=== PATIENT | male | born 1940 | race Caucasian/White ===

== ENCOUNTER 2018-05-31 09:08 | Day surgery (SDC) | payer OTHER, MEDICARE ==
[2018-05-29 14:50] VITALS: BMI 22.1
[2018-05-31] MEDS ORDERED: PROPOFOL 20 ML ONE (09:37)
[2018-05-31] MEDS ORDERED: MIDAZOLAM HCL 2 MG/2 ML SINGLE DOSE VIAL ONE (09:37)
[2018-05-31] MEDS ORDERED: ONDANSETRON 4 MG/2 ML VIAL ONE (09:38)
[2018-05-31] MEDS ORDERED: KETOROLAC TROMETHAMINE 30 MG/1 ML VIAL ONE (09:38)
[2018-05-31] MEDS ORDERED: LIDOCAINE HCL/PF 2% SDV 5ML VIAL ONE (09:38)
[2018-05-31] MEDS ORDERED: LIDOCAINE HCL 2% (20ML MULTI-DOSE VIAL) NR ONE (09:39)
[2018-05-31] MEDS ORDERED: ACETAMINOPHEN 325 MG TABLET (FP) PO PRN (10:48)
[2018-05-31] MEDS ORDERED: oxyCODONE HCL 5 MG TABLET PO PRN ×2 (10:48)
[2018-05-31] MEDS ORDERED: ONDANSETRON 4 MG/2 ML VIAL IVPUSH PRN (10:48)
--- NOTE | 2018-05-31 10:58 | OP ---
DATE OF OPERATION: 05/31/2018 PREOPERATIVE DIAGNOSIS: Right carpal tunnel syndrome. POSTOPERATIVE DIAGNOSIS: Right carpal tunnel syndrome. OPERATIVE PROCEDURE: Right carpal tunnel release. SURGEON: Edward Mckeon MD ANESTHESIA: Local sedation. COMPLICATIONS: None. ESTIMATED BLOOD LOSS: Minimal. INDICATION FOR PROCEDURE: The patient is a 77-year-old male with above findings indicated for operative treatment. Risks, benefits, and alternatives were discussed with patient at length. Proper informed consent was obtained. DESCRIPTION OF PROCEDURE: After proper identification of the patient and the correct operative site, patient was brought to the operating room and placed supine on the operating table. All bony prominences were well padded. Sedation was given by the anesthesiologist. Local anesthesia was given with 2% lidocaine. Right upper extremity was prepped and draped in usual sterile fashion. A well-padded tourniquet was placed over the sterile prep. Esmarch bandage was used to exsanguinate right upper quadrant. Tourniquet was inflated to 250 mmHg. A longitudinal incision was made over the proximal aspect of the palm. Incision was taken sharply through skin with blunt and sharp dissection through subcutaneous tissue. Palmar fascia was divided longitudinally. Transverse carpal ligament was divided longitudinally. This was done in conjunction with release of the distal 4 cm of the antebrachial fascia under direct visualization with loupe magnification. This provided complete release of the median nerve of the wrist. Wound was irrigated with saline and repaired with 5-0 nylon suture. Sterile dressings were applied. Patient was brought to the recovery room in stable condition. He tolerated the procedure well. Jen VALENTINE/[id number]
[2018-05-31] MEDS ORDERED: LACTATED RINGERS SOLUTION 1,000 ML IV SCH (11:00)
[2018-05-31 11:08] VITALS: BP 102/54; PULSE 52; TEMP 97.1
== END 2018-05-31 11:12 | disposition home or self-care (01) ==
LOC: FASU 09:08
PROVIDERS: ATTEND Orthopaedic Surgery Hand Surgery
PROC: 01N50ZZ Release Median Nerve, Open Approach (ICD-10-PCS; principal; 2018-05-31 10:12)
DX: G56.01 Carpal tunnel syndrome, right upper limb (principal)

== ENCOUNTER 2018-06-28 08:49 | Day surgery (SDC) | payer OTHER, MEDICARE ==
[2018-06-16 13:56] VITALS: BMI 22.1
[2018-06-28] MEDS ORDERED: SUCCINYLCHOLINE CHLORIDE 200 MG/10 ML VIAL ONE (10:21)
[2018-06-28] MEDS ORDERED: MIDAZOLAM HCL 2 MG/2 ML SINGLE DOSE VIAL ONE (10:21)
[2018-06-28] MEDS ORDERED: PROPOFOL 20 ML ONE (10:21)
[2018-06-28] MEDS ORDERED: ACETAMINOPHEN 325 MG TABLET (FP) PO PRN (11:40)
[2018-06-28] MEDS ORDERED: oxyCODONE HCL 5 MG TABLET PO PRN (11:40)
[2018-06-28] MEDS ORDERED: ONDANSETRON 4 MG/2 ML VIAL IVPUSH PRN (11:40)
[2018-06-28] MEDS ORDERED: LACTATED RINGERS SOLUTION 1,000 ML IV SCH (11:45)
[2018-06-28] MEDS ORDERED: BUPIVACAINE HCL/PF 0.5% (5MG/ML) 10 ML VIAL ONE (11:54)
[2018-06-28 12:43] VITALS: PULSE 52
[2018-06-28 13:23] VITALS: BP 122/60; TEMP 97.9
--- NOTE | 2018-07-03 12:39 | OP ---
DATE OF OPERATION: 06/28/2018 PREOPERATIVE DIAGNOSIS: Left carpal tunnel syndrome. POSTOPERATIVE DIAGNOSIS: Left carpal tunnel syndrome. OPERATIVE PROCEDURE: Left carpal tunnel release. SURGEON: Edward Hines MD ANESTHESIA: Local sedation. COMPLICATIONS: None. ESTIMATED BLOOD LOSS: Minimal. INDICATION FOR PROCEDURE: The patient is a 77-year-old male with above findings indicated for operative treatment. Risks, benefits, and alternatives were discussed with patient at length. Proper informed consent was obtained. DESCRIPTION OF PROCEDURE: After proper identification of the patient and the correct operative site, patient was brought to the operating room and placed supine on the operating table. All bony prominences were well padded. Sedation and local anesthesia were. Left upper extremity was prepped and draped in usual sterile fashion. A well-padded tourniquet was placed over the sterile prep. Esmarch bandage was used to exsanguinate right upper quadrant. Tourniquet was inflated to 250 mmHg. A longitudinal incision was made over the proximal aspect of the palm. Incision was taken sharply through skin with blunt and sharp dissection through subcutaneous tissue. Palmar fascia was divided longitudinally. Transverse carpal ligament was divided longitudinally along with distal 4 cm of the antebrachial fascia under direct visualization with loupe magnification. This provided complete release of the median nerve of the wrist. Wound was irrigated with saline and repaired with 5-0 nylon suture. Sterile dressings were applied. Patient was brought to the recovery room in stable condition. He tolerated the procedure well. EDWARD HINES M.D. NICOLE/[id number]
== END 2018-06-28 13:23 | disposition home or self-care (01) ==
LOC: FASU 08:49
PROVIDERS: ATTEND Orthopaedic Surgery Hand Surgery
PROC: 01N50ZZ Release Median Nerve, Open Approach (ICD-10-PCS; principal; 2018-06-28 10:30)
DX: G56.02 Carpal tunnel syndrome, left upper limb (principal)

== ENCOUNTER 2019-05-19 07:59 | Observation (INO) | payer MEDICARE, OTHER ==
[2019-05-19 08:12] VITALS: TEMP 98.1; BMI 25.6
[2019-05-19 09:04] LABS: BASO % 0.3 % (0-2.0); EOS % 1.2 % (0-4.5); HEMATOCRIT 35.9 % (35.4-49); HEMOGLOBIN 12.1 GM/dL (11.7-16.9); LYMPH % 19.2 % (8-40); MCH 30.3 pg (25.7-33.7); MCHC 33.6 g/dl (32.0-35.9); MEAN CELL VOLUME 90.1 fl (80-96); MEAN PLT VOLUME 9.1 fl (7.5-11.1); MONO % 8.4 % (3.8-10.2); NEUT % 70.9 % (42.8-82.8); PLATELET COUNT 227 K/MM3 (134-434); RBC 3.99 M/mm3 (4.00-5.60); WHITE BLOOD COUNT 9.9 K/mm3 (4.0-10.0)
[2019-05-19] MEDS ORDERED: ASPIRIN 325 MG TABLET PO ONE (09:21)
[2019-05-19 09:25] LABS: BILIRUBIN,TOTAL 0.3 mg/dL (0.2-1); BLOOD UREA NITROGEN 44.8 mg/dL (7-18); CALCIUM 8.1 mg/dL (8.5-10.1); CREATININE 0.9 mg/dL (0.55-1.3); POTASSIUM 4.9 mmol/L (3.5-5.1); TOT PROT 6.5 g/dl (6.4-8.2)
--- NOTE | 2019-05-19 09:31 | PDOC ---
Documentation entered by Aneta Landeros SCRIBE, acting as scribe for Darline Dickson MD. Darline Dickson MD: This documentation has been prepared by the Tigre munoz Adrianna, SCRIBE, under my direction and personally reviewed by me in its entirety. I confirm that the documentation accurately reflects all work, treatment, procedures, and medical decision making performed by me. Attending Attestation - Resident Resident Name: Trino White - ED Attending Attestation I have performed the following: I have examined & evaluated the patient, The case was reviewed & discussed with the resident, I agree w/resident's findings & plan, Exceptions are as noted - HPI HPI: 05/19/19 09:28 Finally went to get this 78-year-old male history of recently diagnosed dementia uncertain type per the patient CAD hypertension one prior stent 15 years ago. Presents today complaining of chest pain states it awoke him out of his sleep around 2 AM lasted for several hours. Describes as a muscle soreness or chest wall soreness however when he pushed on his chest he did not feel that it was reproducible. He did have similar feelings 1 month ago following a normal exercise routine and at that time felt it was muscular skeletal. States that his symptoms did remind him of his prior OR however he did not have the associated shortness of breath. Patient has noticed increased leg swelling over the last few days denies exertional dyspnea or shortness of breath. But did have associated diaphoresis this episode of chest pain. 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 Patient states he has been sleeping sitting up recently simply because he does not have a bed but denies any orthopnea or nocturnal dyspnea was given aspirin 325 by ambulance - Physicial Exam PE: 05/19/19 09:29 Awake alert no acute distress lungs are clear mild decreased breath sounds at the bases. No wheezes no crackles heart is regular with any murmurs rubs or gallops. Abdomen is soft and nontender extremities are noted for bilateral peripheral edema 2+ with pitting up to the mid williamson symmetric pulses 2+ bilaterally neurologically patient is awake alert oriented x3. Does have difficulty with remembering certain words and is easily distracted when answering questions - Medical Decision Making 05/19/19 09:30 78-year-old male history of dementia hypertension CAD here today complaining of peripheral edema and chest pain with associated diaphoresis. Patient is high risk for recurrent OR plan CBC CMP chest x-ray EKG was already given aspirin. Chest x-ray to rule out pleural effusion or CHF differential includes renal failure liver abnormalities patient will likely require admission to telemetry overnight rule out ACS Heart Score/ECG Review #1 General ECG Interpretation: Sinus Rhythm, Normal Rate, Normal Intervals, No acute ischemic changes Compared to previous ECG there are: Other (TWI III, AVF)
--- NOTE | 2019-05-19 09:35 | PDOC ---
History of Present Illness - General Chief Complaint: Chest Pain Stated Complaint: CHEST PAIN Time Seen by Provider: 05/19/19 08:04 - History of Present Illness Initial Comments: 05/19/19 09:22 This is a 78 year old male with PMH significant for HTN, RLS, Essential tremors , and dementia. He now presents with complaints of diffuse chest discomfort that he noticed when he woke up at 3AM. He denies pain and states that it is more of a tightness, rated 2/10 in intensity, constant, non-radiating, unrelated to exertion or breathing, with no tenderness to palpation, and no aggravating or alleviating factors. He also noticed B/L edema in lower extremities, which he states began this morning. He had a PCI with 1 stent palced 15 years ago at [facility], and states that the pain he had at that time was worse that what he is experiencing now.He denies any associated SOB, palpitations, nausea, vomiting, diarrhea, headaches, dizziness, recent illnesses , or recent medication changes. He takes Sildenafil, Mirapax, and medication for his HTN (does not recall name) and is not currently on any anticoagulants. He has had an occasional dry cough for months, as well as constipation, polyuria and urinary urgency for years. He was recently diagnosed with some form of dementia, but does not know what kind. He has smoked marijuana for the past 60 years, and currently smokes approximately 2x a week. Denies smoking, drinking alochol, or any other drug use. No family history of cardiac disease. Past History - Past Medical History Allergies/Adverse Reactions: Allergies Allergy/AdvReac Type Severity Reaction Status Date / Time walnut Allergy Intermediate Swelling Verified 06/28/18 12:03 walnuts Allergy Intermediate Swelling Uncoded 06/28/18 09:20 Home Medications: Ambulatory Orders Nebivolol [Bystolic -] 5 mg PO HS 05/29/18 Pramipexole Di-HCl [Mirapex] 1 mg PO HS 05/29/18 Primidone [Mysoline -] 50 mg PO HS 05/29/18 Silodosin [Rapaflo] 8 mg PO HS 05/29/18 Anemia: No Asthma: No Cancer: No Cardiac Disorders: Yes (s/p CO 2001) CVA: No COPD: No CHF: No Dementia: No Diabetes: No GI Disorders: Yes (BPH) Disorders: No HTN: Yes Hypercholesterolemia: Yes Liver Disease: No Seizures: No Thyroid Disease: No - Surgical History Abdominal Surgery: No Appendectomy: No Cardiac Surgery: No Cholecystectomy: No Lung Surgery: No Neurologic Surgery: No Orthopedic Surgery: Yes (Back surgery x2,Rightr Bicep Tendon Repair) - Immunization History Immunization Up to Date: No - Psycho Social/Smoking Cessation Hx Smoking History: Former smoker Have you smoked in the past 12 months: No If you are a former smoker, when did you quit?: 1974 Information on smoking cessation initiated: No Hx Alcohol Use: No Drug/Substance Use Hx: No Substance Use Type: None Hx Substance Use Treatment: No Review of Systems - Review of Systems Constitutional: No: Symptoms Reported, See HPI, Chills, Diaphoresis, Fever, Loss of Appetite, Malaise, Night Sweats, Weakness, Weight Stable, Unintentional Wgt. Loss, Unexplained wgt Loss, Other HEENTM: No: Symptoms Reported, See HPI, Eye Pain, Blurred Vision, Tearing, Recent change in vision, Double Vision, Cataracts, Ear Pain, Ocular Prothesis, Ear Discharge, Nose Pain, Nose Congestion, Tinnitus, Nose Bleeding, Hearing Loss , Throat Pain, Throat Swelling, Mouth Pain, Dental Problems, Difficulty Swallowing, Mouth Swelling, Other Respiratory: Yes: Cough. No: Symptoms reported, See HPI, Orthopnea, Shortness of Breath, SOB with Exertion, SOB at Rest, Stridor, Wheezing, Productive cough, Hemoptysis, Other Cardiac (ROS): Yes: Chest Tightness. No: Symptoms Reported, See HPI, Chest Pain , Edema, Irregular Heart Rate, Lightheadedness, Palpitations, Syncope, Other ABD/GI: Yes: Constipated. No: Symptoms Reported, See HPI, Abdominal Distended, Abd. Pain w/ defecation, Blood Streaked Bowels, Diarrhea, Difficulty Swallowing , Nausea, Poor Appetite, Poor Fluid Intake, Rectal Bleeding, Vomiting, Indigestion, Abdominal cramping, Tarry Stools, Other : Yes: Frequency, Urgency. No: Symptoms Reported, See HPI, Burning, Dysuria, Discharge, Flank Pain, Hematuria, Incontinence, Pain, Testicular Mass, Testicular Swelling, Lesions, Testicular Pain, Other Musculoskeletal: No: Symptoms Reported, See HPI, Back Pain, Gout, Joint Pain, Joint Swelling, Muscle Pain, Muscle Weakness, Neck Pain, Joint Stiffness, Other Neurological: No: Symptoms reported, See HPI, Headache, Numbness, Paresthesia, Pre-Existing Deficit, Seizure, Tingling, Tremors, Weakness, Unsteady Gait, Ataxia, Dizziness, Other Psychiatric: No: Anxiety, Depression, Frequent Crying, Stressors, Sleep Pattern Change, Emotional Problems, Mood Swings, Change in Appetite, Other *Physical Exam - Vital Signs Last Vital Signs Temp Pulse Resp BP Pulse Ox 98.1 F 62 18 133/70 97 05/19/19 08:06 05/19/19 08:06 05/19/19 08:06 05/19/19 08:06 05/19/19 08:06 - Physical Exam Comments:: 05/19/19 09:38 General: AOx3, lying comfortable in bed, pleasant and cooperative Eyes: ROSANNA, EOM intact Oropharynx: Normal mucosa, no lesions Lungs: Clear B/L CVS: RRR, no murmurs GI: Soft, non tender, non distended, normoactive bowel sounds Extremities: 2+ pitting edema, no erythema, no calf tenderness Neuro: Motor 5/5 B/L, sensations intact Heart Score/ECG Review - Age Age: </= 45 - Risk Factors Risk Factors Heart Score: Yes Hx Hypertension Based on the list above the patient has:: 1-2 risk factors - ECG Intrepretation Comment:: 05/19/19 09:39 Regular rate and rhythm, TWI in Lead III, no ST changes ED Treatment Course - LABORATORY CBC & Chemistry Diagram: 05/19/19 12:15 05/19/19 07:40 - ADDITIONAL ORDERS Additional order review: 05/19/19 07:40 RBC 3.99 L MCV 90.1 MCHC 33.6 RDW 14.0 MPV 9.1 Neutrophils % 70.9 Lymphocytes % 19.2 Monocytes % 8.4 Eosinophils % 1.2 Basophils % 0.3 - RADIOLOGY Radiology Studies Ordered: Category Date Time Status CHEST X-RAY PORTABLE* [RAD] AM Radiology 05/20/19 06:00 Ordered Medical Decision Making - Medical Decision Making 05/19/19 09:40 78 male with diffuse chest tightness and TWI on lead III, and sudden onset B/L LE edema. - Will r/o ACS vs CHF exacerbation, PE unlikely due to B/L swelling and lack of SOB, tachypnea, tachycardia. - CBC, CMP - Mg - BNP - Trop - CXR - ASA 324 - Wll contact PCP Dr. Vickey Shay to get mroe details about patient's dementia diagnosis 05/19/19 09:48 - Trop negative - BUN 44.8, Cr 0.9 05/19/19 10:[address] Shay: - HbA1c 6.3 3 weeks ago - CMP 3 weeks ago showed BUN/Cr 26/0.9 (44.8/0.9 now) - Denies any history of CHF or leg swelling - Diagnosed with mild Alzheimer's - Had gross hematuria few months ago, is being worked up by Dr. Clark 05/19/19 11:45 - Will admit. Patient signed out to Drs. Cullen and Breanne Discharge - Discharge Information Problems reviewed: Yes Clinical Impression/Diagnosis: Chest tightness, Edema, lower extremity Condition: Guarded - Admission Yes - Follow up/Referral - Patient Discharge Instructions - Post Discharge Activity
[2019-05-19 09:37] LABS: INR 1.08 (0.83-1.09); PROTHROMBIN TIME (PATIENT) 12.8 SEC (9.7-13.0)
[2019-05-19 09:40] LABS: ACTIVATED PTT 31.3 SECONDS (25.2-36.5)
[2019-05-19 10:10] LABS: MAGNESIUM 2.4 mg/dL (1.8-2.4); N-TERMINAL BNP 563.8 pg/ml (5-450)
[2019-05-19] MEDS ORDERED: PRAMIPEXOLE DIHYDROCHLORIDE 1 MG TABLET PO ONE (10:33)
--- NOTE | 2019-05-19 11:49 | CON.CARD ---
Consult Consult Specialty:: Cardiology Referred by:: Medicine Reason for Consultation:: chest tightness - History of Present Illness Chief Complaint: chest tightness History of Present Illness: 78M h/o HTN, RLS, tremor, dementia, CAD s/p stent 15 years ago p/w chest discomfort. Started overnight around 3 AM, felt tight, nonradiating. no dyspnea , palps, dizziness. Nonreproducible. Noticed lower ext edema this morning also. Currently no chest pain, palps, dizziness, dyspnea - Alcohol/Substance Use Hx Alcohol Use: No - Smoking History Smoking history: Former smoker Have you smoked in the past 12 months: No If you are a former smoker, when did you quit?: 1974 Home Medications - Allergies Allergies/Adverse Reactions: Allergies Allergy/AdvReac Type Severity Reaction Status Date / Time walnut Allergy Intermediate Swelling Verified 06/28/18 12:03 walnuts Allergy Intermediate Swelling Uncoded 06/28/18 09:20 - Home Medications Home Medications: Ambulatory Orders Nebivolol [Bystolic -] 5 mg PO HS 05/29/18 Pramipexole Di-HCl [Mirapex] 1 mg PO HS 05/29/18 Primidone [Mysoline -] 50 mg PO HS 05/29/18 Silodosin [Rapaflo] 8 mg PO HS 05/29/18 Family Medical History Family History: Unremarkable Review of Systems - Review of Systems Constitutional: reports: No Symptoms Eyes: reports: No Symptoms HENT: reports: No Symptoms Neck: reports: No Symptoms Cardiovascular: reports: No Symptoms Respiratory: reports: No Symptoms Gastrointestinal: reports: No Symptoms Genitourinary: reports: No Symptoms Musculoskeletal: reports: No Symptoms Integumentary: reports: No Symptoms Neurological: reports: No Symptoms Endocrine: reports: No Symptoms Hematology/Lymphatic: reports: No Symptoms Psychiatric: reports: No Symptoms Vital Signs: Vital Signs Temperature 98.1 F 05/19/19 08:06 Pulse Rate 62 05/19/19 08:06 Respiratory Rate 18 05/19/19 08:06 Blood Pressure 133/70 05/19/19 08:06 O2 Sat by Pulse Oximetry (%) 97 05/19/19 08:06 Constitutional: Yes: No Distress, Calm Eyes: Yes: Conjunctiva Clear, EOM Intact HENT: Yes: Atraumatic, Normocephalic Neck: Yes: Supple, Trachea Midline Respiratory: Yes: Regular, CTA Bilaterally Gastrointestinal: Yes: Normal Bowel Sounds, Soft Cardiovascular: Yes: Regular Rate and Rhythm JVD: No Edema: Yes Edema: LLE: Trace, RLE: Trace Integumentary: No: Jaundice Neurological: Yes: Alert, Oriented Psychiatric: No: Agitated - Other Data Labs, Other Data: CBC, BMP 05/19/19 07:40 05/19/19 07:40 INR, PTT INR 1.08 (0.83-1.09) 05/19/19 07:40 Troponin, BNP 05/19/19 05/19/19 07:40 07:40 Troponin I < 0.02 B-Natriuretic Peptide 563.8 H Troponin, BNP 05/19/19 05/19/19 07:40 07:40 Troponin I < 0.02 B-Natriuretic Peptide 563.8 H Assessment/Plan EKG: sinus xenia, no ischemic changes CXR: no congestion tele: sinus Chest pain, history of CAD - not on aspirin at home, start aspirin 81 mg daily - trop neg x 1, EKG no ischemic changes - trend trop, monitor on tele, less likely ACS - BNP >500, trace edema this AM, however no dyspnea, orthopnea, CXR no congestion. hold diuretic for now - echo ordered - cont bystolic - not on statin due to prior intolerance HTN - cont bystolic dementia, tremors - manage per primary
[2019-05-19] MEDS ORDERED: NEBIVOLOL 5 MG TABLET (FP) PO SCH ×2 (12:00→22:00)
[2019-05-19 12:32] LABS: BASO % 0.5 % (0-2.0); EOS % 0.8 % (0-4.5); HEMOGLOBIN 13.1 GM/dL (11.7-16.9); LYMPH % 21.4 % (8-40); MCH 29.9 pg (25.7-33.7); MCHC 32.7 g/dl (32.0-35.9); MEAN CELL VOLUME 91.4 fl (80-96); MEAN PLT VOLUME 9.3 fl (7.5-11.1); MONO % 7.8 % (3.8-10.2); NEUT % 69.5 % (42.8-82.8); PLATELET COUNT 247 K/MM3 (134-434); RBC 4.37 M/mm3 (4.00-5.60); RDW 14.2 % (11.9-15.9); WHITE BLOOD COUNT 11.5 K/mm3 (4.0-10.0)
--- NOTE | 2019-05-19 14:55 | EKG ---
Test Reason : Blood Pressure : / mmHG Vent. Rate : 057 BPM Atrial Rate : 057 BPM P-R Int : 168 ms QRS Dur : 084 ms QT Int : 428 ms P-R-T Axes : 036 001 005 degrees QTc Int : 416 ms SINUS BRADYCARDIA POSSIBLE LEFT ATRIAL ENLARGEMENT BORDERLINE ECG NO PREVIOUS ECGS AVAILABLE Confirmed by Altagracia Moreno ([id number]) on 05/19/2019 2:55:37 PM Referred By: Confirmed By:Altagracia Moreno
--- NOTE | 2019-05-19 15:01 | HP ---
CHIEF COMPLAINT: B/L LE Edema PCP: Dr. Vickey Shay HISTORY OF PRESENT ILLNESS: 78 y/o M with PMHx CAD (s/p stent x1), HTN, Restless leg syndrome, Alzheimers Dementia, Skin Ca (Unclear which type however had excision) presents with lower extremity edema accompanied by chest pain. Patient has recently moved to the area and has not seen his Cardio in some time. He mentions waking early this AM with suddent onsent b/l LE edema. This was accompanied by a 2/10 diffuse chest discomfort that was constant, without radiation. He is unable to identify any triggerring or relieving factors but endorse it was not related to exertion or breathing. He has previously had a similar chest discomfort that was reproducible with palpation however todays pain was not prompting him to visit the ED. During my interview patient said the chest pain had resolved. Patient recently had an episode of gross hematuria for which he follows with Dr. Clark. Denies any associated fevers, chills, SOB, palpitations, nausea, vomiting, diarrhea, constipation, dizziness. Denies any recent sick contacts, travel or recent medication changes. ER course was notable for: (1) (2) (3) Recent Travel: Denies PAST MEDICAL HISTORY: As above PAST SURGICAL HISTORY: Cardiac Stent x 1, Tonsillectomy, Spine sx X 2 Social History: Smoking: Smoke Marijuana currently, Smoked tobacco from ages [age] Alcohol: Denies Drugs: Smokes Marijuana, uses CBD oil Allergies walnut Allergy (Intermediate, Verified 06/28/18 12:03) Swelling walnuts Allergy (Intermediate, Uncoded 06/28/18 09:20) Swelling HOME MEDICATIONS: Home Medications Medication Instructions Recorded Nebivolol [Bystolic -] 5 mg PO HS 05/29/18 Pramipexole Di-HCl [Mirapex] 1 mg PO HS 05/29/18 Primidone [Mysoline -] 50 mg PO HS 05/29/18 Silodosin [Rapaflo] 8 mg PO HS 05/29/18 REVIEW OF SYSTEMS As above PHYSICAL EXAMINATION Vital Signs - 24 hr 05/19/19 08:06 Temperature 98.1 F Pulse Rate 62 Respiratory 18 Rate Blood Pressure 133/70 O2 Sat by Pulse 97 Oximetry (%) GENERAL: A&Ox3, NAD HEAD: NCAT EYES: PERRL, EOMI ENT: Moist mucous membranes. NECK: Supple, No JVD LUNGS: CTAB. No wheezes, no crackles. HEART: Regular rate and rhythm, normal S1 and S2 without murmur ABDOMEN: Soft, nontender, not distended, + bowel sounds, no guarding, no rebound EXTREMITIES: 1+ edema. NEUROLOGICAL: Cranial nerves II-XII intact. SKIN: Warm, dry Laboratory Results - last 24 hr 05/19/19 05/19/19 05/19/19 07:40 07:40 07:40 WBC 9.9 RBC 3.99 L Hgb 12.1 Hct 35.9 MCV 90.1 MCH 30.3 MCHC 33.6 RDW 14.0 Plt Count 227 MPV 9.1 Absolute Neuts (auto) 7.0 Neutrophils % 70.9 Lymphocytes % 19.2 Monocytes % 8.4 Eosinophils % 1.2 Basophils % 0.3 Nucleated RBC % 0 PT with INR 12.80 INR 1.08 PTT (Actin FS) 31.3 Sodium 138 Potassium 4.9 Chloride 106 Carbon Dioxide 24 Anion Gap 8 BUN 44.8 H Creatinine 0.9 Est GFR (CKD-EPI)AfAm 95.15 Est GFR (CKD-EPI)NonAf 82.09 Random Glucose 117 H Calcium 8.1 L Magnesium 2.4 Total Bilirubin 0.3 AST 36 ALT 40 Alkaline Phosphatase 61 Creatine Kinase Creatine Kinase Index CK-MB (CK-2) Troponin I B-Natriuretic Peptide 563.8 H Total Protein 6.5 Albumin 3.0 L 05/19/19 05/19/19 07:40 12:15 WBC 11.5 H RBC 4.37 Hgb 13.1 Hct 40.0 MCV 91.4 MCH 29.9 MCHC 32.7 RDW 14.2 Plt Count 247 MPV 9.3 Absolute Neuts (auto) 8.0 Neutrophils % 69.5 Lymphocytes % 21.4 Monocytes % 7.8 Eosinophils % 0.8 Basophils % 0.5 Nucleated RBC % 0 PT with INR INR PTT (Actin FS) Sodium Potassium Chloride Carbon Dioxide Anion Gap BUN Creatinine Est GFR (CKD-EPI)AfAm Est GFR (CKD-EPI)NonAf Random Glucose Calcium Magnesium Total Bilirubin AST ALT Alkaline Phosphatase Creatine Kinase 205 Creatine Kinase Index 1.1 CK-MB (CK-2) 2.4 Troponin I < 0.02 B-Natriuretic Peptide Total Protein Albumin Active Medications Aspirin (Asa -) 81 mg PO DAILY KIRA Nebivolol (Bystolic -) 5 mg PO DAILY KIRA Non-Formulary Medication (Silodosin [Rapaflo]) 8 mg PO HS KIRA Pramipexole Dihydrochloride (Mirapex -) 1 mg PO HS KIRA Primidone (Mysoline -) 50 mg PO HS KIRA ASSESSMENT/PLAN: 78 y/o M with PMHx CAD (s/p stent x1), HTN, Restless leg syndrome, Alzheimers Dementia, Skin Ca (Unclear which type however had excision) presents with lower extremity edema accompanied by chest pain. #Chest Discomfort -Less likely ACS however will r/o in the setting of CAD hx -B/L LE edema + slightly elevated BNP however less likely Acute CHF exacerbation given no Orthopnea, decreased exercise tolerance and no JVD or crackles and CXR without b/l effusions -Trop < 0.02 x 1, trend -EKG: Sinus bradycardia, VR 57, QTc 416 -Cardio (Dr. Ribeiro) Consulted, appreciate rec's, will hold diuresis -Given 325mg ASA in ED; Continue on 81 daily -Echo -Will reach out to [facility] and PCP to obtain records -Will discuss with cardio if patient would benefit from ACEi. Not on statin bc not tolerated previously #HTN -Continue home dose Bystolic #Alzheimers Dementia -Continue home meds #FEN -No standing fluids -Replete lytes PRN -Sodium Controlled diet #PPx -DVT: SCDs Dispo: Tele-Obs Visit type - Emergency Visit Emergency Visit: Yes ED Registration Date: 05/19/19 Care time: The patient presented to the Emergency Department on the above date and was hospitalized for further evaluation of their emergent condition. - New Patient This patient is new to me today: Yes Date on this admission: 05/19/19 - Critical Care Critical Care patient: No ATTENDING PHYSICIAN STATEMENT I saw and evaluated the patient. I reviewed the resident's note and discussed the case with the resident. I agree with the resident's findings and plan as documented. SUBJECTIVE: OBJECTIVE: ASSESSMENT AND PLAN:
--- NOTE | 2019-05-19 15:30 | PN ---
Teaching Attending Note Name of Resident: Mya Cullen ATTENDING PHYSICIAN STATEMENT I saw and evaluated the patient. I reviewed the resident's note and discussed the case with the resident. I agree with the resident's findings and plan as documented with exceptions below. SUBJECTIVE: 78 yom with PMhx of CAD (s/p reported PCI x1 15 years ago), HTN, Restless leg syndrome, Alzheimers Dementia, Skin Ca (Unclear which type however had excision) , BPH/recent hematuria reports waking up around 3 Am today with swelling of both legs, inability to fit shoes followed by generalized chest discomfort, prompting him to come to the ED. Chest pain resolved after ASA 325 mg in the ED. Denies any recent fevers, chills, orthopnea, PND, weight gain, new cough, abdominal or urinary symptoms or recent h/o exertional chest pain or dyspnea. Currently no pain or concerns. OBJECTIVE: Vital Signs Period Temp Pulse Resp BP Sys/Townsend Pulse Ox Last 24 Hr 98.1 F 62 18 133/70 97 Intake & Output 05/16/19 05/17/19 05/18/19 05/19/19 23:59 23:59 23:59 23:59 Weight 140 lb GENERAL: Awake, alert, and fully oriented, in no acute distress. HEAD: Normal with no signs of trauma. EYES: Pupils equal, round and reactive to light, extraocular movements intact, sclera anicteric, conjunctiva clear. No lid lag. EARS, NOSE, THROAT: Ears normal, nares patent, oropharynx clear without exudates. Moist mucous membranes. NECK: Normal range of motion, supple, no JVD or neck vein distension LUNGS: Breath sounds equal, clear to auscultation bilaterally. No wheezes, and no crackles. No accessory muscle use. HEART: Regular rate and rhythm, normal S1 and S2 ABDOMEN: Soft, nontender, not distended, normoactive bowel sounds, no guarding, no rebound, no masses. No hepatomegaly or splenomegaly appreciated. MUSCULOSKELETAL: Normal range of motion at all joints. No bony deformities or tenderness. No CVA tenderness. UPPER EXTREMITIES: 2+ pulses, warm, well-perfused. No cyanosis. No clubbing. No peripheral edema. LOWER EXTREMITIES: 2+ lower extremity pitting edema, pos pules, no warmth/ erythema or tenderness noted, neg Jose's sign NEUROLOGICAL: AA, oriented to self, place, facial symmetry, speech normal, Cranial nerves II-XII intact. gait not observed PSYCHIATRIC: Cooperative. Good eye contact. Appropriate mood and affect. SKIN: Warm, dry, normal turgor, no rashes or lesions noted, normal capillary refill. Home Medications Medication Instructions Recorded Nebivolol [Bystolic -] 5 mg PO HS 05/29/18 Pramipexole Di-HCl [Mirapex] 1 mg PO HS 05/29/18 Primidone [Mysoline -] 50 mg PO HS 05/29/18 Silodosin [Rapaflo] 8 mg PO HS 05/29/18 Active Medications Aspirin (Asa -) 81 mg PO DAILY KIRA Nebivolol (Bystolic -) 5 mg PO DAILY KIRA Non-Formulary Medication (Silodosin [Rapaflo]) 8 mg PO HS KIRA Pramipexole Dihydrochloride (Mirapex -) 1 mg PO HS KIRA Primidone (Mysoline -) 50 mg PO HS [facility] Laboratory Results - last 24 hr 05/19/19 05/19/19 05/19/19 07:40 07:40 07:40 WBC 9.9 RBC 3.99 L Hgb 12.1 Hct 35.9 MCV 90.1 MCH 30.3 MCHC 33.6 RDW 14.0 Plt Count 227 MPV 9.1 Absolute Neuts (auto) 7.0 Neutrophils % 70.9 Lymphocytes % 19.2 Monocytes % 8.4 Eosinophils % 1.2 Basophils % 0.3 Nucleated RBC % 0 PT with INR 12.80 INR 1.08 PTT (Actin FS) 31.3 Sodium 138 Potassium 4.9 Chloride 106 Carbon Dioxide 24 Anion Gap 8 BUN 44.8 H Creatinine 0.9 Est GFR (CKD-EPI)AfAm 95.15 Est GFR (CKD-EPI)NonAf 82.09 Random Glucose 117 H Calcium 8.1 L Magnesium 2.4 Total Bilirubin 0.3 AST 36 ALT 40 Alkaline Phosphatase 61 Creatine Kinase Creatine Kinase Index CK-MB (CK-2) Troponin I B-Natriuretic Peptide 563.8 H Total Protein 6.5 Albumin 3.0 L 05/19/19 05/19/19 07:40 12:15 WBC 11.5 H RBC 4.37 Hgb 13.1 Hct 40.0 MCV 91.4 MCH 29.9 MCHC 32.7 RDW 14.2 Plt Count 247 MPV 9.3 Absolute Neuts (auto) 8.0 Neutrophils % 69.5 Lymphocytes % 21.4 Monocytes % 7.8 Eosinophils % 0.8 Basophils % 0.5 Nucleated RBC % 0 PT with INR INR PTT (Actin FS) Sodium Potassium Chloride Carbon Dioxide Anion Gap BUN Creatinine Est GFR (CKD-EPI)AfAm Est GFR (CKD-EPI)NonAf Random Glucose Calcium Magnesium Total Bilirubin AST ALT Alkaline Phosphatase Creatine Kinase 205 Creatine Kinase Index 1.1 CK-MB (CK-2) 2.4 Troponin I < 0.02 B-Natriuretic Peptide Total Protein Albumin CXR results and images reviewed, no acute process, promnent aortic knuckle EKG NSR, T inversion in III, v1 ASSESSMENT AND PLAN: 78 yom with PMHx of CAD (s/p reported PCI x1 15 years ago), HTN, Restless leg syndrome, Alzheimers Dementia, Skin Ca (Unclear which type however had excision) , BPH/recent hematuria admitted with an episode of chest pain and LE edema -Chest pain -LE edema -CAD s/p reported PCI 15 years ago -HTN -Restless Leg Syndrome -Alzheimer's dementia -Reported Skin Ca -BPH/recent hematuria Plan: Cardiology input noted. telemetry, r/o ACS, 2D echo ASA, bystolic. Reports taken off crestor given severe muscle cramps. Check lipid panel. Clinically does not look in CHF. Hold off on lasix. DVTPPX lovenox Dispo admit to telemetry obs Discussed with patient, care co-ordinated with ED/cardiology total admit time 55 min .
[2019-05-19 16:14] VITALS: BP 119/67; PULSE 64
--- NOTE | 2019-05-19 17:12 | DS ---
Physical Exam: SUBJECTIVE: Patient seen and examined, Please refer to [facility]. OBJECTIVE: Vital Signs Period Temp Pulse Resp BP Sys/Townsend Pulse Ox Last 24 Hr 98.1 F 62-64 18-20 119-133/67-70 97-97 PHYSICAL EXAM Please refer to [facility] Laboratory Results - last 24 hr 05/19/19 05/19/19 05/19/19 07:40 07:40 07:40 WBC 9.9 RBC 3.99 L Hgb 12.1 Hct 35.9 MCV 90.1 MCH 30.3 MCHC 33.6 RDW 14.0 Plt Count 227 MPV 9.1 Absolute Neuts (auto) 7.0 Neutrophils % 70.9 Lymphocytes % 19.2 Monocytes % 8.4 Eosinophils % 1.2 Basophils % 0.3 Nucleated RBC % 0 PT with INR 12.80 INR 1.08 PTT (Actin FS) 31.3 Sodium 138 Potassium 4.9 Chloride 106 Carbon Dioxide 24 Anion Gap 8 BUN 44.8 H Creatinine 0.9 Est GFR (CKD-EPI)AfAm 95.15 Est GFR (CKD-EPI)NonAf 82.09 Random Glucose 117 H Calcium 8.1 L Magnesium 2.4 Total Bilirubin 0.3 AST 36 ALT 40 Alkaline Phosphatase 61 Creatine Kinase Creatine Kinase Index CK-MB (CK-2) Troponin I B-Natriuretic Peptide 563.8 H Total Protein 6.5 Albumin 3.0 L 05/19/19 05/19/19 07:40 12:15 WBC 11.5 H RBC 4.37 Hgb 13.1 Hct 40.0 MCV 91.4 MCH 29.9 MCHC 32.7 RDW 14.2 Plt Count 247 MPV 9.3 Absolute Neuts (auto) 8.0 Neutrophils % 69.5 Lymphocytes % 21.4 Monocytes % 7.8 Eosinophils % 0.8 Basophils % 0.5 Nucleated RBC % 0 PT with INR INR PTT (Actin FS) Sodium Potassium Chloride Carbon Dioxide Anion Gap BUN Creatinine Est GFR (CKD-EPI)AfAm Est GFR (CKD-EPI)NonAf Random Glucose Calcium Magnesium Total Bilirubin AST ALT Alkaline Phosphatase Creatine Kinase 205 Creatine Kinase Index 1.1 CK-MB (CK-2) 2.4 Troponin I < 0.02 B-Natriuretic Peptide Total Protein Albumin HOSPITAL COURSE: Date of Admission:05/19/19 Date of Discharge: 05/19/19 78 y/o M with PMHx CAD (s/p stent x1), HTN, Restless leg syndrome, Alzheimers Dementia, Skin Ca (Unclear which type however had excision) presents with lower extremity edema accompanied by chest pain. Patient was admitted to [facility] to r/o ACS. Labwork noted above. Cardiology was consulted and recommended daily ASA, Echo and trending trop. Patients home meds were continued. Shortly after admission, patient requested to leave AMA. He denied any chest pain or SOB and believed he would not benefit from inpatient stay. Patient understood the risks of leaving which included , [place], worsening cardiopulmonary function. Patient left AMA after being given return precautions and was advised to follow up with his PCP, Cardio. Minutes to complete discharge: 35 Discharge Summary Problems reviewed: Yes Reason For Visit: CHEST PAIN Current Active Problems Chest tightness (Acute) Edema, lower extremity (Acute) Condition: Guarded - Instructions Referrals: ON STAFF,NOT [Primary Care Provider] - - Home Medications Comprehensive Discharge Medication List: Ambulatory Orders Nebivolol [Bystolic -] 5 mg PO HS 05/29/18 Pramipexole Di-HCl [Mirapex] 1 mg PO HS 05/29/18 Primidone [Mysoline -] 50 mg PO HS 05/29/18 Silodosin [Rapaflo] 8 mg PO HS 05/29/18 This patient is new to me today: Yes Date on this admission: 05/19/19 Emergency Visit: Yes ED Registration Date: 05/19/19 Care time: The patient presented to the Emergency Department on the above date and was hospitalized for further evaluation of their emergent condition. Critical Care patient: No - Discharge Referral Referred to [facility] Med P.C.: No ATTENDING PHYSICIAN STATEMENT I saw and evaluated the patient. I reviewed the resident's note and discussed the case with the resident. I agree with the resident's findings and plan as documented. SUBJECTIVE: OBJECTIVE: ASSESSMENT AND PLAN:
[2019-05-19] MEDS ORDERED: PRIMIDONE 50 MG TABLET PO SCH (22:00)
[2019-05-19] MEDS ORDERED: PATIENT'S OWN MEDICATION (NON-FORMULARY) (Silodosin [Rapaflo] 8 MG) PO SCH (22:00)
[2019-05-19] MEDS ORDERED: PRAMIPEXOLE DIHYDROCHLORIDE 1 MG TABLET PO SCH (22:00)
[2019-05-19] MEDS ORDERED: TAMSULOSIN HCL 0.4 MG CAP PO SCH (22:00)
[2019-05-20] MEDS ORDERED: ASPIRIN 81 MG CHEWABLE TABLETS PO SCH (10:00)
== END 2019-05-19 16:34 | disposition left against medical advice (07) ==
LOC: JER 07:59 → JERBED 10:42
PROVIDERS: ADMIT Hospitalist; ATTEND Hospitalist
DX: R07.89 Other chest pain (principal); R60.0 Localized edema; I10 Essential (primary) hypertension; I25.10 Atherosclerotic heart disease of native coronary artery without angina pectoris; I25.2 Old myocardial infarction; G30.9 Alzheimer's disease, unspecified; F02.80 Dementia in other diseases classified elsewhere, unspecified severity, without behavioral disturbance, psychotic disturbance, mood disturbance, and anxiety; G25.81 Restless legs syndrome; G25.0 Essential tremor; N40.0 Benign prostatic hyperplasia without lower urinary tract symptoms; E78.00 Pure hypercholesterolemia, unspecified; Z85.828 Personal history of other malignant neoplasm of skin; Z95.5 Presence of coronary angioplasty implant and graft; Z91.018 Allergy to other foods; Z87.891 Personal history of nicotine dependence
CPT/HCPCS: 36415; 71046-TC-FY; 80053; 82550; 82553; 83735; 83880; 84484; 85025; 85610; 85730; 93005; 93010; 99285-25; G0378

== ENCOUNTER 2020-05-27 21:08 | Inpatient (IN) | payer OTHER ==
--- OUTSIDE RECORDS SUMMARY | 2020-05-27 21:26 | XMS ---
:1940 Author Organization [facility] Care Team Providers Name Role Phone MD Donna Unavailable Unavailable ED STAFF PHYSICIAN Unavailable Unavailable Samuel Neil MD Unavailable Unavailable Samuel Neil MD Unavailable Unavailable Samuel Neil MD Unavailable Unavailable Samuel Neil MD Unavailable Unavailable MD David Unavailable Unavailable Abolahrari Unavailable Unavailable Abolahrari Unavailable Unavailable Abolahrari Unavailable Unavailable Abolahrari Unavailable Unavailable Abolahrari Unavailable Unavailable Other Unavailable Unavailable John Unavailable Unavailable John Unavailable Unavailable John Unavailable Unavailable John Unavailable Unavailable John Unavailable Unavailable John Unavailable Unavailable John Unavailable Unavailable John Unavailable Unavailable John Unavailable Unavailable John Unavailable Unavailable John Unavailable Unavailable John Unavailable Unavailable John Unavailable Unavailable John Unavailable Unavailable John Unavailable Unavailable MD Patrick Unavailable Unavailable MD Edison Unavailable Unavailable Re-disclosure Warning The records that you are about to access may contain information from federally- assisted alcohol or drug abuse programs. If such information is present, then the following federally mandated warning applies: This information has been disclosed to you from records protected by federal confidentiality rules (42 CFR part 2). The federal rules prohibit you from making any further disclosure of this information unless further disclosure is expressly permitted by the written consent of the person to whom it pertains or as otherwise permitted by 42 CFR part 2. A general authorization for the release of medical or other information is NOT sufficient for this purpose. The Federal rules restrict any use of the information to criminally investigate or prosecute any alcohol or drug abuse patient.The records that you are about to access may contain highly sensitive health information, the redisclosure of which is protected by Article 27-F of the [facility] Public Health law. If you continue you may haveaccess to information: Regarding HIV / AIDS; Provided by facilities licensed or operated by the [facility] Office of Mental Health; or Provided by the [facility] Office for People With Developmental Disabilities. If such information is present, then the following [facility] mandated warning applies: This information has been disclosed to you from confidential records which are protected by state law. State law prohibits you from making any further disclosure of this information without the specific written consent of the person to whom it pertains, or as otherwise permitted by law. Any unauthorized further disclosure in violation of state law may result in a fine or [place] [facility] sentence or both. A general authorization for the release of medical or other information is NOT sufficient authorization for further disclosure. 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 Data Description Source(s ) Resuscitation [facility] Resuscitatio n [facility] Geriatric ([facility] [place]) Allergies and Adverse Reactions Type Description Substance Reaction Status Data Source(s ) Food allergy walnut walnut NOT LISTED [facility] Drug allergy No Known Allergies No Known NO KNOWN ALLERG [place] Allergies [place] [address] N/A N/A [facility] ([facility] F or Aged [place]) Encounters Encounter Providers Location Date Indications Data Source(s ) Emergency Attender: Shu 05/16/2020 BLEED FROM THE [facility] 04:44:00 AM [facility] Hospit al EDT - 05/16/2020 06:57:00 AM EDT BLEED FROM THE [facility] Patient discharged. Inpatient Attender: MD Batista ICU-5J 04/05/2020 A41.9 Sepsis [facility] - Trung HernandezAttender: 07:34:00 AM EDT - Dania HoganAttender: 04/16/2020 H ospital Leatha Neil MDAttender: 12:05:00 PM EDT Doctor OtherAdmitter: MD Yanely Hogan A41.9 Sepsis Patient discharged. Inpatient Attender: Holley Klein [place]-4 [place] 03/28/2020 01:30:00 [facility] ([facility] PM EDT - 04/05/2020 [facility] 07:30:00 AM EDT He) Patient discharged. Inpatient Attender: Michael LazaroHAL6 03/13/2020 04:42:00 [facility] CraveneghAttender: Carolina PM EDT - 03/19/2020 [facility] Nguyen MDAttender: STAFF ED 10:00:00 AM EDT STAFF PHYSICIANAdmitter: Michael Landerserrer: Michael John Patient discharged. Immunizations Vaccine Date Status Description Data Source(s) pneumococcal 03/18/2020 completed [facility] edical polysaccharide PPV23 10:29:00 PM EDT Cent er Medications Medication Brand Start Product Dose Route Administrative Pharmacy [facility] Indications Reaction Description Data Name Date Form Instructions Instructions Source(s) cefpodoxime Cefpod 05/16/ TABLET 200 ORAL active White 200 MG Oral oxime 2020 mg [place] Tablet Proxet 06:18: Hospital Cefpodoxime il 00 AM Proxetil EDT Vitamin 635767 04/02/ complet Vitamin B- 12 [facility] B-12 86719 2019 ed 1,000 mcg ([facility] (cyanocobal 08:48: tablet Home For [place] 43 AM Aged (vitamin EDT ) b-12)) 1,000 mcg tablet Vitamin C 942943 complet Vitamin C [facility] (ascorbic 49940 2019 ed 500 mg ([facility] acid 08:48: tablet Home For (vitamin 15 AM Aged c)) 500 mg EDT ) tablet ferrous ferrou ferrous SI [facility] sulfate 325 s 2019 ed sulfate 325 ( [facility] mg (65 mg sulfat 08:47: mg (65 mg H ome For iron) e 325 18 AM iron) tablet Aged tablet MG EDT ) Oral Tablet hydrocortis 392721 complet hydroc ortiso [facility] one 1 % 72339 2019 ed ne 1 % ([facility] topical 12:56: topical Home Fo r cream 35 PM cream Aged EDT ) pramipexole 244202 pramip exole [facility] 1 mg tablet 66608 2019 ed 1 mg tablet ([facility] 12:27: Home For 43 PM Aged EDT [place]) primidone 125706 complet primidon e 50 [facility] 50 mg 82742 2019 ed mg tablet (United tablet 12:27: Home For 43 PM Aged EDT [place]) atorvastati 600862 complet atorva statin [facility] n 80 mg 70534 2019 ed 80 mg tablet (Un ited tablet 12:27: Home For 43 PM Aged EDT [place]) silodosin 8 547604 03/28/ complet silodo sin 8 [facility] mg capsule 13955 2019 ed mg capsule (U nited 12:27: Home For 43 PM Aged EDT [place]) pantoprazol pantop 03/28/ complet pantop razole [facility] e 40 mg razole 2019 ed 40 mg (United tablet,mine 40 MG 12:27: tablet,del ay Home For yed release Delaye 43 PM ed release Aged d EDT [place]) Releas e Oral Tablet Tubersol Purifi complet Tubersol 5 [facility] (tuberculin ed 2020 ed tub. (United ppd) 5 tub. Protei 12:27: unit/0.1 mL Home For unit/0.1 mL n 43 PM intradermal Aged intradermal Deriva EDT injection H ebrews) injection tive solution solution of Tuberc ulin 50 UNT/ML Inject able Soluti on [Tuber lindy] Enteric Aspiri complet Enteric SI [facility] Coated n 81 2019 ed Coated ([facility] Aspirin MG 10:48: Aspirin 81 Home For (aspirin) [place]aye 59 AM mg Aged 81 mg d EDT tablet,delay Uzbek s) tablet,mine Releas ed release yed release e Oral Tablet acetaminoph 926617 complet acetam inophe [facility] en 325 mg 97074 2019 ed n 325 mg (Unit ed tablet 10:48: tablet Home For 59 AM Aged EDT [place]) Insurance Providers Payer name Policy type / Policy ID Covered Covered green party's Policy Plan Coverage type green party ID relationship to Jc Information jc [place] [id number] HEALTHCARE (MEDICARE) M [id number] 01 [id number] [facility] [id number] 01 [id number] HEALTHCARE MCARE [place] [id number] PT [id number] HEALTHCARE MCR Medicare TERA Medicare [id number] 1 [id number] AARP Medicare Commercial [id number] Complete HMO UHC Indemnity HMO Unknown Unknow n Medicaid Medicaid [id number] [place] Commercial [id number] 1 [id number] Healthcare PPO Medicare Part Medicare [id number] 1 [id number] Outpatient UHC Indemnity HMO Unknown Unknow n UHC Indemnity 8 Unknown Unknow n [facility] [id number] 01 [id number] HEALTHCARE MCARE OPD W [id number] M [id number] [place] [id number] SP [id number] HEALTHCARE (MEDICARE) [facility] [id number] SP [id number] CARE OPTIONS MEDICARE [id number] SP [id number] Medicare [facility] Medicare Part [id number] self [id number] Secure B [facility]iz[facility] Problems, Conditions, and Diagnoses Code Display Name Description Problem Type Effective Data Sour ce(s) Dates A41.9 Severe sepsis Severe sepsis 06015-6 04/05/2020 [place] [facility] 12:00:00 AM Health System EDT A41.9 Sepsis Sepsis 03899-9 04/05/2020 [facility] 09:49:03 AM Health System EDT 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 Diagnosis 05/16/2020 [place] use of aspirin 05:32:00 AM Hospital EDT N40.0 Benign prostatic N40.0 Diagnosis 05/16/[address] [facility] hyperplasia without 05:32:00 AM Hosp ital lower urinary tract EDT symptoms G20 Parkinson's disease G20 Diagnosis 05/16/2020 [place] 05:32:00 AM Hospital EDT F02.80 Dementia in other F02.80 Diagnosis 05/16/2020 [place] diseases classified 05:32:00 AM Hosp ital elsewhere without EDT behavioral disturbance B96.4 Proteus (mirabilis) B96.4 Diagnosis 05/16/2020 [place] (morganii) as the 05:32:00 AM Hospit al cause of diseases EDT classified elsewhere N39.0 Urinary tract N39.0 Diagnosis 05/16/2020 [facility] infection, site not 05:32:00 AM Hosp ital specified EDT R31.9 Hematuria, R31.9 Diagnosis 05/16/2020 [place] unspecified 05:32:00 AM Hospital EDT A41.9 Sepsis A41.9 Sepsis Diagnosis 04/05/2020 S - New 09:21:00 AM [facility] SEPSIS/ [facility] SEPSIS/ [facility] Diagnosis 04/05/2020 S - New 07:34:00 AM [facility] A41.9 Sepsis, unspecified Severe sepsis Diagnosis 04/05/2020 S - New organism 12:00:00 AM [facility] D51.9 Vitamin B12 Vitamin B12 Diagnosis 04/02/2020 [facility] deficiency anemia, deficiency anemia, 12:00:00 AM ([facility] unspecified unspecified EDT For Aged [place]) D50.9 Iron deficiency Iron deficiency Diagnosis 04/02/2020 [facility] anemia, unspecified anemia, 12:00:00 AM ([facility] D51.8 Other vitamin B12 Other vitamin B12 Diagnosis 04/02/2020 [facility] deficiency anemias deficiency anemias 12:00:00 AM ([facility] EDT For Aged [facility]) R33.9 Retention of urine, Retention of Diagnosis 03/29/2020 [facility] unspecified urine, unspecified 12:00:00 AM ([facility] EDT For Aged [place]) G25.0 Essential tremor Essential tremor Diagnosis 03/28/2020 [facility] 12:00:00 AM ([facility] N40.1 Benign prostatic Benign prostatic Diagnosis 03/28/2020 [facility] hyperplasia with hyperplasia with 12:00:00 AM ( [facility] lower urinary tract lower urinary EDT Fo r [facility] symptoms tract symp [facility]) G25.81 Restless legs Restless legs Diagnosis 03/28/2020 [facility] E syndrome syndrome 12:00:00 AM ([facility] EDT For Aged [place]) G20 Parkinson's disease Parkinson's Diagnosis 03/28/2020 [facility] disease 12:00:00 AM ([facility] K21.9 Gastro-esophageal Gastro-esophageal Diagnosis 03/28/2020 [facility] reflux disease reflux disease 12:00:00 AM ([facility] Home without esophagitis without EDT For A ged esophagitis [place]) R76.11 Nonspecific Nonspecific Diagnosis 03/28/2020 [facility] reaction to reaction to skin 12:00:00 AM (Unite d Home tuberculin skin test w/o active EDT For Aged test without active tuberculosis Heb rews) tuberculosis G89.18 Other acute Other acute Diagnosis 03/28/2020 [facility] postprocedural pain postprocedural 12:00:00 AM ([facility] pain EDT For Aged [place]) G89.11 Acute pain due to Acute pain due to Diagnosis 03/28/2020 [facility] trauma trauma 12:00:00 AM ([facility] EDT For Aged [place]) R21 Rash and other Rash and other Diagnosis 03/28/2020 [facility] nonspecific skin nonspecific skin 12:00:00 AM ( [facility] eruption eruption EDT For Aged [place]) M62.81 Muscle weakness Muscle weakness Diagnosis 03/28/2020 [facility] (generalized) (generalized) 12:00:00 AM ([facility] EDT For Aged [place]) R26.2 Difficulty in Difficulty in Diagnosis 03/28/2020 [facility] E walking, not walking, not 12:00:00 AM ([facility] ome elsewhere elsewhere EDT For Aged classified classified Hebregustavo) E78.5 Hyperlipidemia, Hyperlipidemia, Diagnosis 03/28/2020 [facility] unspecified unspecified 12:00:00 AM ([facility] e EDT For Aged [place]) I10 Essential (primary) Essential Diagnosis 03/28/2020 [facility] hypertension (primary) 12:00:00 AM ([facility] e hypertension EDT For Aged [place]) Z95.5 Presence of Presence of Diagnosis 03/28/2020 [facility] coronary coronary 12:00:00 AM ([facility] angioplasty implant angioplasty EDT For Aged and graft implant and graft [place] ) R47.1 Dysarthria and Dysarthria and Diagnosis 03/28/2020 [facility] anarthria anarthria 12:00:00 AM ([facility] EDT For Aged [place]) R47.01 Aphasia Aphasia Diagnosis 03/28/2020 [facility] 12:00:00 AM ([facility] EDT For Aged [place]) Z96.0 Presence of Presence of Diagnosis 03/28/2020 [facility] urogenital implants urogenital 12:00:00 AM ([facility] implants EDT For Aged [place]) N17.9 Acute kidney Acute kidney Diagnosis 03/28/2020 [facility] failure, failure, 12:00:00 AM ([facility] unspecified unspecified EDT For Aged [place]) Y92.[address]sp [address] in unsp Diagnosis 03/28/2020 [facility] in unspecified non-institut 12:00:00 AM ([facility] non-institutional (private) EDT For Age d (private) residence residence as place [place]) as the place of occurrence of the external cause W19.XXXD Unspecified fall, Unspecified fall, Diagnosis 03/28/2020 [facility] subsequent subsequent 12:00:00 AM ([facility] encounter encounter EDT For Aged [place]) 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 Diagnosis 03/28/2020 [facility] RE heart disease of disease of [place] 12:00:00 AM ([facility] [place] coronary coronary artery EDT For Aged artery without w/o ang pctrs [place] ) angina pectoris I21.29 ST elevation STEMI involving Diagnosis 03/28/2020 [facility] RE (STEMI) myocardial oth sites 12:00:00 AM ([facility] ed Home infarction EDT For Aged involving other [place]) sites Z48.812 Encounter for Encntr for Diagnosis 03/28/2020 [facility] surgical aftercare surgical aftcr 12:00:00 AM ( [facility] following surgery following surgery EDT For Aged on the circulatory on [facility] system D72.829 Elevated white ELEVATED WHITE Diagnosis 03/19/2020 [place] blood cell count, BLOOD CELL COUNT, 10:00:00 AM Medical Center unspecified UNSPECIFIED EDT R00.1 Bradycardia, BRADYCARDIA, Diagnosis 03/19/2020 [facility] unspecified UNSPECIFIED 10:00:[address] EDT F03.90 Unspecified UNSPECIFIED Diagnosis 03/19/2020 [place] s dementia without DEMENTIA WITHOUT 10:00:00 AM edical [place] behavioral BEHAVIORAL EDT disturbance DISTURBANCE R33.8 Other retention of OTHER RETENTION OF Diagnosis 0 [facility] urine URINE 10:00:00 AM Medical Cente r EDT N40.1 Benign prostatic BENIGN PROSTATIC Diagnosis 03/19/2020 [facility] [place] hyperplasia with HYPERPLASIA WITH 10:00:00 AM edical Center lower urinary tract LOWER URINARY EDT symptoms TRACT SYMP G25.81 Restless legs RESTLESS LEGS Diagnosis 03/19/2020 [facility]les syndrome SYNDROME 10:00:00 AM Medical Cente r EDT I25.10 Atherosclerotic ATHSCL HEART Diagnosis 03/19/2020 [facility] heart disease of DISEASE OF [place] 10:00:00 AM Medical Center [place] coronary CORONARY ARTERY EDT artery without W/O ANG PCTRS angina pectoris I10 Essential (primary) ESSENTIAL Diagnosis 03/19/2020 [facility] hypertension (PRIMARY) 10:00:00 AM Medical [facility] ter HYPERTENSION EDT R47.01 Aphasia APHASIA Diagnosis 03/19/2020 [facility] 10:00:00 AM Medical Cente r EDT N17.9 Acute kidney ACUTE KIDNEY Diagnosis 03/19/2020 [facility] failure, FAILURE, 10:00:00 AM Medical Cente r unspecified UNSPECIFIED EDT I21.4 Non-ST elevation NON-ST ELEVATION Diagnosis 03/19/2020 [place] [facility] [place] (NSTEMI) myocardial (NSTEMI) 10:00:00 AM [facility] infarction MYOCARDIAL EDT INFARCTION Z91.81 History of falling HISTORY OF FALLING Diagnosis 0 [facility] 10:00:00 AM Medical Cente r EDT Z95.5 Presence of PRESENCE OF Diagnosis 03/19/2020 [facility] coronary CORONARY 10:00:00 AM Medical Joshuae r angioplasty implant ANGIOPLASTY EDT and graft IMPLANT AND GRAFT R79.89 Other specified OTHER SPECIFIED Diagnosis 03/13/2020 Nest[place] starr [place] abnormal findings ABNORMAL FINDINGS 04:42:00 PM [facility] of blood chemistry OF BLOOD CHEMISTRY EDT Surgeries/Procedures Procedure Description Date Indications Data Source(s) XR Cervical Spine Complete XR 04/12/2020 [facility] Cervical Spine Complete 01:58:00 PM Syst em EDT - 04/12/2020 01:58:00 PM EDT Electrocardiographic 04/08/2020 [facility] procedure (procedure) 01:20:00 PM System EDT - 04/08/2020 01:50:00 PM EDT Electrocardiographic 04/08/2020 [facility] procedure (procedure) 07:30:00 AM System EDT - 04/08/2020 09:37:00 AM EDT Echocardiography, real-time 04/07/2020 [facility] with image documentation with 08:14:00 AM System M-mode recording, complete EDT - (procedure) 04/09/2020 03:27:00 PM EDT Aerobic Culture, Urine 04/05/2020 [facility] 09:34:00 PM System EDT - 04/05/2020 09:36:00 PM EDT Electrocardiographic 04/05/2020 [facility] procedure (procedure) 07:11:08 PM System EDT - 04/05/2020 07:27:00 PM EDT Standard chest X-ray 04/05/2020 [facility] (procedure) 05:19:00 PM System EDT - 04/05/2020 05:19:00 PM EDT Electrocardiographic 04/05/2020 [facility] procedure (procedure) 05:08:31 PM System EDT - 04/05/2020 05:27:00 PM EDT XR Chest Single AP view XR 04/05/2020 [facility] Chest Single AP view 11:39:00 AM System EDT - 04/05/2020 11:39:00 AM EDT US Renal US Renal 04/05/2020 [facility] 10:22:00 AM System EDT - 04/05/2020 10:22:00 AM EDT Electrocardiographic 04/05/2020 [facility] procedure (procedure) 07:58:47 AM System EDT - 04/05/2020 10:17:00 AM EDT Results ID Date Data Source [id number] 05/16/2020 05:23:00 AM EDT [facility] Value Range Interpretation Code Description Data Ana rce(s) Supporting Document(s ) Lipase 43 U/L [place] [Enzymatic Hospital activity/vo lume] in Serum or Plasma ID Date Data Source [id number] 05/16/2020 05:23:00 AM EDT [facility] Value Range Interpretation Description Data Sup porting Code Source(s) Document(s ) Aspartate 17 U/L [place] aminotransferase [place] [Enzymatic Hospital activity/volume] in Serum or Plasma ID Date Data Source [id number] 05/16/2020 05:23:00 AM EDT [facility] Value Range Interpretation Description Data Sup porting Code Source(s) Document(s ) Alanine 27 U/L [facility] [Enzymatic Hospital activity/volume] in Serum or Plasma ID Date Data Source [id number] 05/16/2020 05:23:00 AM EDT [facility] Name Value Range Interpretation Description Data Sup porting Code Source(s) Document(s ) Alkaline 70 U/L [place] phosphatase Hospital [Enzymatic activity/volume ] in Serum or Plasma ID Date Data Source [id number] 05/16/2020 05:23:00 AM EDT [facility] Name Value Range Interpretation Description Data Sup porting Code Source(s) Document(s ) Bilirubin.t 0.3 mg/dL [facility] [Mass/volum e] in Serum or Plasma ID Date Data Source [id number] 05/16/2020 05:23:00 AM EDT [facility] Name Value Range Interpretation Code Description Data Ana rce(s) Supporting Document(s ) [facility]] in Serum or Plasma ID Date Data Source [id number] 05/16/2020 05:23:00 AM EDT [facility] Name Value Range Interpretation Description Data Sup porting Code Source(s) Document(s ) Albumin 3.7 g/dL [place] [Mass/volume Hospital ] in Serum or Plasma ID Date Data Source [id number] 05/16/2020 05:23:00 AM EDT [facility] Name Value Range Interpretation Description Data Sup porting Code Source(s) Document(s ) Protein 6.1 g/dL [place] [Mass/volume Hospital ] in Serum or Plasma ID Date Data Source [id number] 05/16/2020 05:23:00 AM EDT [facility] Name Value Range Interpretation Description Data Sup porting Code Source(s) Document(s ) Calcium 8.5 mg/dL [place] [Mass/volume Hospital ] in Serum or Plasma ID Date Data Source [id number] 05/16/2020 05:23:00 AM EDT [facility] Name Value Range Interpretation Code Description Data Ana rce(s) Supporting Document(s ) Urea 40.0 [place] nitrogen/Cre Hospital atinine [Mass Ratio] in Serum or Plasma ID Date Data Source [id number] 05/16/2020 05:23:00 AM EDT [facility] Name Value Range Interpretation Description Data Sup porting Code Source(s) Document(s ) Creatinine 1.0 mg/dL [place] [Mass/volume] Hospital in Serum or Plasma ID Date Data Source [id number] 05/16/2020 05:23:00 AM EDT [facility] Name Value Range Interpretation Description Data Sup porting Code Source(s) Document(s ) Urea 40 mg/dL [place] nitrogen Hospital [Mass/volume ] in Serum or Plasma ID Date Data Source [id number] 05/16/2020 05:23:00 AM EDT [facility] Value Range Interpretation Code Description Data Ana rce(s) Supporting Document(s ) Anion gap in 13 [place] Serum or Hospital Plasma ID Date Data Source [id number] 05/16/2020 05:23:00 AM EDT [facility] Name Value Range Interpretation Description Data Sup porting Code Source(s) Document(s ) Carbon 28 mmol/L [place] dioxide, Hospital total [Moles/volu me] in Serum or Plasma ID Date Data Source [id number] 05/16/2020 05:23:00 AM EDT [facility] Name Value Range Interpretation Description Data Sup porting Code Source(s) Document(s ) Chloride 104 [place] [Moles/volum mmol/L Hospital e] in Serum or Plasma ID Date Data Source [id number] 05/16/2020 05:23:00 AM [facility] Name Value Range Interpretation Description Data Sup porting Code Source(s) Document(s ) Potassium 4.6 [place] [Moles/volume mmol/L Hospital ] in Serum or Plasma ID Date Data Source [id number] 05/16/2020 05:23:00 AM [facility] Value Range Interpretation Description Data Sup porting Code Source(s) Document(s ) Sodium 140 mmol/L [place] [Moles/volu Hospital me] in Serum or Plasma ID Date Data Source [id number] 05/16/2020 05:23:00 AM [facility] Value Range Interpretation Description Data Sup porting Code Source(s) Document(s ) Glucose 96 mg/dL [place] [Mass/volume Hospital ] in Serum or Plasma ID Date Data Source [id number] 05/16/2020 05:23:00 AM [facility] Name Value Range Interpretation Description Data Sup porting Code Source(s) Document(s ) Erythrocytes >100 [place] [#/area] in /[HPF] Hospital Urine sediment by Microscopy high power field ID Date Data Source [id number] 05/16/2020 05:23:00 AM [facility] Value Range Interpretation Description Data Sup porting Code Source(s) Document(s ) Leukocytes 60-100 [place] [#/area] in /[HPF] Hospital Urine sediment by Microscopy high power field ID Date Data Source [id number] 05/16/2020 05:23:00 AM [facility] Value Range Interpretation Code Description Data Supporting Source(s) Document(s ) Leukocyte 3+ [place] [Presence] in Urine by Test strip ID Date Data Source [id number] 05/16/2020 05:23:00 AM [facility] Name Value Range Interpretation Description Data Sup porting Code Source(s) Document(s ) URINE POSITIVE [facility] Hospital ID Date Data Source [id number] 05/16/2020 05:23:00 AM [facility] Name Value Range Interpretation Description Data Sup porting Code Source(s) Document(s ) Erythrocytes 3+ [place] [#/volume] in Hospital Urine by Test strip ID Date Data Source [id number] 05/16/2020 05:23:00 AM [facility] In addition to bilirubin, a positive res ult may be caused by metabolites of certain medications and by atypically colored ur ine samples. If clinically indicated, correlate positive results with serum li lázaro function tests. Name Value Range Interpretation Code Description Data Ana rce(s) Supporting Document(s ) Bilirubin. POSITIVE [facility] [Presence] in Urine by Test strip ID Date Data Source [id number] 05/16/2020 05:23:00 AM [facility] Name Value Range Interpretation Description Data Sup porting Code Source(s) Document(s ) Urobilinogen 0.2 [place] [Units/volume] mg/dL Hospital in Urine by Test strip ID Date Data Source [id number] 05/16/2020 05:23:00 AM [facility] Name Value Range Interpretation Description Data Sup porting Code Source(s) Document(s ) Ketones NEGATIVE [place] [Mass/volume Hospital ] in Urine by Test strip ID Date Data Source [id number] 05/16/2020 05:23:00 AM [facility] Name Value Range Interpretation Description Data Sup porting Code Source(s) Document(s ) Glucose NEGATIVE [place] [Mass/volume Hospital ] in Urine by Test strip ID Date Data Source [id number] 05/16/2020 05:23:00 AM EDT [facility] Name Value Range Interpretation Code Description Data Ana rce(s) Supporting Document(s ) Protein 2+ [place] [Presence] Hospital in Urine by Test strip ID Date Data Source [id number] 05/16/2020 05:23:00 AM EDT [facility] Name Value Range Interpretation Code Description Data Ana rce(s) Supporting Document(s ) pH of Urine 7.5 [place] by Test Hospital strip ID Date Data Source [id number] 05/16/2020 05:23:00 AM EDT [facility] Name Value Range Interpretation Code Description Data Supporting Source(s) Document(s ) Specific 1.025 [place] gravity of Hospital Urine by Test strip ID Date Data Source [id number] 05/16/2020 05:23:00 AM EDT [facility] Name Value Range Interpretation Description Data Sup porting Code Source(s) Document(s ) Clarity in Urine CLOUDY [place] by Refractometry Hospital automated ID Date Data Source [id number] [facility] Value Range Interpretation Code Description Data Ana rce(s) Supporting Document(s ) Color of RED [place] Urine Hospital ID Date Data Source [id number] 05/16/2020 05:23:00 AM [facility] THERAPEUTIC RANGES:UNFRACTIONATED HEPARI N THERAPY: 60-90 SECONDSARGATROBAN THERAPY: 49-99 SECONDS Name Value Range Interpretation Description Data Sup porting Code Source(s) Document(s ) aPTT in 34.1 s [place] Platelet poor Hospital plasma by Coagulation assay ID Date Data Source [id number] 05/16/2020 05:23:00 AM [facility] THERAPEUTIC RANGE FOR STANDARD ORALANTIC OAGULANT THERAPY: 2.0-3.0THERAPEUTIC RANGE FOR HIGH DOSE ORALANTICOAGULANT THERAPY (MECHANICAL HEARTVALVE REPLACEMENT): 2.5-3.5 Name Value Range Interpretation Description Data Sup porting Code Source(s) Document(s ) INR in Platelet 1.2 [place] poor plasma by Hospital Coagulation assay ID Date Data Source [id number] 05/16/2020 05:23:00 AM EDT [facility] Name Value Range Interpretation Description Data Sup porting Code Source(s) Document(s ) PT panel - 13.5 s [place] Platelet poor [facility] plasma by Coagulation assay ID Date Data Source [id number] 05/16[facility]2020 [facility] Interpret[facility] Code Description Data Supporting Source(s) Document(s ) NUCLEATED RBCS 0.0 % [place] (AUTO Hospital DIFF%)DIS ID Date Data Source [id number] 05/16/2020 05:23:00 AM [facility] Value Range Interpretation Description Data Sup porting Code Source(s) Document(s ) Differential AUTOMATED [place] cell count [facility] method - Blood ID Date Data Source [id number] 05/16/2020 [facility] Name Value Range Interpretation Description Data Sup porting Code Source(s) Document(s ) Immature 0.04 [place] granulocytes 10*3/uL Hospital [#/volume] in Blood by Automated count ID Date Data Source [id number] 05/16/2020 [facility] Interpretation Description Data Sup porting Code Source(s) Document(s ) Basophils 0.05 [place] [#/volume] in 10*3/uL Hospital Blood by Automated count ID Date Data Source [id number] 05/16/2020 05:23:00 AM EDT [facility] Name Value Range Interpretation Description Data Sup porting Code Source(s) Document(s ) Eosinophils 0.68 [place] [#/volume] in 10*3/uL Hospital Blood by Automated count ID Date Data Source [id number] 05/16/2020 05:23:00 AM EDT [facility] Name Value Range Interpretation Description Data Sup porting Code Source(s) Document(s ) Monocytes 0.85 [place] [#/volume] in 10*3/uL Hospital Blood by Automated count ID Date Data Source [id number] 05/16/2020 05:23:00 AM EDT [facility] Name Value Range Interpretation Description Data Sup porting Code Source(s) Document(s ) Lymphocytes 3.02 [place] [#/volume] in 10*3/uL Hospital Blood by Automated count ID Date Data Source [id number] 05/16/2020 05:23:00 AM EDT [facility] Name Value Range Interpretation Description Data Sup porting Code Source(s) Document(s ) Neutrophils 9.33 [place] [#/volume] in 10*3/uL Hospital Blood by Automated count ID Date Data Source [id number] 05/16/2020 05:23:00 AM EDT [facility] Name Value Range Interpretation Description Data Sup porting Code Source(s) Document(s ) Nucleated 0.0 % [place] erythrocytes/10 Hospital 0 leukocytes [Ratio] in Blood by Automated count ID Date Data Source [id number] 05/16/2020 05:23:00 AM EDT [facility] Name Value Range Interpretation Description Data Sup porting Code Source(s) Document(s ) Immature 0.3 % [place] granulocytes/10 Hospital 0 leukocytes in Blood by Automated count ID Date Data Source [id number] 05/16/2020 05:23:00 AM EDT [facility] Name Value Range Interpretation Description Data Sup porting Code Source(s) Document(s ) Basophils/100 0.4 % [place] leukocytes in Hospital Blood by Automated count ID Date Data Source [id number] 05/16/2020 05:23:00 AM EDT [facility] Name Value Range Interpretation Description Data Sup porting Code Source(s) Document(s ) Eosinophils/100 4.9 % [place] leukocytes in Hospital Blood by Automated count ID Date Data Source [id number] 05/16/2020 05:23:00 AM EDT [facility] Value Range Interpretation Description Data Sup porting Code Source(s) Document(s ) Monocytes/100 6.1 % [place] leukocytes in Hospital Blood by Automated count ID Date Data Source [id number] 05/16/2020 05:23:00 AM EDT [facility] Name Value Range Interpretation Description Data Sup porting Code Source(s) Document(s ) Lymphocytes/10 21.6 % [place] 0 leukocytes Hospital in Blood by Automated count ID Date Data Source [id number] 05/16/2020 05:23:00 AM EDT [facility] Name Value Range Interpretation Description Data Sup porting Code Source(s) Document(s ) Neutrophils/10 66.7 % [place] 0 leukocytes Hospital in Blood by Automated count ID Date Data Source [id number] 05/16/2020 05:23:00 AM EDT [facility] Value Range Interpretation Description Data Sup porting Code Source(s) Document(s ) Platelet mean 11.5 fL [place] volume Hospital [Entitic volume] in Blood by Automated count ID Date Data Source [id number] 05/16/2020 05:23:00 AM [facility] Value Range Interpretation Description Data Sup porting Code Source(s) Document(s ) Platelets 418 [place] [#/volume] in 10*3/uL Hospital Blood by Automated count ID Date Data Source [id number] 05/16/2020 05:23:00 AM [facility] Value Range Interpretation Description Data Sup porting Code Source(s) Document(s ) Erythrocyte 14.1 % [facility] Hospital width [Ratio] by Automated count ID Date Data Source [id number] 05/16/2020 05:23:00 AM [facility] Value Range Interpretation Description Data Sup porting Code Source(s) Document(s ) Erythrocyte mean 31.9 [place] corpuscular g/dL Hospital hemoglobin concentration [Mass/volume] by Automated count ID Date Data Source [id number] 05/16/2020 05:23:00 AM [facility] Value Range Interpretation Description Data Sup porting Code Source(s) Document(s ) Erythrocyte 27.[address] [facility] corpuscular hemoglobin [Entitic mass] by Automated count ID Date Data Source [id number] 05/16/2020 05:23:00 AM [facility] Value Range Interpretation Description Data Sup porting Code Source(s) Document(s ) Erythrocyte 86.[address] [facility] corpuscular volume [Entitic volume] by Automated count ID Date Data Source [id number] 05/16/2020 05:23:00 AM [facility] Value Range Interpretation Description Data Sup porting Code Source(s) Document(s ) Hematocrit 32.9 % [place] [Volume Hospital Fraction] of Blood by Automated count ID Date Data Source [id number] 05/16/2020 05:23:00 AM [facility] Name Value Range Interpretation Description Data Sup porting Code Source(s) Document(s ) Hemoglobin 10.5 g/dL [place] [Mass/volume] Hospital in Blood ID Date Data Source [id number] 05/16/2020 05:23:00 AM EDT [facility] Name Value Range Interpretation Description Data Sup porting Code Source(s) Document(s ) Erythrocytes 3.81 [place] [#/volume] in 10*6/uL Hospital Blood by Automated count ID Date Data Source [id number] 05/16/2020 05:23:00 AM EDT [facility] Name Value Range Interpretation Description Data Sup porting Code Source(s) Document(s ) Leukocytes 14.0 [place] [#/volume] in 10*3/uL Hospital Blood by Automated count ID Date Data Source [id number] 04/22/2020 01:18:14 PM EDT [facility] Name Value Range Interpretation Description Data Sup porting Code Source(s) Document(s ) Bacteria Micro Result Normal (applies Culture [facility] identified in Result to non-numeric Bacteria Health Blood by Reporting|Telep results) Blood System [facility] culture mj|| 04/06/2020 at 10:45 AMCalled to:Tech Name:CORNEL vaughn by: 04/06/2020 / 10:45 AM MicroscopicTec GRAM STAIN Microscopic [facility] CellCode GRAM NEGATIVE Cell Code [facility] BACILLI: - IN Health AEROBIC AND System ANAEROBIC BOTTLES XXX GRAM NEGATIVE Organism [facility] microorganism BACILLI Health serotype System [Identifier] in Isolate by Agglutination XXX Coagulase-negat Organism [facility] microorganism janine Health serotype Staphylococcus System [Identifier] species in Isolate by Agglutination ColonyCount ONE SET FOR [place] Count [facility] IDENTIFICATION Health AND SENSITIVITY System REFER TO #[id number] ColonyCount ONE SET FOR [place] Count [facility] IDENTIFICATION Health AND SENSITIVITY System REFER TO #[id number] ID Date Data Source [id number] 04/22/2020 01:18:14 PM EDT [facility] Name Value Range Interpretation Description Data Sup porting Code Source(s) Document(s ) Bacteria Micro Result Normal (applies Culture [facility] identified in Result to non-numeric Bacteria Blood Health Blood by Reporting|Tele results) System [facility] phone| culture | 04/06/2020 at 10:44 AMCalled to:DR.CHENGTec cisneros Name:MARCELA Readback by: 04/06/2020 / 10:44 AM XXX Klebsiella Organism [facility] microorganism pneumoniae Health serotype System [Identifier] in Isolate by Agglutination CellCode GRAM NEGATIVE Cell Code [facility] BACILLI: - IN Health AEROBIC AND System ANAEROBIC BOTTLES MicroscopicTe GRAM STAIN Microscopic [facility] ColonyCount ONE SET [place] Count [facility] System Ampicillin >16 Resistant - Ampicillin [facility] [Susceptibili Health ty] System Amikacin <=16 Sensitive - Amikacin [facility] [Susceptibili Health ty] System Ampicillin+Mahajan <=8/4 - [facility] lbactam Sensitive Ampicillin/Sul Health [Susceptibili bactam System ty] Aztreonam <=4 Sensitive - Aztreonam [facility] [Susceptibili Health ty] System Cefazolin <=2 Sensitive - cefazolin [facility] [Susceptibili Health ty] System -Ceftazidime/ <=8 Sensitive - [facility] Avibactam Ceftazidime/Av Health ibactam System Cefoxitin <=8 Sensitive - Cefoxitin [facility] [Mass/volume] Health in System Unspecified specimen Ertapenem <=0.5 - Ertapenem [facility] [Susceptibili Sensitive Health ty] by System Minimum inhibitory concentration (DUYEN) Ciprofloxacin <=1 Sensitive - [facility] [Susceptibili Ciprofloxacin Health ty] System Ceftriaxone <=1 Sensitive - Ceftriaxone [facility] [Susceptibili Health ty] System Piperacillin+ <=16 Sensitive - [facility] Tazobactam Piperacillin/T Health [Susceptibili azobactam System ty] Gentamicin <=4 Sensitive - Gentamicin [facility] [Susceptibili Health ty] System Trimethoprim+ <=2/38 - [facility] Sulfamethoxaz Sensitive Trimethoprim/S Health ole ulfamethoxazol System [Susceptibili e ty] Ciprofloxacin <=1 Sensitive - [facility] [Susceptibili Ciprofloxacin Health ty] System ColonyCount ONE SET [place] Count [facility] Health System XXX Staphylococcus Organism [facility] microorganism epidermidis Health serotype MRS System [Identifier] in Isolate by Agglutination Clindamycin <=0.5 - Clindamycin [facility] [Susceptibili Sensitive Health ty] System Gentamicin <=4 Sensitive - Gentamicin [facility] [Susceptibili Health ty] System Erythromycin >4 Resistant - [facility] [Susceptibili Erythromycin Health ty] System Penicillin 8 Resistant - Penicillin [facility] [Susceptibili Health ty] System Oxacillin >2 Resistant - Oxacillin [facility] [Mass/volume] Health in System Unspecified specimen Tetracycline <=4 Sensitive - [facility] [Susceptibili Tetracycline Health ty] System Rifampin <=1 Sensitive - Rifampin [facility] [Mass/volume] Health in Serum or System Plasma Trimethoprim+ >2/38 - [facility] Sulfamethoxaz Resistant Trimethoprim/S Health ole ulfamethoxazol System [Susceptibili e ty] Vancomycin 1 Sensitive - Vancomycin [facility] [Susceptibili Health ty] System ID Date Data Source [id number] 04/22/2020 01:18:14 PM EDT [facility] Name Value Range Interpretation Description Data Sup porting Code Source(s) Document(s ) Deprecated NO GROWTH Aerobic [facility] Bacteria Culture, Urine Health System identified in Urine by [facility] culture ID Date Data Source [id number] 04/22/2020 01:18:14 PM EDT [facility] Name Value Range Interpretation Description Data Sup porting Code Source(s) Document(s ) D Ab [Titer] in Positive Normal (applies Rh [facility] Serum or Plasma to non-numeric Health results) System Type A Normal (applies Type [facility] to non-numeric Health results) System AntibodyScreen Negative Normal (applies Antibody [facility] to non-numeric Screen Health results) System ID Date Data Source [id number] 04/22/2020 01:18:14 PM EDT [facility] Name Value Range Interpretation Description Data Sup porting Code Source(s) Document(s ) Poikilocytosis Slight Normal (applies Poikilocytosis [facility] [Presence] in to non-numeric Health Blood by results) System Automated count Anisocytosis Slight Normal (applies Anisocytosis [place] [Presence] in to non-numeric Health Blood by results) System Automated count Acanthocytes/100 Few Normal (applies Acanthocytes [facility] 0 erythrocytes to non-numeric Health in Blood by results) System Light microscopy Platelets Adequate Normal (applies Platelet Count [place] [#/volume] in to non-numeric Estimate Health Blood by results) System Estimate Lymphocyte%. 34 % Normal (applies Lymphocyte %. [facility] to non-numeric Health results) System Polys 62 % Normal (applies Polys [facility] to non-numeric Health results) System Monocyte%. 3 % Normal (applies Monocyte %. [facility] to non-numeric Health results) System Eosinophils%. 1 % Normal (applies Eosinophils %. [place] to non-numeric Health results) System VACUOLES Present Normal (applies VACUOLES [facility] to non-numeric Health results) System Smudge cells Present Normal (applies Smudge Cells [facility] [#/volume] in to non-numeric Health Blood results) System OVAL Few Normal (applies OVAL [facility] to non-numeric Health results) System ID Date Data Source [id number] 04/22/2020 01:18:14 PM EDT [facility] Name Value Range Interpretation Description Data Sup porting Code Source(s) Document(s ) Erythrocytes 4.24 Below low normal RBC Count [facility] [#/volume] in {10^6_uL Health Blood by } System Automated count Leukocytes 10.0 Normal (applies WBC Count [facility] [#/volume] in {10^3_uL to non-numeric Health Unspecified } results) System specimen by Automated count Hematocrit 40.1 % Below low normal Hematocrit [facility] [Volume Health Fraction] of System Blood Hemoglobin 12.2 Below low normal Hemoglobin [facility] [Mass/volume] in {gm/dL} Health Blood System Erythrocyte mean 94.6 fl Normal (applies MCV [facility] corpuscular to non-numeric Health volume [Entitic results) System volume] by Automated count Erythrocyte mean 28.8 pg Normal (applies MCH [facility] corpuscular to non-numeric Health hemoglobin results) System [Entitic mass] by Automated count Erythrocyte 13.0 % Normal (applies RDW-CV [facility] distribution to non-numeric Health width [Entitic results) System volume] by Automated count Erythrocyte mean 30.4 Normal (applies MCHC [facility] corpuscular {gm/dL} to non-numeric Health hemoglobin results) System concentration [Mass/volume] by Automated count Platelet mean 11.0 fl Normal (applies MPV [facility] volume [Entitic to non-numeric Health volume] in Blood results) System by Automated count Platelets 343 Normal (applies Platelet Count [facility] [#/volume] in {10^3_uL to non-numeric Health Plasma by } results) System Automated count Nucleated 0.0 Normal (applies NRBC % [facility] erythrocytes {/100_WB to non-numeric Health [#/volume] in C} results) System Body fluid NRBC# 0.00 Normal (applies NRBC # [facility] {10^3_uL to non-numeric Health } results) System Neutrophils/100 61.6 % Normal (applies Neutrophil % [place] leukocytes in to non-numeric Health Blood by results) System Automated count Neutrophils 6.2 Normal (applies Neutrophil # [facility] [#/volume] in {10^3_uL to non-numeric Health Body fluid } results) System Lymphocyte 3.6 Normal (applies Lymphocyte # [facility] percent {10^3_uL to non-numeric Health differential } results) System count (procedure) Lymphocytes 36.2 % Normal (applies Lymphocyte % [facility] [#/volume] in to non-numeric Health Blood by results) System Automated count Monocytes/100 1.0 % Below low normal Monocyte % [facility] leukocytes in Health Blood System Monocytes 0.1 Normal (applies Monocyte # [facility] [#/volume] in {10^3_uL to non-numeric Health Blood by Manual } results) System count Eosinophils 0.06 Normal (applies Eosinophil # [facility] [#/volume] in {10^3_uL to non-numeric Health Blood } results) System Eosinophils/100 0.6 % Normal (applies Eosinophil % [place] leukocytes in to non-numeric Health Unspecified results) System specimen ImmatureGranuloc 0.03 Normal (applies Immature [facility] ytes# {10^3_uL to non-numeric Granulocytes # Health } results) System Basophils/100 0.3 % Normal (applies Basophil % [facility] leukocytes in to non-numeric Health Unspecified results) System specimen by Manual count Basophils 0.03 Normal (applies Basophil # [facility] [#/volume] in {10^3_uL to non-numeric Health Blood by } results) System Automated count ImmatureGranuloc 0.3 % Normal (applies Immature [facility] ytes% to non-numeric Granulocytes % Health results) System ID Date Data Source [id number] 04/22/2020 01:18:14 PM EDT [facility] Name Value Range Interpretation Description Data Sup porting Code Source(s) Document(s ) TroponinIQuantitative 0.21 Above high Troponin I [facility] ng/ml normal Quantitative Health System trop test added to er sp from 1130 am as requested by resdientDetection of a rise and/or fall of cardiac troponin I a alana the cut-off of 0.03 ng/mL is consistent with myocardial infarction in the [facility] clinical setting. With the use of lower cut-offs, testing of serial samples is r equired for diagnosis.Result Reporting|Telephone|resident| 04/05/2020 at 7:55 PMCalled to:Tech Name:José Miguel by:trop added to er sp from 1130 am 04/05as resquested by resident 04/05/2020 / 7:54 PM ID Date Data Source [id number] 04/22/2020 01:18:14 PM EDT [facility] Name Value Range Interpretation Description Data Sup porting Code Source(s) Document(s ) Sodium 140 Normal (applies Sodium, Serum [facility] [Moles/volume] in mmol/L to non-numeric Health Serum or Plasma results) System Chloride 99 Below low normal Chloride, [facility] [Moles/volume] in mmol/L Serum Health Serum or Plasma System Potassium 4.6 Normal (applies Potassium, [facility] [Mass/volume] in mmol/L to non-numeric Serum Health Serum or Plasma results) System Carbon dioxide, 13.7 Below low normal CO2, Serum [facility] total mmol/L Health [Moles/volume] in System Serum or Plasma TotalProtein 6.6 Normal (applies Total Protein [facility] mg/dl to non-numeric Health results) System Glucose 170 Above high Glucose, [facility] [Mass/volume] in mg/dL normal Serum Health Serum or Plasma System Creatinine 1.26 Above high Creatinine, [facility] [Mass/volume] in mg/dl normal Serum Health Serum or Plasma System Urea nitrogen 22 Above high Blood Urea [facility] [Mass/volume] in mg/dl normal Nitrogen, Health Serum or Plasma Serum System Bilirubin.total 0.6 Normal (applies Bilirubin, [facility] [facility] [Mass/volume] in mg/dl to non-numeric Serum Total Health Serum or Plasma results) System Alkaline 93 Normal (applies Alkaline [facility] phosphatase {IU/L} to non-numeric Phosphatase, Health isoenzymes results) Serum System [Enzymatic activity/volume] in Serum or Plasma by Heat stability Aspartate 23 Normal (applies Aspartate [facility] aminotransferase {IU/L} to non-numeric Transaminase, Heal th [Enzymatic results) Serum System activity/volume] in Serum or Plasma by With P-5'-P DirectBilirubin 0.2 Normal (applies Direct [facility] mg/dl to non-numeric Bilirubin Health results) System I.Phosphorus 4.2 Normal (applies I. Phosphorus [facility] mg/dl to non-numeric Health results) System Albumin 3.7 Normal (applies Albumin, [facility] [Mass/volume] in {gm/dl} to non-numeric Serum Health Serum or Plasma results) System Alanine 32 Normal (applies Alanine [facility] aminotransferase {IU/L} to non-numeric Aminotransfer Heal th [Enzymatic results) ase, Serum System activity/volume] in Serum or Plasma Calcium 8.8 Normal (applies Calcium, [facility] [Mass/volume] in mg/dl to non-numeric Total Serum Health Serum or Plasma results) System A/GRatio 1.28 Normal (applies A/G Ratio [facility] to non-numeric Health results) System Urate 6.7 Normal (applies Uric Acid, [facility] [Mass/volume] in mg/dl to non-numeric Serum Health Serum or Plasma results) System Anion gap in Serum 27.30 Above high Anion Gap [facility] or Plasma mmol/L normal Health System Glomerular 55.00 Normal (applies GFR [facility] filtration to non-numeric Health rate/1.73 sq results) System M.predicted [Volume Rate/Area] in Serum or Plasma by Creatinine-based formula (CKD-EPI) eGFR will provide clinicians with a more accurate indicator of renal function then the serum creatinine. The eGFR is automa tically calculated from an empiric formula (endorsed by the National Kidney [employer] ion) which incorporates age, sex, and race.Clinicians may notice surprisingly low GFR's with serum creatinine valueswithin normal range- particularly in elderly wo men (with low muscle mass).In the hospital setting, the eGFR should add an element of safety in drug dosing, in assessing the risk of IV contrast administration, and in assessing vascular risk.The NKF staging system is as follows:Normal: eGFR >90 with no kidney markersStage 1: eGFR >90 with kidney markers*Stage 2: eGFR 60- 89Stage 3: eGFR 30-59Stage 4: eGFR 15-29Stage 5: eGFR <15 (usually requir ing dialysis)*Markers include: Proteinuria, Hematuria, abnormal imaging-studies, or other blood or urine test abnormalities ID Date Data Source [id number] 04/22/2020 01:18:14 PM EDT [facility] Name Value Range Interpretation Description Data Sup porting Code Source(s) Document(s ) Prothrombintim 13.30 Normal (applies Prothrombin [facility](PT) {seconds to non-numeric time (PT) Health System } results) INR in Blood 1.14 Above high normal INR Result [facility] by Coagulation {Ratio} Health System assay Normal = 0.7-1.1Therapeutic = 2.0-3.0Mec hanical Heart = 3.0-4.5 ID Date Data Source [id number] 04/22/2020 01:18:14 PM EDT [facility] Name Value Range Interpretation Description Data Sup porting Code Source(s) Document(s ) aPTT in Blood 29.8 Normal (applies Activated [facility] by Coagulation {Seconds to non-numeric Partial Health assay } results) Thromboplastin System Time ID Date Data Source [id number] 04/22/2020 01:18:14 PM EDT [facility] Name Value Range Interpretation Description Data Sup porting Code Source(s) Document(s ) Color Yellow Normal (applies Color [facility] to non-numeric Health results) System Specific gravity 1.008 Normal (applies Urine Specific [place] [facility] of Urine to non-numeric [place] [facility] results) System Appearance of HAZY Normal (applies Urine [facility] Urine to non-numeric Appearance Health results) System pH.. 5.0 Normal (applies pH.. [facility] {pH_unit to non-numeric Health s} results) System Protein NEG Normal (applies Protein [facility] [Mass/volume] in to non-numeric Health Serum or Plasma results) System Glucose,UA NEG Normal (applies Glucose, UA [facility] to non-numeric Health results) System BilirubinUrine NEG Normal (applies Bilirubin [facility] to non-numeric Urine Health results) System Urobilinogen < 2.0 Normal (applies Urobilinogen [facility] [Mass/volume] in to non-numeric UA Health Urine results) System Reference Range: Negative or <=2.0 Nitrate+Nitrite Negative Normal (applies Nitrite [facility] [Mass/volume] in to non-numeric Health S ystem Unspecified specimen results) Ketones [Mass/volume] in NEG Normal (applies Ketones U A [facility] Urine to non-numeric Health System results) Leukocyte esterase Moderate Abnormal Leukocyte [facility] [Units/volume] in Urine (applies to Esterase [facility] System non-numeric Concentration results) Leukocytes [#/volume] in 10 {/HPF} Normal (applies White Blood Cells [facility] Unspecified specimen by to non-numeric H ealt System Automated count results) WhiteBloodCellClump RARE Normal (applies White Blood Ce ll [facility] to non-numeric [facility] results) RedBloodCells 19 {/HPF} Normal (applies Red Blood Cells [facility] to non-numeric Health System results) Hyaline casts [#/area] 1 {/LPF} Abnormal Hyaline Casts [facility] in Urine sediment by (applies to Health System Microscopy high power non-numeric field results) Epithelial cells < 1 /HPF Normal (applies Epithelial Cells [facility] [Presence] in to non-numeric Health Syst em Unspecified specimen by results) Wet preparation Mucus RARE Normal (applies Mucus [facility] to non-numeric Health System results) Bacteria [Presence] in FEW Normal (applies Bacteria [facility] Unspecified specimen to non-numeric [facility] System results) UricAcidCrystal RARE Normal (applies Uric Acid Crystal [facility] to non-numeric Health System results) AmorphousCrystals RARE Normal (applies Amorphous [facility] to non-numeric Crystals Health System results) UrineBlood LG(3+) Abnormal Urine Blood [facility] (applies to Health System non-numeric results) ID Date Data Source [id number] 04/22/2020 01:18:14 PM EDT [facility] Name Value Range Interpretation Description Data Sup porting Code Source(s) Document(s ) 03238-9 NEGATIVE Testing Normal (applies COVID-19.. [facility] was performed to non-numeric Health Syst em using Naqvi ID results) NOW COVID-19, an isothermal nucleic acid amplification technology for the qualitative detection of nucleic acid from the SARS-CoV-2 viral RNA in respiratory specimens. The ID NOW COVID-19 test has been approved by the Food and Drug Administration (FDA) under an Emergency Use Authorization for use by authorized laboratories. Reference Range: NEGATIVE . ID Date Data Source [id number] 04/22/2020 01:18:14 PM EDT [facility] Name Value Range Interpretation Description Data Source(s ) Supporting Code Document(s ) LacticAc 20.0 Above upper panic Lactic Acid [facility] idWholeB mmol/L limits Whole Blood Health System lood*NEW *NEW DANIA DANIA ONLY* ONLY* Result Reporting|Telephone|ryanne lazo rn /rb| 04/05/2020 at 8:38 AMCalled to:ryanne laoz rn/rbTech Name:[email or web address] by:ryanne lazo rn/rb 04/05/2020 / 8:38 AM ID Date Data Source [id number] 04/22/2020 01:18:14 PM EDT [facility] Name Value Range Interpretation Description Data Sup porting Code Source(s) Document(s ) Hemoglobin 10.4 Below low normal Hemoglobin [facility] [Mass/volume] {gm/dL} Health System in Blood Hematocrit 32.0 % Below low normal Hematocrit [facility] [Volume Health System Fraction] of Blood Erythrocyte 90.4 fl Normal (applies MCV [facility] mean to non-numeric Health System corpuscular results) volume [Entitic volume] by Automated count ID Date Data Source [id number] 04/22/2020 01:18:14 PM EDT [facility] Name Value Range Interpretation Description Data Source(s ) Supporting Code Document(s ) LacticAc 4.3 Above upper panic Lactic Acid [facility] idWholeB mmol/L limits Whole Blood Health System lood*NEW *NEW DANIA DANIA ONLY* ONLY* Result Reporting|Telephone|theodore bunch n/rb| 04/05/2020 at 1:31 PMCalled to:theodore izquierdo rn/rbTech Name:[email or web address] by: 04/05 / 1:30 PM ID Date Data Source [id number] 04/22/2020 01:18:14 PM EDT [facility] Name Value Range Interpretation Description Data Sup porting Code Source(s) Document(s ) Natriuretic 864.0 Above high normal B-Type [facility] peptide B pg/ml Natriuetic [facility] [Mass/volume] Peptide in Serum or Plasma ID Date Data Source [id number] 04/22/2020 01:18:14 PM EDT [facility] Name Value Range Interpretation Description Data Sup porting Code Source(s) Document(s ) TroponinIQuantitative 20.75 Above upper Troponin I [place] ng/ml panic limits Quantitative Health System Detection of a rise and/or fall of cardi ac troponin I above the cut-off of 0.03 ng/mL is consistent with myocardial infarction in the appropriate clinical setting. With the use of lower cut-offs, testing of se rial samples is required for diagnosis.Result Reporting|Telephone|flor[place] rod | 04/05/2020 at 6:55 PMCalled to:Tech Name:[email or web address] by:florida rod / 6:54 PM ID Date Data Source [id number] 04/22/2020 01:18:14 PM EDT [facility] Name Value Range Interpretation Description Data Sup porting Code Source(s) Document(s ) pH 7.452 Above high pH [facility] {pH_unit normal Health s} System Carbon dioxide 23.8 Below low normal pCO2, [facility] [Partial {mm_Hg} Arterial Health pressure] in System Arterial blood Oxygen [Partial 88.5 Normal (applies pO2, Aterial [place] pressure] in {mm_Hg} to non-numeric Health Arterial blood results) System Bicarbonate 16.6 Below low normal HCO3 [facility] [Moles/volume] in mmol/L Health Venous blood System BaseExcess. -7.4 Below low normal Base Excess. [facility] mmol/L Health System TCO2 15.3 Below low normal TCO2 [facility] mmol/L Health System [id number] 98.0 % Normal (applies O2 Saturation [facility] to non-numeric Health results) System Sodium,WB 138 Normal (applies Sodium, WB [facility] mmol/L to non-numeric Health results) System Potassium,WB 3.6 Normal (applies Potassium, WB [facility] mmol/L to non-numeric Health results) System Chloride,WB 111 Above high Chloride, WB [facility] mmol/L normal Health System Glucose,WB 139 Above high Glucose, WB [facility] mg/dL normal Health System IonizedCalcium 1.13 Below low normal Ionized [facility] mmol/L Calcium Health System Lactate 4.1 Above upper Lactate [facility] [Mass/volume] in mmol/L panic limits Health Serum or Plasma System Result Reporting|Telephone|florida wise| 04/05/2020 at 8:23 PMCalled to:Tech Name:José Miguel by:florida stover 03/09 / 8:23 PM ID Date Data Source [id number] 04/22/2020 01:18:14 PM EDT [facility] Name Value Range Interpretation Description Data Sup porting Code Source(s) Document(s ) Leukocytes 21.6 Above high WBC Count [facility] [#/volume] in {10^3_uL normal Health Unspecified } System specimen by Automated count Erythrocytes 3.39 Below low normal RBC Count [facility] [#/volume] in {10^6_uL Health Blood by } System Automated count Hemoglobin 10.0 Below low normal Hemoglobin [facility] [Mass/volume] in {gm/dL} Health Blood System Hematocrit 29.8 % Below low normal Hematocrit [facility] [Volume Health Fraction] of System Blood Erythrocyte mean 87.9 fl Normal (applies MCV [facility] corpuscular to non-numeric Health volume [Entitic results) System volume] by Automated count Erythrocyte mean 29.5 pg Normal (applies MCH [facility] corpuscular to non-numeric Health hemoglobin results) System [Entitic mass] by Automated count Erythrocyte mean 33.6 Normal (applies MCHC [facility] corpuscular {gm/dL} to non-numeric Health hemoglobin results) System concentration [Mass/volume] by Automated count Erythrocyte 13.4 % Normal (applies RDW-CV [facility] distribution to non-numeric Health width [Entitic results) System volume] by Automated count Platelets 223 Normal (applies Platelet Count [facility] [#/volume] in {10^3_uL to non-numeric Health Plasma by } results) System Automated count Nucleated 0.0 Normal (applies NRBC % [facility] erythrocytes {/100_WB to non-numeric Health [#/volume] in C} results) System Body fluid Platelet mean 10.4 fl Normal (applies MPV [facility] volume [Entitic to non-numeric Health volume] in Blood results) System by Automated count NRBC# 0.00 Normal (applies NRBC # [facility] {10^3_uL to non-numeric Health } results) System Neutrophils/100 92.8 % Above high Neutrophil % [facility] leukocytes in normal Health Blood by System Automated count Neutrophils 20.0 Above high Neutrophil # [facility] [#/volume] in {10^3_uL normal Health Body fluid } System Lymphocyte 0.7 Below low normal Lymphocyte # [facility] percent {10^3_uL Health differential } System count (procedure) Lymphocytes 3.1 % Below low normal Lymphocyte % [facility] [#/volume] in Health Blood by System Automated count Monocytes/100 2.4 % Normal (applies Monocyte % [facility] leukocytes in to non-numeric Health Blood results) System Monocytes 0.5 Normal (applies Monocyte # [facility] [#/volume] in {10^3_uL to non-numeric Health Blood by Manual } results) System count Eosinophils/100 0.0 % Normal (applies Eosinophil % [place] leukocytes in to non-numeric Health Unspecified results) System specimen Eosinophils 0.00 Normal (applies Eosinophil # [facility] [#/volume] in {10^3_uL to non-numeric Health Blood } results) System Basophils/100 0.2 % Normal (applies Basophil % [facility] leukocytes in to non-numeric Health Unspecified results) System specimen by Manual count Basophils 0.04 Normal (applies Basophil # [facility] [#/volume] in {10^3_uL to non-numeric Health Blood by } results) System Automated count ImmatureGranuloc 0.32 Above high Immature [facility] ytes# {10^3_uL normal Granulocytes # Health } System ImmatureGranuloc 1.5 % Above high Immature [facility] ytes% normal Granulocytes % Health System ID Date Data Source [id number] 04/22/2020 01:18:14 PM EDT [facility] Name Value Range Interpretation Description Data Sup porting Code Source(s) Document(s ) aPTT in Blood 35.0 Normal (applies Activated [facility] by Coagulation {Seconds to non-numeric Partial Health assay } results) Thromboplastin System Time ID Date Data Source [id number] 04/22/2020 01:18:14 PM EDT [facility] Name Value Range Interpretation Description Data Sup porting Code Source(s) Document(s ) Prothrombintim 14.40 Above high normal Prothrombin [place] e(PT) {seconds time (PT) Health System } INR in Blood 1.24 Above high normal INR Result [facility] by Coagulation {Ratio} Health System assay Normal = 0.7-1.1Therapeutic = 2.0-3.0Mec hanical Heart = 3.0-4.5 ID Date Data Source [id number] 04/22/2020 01:18:14 PM EDT [facility] Name Value Range Interpretation Description Data Source(s ) Supporting Code Document(s ) Blood,Oc Negative Normal (applies to Blood, Occult [facility] cultFece non-numeric Feces Health System s results) ID Date Data Source [id number] 04/22/2020 01:18:14 PM EDT [facility] Name Value Range Interpretation Description Data Sup porting Code Source(s) Document(s ) Poikilocytosis Slight Normal (applies Poikilocytosis [facility] [Presence] in to non-numeric Health Blood by results) System Automated count Polys 72 % Normal (applies Polys [facility] to non-numeric Health results) System Anisocytosis Slight Normal (applies Anisocytosis [facility] [Presence] in to non-numeric Health Blood by results) System Automated count Bands 14 % Above high Bands [facility] normal Health System Lymphocyte%. 7 % Below low normal Lymphocyte %. [facility] Platelets Adequate Normal (applies Platelet Count [facility] [#/volume] in to non-numeric Estimate Health Blood by results) System Estimate Monocyte%. 4 % Normal (applies Monocyte %. [facility] to non-numeric Health results) System Metamyelocytes 3 % Above high Metamyelocyte [facility] [#/volume] in normal Count Health Blood System BURRCells/Echino Few Normal (applies CHRIS Cells/ [place] cytes to non-numeric Echinocytes Health results) System VACUOLES Present Normal (applies VACUOLES [facility] to non-numeric Health results) System ID Date Data Source [id number] 04/22/2020 01:18:14 PM EDT [facility] Name Value Range Interpretation Description Data Sup porting Code Source(s) Document(s ) Leukocytes 39.7 Above upper panic WBC Count [facility] [#/volume] in {10^3_uL limits Health System Unspecified } specimen by Automated count Result Reporting|Telephone|Marlin fernandez RN/RB| 04/06/2020 at 10:24 AMCalled to:Marlin Lunsford RN/RBTech Name:[email or web address] back by:Marlin Lunsford RN/RB 04/06/2020 / 10:23 AM Erythrocytes 3.39 {10^6_uL} Below low RBC Count [facility] [#/volume] in Blood normal Health Sys tem by Automated count Hemoglobin 10.1 {gm/dL} Below low Hemoglobin [facility] [Mass/volume] in normal Health System Blood Hematocrit [Volume 30.7 % Below low Hematocrit [facility] Fraction] of Blood normal Health Syst em Erythrocyte mean 90.6 fl Normal MCV [facility] corpuscular volume (applies to Health Sy stem [Entitic volume] by non-numeric Automated count results) Erythrocyte mean 29.8 pg Normal MCH [facility] corpuscular (applies to Health System hemoglobin [Entitic non-numeric mass] by Automated results) count Erythrocyte mean 32.9 {gm/dL} Normal MCHC [facility] corpuscular (applies to Health System hemoglobin non-numeric concentration results) [Mass/volume] by Automated count Erythrocyte 13.4 % Normal RDW-CV [facility] distribution width (applies to Health Sy stem [Entitic volume] by non-numeric Automated count results) Platelets [#/volume] 247 {10^3_uL} Normal Platelet Count [facility] in Plasma by (applies to Health System Automated count non-numeric results) Platelet mean volume 11.8 fl Normal MPV [facility] [Entitic volume] in (applies to Health S ystem Blood by Automated non-numeric count results) Nucleated 0.0 {/100_WBC} Normal NRBC % [facility] erythrocytes (applies to Health System [#/volume] in Body non-numeric fluid results) NRBC# 0.00 {10^3_uL} Normal NRBC # [facility] (applies to Health System non-numeric results) Neutrophils/100 82.4 % Above high Neutrophil % [facility] leukocytes in Blood normal Health Sys tem by Automated count Neutrophils 32.8 {10^3_uL} Above high Neutrophil # [facility] [#/volume] in Body normal Health Syst em fluid Lymphocytes 5.8 % Below low Lymphocyte % [facility] [#/volume] in Blood normal Health Sys tem by Automated count Lymphocyte percent 2.3 {10^3_uL} Normal Lymphocyte # [facility] differential count (applies to Health stem (procedure) non-numeric results) Monocytes/100 2.5 % Normal Monocyte % [facility] leukocytes in Blood (applies to [facility] yste non-numeric results) Monocytes [#/volume] 1.0 {10^3_uL} Normal Monocyte # [facility] in Blood by Manual (applies to Health Sy stem count non-numeric results) Eosinophils/100 0.0 % Normal Eosinophil % [facility] leukocytes in (applies to Health System Unspecified specimen non-numeric results) Eosinophils 0.00 {10^3_uL} Normal Eosinophil # [facility] [#/volume[facility] Basophils/100 0.4 % Normal Basophil % [facility] leukocytes in (applies to Health System Unspecified specimen non-numeric by Manual count results) Basophils [#/volume] 0.14 {10^3_uL} Above high Basophil # [facility] in Blood by normal Health System Automated count ImmatureGranulocytes 3.54 {10^3_uL} Above high Immature [facility] # normal Granulocytes # Health System ImmatureGranulocytes 8.9 % Above high Immature [facility] % normal Granulocytes % Health System ID Date Data Source [id number] 04/22/2020 01:18:14 PM EDT [facility] Name Value Range Interpretation Description Data Sup porting Code Source(s) Document(s ) Sodium 143 Normal (applies Sodium, Serum [facility] [Moles/volume] in mmol/L to non-numeric Health Serum or Plasma results) System Potassium 4.0 Normal (applies Potassium, [facility] [Mass/volume] in mmol/L to non-numeric Serum Health Serum or Plasma results) System Chloride 109 Normal (applies Chloride, [facility] [Moles/volume] in mmol/L to non-numeric Serum Health Serum or Plasma results) System Carbon dioxide, 18.2 Below low normal CO2, Serum [facility] total mmol/L Health [Moles/volume] in System Serum or Plasma TotalProtein 5.4 Below low normal Total Protein [facility] mg/dl [facility] System Glucose 82 Normal (applies Glucose, [facility] [Mass/volume] in mg/dL to non-numeric Serum Health Serum or Plasma results) System Urea nitrogen 25 Above high Blood Urea [facility] [Mass/volume] in mg/dl normal Nitrogen, Health Serum or Plasma Serum System Creatinine 1.39 Above high Creatinine, [facility] [Mass/volume] in mg/dl normal Serum Health Serum or Plasma System Alkaline 58 Normal (applies Alkaline [facility] phosphatase {IU/L} to non-numeric Phosphatase, Health isoenzymes results) Serum System [Enzymatic activity/volume] in Serum or Plasma by Heat stability Bilirubin.total 0.8 Normal (applies Bilirubin, [facility] [Mass/volume] in mg/dl to non-numeric Serum Total Health Serum or Plasma results) System DirectBilirubin 0.2 Normal (applies Direct [facility] mg/dl to non-numeric Bilirubin Health results) System Aspartate 214 Above high Aspartate [facility] aminotransferase {IU/L} normal Transaminase, Health [Enzymatic Serum System activity/volume] in Serum or Plasma by With P-5'-P I.Phosphorus 3.9 Normal (applies I. Phosphorus [facility] mg/dl to non-numeric Health results) System Albumin 3.0 Below low normal Albumin, [facility] [Mass/volume] in {gm/dl} Serum Health Serum or Plasma System Alanine 74 Above high Alanine [facility] aminotransferase {IU/L} normal Aminotransfer Health [Enzymatic ase, Serum System activity/volume] in Serum or Plasma Calcium 7.7 Below low normal Calcium, [facility] [Mass/volume] in mg/dl Total Serum Health Serum or Plasma System A/GRatio 1.25 Normal (applies A/G Ratio [facility] to non-numeric Health results) System Urate 5.9 Normal (applies Uric Acid, [facility] [Mass/volume] in mg/dl to non-numeric Serum Health Serum or Plasma results) System Anion gap in Serum 15.80 Normal (applies Anion Gap [place] or Plasma mmol/L to non-numeric Health results) System Glomerular 49.00 Normal (applies GFR [facility] filtration to non-numeric Health rate/1.73 sq results) System M.predicted [Volume Rate/Area] in Serum or Plasma by Creatinine-based formula (CKD-EPI) eGFR will provide clinicians with a more accurate indicator of renal function then the serum creatinine. The eGFR is automa tically calculated from an empiric formula (endorsed by the National Kidney Foundat ion) which incorporates age, sex, and race.Clinicians may notice surprisingly low GFR's with serum creatinine valueswithin normal range- particularly in elderly wo men (with low muscle mass).In the hospital setting, the eGFR should add an element of safety in drug dosing, in assessing the risk of IV contrast administration, and in assessing vascular risk.The NKF staging system is as follows:Normal: eGFR >90 with no kidney markersStage 1: eGFR >90 with kidney markers*Stage 2: eGFR 60- 89Stage 3: eGFR 30-59Stage 4: eGFR 15-29Stage 5: eGFR <15 (usually requir ing dialysis)*Markers include: Proteinuria, Hematuria, abnormal imaging-studies, or other blood or urine test abnormalities ID Date Data Source [id number] 04/22/2020 01:18:14 PM [email or web address] [email or web address] Name Value Range Interpretation Description Data Sup porting Code Source(s) Document(s ) Procalci 124.67 Normal (applies to Procalcitonin [facility] tonin(PC ng/mL non-numeric (PCT), Serum Health System T),Serum results) For suspected lower respiratory tract in fection:-Check PCT upon suspected diagnosis, may repeat the next day if antibiotics w ere withheld-Antibiotics are encouraged if PCT >0.25 ng/mL then complete course acc ording to guidelinesFor suspected sepsis on antibiotics:-Check PCT on admission and trend daily until peak, then every other day until PCT level falls to <0.5 ng/mL or b y 80% from peak value-Discontinue antibiotics if above level is achieved.Method: Immun oassay sandwich method with a final fluorescent detection. ID Date Data Source [id number] 04/22/2020 01:18:14 PM [email or web address] [email or web address] Name Value Range Interpretation Description Data Sup porting Code Source(s) Document(s ) Prothrombintim 17.90 Above high normal Prothrombin [place] [facility](PT) {seconds time (PT) [facility] } Prothrombin Ab 1.54 Above high normal INR Result [facility] [Units/volume] {Ratio} [facility] in Serum or Plasma Normal = 0.7-1.1Therapeutic = 2.0-3.0Mec hanical Heart = 3.0-4.5 ID Date Data Source [id number] 04/22/2020 01:18:14 PM EDT [facility] Name Value Range Interpretation Description Data Sup porting Code Source(s) Document(s ) aPTT in Blood 141.4 Above upper Activated [facility] by Coagulation {Seconds panic limits Partial Health assay } Thromboplastin System Time Result Reporting|Telephone|goldie savage rn/rb| 04/06/2020 at 9:40 AMCalled to:goldie rod rn/rbTech Name:benjamin Price by:goldie rod rn/rb 04/06/2020 / 9:40 AM ID Date Data Source [id number] 04/22/2020 01:18:14 PM EDT [facility] Name Value Range Interpretation Description Data Sup porting Code Source(s) Document(s ) aPTT in Blood 104.2 Above upper Activated [facility] by Coagulation {Seconds panic limits Partial Health assay } Thromboplastin System Time Result Reporting|Telephone|marlin fernandez rn/rb| 04/06/2020 at 11:07 AMCalled to:marlin lunsford rn/rbTech Name:benjamin Price by:marlin lunsford rn/rb 04/06/2020 / 11:06 AM ID Date Data Source [id number] 04/22/2020 01:18:14 PM EDT [facility] Name Value Range Interpretation Description Data Sup porting Code Source(s) Document(s ) aPTT in Blood 89.8 Above high Activated [facility] by Coagulation {Seconds normal Partial Health assay } Thromboplastin System Time ID Date Data Source [id number] 04/22/2020 01:18:14 PM EDT [facility] Name Value Range Interpretation Description Data Sup porting Code Source(s) Document(s ) aPTT in Blood 36.0 Normal (applies Activated [facility] by Coagulation {Seconds to non-numeric Partial Health assay } results) Thromboplastin System Time ID Date Data Source [id number] 04/22/2020 01:18:14 PM EDT [facility] Name Value Range Interpretation Description Data Sup porting Code Source(s) Document(s ) Leukocytes 35.2 Above upper panic WBC Count [facility] [#/volume] in {10^3_uL limits Health System Unspecified } specimen by Automated count Previously released as 35.2-(1) on 2019, 09:34 [place] [id number] - (1) - Please refer to Mamnual Diff done on 04/06/2020 .Please refer to Mamnual Diff done on 04/06/2020.,,slide scanned agree with darcy jacobson manual diffResult Reporting|Telephone|mihai rod rn| 04/07/2020 at 9:36 AMCalled to:mihai rod rnTech Name:leannReadback by :mihai rod rn 04/07/2020 / 9:34 AMResult Reporting|Telephone|~~| 04/07/20 20 at 10:00 AMCalled to:Tech Name:Readback by: 04/07/2020 / 9:59 AM Erythrocytes 3.29 {10^6_uL} Below low RBC Count [facility] [#/volume] in Blood normal Health Sys tem by Automated count Hemoglobin 9.7 {gm/dL} Below low Hemoglobin [facility] [Mass/volume] in normal Health System Blood Hematocrit [Volume 29.8 % Below low Hematocrit [facility] Fraction] of Blood normal Health Syst em Erythrocyte mean 90.6 fl Normal MCV [facility] corpuscular volume (applies to Health Sy stem [Entitic volume] by non-numeric Automated count results) Erythrocyte mean 29.5 pg Normal MCH [facility] corpuscular (applies to Health System hemoglobin [Entitic non-numeric mass] by Automated results) count Erythrocyte mean 32.6 {gm/dL} Normal MCHC [facility] corpuscular (applies to [facility] System hemoglobin non-numeric concentration results) [Mass/volume] by Automated count Erythrocyte 13.7 % Normal RDW-CV [facility] distribution width (applies to Health Sy stem [Entitic volume] by non-numeric Automated count results) Platelets [#/volume] 222 {10^3_uL} Normal Platelet Count [facility] in Plasma by (applies to Health System Automated count non-numeric results) Platelet mean volume 12.0 fl Normal MPV [facility] [Entitic volume] in (applies to [facility] Blood by Automated non-numeric count results) Nucleated 0.0 {/100_WBC} Normal NRBC % [facility] erythrocytes (applies to [facility] [#/volume] in Body non-numeric fluid results) NRBC# 0.00 {10^3_uL} Normal NRBC # [facility] (applies to [facility] System non-numeric results) Neutrophils/100 80.3 % Above high Neutrophil % [facility] leukocytes in Blood normal Health Sy tem by Automated count Neutrophils 28.2 {10^3_uL} Above high Neutrophil # [facility] [#/volume] in Body normal Health Syst em fluid Lymphocytes 4.7 % Below low Lymphocyte % [facility] [#/volume] in Blood normal [facility] tem by Automated count Lymphocyte percent 1.7 {10^3_uL} Normal Lymphocyte # [facility] differential count (applies to [facility] stem (procedure) non-numeric results) Monocytes/100 1.5 % Below low Monocyte % [facility] leukocytes in Blood normal [facility] tem Monocytes [#/volume] 0.5 {10^3_uL} Normal Monocyte # [facility] in Blood by Manual (applies to Health Sy stem count non-numeric results) Eosinophils/100 0.1 % Normal Eosinophil % [facility] leukocytes in (applies to [facility] System Unspecified specimen non-numeric results) Eosinophils 0.03 {10^3_uL} Normal Eosinophil # [facility] [#/volume] in Blood (applies to [facility] non-numeric results) Basophils/100 0.4 % Normal Basophil % [facility] leukocytes in (applies to [facility] System Unspecified specimen non-numeric by Manual count results) Basophils [#/volume] 0.13 {10^3_uL} Above high Basophil # [facility] in Blood by normal [facility] System Automated count ImmatureGranulocytes 4.59 {10^3_uL} Above high Immature [facility] # normal Granulocytes # Health System ImmatureGranulocytes 13.0 % Above high Immature [facility] % normal Granulocytes % Health System ID Date Data Source [id number] 04/22/2020 01:18:14 PM EDT [facility] Name Value Range Interpretation Description Data Sup porting Code Source(s) Document(s ) Sodium 139 Normal (applies Sodium, Serum [facility] [Moles/volume] in mmol/L to non-numeric Health Serum or Plasma results) System Potassium 3.5 Normal (applies Potassium, [facility] [Mass/volume] in mmol/L to non-numeric Serum Health Serum or Plasma results) System Chloride 109 Normal (applies Chloride, [facility] [Moles/volume] in mmol/L to non-numeric Serum Health Serum or Plasma results) System Carbon dioxide, 21.1 Normal (applies CO2, Serum [facility] total mmol/L to non-numeric Health [Moles/volume] in results) System Serum or Plasma TotalProtein 4.9 Below low normal Total Protein [facility] mg/dl [facility] Glucose 75 Normal (applies Glucose, [facility] [Mass/volume] in mg/dL to non-numeric Serum Health Serum or Plasma results) System Urea nitrogen 25 Above high Blood Urea [facility] [Mass/volume] in mg/dl normal Nitrogen, Health Serum or Plasma Serum System Creatinine 1.22 Above high Creatinine, [facility] [Mass/volume] in mg/dl normal Serum Health Serum or Plasma System Alkaline 60 Normal (applies Alkaline [facility] phosphatase {IU/L} to non-numeric Phosphatase, Health isoenzymes results) Serum System [Enzymatic activity/volume] in Serum or Plasma by Heat stability Bilirubin.total 0.8 Normal (applies Bilirubin, [facility] [Mass/volume] in mg/dl to non-numeric Serum Total Health Serum or Plasma results) System DirectBilirubin 0.2 Normal (applies Direct [facility] mg/dl to non-numeric Bilirubin Health results) System Aspartate 137 Above high Aspartate [facility] aminotransferase {IU/L} normal Transaminase, Health [Enzymatic Serum System activity/volume] in Serum or Plasma by With P-5'-P Albumin 2.5 Below low normal Albumin, [facility] [Mass/volume] in {gm/dl} Serum Health Serum or Plasma System I.Phosphorus 2.9 Normal (applies I. Phosphorus [facility] mg/dl to non-numeric Health results) System Alanine 64 Above high Alanine [facility] aminotransferase {IU/L} normal Aminotransfer Health [Enzymatic ase, Serum System activity/volume] in Serum or Plasma Calcium 7.5 Below low normal Calcium, [facility] [Mass/volume] in mg/dl Total Serum Health Serum or Plasma System A/GRatio 1.04 Normal (applies A/G Ratio [facility] to non-numeric Health results) System Urate 3.2 Normal (applies Uric Acid, [facility] [Mass/volume] in mg/dl to non-numeric Serum Health Serum or Plasma results) System Anion gap in Serum 8.90 Normal (applies Anion Gap [place] or Plasma mmol/L to non-numeric Health results) System Glomerular 57.00 Normal (applies GFR [facility] filtration to non-numeric Health rate/1.73 sq results) System M.predicted [Volume Rate/Area] in Serum or Plasma by Creatinine-based formula (CKD-EPI) eGFR will provide clinicians with a more accurate indicator of renal function then the serum creatinine. The eGFR is automa tically calculated from an empiric formula (endorsed by the [employer] ion) which incorporates age, sex, and race.Clinicians may notice surprisingly low GFR's with serum creatinine valueswithin normal range- particularly in elderly wo men (with low muscle mass).In the hospital setting, the eGFR should add an element of safety in drug dosing, in assessing the risk of IV contrast administration, and in assessing vascular risk.The NKF staging system is as follows:Normal: eGFR >90 with no kidney markersStage 1: eGFR >90 with kidney markers*Stage 2: eGFR 60- 89Stage 3: eGFR 30-59Stage 4: eGFR 15-29Stage 5: eGFR <15 (usually requir ing dialysis)*Markers include: Proteinuria, Hematuria, abnormal imaging-studies, or other blood or urine test abnormalities ID Date Data Source [id number] 04/22/2020 01:18:14 PM EDT [facility] Name Value Range Interpretation Description Data Sup porting Code Source(s) Document(s ) aPTT in Blood 37.6 Above high Activated [facility] by Coagulation {Seconds normal Partial Health assay } Thromboplastin System Time ID Date Data Source [id number] 04/22/2020 01:18:14 PM EDT [facility] Name Value Range Interpretation Description Data Sup porting Code Source(s) Document(s ) Magnesium 1.5 Normal (applies Magnesium, [facility] [Mass/volume] {mEq/L} to non-numeric Serum Health Syst em in Serum or results) Plasma ID Date Data Source [id number] 04/22/2020 01:18:14 PM EDT [facility] Name Value Range Interpretation Description Data Sup porting Code Source(s) Document(s ) Natriuretic 732.0 Above high normal B-Type [facility] peptide B pg/ml [facility] [Mass/volume] Peptide in Serum or Plasma ID Date Data Source [id number] 04/22/2020 01:18:14 PM EDT [facility] Heparin drip Name Value Range Interpretation Description Data Sup porting Code Source(s) Document(s ) aPTT in Blood 35.2 Normal (applies Activated [facility] by Coagulation {Seconds to non-numeric Partial Health assay } results) Thromboplastin System Time ID Date Data Source [id number] 04/22/2020 01:18:14 PM EDT [facility] Name Value Range Interpretation Description Data Sup porting Code Source(s) Document(s ) aPTT in Blood 40.3 Above high Activated [facility] by Coagulation {Seconds normal Partial Health assay } Thromboplastin System Time ID Date Data Source [id number] 04/22/2020 01:18:14 PM EDT [facility] Name Value Range Interpretation Description Data Sup porting Code Source(s) Document(s ) Leukocytes 28.7 Above high normal WBC Count [facility] [#/volume] in {10^3_uL Health System Unspecified } specimen by Automated count Please refer to Manual Diff done on 03/10. Erythrocytes 3.31 {10^6_uL} Below low RBC Count [facility] [#/volume] in Blood normal Health Sys tem by Automated count Hemoglobin 9.7 {gm/dL} Below low Hemoglobin [facility] [Mass/volume] in normal Health System Blood Hematocrit [Volume 29.6 % Below low Hematocrit [facility] Fraction] of Blood normal Health Syst em Erythrocyte mean 89.4 fl Normal MCV [facility] corpuscular volume (applies to Health Sy stem [Entitic volume] by non-numeric Automated count results) Erythrocyte mean 29.3 pg Normal MCH [facility] corpuscular (applies to Health System hemoglobin [Entitic non-numeric mass] by Automated results) count Erythrocyte mean 32.8 {gm/dL} Normal MCHC [facility] corpuscular (applies to [facility] System hemoglobin non-numeric concentration results) [Mass/volume] by Automated count Erythrocyte 13.7 % Normal RDW-CV [facility] distribution width (applies to Health stem [Entitic volume] by non-numeric Automated count results) Platelets [#/volume] 232 {10^3_uL} Normal Platelet Count [facility] in Plasma by (applies to [facility] System Automated count non-numeric results) Platelet mean volume 11.9 fl Normal MPV [facility] [Entitic volume] in (applies to [facility] Blood by Automated non-numeric count results) Nucleated 0.0 {/100_WBC} Normal NRBC % [facility] erythrocytes (applies to Health System [#/volume] in Body non-numeric fluid results) NRBC# 0.00 {10^3_uL} Normal NRBC # [facility] (applies to [facility] System non-numeric results) Neutrophils/100 91.0 % Above high Neutrophil % [facility] leukocytes in Blood normal Health Sys tem by Automated count Neutrophils 26.1 {10^3_uL} Above high Neutrophil # [facility] [#/volume] in Body normal Health Syst em fluid Lymphocytes 6.0 % Below low Lymphocyte % [facility] [#/volume] in Blood normal Health Sys tem by Automated count Lymphocyte percent 1.7 {10^3_uL} Normal Lymphocyte # [facility] differential count (applies to [facility] stem (procedure) non-numeric results) Monocytes/100 1.5 % Below low Monocyte % [facility] leukocytes in Blood normal [facility] tem Monocytes [#/volume] 0.4 {10^3_uL} Normal Monocyte # [facility] in Blood by Manual (applies to Health Sy stem count non-numeric results) Eosinophils/100 0.7 % Normal Eosinophil % [facility] leukocytes in (applies to [facility] System Unspecified specimen non-numeric results) Eosinophils 0.20 {10^3_uL} Normal Eosinophil # [facility] [#/volume] in Blood (applies to [facility] non-numeric results) Basophils/100 0.3 % Normal Basophil % [facility] leukocytes in (applies to [facility] System Unspecified specimen non-numeric by Manual count results) Basophils [#/volume] 0.09 {10^3_uL} Normal Basophil # [facility] in Blood by (applies to [facility] Automated count non-numeric results) ImmatureGranulocytes 0.13 {10^3_uL} Above high Immature [facility] # normal Granulocytes # Health System ImmatureGranulocytes 0.5 % Normal Immature [facility] % (applies to Granulocytes % [facility] System non-numeric results) ID Date Data Source [id number] 04/22/2020 01:18:14 PM EDT [facility] Name Value Range Interpretation Description Data Sup porting Code Source(s) Document(s ) Vancomycin 7.7 Normal (applies Vancomycin [facility] [Mass/volume] ug/mL to non-numeric Level, [facility] in Serum or results) Plasma ID Date Data Source [id number] 04/22/2020 01:18:14 PM EDT [facility] Name Value Range Interpretation Description Data Sup porting Code Source(s) Document(s ) Sodium 139 Normal (applies Sodium, Serum [facility] [Moles/volume] in mmol/L to non-numeric Health Serum or Plasma results) System Potassium 3.7 Normal (applies Potassium, [facility] [Mass/volume] in mmol/L to non-numeric Serum Health Serum or Plasma results) System Chloride 108 Normal (applies Chloride, [facility] [Moles/volume] in mmol/L to non-numeric Serum Health Serum or Plasma results) System Carbon dioxide, 23.7 Normal (applies CO2, Serum [facility] total mmol/L to non-numeric Health [Moles/volume] in results) System Serum or Plasma TotalProtein 5.0 Below low normal Total Protein [facility] mg/dl [facility] Glucose 106 Normal (applies Glucose, [facility] [Mass/volume] in mg/dL to non-numeric Serum Health Serum or Plasma results) System Urea nitrogen 20 Normal (applies Blood Urea [facility] [Mass/volume] in mg/dl to non-numeric Nitrogen, Health Serum or Plasma results) Serum System Creatinine 1.33 Above high Creatinine, [facility] [Mass/volume] in mg/dl normal Serum Health Serum or Plasma System Alkaline 71 Normal (applies Alkaline [facility] phosphatase {IU/L} to non-numeric Phosphatase, Health isoenzymes results) Serum System [Enzymatic activity/volume] in Serum or Plasma by Heat stability Bilirubin direct 0.6 Normal (applies Bilirubin, [facility] and total panel mg/dl to non-numeric Serum Total Health [Mass/volume] - results) System Serum or Plasma DirectBilirubin 0.2 Normal (applies Direct [facility] mg/dl to non-numeric Bilirubin Health results) System Aspartate 74 Above high Aspartate [facility] aminotransferase {IU/L} normal Transaminase, Health [Enzymatic Serum System activity/volume] in Serum or Plasma by With P-5'-P Albumin 2.7 Below low normal Albumin, [facility] [Mass/volume] in {gm/dl} Serum Health Serum or Plasma System I.Phosphorus 2.3 Below low normal I. Phosphorus [facility] mg/dl [facility] Alanine 63 Above high Alanine [facility] aminotransferase {IU/L} normal Aminotransfer Health [Enzymatic ase, Serum System activity/volume] in Serum or Plasma Calcium 7.6 Below low normal Calcium, [facility] [Mass/volume] in mg/dl Total Serum Health Serum or Plasma System A/GRatio 1.17 Normal (applies A/G Ratio [facility] to non-numeric Health results) System Urate 3.3 Normal (applies Uric Acid, [facility] [Mass/volume] in mg/dl to non-numeric Serum Health Serum or Plasma results) System Anion gap in Serum 7.30 Normal (applies Anion Gap [place] or Plasma mmol/L to non-numeric Health results) System Glomerular 52.00 Normal (applies GFR [facility] filtration to non-numeric Health rate/1.73 sq results) System M.predicted [Volume Rate/Area] in Serum or Plasma by Creatinine-based formula (CKD-EPI) eGFR will provide clinicians with a more accurate indicator of renal function then the serum creatinine. The eGFR is automa tically calculated from an empiric formula (endorsed by the [employer] ion) which incorporates age, sex, and race.Clinicians may notice surprisingly low GFR's with serum creatinine valueswithin normal range- particularly in elderly wo men (with low muscle mass).In the hospital setting, the eGFR should add an element of safety in drug dosing, in assessing the risk of IV contrast administration, and in assessing vascular risk.The NKF staging system is as follows:Normal: eGFR >90 with no kidney markersStage 1: eGFR >90 with kidney markers*Stage 2: eGFR 60- 89Stage 3: eGFR 30-59Stage 4: eGFR 15-29Stage 5: eGFR <15 (usually requir ing dialysis)*Markers include: Proteinuria, Hematuria, abnormal imaging-studies, or other blood or urine test abnormalities ID Date Data Source [id number] 04/22/2020 01:18:14 PM EDT [facility] Name Value Range Interpretation Description Data Sup porting Code Source(s) Document(s ) aPTT in Blood 52.1 Above high Activated [facility] by Coagulation {Seconds normal Partial Health assay } Thromboplastin System Time ID Date Data Source [id number] 04/22/2020 01:18:14 PM EDT [facility] Heparin drip Name Value Range Interpretation Description Data Sup porting Code Source(s) Document(s ) aPTT in Blood 41.8 Above high Activated [facility] by Coagulation {Seconds normal Partial Health assay } Thromboplastin System Time ID Date Data Source [id number] 04/22/2020 01:18:14 PM EDT [facility] Name Value Range Interpretation Description Data Sup porting Code Source(s) Document(s ) aPTT in Blood 63.1 Above high Activated [facility] by Coagulation {Seconds normal Partial Health assay } Thromboplastin System Time ID Date Data Source [id number] 04/22/2020 01:18:14 PM EDT [facility] Name Value Range Interpretation Description Data Sup porting Code Source(s) Document(s ) Digoxin 1.9 ng/ml Normal (applies to Digoxin Level, [facility] [Mass/volum non-numeric Serum Health System e] in Serum results) or Plasma ID Date Data Source [id number] 04/22/2020 01:18:14 PM EDT [facility] Name Value Range Interpretation Description Data Sup porting Code Source(s) Document(s ) Leukocytes 21.8 Above high WBC Count [facility] [#/volume] in {10^3_uL normal Health Unspecified } System specimen by Automated count Erythrocytes 3.12 Below low normal RBC Count [facility] [#/volume] in {10^6_uL Health Blood by } System Automated count Hemoglobin 9.1 Below low normal Hemoglobin [facility] [Mass/volume] in {gm/dL} Health Blood System Hematocrit 28.1 % Below low normal Hematocrit [facility] [Volume Health Fraction] of System Blood Erythrocyte mean 90.1 fl Normal (applies MCV [facility] corpuscular to non-numeric Health volume [Entitic results) System volume] by Automated count Erythrocyte mean 29.2 pg Normal (applies MCH [facility] corpuscular to non-numeric Health hemoglobin results) System [Entitic mass] by Automated count Erythrocyte mean 32.4 Normal (applies MCHC [facility] corpuscular {gm/dL} to non-numeric Health hemoglobin results) System concentration [Mass/volume] by Automated count Erythrocyte 13.4 % Normal (applies RDW-CV [facility] distribution to non-numeric Health width [Entitic results) System volume] by Automated count Platelets 212 Normal (applies Platelet Count [facility] [#/volume] in {10^3_uL to non-numeric Health Plasma by } results) System Automated count Platelet mean 12.0 fl Normal (applies MPV [facility] volume [Entitic to non-numeric Health volume] in Blood results) System by Automated count Nucleated 0.0 Normal (applies NRBC % [facility] erythrocytes {/100_WB to non-numeric Health [#/volume] in C} results) System Body fluid NRBC# 0.00 Normal (applies NRBC # [facility] {10^3_uL to non-numeric Health } results) System Neutrophils/100 87.3 % Above high Neutrophil % [facility] leukocytes in normal Health Blood by System Automated count Neutrophils 19.0 Above high Neutrophil # [facility] [#/volume] in {10^3_uL normal Health Body fluid } System Lymphocytes 8.0 % Below low normal Lymphocyte % [facility] [#/volume] in Health Blood by System Automated count Lymphocyte 1.7 Normal (applies Lymphocyte # [facility] percent {10^3_uL to non-numeric Health differential } results) System count (procedure) Monocytes/100 2.4 % Normal (applies Monocyte % [facility] leukocytes in to non-numeric Health Blood results) System Monocytes 0.5 Normal (applies Monocyte # [facility] [#/volume] in {10^3_uL to non-numeric Health Blood by Manual } results) System count Eosinophils/100 0.9 % Normal (applies Eosinophil % [place] leukocytes in to non-numeric Health Unspecified results) System specimen Eosinophils 0.19 Normal (applies Eosinophil # [facility] [#/volume] in {10^3_uL to non-numeric Health Blood } results) System Basophils/100 0.3 % Normal (applies Basophil % [facility] leukocytes in to non-numeric Health Unspecified results) System specimen by Manual count Basophils 0.06 Normal (applies Basophil # [facility] [#/volume] in {10^3_uL to non-numeric Health Blood by } results) System Automated count ImmatureGranuloc 0.23 Above high Immature [facility] ytes# {10^3_uL normal Granulocytes # Health } System ImmatureGranuloc 1.1 % Above high Immature [facility] ytes% normal Granulocytes % Health System ID Date Data Source [id number] 04/22/2020 01:18:14 PM EDT [facility] Name Value Range Interpretation Description Data Sup porting Code Source(s) Document(s ) Sodium 140 Normal (applies Sodium, Serum [facility] [Moles/volume] in mmol/L to non-numeric Health Serum or Plasma results) System Potassium 4.2 Normal (applies Potassium, [facility] [Mass/volume] in mmol/L to non-numeric Serum Health Serum or Plasma results) System Chloride 108 Normal (applies Chloride, [facility] [Moles/volume] in mmol/L to non-numeric Serum Health Serum or Plasma results) System Carbon dioxide, 23.8 Normal (applies CO2, Serum [facility] total mmol/L to non-numeric Health [Moles/volume] in results) System Serum or Plasma TotalProtein 5.1 Below low normal Total Protein [facility]dl [facility] Glucose 80 Normal (applies Glucose, [facility] [Mass/volume] in mg/dL to non-numeric Serum Health Serum or Plasma results) System Urea nitrogen 18 Normal (applies Blood Urea [facility] [Mass/volume] in mg/dl to non-numeric Nitrogen, Health Serum or Plasma results) Serum System Creatinine 1.16 Normal (applies Creatinine, [facility] [Mass/volume] in mg/dl to non-numeric Serum Health Serum or Plasma results) System Alkaline 68 Normal (applies Alkaline [facility] phosphatase {IU/L} to non-numeric Phosphatase, Health isoenzymes results) Serum System [Enzymatic activity/volume] in Serum or Plasma by Heat stability Bilirubin.total 0.3 Normal (applies Bilirubin, [facility] [Mass/volume] in mg/dl to non-numeric Serum Total Health Serum or Plasma results) System DirectBilirubin 0.1 Normal (applies Direct [facility] mg/dl to non-numeric Bilirubin [facility] results) System Aspartate 49 Above high Aspartate [facility] aminotransferase {IU/L} normal Transaminase, Health [Enzymatic Serum System activity/volume] in Serum or Plasma by With P-5'-P Albumin 2.6 Below low normal Albumin, [facility] [Mass/volume] in {gm/dl} Serum Health Serum or Plasma System I.Phosphorus 2.5 Below low normal I. Phosphorus [facility] mg/dl [facility] Alanine 59 Above high Alanine [facility] aminotransferase {IU/L} normal Aminotransfer [facility] [Enzymatic ase, Serum System activity/volume] in Serum or Plasma Calcium 7.8 Below low normal Calcium, [facility] [Mass/volume] in mg/dl Total Serum Health Serum or Plasma System A/GRatio 1.04 Normal (applies A/G Ratio [facility] to non-numeric Health results) System Urate 3.9 Normal (applies Uric Acid, [facility] [Mass/volume] in mg/dl to non-numeric Serum Health Serum or Plasma results) System Anion gap in Serum 8.20 Normal (applies Anion Gap [place] or Plasma mmol/L to non-numeric Health results) System Glomerular 61.00 Normal (applies GFR [facility] filtration to non-numeric Health rate/1.73 sq results) System M.predicted [Volume Rate/Area] in Serum or Plasma by Creatinine-based formula (CKD-EPI) eGFR will provide clinicians with a more accurate indicator of renal function then the serum creatinine. The eGFR is automa tically calculated from an empiric formula (endorsed by the [employer]) which incorporates age, sex, and race.Clinicians may notice surprisingly low GFR's with serum creatinine valueswithin normal range- particularly in elderly wo men (with low muscle mass).In the hospital setting, the eGFR should add an element of safety in drug dosing, in assessing the risk of IV contrast administration, and in assessing vascular risk.The NKF staging system is as follows:Normal: eGFR >90 with no kidney markersStage 1: eGFR >90 with kidney markers*Stage 2: eGFR 60- 89Stage 3: eGFR 30-59Stage 4: eGFR 15-29Stage 5: eGFR <15 (usually requir ing dialysis)*Markers include: Proteinuria, Hematuria, abnormal imaging-studies, or other blood or urine test abnormalities ID Date Data Source [id number] 04/22/2020 01:18:14 PM EDT [facility] Name Value Range Interpretation Description Data Sup porting Code Source(s) Document(s ) Leukocytes 13.1 Above high WBC Count [facility] [#/volume] in {10^3_uL normal Health Unspecified } System specimen by Automated count Erythrocytes 3.13 Below low normal RBC Count [facility] [#/volume] in {10^6_uL Health Blood by } System Automated count Hemoglobin 9.1 Below low normal Hemoglobin [facility] [Mass/volume] in {gm/dL} Health Blood System Hematocrit 28.2 % Below low normal Hematocrit [facility] [Volume [facility] Fraction] of System Blood Erythrocyte mean 90.1 fl Normal (applies MCV [facility] corpuscular to non-numeric Health volume [Entitic results) System volume] by Automated count Erythrocyte mean 29.1 pg Normal (applies MCH [facility] corpuscular to non-numeric Health hemoglobin results) System [Entitic mass] by Automated count Erythrocyte mean 32.3 Normal (applies MCHC [facility] corpuscular {gm/dL} to non-numeric Health hemoglobin results) System concentration [Mass/volume] by Automated count Erythrocyte 13.3 % Normal (applies RDW-CV [facility] distribution to non-numeric Health width [Entitic results) System volume] by Automated count Platelets 240 Normal (applies Platelet Count [facility] [#/volume] in {10^3_uL to non-numeric Health Plasma by } results) System Automated count Platelet mean 11.5 fl Normal (applies MPV [facility] volume [Entitic to non-numeric Health volume] in Blood results) System by Automated count Nucleated 0.2 Normal (applies NRBC % [facility] erythrocytes {/100_WB to non-numeric Health [#/volume] in C} results) System Body fluid NRBC# 0.02 Above high NRBC # [facility] {10^3_uL normal Health } System Neutrophils/100 73.9 % Normal (applies Neutrophil % [place] leukocytes in to non-numeric Health Blood by results) System Automated count Neutrophils 9.7 Above high Neutrophil # [facility] [#/volume] in {10^3_uL normal Health Body fluid } System Lymphocytes 15.1 % Normal (applies Lymphocyte % [facility] [#/volume] in to non-numeric Health Blood by results) System Automated count Lymphocyte 2.0 Normal (applies Lymphocyte # [facility] percent {10^3_uL to non-numeric Health differential } results) System count (procedure) Monocytes/100 5.3 % Normal (applies Monocyte % [facility] leukocytes in to non-numeric Health Blood results) System Monocytes 0.7 Normal (applies Monocyte # [facility] [#/volume] in {10^3_uL to non-numeric Health Blood by Manual } results) System count Eosinophils/100 2.6 % Normal (applies Eosinophil % [place] leukocytes in to non-numeric Health Unspecified results) System specimen Eosinophils 0.34 Normal (applies Eosinophil # [facility] [#/volume] in {10^3_uL to non-numeric Health Blood } results) System Basophils/100 0.4 % Normal (applies Basophil % [facility] leukocytes in to non-numeric Health Unspecified results) System specimen by Manual count Basophils 0.05 Normal (applies Basophil # [facility] [#/volume] in {10^3_uL to non-numeric Health Blood by } results) System Automated count ImmatureGranuloc 0.36 Above high Immature [facility] ytes# {10^3_uL normal Granulocytes # Health } System ImmatureGranuloc 2.7 % Above high Immature [facility] ytes% normal Granulocytes % [facility] System ID Date Data Source [id number] 04/22/2020 01:18:14 PM EDT [facility] Name Value Range Interpretation Description Data Sup porting Code Source(s) Document(s ) Magnesium 1.5 Normal (applies Magnesium, [facility] [Mass/volume] {mEq/L} to non-numeric Serum Health Syst em in Serum or results) Plasma ID Date Data Source [id number] 04/22/2020 01:18:14 PM EDT [facility] Name Value Range Interpretation Description Data Sup porting Code Source(s) Document(s ) Sodium 140 Normal (applies Sodium, Serum [facility] [Moles/volume] in mmol/L to non-numeric Health Serum or Plasma results) System Potassium 3.9 Normal (applies Potassium, [facility] [Mass/volume] in mmol/L to non-numeric Serum Health Serum or Plasma results) System Chloride 107 Normal (applies Chloride, [facility] [Moles/volume] in mmol/L to non-numeric Serum Health Serum or Plasma results) System Carbon dioxide, 25.6 Normal (applies CO2, Serum [facility] total mmol/L to non-numeric Health [Moles/volume] in results) System Serum or Plasma TotalProtein 5.0 Below low normal Total Protein [facility]dl [facility] Glucose 85 Normal (applies Glucose, [facility] [Mass/volume] in mg/dL to non-numeric Serum Health Serum or Plasma results) System Urea nitrogen 19 Normal (applies Blood Urea [facility] [Mass/volume] in mg/dl to non-numeric Nitrogen, Health Serum or Plasma results) Serum System Creatinine 1.02 Normal (applies Creatinine, [facility] [Mass/volume] in mg/dl to non-numeric Serum Health Serum or Plasma results) System Alkaline 58 Normal (applies Alkaline [facility] phosphatase {IU/L} to non-numeric Phosphatase, Health isoenzymes results) Serum System [Enzymatic activity/volume] in Serum or Plasma by Heat stability Bilirubin.total 0.3 Normal (applies Bilirubin, [facility] [Mass/volume] in mg/dl to non-numeric Serum Total Health Serum or Plasma results) System DirectBilirubin 0.1 Normal (applies Direct [facility] mg/dl to non-numeric Bilirubin Health results) System Aspartate 34 Normal (applies Aspartate [facility] aminotransferase {IU/L} to non-numeric Transaminase, Heal th [Enzymatic results) Serum System activity/volume] in Serum or Plasma by With P-5'-P Albumin 2.6 Below low normal Albumin, [facility] [Mass/volume] in {gm/dl} Serum Health Serum or Plasma System I.Phosphorus 2.8 Normal (applies I. Phosphorus [facility] mg/dl to non-numeric Health results) System Alanine 53 Above high Alanine [facility] aminotransferase {IU/L} normal Aminotransfer [facility] [Enzymatic ase, Serum System activity/volume] in Serum or Plasma Calcium 7.8 Below low normal Calcium, [facility] [Mass/volume] in mg/dl Total Serum Health Serum or Plasma System A/GRatio 1.08 Normal (applies A/G Ratio [facility] to non-numeric Health results) System Urate 4.4 Normal (applies Uric Acid, [facility] [Mass/volume] in mg/dl to non-numeric Serum Health Serum or Plasma results) System Anion gap in Serum 7.40 Normal (applies Anion Gap [place] or Plasma mmol/L to non-numeric Health results) System Glomerular 71.00 Normal (applies GFR [facility] filtration to non-numeric Health rate/1.73 sq results) System M.predicted [Volume Rate/Area] in Serum or Plasma by Creatinine-based formula (CKD-EPI) eGFR will provide clinicians with a more accurate indicator of renal function then the serum creatinine. The eGFR is automa tically calculated from an empiric formula (endorsed by the [employer]) which incorporates age, sex, and race.Clinicians may notice surprisingly low GFR's with serum creatinine valueswithin normal range- particularly in elderly wo men (with low muscle mass).In the hospital setting, the eGFR should add an element of safety in drug dosing, in assessing the risk of IV contrast administration, and in assessing vascular risk.The NKF staging system is as follows:Normal: eGFR >90 with no kidney markersStage 1: eGFR >90 with kidney markers*Stage 2: eGFR 60- 89Stage 3: eGFR 30-59Stage 4: eGFR 15-29Stage 5: eGFR <15 (usually requir ing dialysis)*Markers include: Proteinuria, Hematuria, abnormal imaging-studies, or other blood or urine test abnormalities ID Date Data Source [id number] 04/22/2020 01:18:14 PM EDT [facility] System Name Value Range Interpretation Description Data Sup porting Code Source(s) Document(s ) Leukocytes 11.4 Above high WBC Count [facility] [#/volume] in {10^3_uL normal Health Unspecified } System specimen by Automated count Erythrocytes 3.26 Below low normal RBC Count [facility] [#/volume] in {10^6_uL Health Blood by } System Automated count Hemoglobin 9.4 Below low normal Hemoglobin [facility] [Mass/volume] in {gm/dL} Health Blood System Hematocrit 29.2 % Below low normal Hematocrit [facility] [Volume [facility] Fraction] of System Blood Erythrocyte mean 89.6 fl Normal (applies MCV [facility] corpuscular to non-numeric Health volume [Entitic results) System volume] by Automated count Erythrocyte mean 28.8 pg Normal (applies MCH [facility] corpuscular to non-numeric Health hemoglobin results) System [Entitic mass] by Automated count Erythrocyte mean 32.2 Normal (applies MCHC [facility] corpuscular {gm/dL} to non-numeric Health hemoglobin results) System concentration [Mass/volume] by Automated count Erythrocyte 13.4 % Normal (applies RDW-CV [facility] distribution to non-numeric Health width [Entitic results) System volume] by Automated count Platelets 264 Normal (applies Platelet Count [facility] [#/volume] in {10^3_uL to non-numeric Health Plasma by } results) System Automated count Platelet mean 11.6 fl Normal (applies MPV [facility] volume [Entitic to non-numeric Health volume] in Blood results) System by Automated count Nucleated 0.0 Normal (applies NRBC % [facility] erythrocytes {/100_WB to non-numeric Health [#/volume] in C} results) System Body fluid NRBC# 0.00 Normal (applies NRBC # [facility] {10^3_uL to non-numeric Health } results) System Neutrophils/100 62.4 % Normal (applies Neutrophil % [place] leukocytes in to non-numeric Health Blood by results) System Automated count Neutrophils 7.1 Normal (applies Neutrophil # [facility] [#/volume] in {10^3_uL to non-numeric Health Body fluid } results) System Lymphocytes 22.0 % Normal (applies Lymphocyte % [facility] [#/volume] in to non-numeric Health Blood by results) System Automated count Lymphocyte 2.5 Normal (applies Lymphocyte # [facility] percent {10^3_uL to non-numeric Health differential } results) System count (procedure) Monocytes/100 8.4 % Normal (applies Monocyte % [facility] leukocytes in to non-numeric Health Blood results) System Monocytes 1.0 Normal (applies Monocyte # [facility] [#/volume] in {10^3_uL to non-numeric Health Blood by Manual } results) System count Eosinophils/100 3.1 % Normal (applies Eosinophil % [place] leukocytes in to non-numeric Health Unspecified results) System specimen Eosinophils 0.36 Normal (applies Eosinophil # [facility] [#/volume] in {10^3_uL to non-numeric Health Blood } results) System Basophils/100 0.3 % Normal (applies Basophil % [facility] leukocytes in to non-numeric Health Unspecified results) System specimen by Manual count Basophils 0.04 Normal (applies Basophil # [facility] [#/volume] in {10^3_uL to non-numeric Health Blood by } results) System Automated count ImmatureGranuloc 0.43 Above high Immature [facility] ytes# {10^3_uL normal Granulocytes # Health } System ImmatureGranuloc 3.8 % Above high Immature [facility] ytes% normal Granulocytes % Health System ID Date Data Source [id number] 04/22/2020 01:18:14 PM EDT [facility] Name Value Range Interpretation Description Data Sup porting Code Source(s) Document(s ) Sodium 139 Normal (applies Sodium, Serum [facility] [Moles/volume] in mmol/L to non-numeric Health Serum or Plasma results) System Potassium 4.2 Normal (applies Potassium, [facility] [Mass/volume] in mmol/L to non-numeric Serum Health Serum or Plasma results) System Chloride 105 Normal (applies Chloride, [facility] [Moles/volume] in mmol/L to non-numeric Serum Health Serum or Plasma results) System Carbon dioxide, 25.9 Normal (applies CO2, Serum [facility] total mmol/L to non-numeric Health [Moles/volume] in results) System Serum or Plasma TotalProtein 5.3 Below low normal Total Protein [facility] mg/dl [facility] Glucose 76 Normal (applies Glucose, [facility] [Mass/volume] in mg/dL to non-numeric Serum Health Serum or Plasma results) System Urea nitrogen 18 Normal (applies Blood Urea [facility] [Mass/volume] in mg/dl to non-numeric Nitrogen, Health Serum or Plasma results) Serum System Creatinine 0.97 Normal (applies Creatinine, [facility] [Mass/volume] in mg/dl to non-numeric Serum Health Serum or Plasma results) System Alkaline 55 Normal (applies Alkaline [facility] phosphatase {IU/L} to non-numeric Phosphatase, Health isoenzymes results) Serum System [Enzymatic activity/volume] in Serum or Plasma by Heat stability Bilirubin direct 0.5 Normal (applies Bilirubin, [facility] and total panel mg/dl to non-numeric Serum Total Health [Mass/volume] - results) System Serum or Plasma DirectBilirubin 0.1 Normal (applies Direct [facility] mg/dl to non-numeric Bilirubin Health results) System Aspartate 29 Normal (applies Aspartate [facility] aminotransferase {IU/L} to non-numeric Transaminase, Heal th [Enzymatic results) Serum System activity/volume] in Serum or Plasma by With P-5'-P Albumin 2.8 Below low normal Albumin, [facility] [Mass/volume] in {gm/dl} Serum Health Serum or Plasma System I.Phosphorus 3.7 Normal (applies I. Phosphorus [facility] mg/dl to non-numeric Health results) System Alanine 50 Above high Alanine [facility] aminotransferase {IU/L} normal Aminotransfer [facility] [Enzymatic ase, Serum System activity/volume] in Serum or Plasma Calcium 8.0 Below low normal Calcium, [facility] [Mass/volume] in mg/dl Total Serum Health Serum or Plasma System A/GRatio 1.12 Normal (applies A/G Ratio [facility] to non-numeric Health results) System Urate 4.3 Normal (applies Uric Acid, [facility] [Mass/volume] in mg/dl to non-numeric Serum Health Serum or Plasma results) System Anion gap in Serum 8.10 Normal (applies Anion Gap [place] or Plasma mmol/L to non-numeric Health results) System Glomerular 75.00 Normal (applies GFR [facility] filtration to non-numeric Health rate/1.73 sq results) System M.predicted [Volume Rate/Area] in Serum or Plasma by Creatinine-based formula (CKD-EPI) eGFR will provide clinicians with a more accurate indicator of renal function then the serum creatinine. The eGFR is automa tically calculated from an empiric formula (endorsed by the [employer]) which incorporates age, sex, and race.Clinicians may notice surprisingly low GFR's with serum creatinine valueswithin normal range- particularly in elderly wo men (with low muscle mass).In the hospital setting, the eGFR should add an element of safety in drug dosing, in assessing the risk of IV contrast administration, and in assessing vascular risk.The NKF staging system is as follows:Normal: eGFR >90 with no kidney markersStage 1: eGFR >90 with kidney markers*Stage 2: eGFR 60- 89Stage 3: eGFR 30-59Stage 4: eGFR 15-29Stage 5: eGFR <15 (usually requir ing dialysis)*Markers include: Proteinuria, Hematuria, abnormal imaging-studies, or other blood or urine test abnormalities ID Date Data Source [id number] 04/22/2020 01:18:14 PM EDT [facility] Name Value Range Interpretation Description Data Sup porting Code Source(s) Document(s ) 26547-3 NEGATIVE Testing Normal (applies COVID-19.. [facility] was performed to non-numeric Health Syst em using [employer] ID results) NOW COVID-19, an isothermal nucleic acid amplification technology for the qualitative detection of nucleic acid from the SARS-CoV-2 viral RNA in respiratory specimens. The ID NOW COVID-19 test has been approved by the Food and Drug Administration (FDA) under an Emergency Use Authorization for use by authorized laboratories. Reference Range: NEGATIVE . ID Date Data Source [id number] 04/22/2020 01:18:14 PM EDT [facility] Name Value Range Interpretation Description Data Sup porting Code Source(s) Document(s ) Leukocytes 12.4 Above high WBC Count [facility] [#/volume] in {10^3_uL normal Health Unspecified } System specimen by Automated count Erythrocytes 3.44 Below low normal RBC Count [facility] [#/volume] in {10^6_uL Health Blood by } System Automated count Hemoglobin 9.9 Below low normal Hemoglobin [facility] [Mass/volume] in {gm/dL} Health Blood System Hematocrit 30.6 % Below low normal Hematocrit [facility] [Volume Health Fraction] of System Blood Erythrocyte mean 89.0 fl Normal (applies MCV [facility] corpuscular to non-numeric Health volume [Entitic results) System volume] by Automated count Erythrocyte mean 28.8 pg Normal (applies MCH [facility] corpuscular to non-numeric Health hemoglobin results) System [Entitic mass] by Automated count Erythrocyte mean 32.4 Normal (applies MCHC [facility] corpuscular {gm/dL} to non-numeric Health hemoglobin results) System concentration [Mass/volume] by Automated count Erythrocyte 13.5 % Normal (applies RDW-CV [facility] distribution to non-numeric Health width [Entitic results) System volume] by Automated count Platelets 298 Normal (applies Platelet Count [facility] [#/volume] in {10^3_uL to non-numeric Health Plasma by } results) System Automated count Platelet mean 11.3 fl Normal (applies MPV [facility] volume [Entitic to non-numeric Health volume] in Blood results) System by Automated count Nucleated 0.0 Normal (applies NRBC % [facility] erythrocytes {/100_WB to non-numeric Health [#/volume] in C} results) System Body fluid NRBC# 0.00 Normal (applies NRBC # [facility] {10^3_uL to non-numeric Health } results) System Neutrophils/100 70.1 % Normal (applies Neutrophil % [place] leukocytes in to non-numeric Health Blood by results) System Automated count Neutrophils 8.7 Above high Neutrophil # [facility] [#/volume] in {10^3_uL normal Health Body fluid } System Lymphocytes 16.8 % Normal (applies Lymphocyte % [facility] [#/volume] in to non-numeric Health Blood by results) System Automated count Lymphocyte 2.1 Normal (applies Lymphocyte # [facility] percent {10^3_uL to non-numeric Health differential } results) System count (procedure) Monocytes/100 8.0 % Normal (applies Monocyte % [facility] leukocytes in to non-numeric Health Blood results) System Monocytes 1.0 Normal (applies Monocyte # [facility] [#/volume] in {10^3_uL to non-numeric Health Blood by Manual } results) System count Eosinophils/100 2.9 % Normal (applies Eosinophil % [place] leukocytes in to non-numeric Health Unspecified results) System specimen Eosinophils 0.36 Normal (applies Eosinophil # [facility] [#/volume] in {10^3_uL to non-numeric Health Blood } results) System Basophils/100 0.3 % Normal (applies Basophil % [facility] leukocytes in to non-numeric Health Unspecified results) System specimen by Manual count Basophils 0.04 Normal (applies Basophil # [facility] [#/volume] in {10^3_uL to non-numeric Health Blood by } results) System Automated count ImmatureGranuloc 0.24 Above high Immature [facility] ytes# {10^3_uL normal Granulocytes # Health } System ImmatureGranuloc 1.9 % Above high Immature [facility] ytes% normal Granulocytes % Health System ID Date Data Source [id number] 04/22/2020 01:18:14 PM EDT [facility] Name Value Range Interpretation Description Data Sup porting Code Source(s) Document(s ) Sodium 139 Normal (applies Sodium, Serum [facility] [Moles/volume] in mmol/L to non-numeric Health Serum or Plasma results) System Potassium 4.2 Normal (applies Potassium, [facility] [Mass/volume] in mmol/L to non-numeric Serum Health Serum or Plasma results) System Chloride 104 Normal (applies Chloride, [facility] [Moles/volume] in mmol/L to non-numeric Serum Health Serum or Plasma results) System Carbon dioxide, 27.6 Normal (applies CO2, Serum [facility] total mmol/L to non-numeric Health [Moles/volume] in results) System Serum or Plasma TotalProtein 5.4 Below low normal Total Protein [facility] mg/dl [facility] Glucose 90 Normal (applies Glucose, [facility] [Mass/volume] in mg/dL to non-numeric Serum Health Serum or Plasma results) System Urea nitrogen 18 Normal (applies Blood Urea [facility] [Mass/volume] in mg/dl to non-numeric Nitrogen, Health Serum or Plasma results) Serum System Creatinine 0.89 Normal (applies Creatinine, [facility] [Mass/volume] in mg/dl to non-numeric Serum Health Serum or Plasma results) System Alkaline 51 Normal (applies Alkaline [facility] phosphatase {IU/L} to non-numeric Phosphatase, Health isoenzymes results) Serum System [Enzymatic activity/volume] in Serum or Plasma by Heat stability Bilirubin.total 0.6 Normal (applies Bilirubin, [facility] [Mass/volume] in mg/dl to non-numeric Serum Total Health Serum or Plasma results) System DirectBilirubin 0.1 Normal (applies Direct [facility] mg/dl to non-numeric Bilirubin Health results) System Aspartate 21 Normal (applies Aspartate [facility] aminotransferase {IU/L} to non-numeric Transaminase, Heal th [Enzymatic results) Serum System activity/volume] in Serum or Plasma by With P-5'-P Albumin 2.9 Below low normal Albumin, [facility] [Mass/volume] in {gm/dl} Serum Health Serum or Plasma System I.Phosphorus 3.5 Normal (applies I. Phosphorus [facility] mg/dl to non-numeric Health results) System Alanine 42 Normal (applies Alanine [facility] aminotransferase {IU/L} to non-numeric Aminotransfer Heal th [Enzymatic results) ase, Serum System activity/volume] in Serum or Plasma Calcium 8.1 Below low normal Calcium, [facility] [Mass/volume] in mg/dl Total Serum Health Serum or Plasma System A/GRatio 1.16 Normal (applies A/G Ratio [facility] to non-numeric Health results) System Urate 4.5 Normal (applies Uric Acid, [facility] [Mass/volume] in mg/dl to non-numeric Serum Health Serum or Plasma results) System Anion gap in Serum 7.40 Normal (applies Anion Gap [place] [facility] or Plasma mmol/L to non-numeric Health results) System Glomerular 83.00 Normal (applies GFR [facility] filtration to non-numeric Health rate/1.73 sq results) System M.predicted [Volume Rate/Area] in Serum or Plasma by Creatinine-based formula (CKD-EPI) eGFR will provide clinicians with a more accurate indicator of renal function then the serum creatinine. The eGFR is automa tically calculated from an empiric formula (endorsed by the [employer]) which incorporates age, sex, and race.Clinicians may notice surprisingly low GFR's with serum creatinine valueswithin normal range- particularly in elderly wo men (with low muscle mass).In the hospital setting, the eGFR should add an element of safety in drug dosing, in assessing the risk of IV contrast administration, and in assessing vascular risk.The NKF staging system is as follows:Normal: eGFR >90 with no kidney markersStage 1: eGFR >90 with kidney markers*Stage 2: eGFR 60- 89Stage 3: eGFR 30-59Stage 4: eGFR 15-29Stage 5: eGFR <15 (usually requir ing dialysis)*Markers include: Proteinuria, Hematuria, abnormal imaging-studies, or other blood or urine test abnormalities ID Date Data Source [id number] 04/22/2020 01:18:14 PM EDT [facility] System Name Value Range Interpretation Description Data Sup porting Code Source(s) Document(s ) Leukocytes 15.8 Above high WBC Count [facility] [#/volume] in {10^3_uL normal Health Unspecified } System specimen by Automated count Erythrocytes 3.59 Below low normal RBC Count [facility] [#/volume] in {10^6_uL Health Blood by } System Automated count Hemoglobin 10.3 Below low normal Hemoglobin [facility] [Mass/volume] in {gm/dL} Health Blood System Hematocrit 32.4 % Below low normal Hematocrit [facility] [Volume Health Fraction] of System Blood Erythrocyte mean 90.3 fl Normal (applies MCV [facility] corpuscular to non-numeric Health volume [Entitic results) System volume] by Automated count Erythrocyte mean 28.7 pg Normal (applies MCH [facility] corpuscular to non-numeric Health hemoglobin results) System [Entitic mass] by Automated count Erythrocyte mean 31.8 Normal (applies MCHC [facility] corpuscular {gm/dL} to non-numeric Health hemoglobin results) System concentration [Mass/volume] by Automated count Erythrocyte 13.8 % Normal (applies RDW-CV [facility] distribution to non-numeric Health width [Entitic results) System volume] by Automated count Platelets 366 Normal (applies Platelet Count [facility] [#/volume] in {10^3_uL to non-numeric Health Plasma by } results) System Automated count Platelet mean 11.5 fl Normal (applies MPV [facility] volume [Entitic to non-numeric Health volume] in Blood results) System by Automated count Nucleated 0.0 Normal (applies NRBC % [facility] erythrocytes {/100_WB to non-numeric Health [#/volume] in C} results) System Body fluid NRBC# 0.00 Normal (applies NRBC # [facility] {10^3_uL to non-numeric Health } results) System Neutrophils/100 61.4 % Normal (applies Neutrophil % [place] leukocytes in to non-numeric Health Blood by results) System Automated count Neutrophils 9.7 Above high Neutrophil # [facility] [#/volume] in {10^3_uL normal Health Body fluid } System Lymphocytes 26.6 % Normal (applies Lymphocyte % [facility] [#/volume] in to non-numeric Health Blood by results) System Automated count Lymphocyte 4.2 Normal (applies Lymphocyte # [facility] percent {10^3_uL to non-numeric Health differential } results) System count (procedure) Monocytes/100 7.8 % Normal (applies Monocyte % [facility] leukocytes in to non-numeric [facility] Blood results) System Monocytes 1.2 Above high Monocyte # [facility] [#/volume] in {10^3_uL normal Health Blood by Manual } System count Eosinophils/100 2.3 % Normal (applies Eosinophil % [place] leukocytes in to non-numeric Health Unspecified results) System specimen Eosinophils 0.36 Normal (applies Eosinophil # [facility] [#/volume] in {10^3_uL to non-numeric Health Blood } results) System Basophils/100 0.4 % Normal (applies Basophil % [facility] leukocytes in to non-numeric [facility] Unspecified results) System specimen by Manual count Basophils 0.06 Normal (applies Basophil # [facility] [#/volume] in {10^3_uL to non-numeric Health Blood by } results) System Automated count ImmatureGranuloc 0.23 Above high Immature [facility] ytes# {10^3_uL normal Granulocytes # Health } System ImmatureGranuloc 1.5 % Above high Immature [facility] ytes% normal Granulocytes % Health System ID Date Data Source [id number] 04/22/2020 01:18:14 PM EDT [facility] System Name Value Range Interpretation Description Data Sup porting Code Source(s) Document(s ) Sodium 138 Normal (applies Sodium, Serum [facility] [Moles/volume] in mmol/L to non-numeric Health Serum or Plasma results) System Potassium 4.3 Normal (applies Potassium, [facility] [Mass/volume] in mmol/L to non-numeric Serum Health Serum or Plasma results) System Chloride 104 Normal (applies Chloride, [facility] [Moles/volume] in mmol/L to non-numeric Serum Health Serum or Plasma results) System Carbon dioxide, 21.8 Normal (applies CO2, Serum [facility] total mmol/L to non-numeric Health [Moles/volume] in results) System Serum or Plasma TotalProtein 6.0 Below low normal Total Protein [facility] mg/dl [facility] System Glucose 93 Normal (applies Glucose, [facility] [Mass/volume] in mg/dL to non-numeric Serum Health Serum or Plasma results) System Urea nitrogen 22 Above high Blood Urea [facility] [Mass/volume] in mg/dl normal Nitrogen, Health Serum or Plasma Serum System Creatinine 0.98 Normal (applies Creatinine, [facility] [Mass/volume] in mg/dl to non-numeric Serum Health Serum or Plasma results) System Alkaline 57 Normal (applies Alkaline [facility] phosphatase {IU/L} to non-numeric Phosphatase, Health isoenzymes results) Serum System [Enzymatic activity/volume] in Serum or Plasma by Heat stability Bilirubin.total 0.6 Normal (applies Bilirubin, [facility] [Mass/volume] in mg/dl to non-numeric Serum Total Health Serum or Plasma results) System DirectBilirubin 0.1 Normal (applies Direct [facility] mg/dl to non-numeric Bilirubin Health results) System Aspartate 25 Normal (applies Aspartate [facility] aminotransferase {IU/L} to non-numeric Transaminase, Heal th [Enzymatic results) Serum System activity/volume] in Serum or Plasma by With P-5'-P Albumin 3.1 Below low normal Albumin, [facility] [Mass/volume] in {gm/dl} Serum Health Serum or Plasma System I.Phosphorus 3.8 Normal (applies I. Phosphorus [facility] mg/dl to non-numeric Health results) System Alanine 43 Above high Alanine [facility] aminotransferase {IU/L} normal Aminotransfer Health [Enzymatic ase, Serum System activity/volume] in Serum or Plasma Calcium 8.3 Below low normal Calcium, [facility] [Mass/volume] in mg/dl Total Serum Health Serum or Plasma System A/GRatio 1.07 Normal (applies A/G Ratio [facility] to non-numeric Health results) System Urate 4.4 Normal (applies Uric Acid, [facility] [Mass/volume] in mg/dl to non-numeric Serum Health Serum or Plasma results) System Anion gap in Serum 12.20 Normal (applies Anion Gap [place] or Plasma mmol/L to non-numeric Health results) System Glomerular 74.00 Normal (applies GFR [facility] filtration to non-numeric Health rate/1.73 sq results) System M.predicted [Volume Rate/Area] in Serum or Plasma by Creatinine-based formula (CKD-EPI) eGFR will provide clinicians with a more accurate indicator of renal function then the serum creatinine. The eGFR is automa tically calculated from an empiric formula (endorsed by the [employer]) which incorporates age, sex, and race.Clinicians may notice surprisingly low GFR's with serum creatinine valueswithin normal range- particularly in elderly wo men (with low muscle mass).In the hospital setting, the eGFR should add an element of safety in drug dosing, in assessing the risk of IV contrast administration, and in assessing vascular risk.The NKF staging system is as follows:Normal: eGFR >90 with no kidney markersStage 1: eGFR >90 with kidney markers*Stage 2: eGFR 60- 89Stage 3: eGFR 30-59Stage 4: eGFR 15-29Stage 5: eGFR <15 (usually requir ing dialysis)*Markers include: Proteinuria, Hematuria, abnormal imaging-studies, or other blood or urine test abnormalities ID Date Data Source [id number] 04/22/2020 01:18:14 PM EDT [facility] System Name Value Range Interpretation Description Data Sup porting Code Source(s) Document(s ) Leukocytes 11.2 Above high WBC Count [facility] [#/volume] in {10^3_uL normal Health Unspecified } System specimen by Automated count Erythrocytes 3.58 Below low normal RBC Count [facility] [#/volume] in {10^6_uL Health Blood by } System Automated count Hemoglobin 10.3 Below low normal Hemoglobin [facility] [Mass/volume] in {gm/dL} Health Blood System Hematocrit 31.8 % Below low normal Hematocrit [facility] [Volume [facility] Fraction] of System Blood Erythrocyte mean 88.8 fl Normal (applies MCV [facility] corpuscular to non-numeric Health volume [Entitic results) System volume] by Automated count Erythrocyte mean 28.8 pg Normal (applies MCH [facility] corpuscular to non-numeric Health hemoglobin results) System [Entitic mass] by Automated count Erythrocyte mean 32.4 Normal (applies MCHC [facility] corpuscular {gm/dL} to non-numeric Health hemoglobin results) System concentration [Mass/volume] by Automated count Erythrocyte 13.6 % Normal (applies RDW-CV [facility] distribution to non-numeric Health width [Entitic results) System volume] by Automated count Platelets 399 Normal (applies Platelet Count [facility] [#/volume] in {10^3_uL to non-numeric Health Plasma by } results) System Automated count Platelet mean 11.2 fl Normal (applies MPV [facility] volume [Entitic to non-numeric Health volume] in Blood results) System by Automated count Nucleated 0.0 Normal (applies NRBC % [facility] erythrocytes {/100_WB to non-numeric Health [#/volume] in C} results) System Body fluid NRBC# 0.00 Normal (applies NRBC # [facility] {10^3_uL to non-numeric Health } results) System Neutrophils/100 71.6 % Normal (applies Neutrophil % [place] leukocytes in to non-numeric Health Blood by results) System Automated count Neutrophils 8.0 Normal (applies Neutrophil # [facility] [#/volume] in {10^3_uL to non-numeric Health Body fluid } results) System Lymphocytes 18.3 % Normal (applies Lymphocyte % [facility] [#/volume] in to non-numeric Health Blood by results) System Automated count Lymphocyte 2.1 Normal (applies Lymphocyte # [facility] percent {10^3_uL to non-numeric Health differential } results) System count (procedure) Monocytes/100 6.5 % Normal (applies Monocyte % [facility] leukocytes in to non-numeric Health Blood results) System Monocytes 0.7 Normal (applies Monocyte # [facility] [#/volume] in {10^3_uL to non-numeric Health Blood by Manual } results) System count Eosinophils/100 2.1 % Normal (applies Eosinophil % [place] leukocytes in to non-numeric Health Unspecified results) System specimen Eosinophils 0.24 Normal (applies Eosinophil # [facility] [#/volume] in {10^3_uL to non-numeric Health Blood } results) System Basophils/100 0.4 % Normal (applies Basophil % [facility] leukocytes in to non-numeric Health Unspecified results) System specimen by Manual count Basophils 0.04 Normal (applies Basophil # [facility] [#/volume] in {10^3_uL to non-numeric Health Blood by } results) System Automated count ImmatureGranuloc 0.12 Above high Immature [facility] ytes# {10^3_uL normal Granulocytes # Health } System ImmatureGranuloc 1.1 % Above high Immature [facility] ytes% normal Granulocytes % Health System ID Date Data Source [id number] 04/22/2020 01:18:14 PM EDT [facility] System Name Value Range Interpretation Description Data Sup porting Code Source(s) Document(s ) Sodium 135 Normal (applies Sodium, Serum [facility] [Moles/volume] in mmol/L to non-numeric Health Serum or Plasma results) System Potassium 4.1 Normal (applies Potassium, [facility] [Mass/volume] in mmol/L to non-numeric Serum Health Serum or Plasma results) System Chloride 102 Normal (applies Chloride, [facility] [Moles/volume] in mmol/L to non-numeric Serum Health Serum or Plasma results) System Carbon dioxide, 25.3 Normal (applies CO2, Serum [facility] total mmol/L to non-numeric Health [Moles/volume] in results) System Serum or Plasma TotalProtein 5.8 Below low normal Total Protein [facility] mg/dl [facility] System Glucose 80 Normal (applies Glucose, [facility] [Mass/volume] in mg/dL to non-numeric Serum Health Serum or Plasma results) System Urea nitrogen 19 Normal (applies Blood Urea [facility] [Mass/volume] in mg/dl to non-numeric Nitrogen, Health Serum or Plasma results) Serum System Creatinine 0.91 Normal (applies Creatinine, [facility] [Mass/volume] in mg/dl to non-numeric Serum Health Serum or Plasma results) System Alkaline 52 Normal (applies Alkaline [facility] phosphatase {IU/L} to non-numeric Phosphatase, Health isoenzymes results) Serum System [Enzymatic activity/volume] in Serum or Plasma by Heat stability Bilirubin direct 0.7 Normal (applies Bilirubin, [facility] and total panel mg/dl to non-numeric Serum Total Health [Mass/volume] - results) System Serum or Plasma DirectBilirubin 0.1 Normal (applies Direct [facility] mg/dl to non-numeric Bilirubin Health results) System Aspartate 21 Normal (applies Aspartate [facility] aminotransferase {IU/L} to non-numeric Transaminase, [facility]al th [Enzymatic results) Serum System activity/volume] in Serum or Plasma by With P-5'-P Albumin 3.0 Below low normal Albumin, [facility] [Mass/volume] in {gm/dl} Serum Health Serum or Plasma System I.Phosphorus 4.0 Normal (applies I. Phosphorus [facility] mg/dl to non-numeric Health results) System Alanine 38 Normal (applies Alanine [facility] aminotransferase {IU/L} to non-numeric Aminotransfer [facility]al th [Enzymatic results) ase, Serum System activity/volume] in Serum or Plasma Calcium 8.2 Below low normal Calcium, [facility] [Mass/volume] in mg/dl Total Serum Health Serum or Plasma System A/GRatio 1.07 Normal (applies A/G Ratio [facility] to non-numeric Health results) System Urate 5.0 Normal (applies Uric Acid, [facility] [Mass/volume] in mg/dl to non-numeric Serum Health Serum or Plasma results) System Anion gap in Serum 7.70 Normal (applies Anion Gap [place] or Plasma mmol/L to non-numeric Health results) System Glomerular 81.00 Normal (applies GFR [facility] filtration to non-numeric Health rate/1.73 sq results) System M.predicted [Volume Rate/Area] in Serum or Plasma by Creatinine-based formula (CKD-EPI) eGFR will provide clinicians with a more accurate indicator of renal function then the serum creatinine. The eGFR is automa tically calculated from an empiric formula (endorsed by the [employer]) which incorporates age, sex, and race.Clinicians may notice surprisingly low GFR's with serum creatinine valueswithin normal range- particularly in elderly wo men (with low muscle mass).In the hospital setting, the eGFR should add an element of safety in drug dosing, in assessing the risk of IV contrast administration, and in assessing vascular risk.The NKF staging system is as follows:Normal: eGFR >90 with no kidney markersStage 1: eGFR >90 with kidney markers*Stage 2: eGFR 60- 89Stage 3: eGFR 30-59Stage 4: eGFR 15-29Stage 5: eGFR <15 (usually requir ing dialysis)*Markers include: Proteinuria, Hematuria, abnormal imaging-studies, or other blood or urine test abnormalities ID Date Data Source [id number] 04/22/2020 01:18:14 PM EDT [facility] System Name Value Range Interpretation Description Data Sup porting Code Source(s) Document(s ) Leukocytes 11.2 Above high WBC Count [facility] [#/volume] in {10^3_uL normal Health Unspecified } System specimen by Automated count Erythrocytes 3.50 Below low normal RBC Count [facility] [#/volume] in {10^6_uL Health Blood by } System Automated count Hemoglobin 10.0 Below low normal Hemoglobin [facility] [Mass/volume] in {gm/dL} Health Blood System Hematocrit 31.5 % Below low normal Hematocrit [facility] [Volume Health Fraction] of System Blood Erythrocyte mean 90.0 fl Normal (applies MCV [facility] corpuscular to non-numeric Health volume [Entitic results) System volume] by Automated count Erythrocyte mean 28.6 pg Normal (applies MCH [facility] corpuscular to non-numeric Health hemoglobin results) System [Entitic mass] by Automated count Erythrocyte mean 31.7 Normal (applies MCHC [facility] corpuscular {gm/dL} to non-numeric Health hemoglobin results) System concentration [Mass/volume] by Automated count Erythrocyte 13.7 % Normal (applies RDW-CV [facility] distribution to non-numeric Health width [Entitic results) System volume] by Automated count Platelets 433 Above high Platelet Count [facility] [#/volume] in {10^3_uL normal Health Plasma by } System Automated count Platelet mean 11.2 fl Normal (applies MPV [facility] volume [Entitic to non-numeric Health volume] in Blood results) System by Automated count Nucleated 0.0 Normal (applies NRBC % [facility] erythrocytes {/100_WB to non-numeric Health [#/volume] in C} results) System Body fluid NRBC# 0.00 Normal (applies NRBC # [facility] {10^3_uL to non-numeric Health } results) System Neutrophils/100 74.8 % Normal (applies Neutrophil % [place] leukocytes in to non-numeric Health Blood by results) System Automated count Neutrophils 8.4 Above high Neutrophil # [facility] [#/volume] in {10^3_uL normal Health Body fluid } System Lymphocytes 17.1 % Normal (applies Lymphocyte % [facility] [#/volume] in to non-numeric Health Blood by results) System Automated count Lymphocyte 1.9 Normal (applies Lymphocyte # [facility] percent {10^3_uL to non-numeric Health differential } results) System count (procedure) Monocytes/100 5.7 % Normal (applies Monocyte % [facility] leukocytes in to non-numeric Health Blood results) System Monocytes 0.6 Normal (applies Monocyte # [facility] [#/volume] in {10^3_uL to non-numeric Health Blood by Manual } results) System count Eosinophils/100 1.5 % Normal (applies Eosinophil % [place] leukocytes in to non-numeric Health Unspecified results) System specimen Eosinophils 0.17 Normal (applies Eosinophil # [facility] [#/volume] in {10^3_uL to non-numeric Health Blood } results) System Basophils/100 0.3 % Normal (applies Basophil % [facility] leukocytes in to non-numeric Health Unspecified results) System specimen by Manual count Basophils 0.03 Normal (applies Basophil # [facility] [#/volume] in {10^3_uL to non-numeric Health Blood by } results) System Automated count ImmatureGranuloc 0.07 Normal (applies Immature [facility] ytes# {10^3_uL to non-numeric Granulocytes # Health } results) System ImmatureGranuloc 0.6 % Normal (applies Immature [facility] ytes% to non-numeric Granulocytes % Health results) System ID Date Data Source [id number] 04/22/2020 01:18:14 PM EDT [facility] Name Value Range Interpretation Description Data Sup porting Code Source(s) Document(s ) Sodium 139 Normal (applies Sodium, Serum [facility] [Moles/volume] in mmol/L to non-numeric Health Serum or Plasma results) System Potassium 4.7 Normal (applies Potassium, [facility] [Mass/volume] in mmol/L to non-numeric Serum Health Serum or Plasma results) System Chloride 103 Normal (applies Chloride, [facility] [Moles/volume] in mmol/L to non-numeric Serum Health Serum or Plasma results) System Carbon dioxide, 28.7 Normal (applies CO2, Serum [facility] total mmol/L to non-numeric Health [Moles/volume] in results) System Serum or Plasma TotalProtein 6.0 Below low normal Total Protein [facility] mg/dl [facility] System Glucose 87 Normal (applies Glucose, [facility] [Mass/volume] in mg/dL to non-numeric Serum Health Serum or Plasma results) System Urea nitrogen 20 Normal (applies Blood Urea [facility] [Mass/volume] in mg/dl to non-numeric Nitrogen, Health Serum or Plasma results) Serum System Creatinine 0.94 Normal (applies Creatinine, [facility] [Mass/volume] in mg/dl to non-numeric Serum Health Serum or Plasma results) System Alkaline 59 Normal (applies Alkaline [facility] phosphatase {IU/L} to non-numeric Phosphatase, Health isoenzymes results) Serum System [Enzymatic activity/volume] in Serum or Plasma by Heat stability Bilirubin.total 0.6 Normal (applies Bilirubin, [facility] [Mass/volume] in mg/dl to non-numeric Serum Total Health Serum or Plasma results) System DirectBilirubin 0.1 Normal (applies Direct [facility] mg/dl to non-numeric Bilirubin Health results) System Aspartate 27 Normal (applies Aspartate [facility] aminotransferase {IU/L} to non-numeric Transaminase, [facility]al [facility] [Enzymatic results) Serum System activity/volume] in Serum or Plasma by With P-5'-P Albumin 3.2 Normal (applies Albumin, [facility] [Mass/volume] in {gm/dl} to non-numeric Serum Health Serum or Plasma results) System I.Phosphorus 3.7 Normal (applies I. Phosphorus [facility] mg/dl to non-numeric Health results) System Alanine 44 Above high Alanine [facility] aminotransferase {IU/L} normal Aminotransfer Health [Enzymatic ase, Serum System activity/volume] in Serum or Plasma Calcium 8.3 Below low normal Calcium, [facility] [Mass/volume] in mg/dl Total Serum Health Serum or Plasma System A/GRatio 1.14 Normal (applies A/G Ratio [facility] to non-numeric Health results) System Urate 5.1 Normal (applies Uric Acid, [facility] [Mass/volume] in mg/dl to non-numeric Serum Health Serum or Plasma results) System Anion gap in Serum 7.30 Normal (applies Anion Gap [place] or Plasma mmol/L to non-numeric Health results) System Glomerular 78.00 Normal (applies GFR [facility] filtration to non-numeric Health rate/1.73 sq results) System M.predicted [Volume Rate/Area] in Serum or Plasma by Creatinine-based formula (CKD-EPI) eGFR will provide clinicians with a more accurate indicator of renal function then the serum creatinine. The eGFR is automa tically calculated from an empiric formula (endorsed by the [employer]) which incorporates age, sex, and race.Clinicians may notice surprisingly low GFR's with serum creatinine valueswithin normal range- particularly in elderly wo men (with low muscle mass).In the hospital setting, the eGFR should add an element of safety in drug dosing, in assessing the risk of IV contrast administration, and in assessing vascular risk.The NKF staging system is as follows:Normal: eGFR >90 with no kidney markersStage 1: eGFR >90 with kidney markers*Stage 2: eGFR 60- 89Stage 3: eGFR 30-59Stage 4: eGFR 15-29Stage 5: eGFR <15 (usually requir ing dialysis)*Markers include: Proteinuria, Hematuria, abnormal imaging-studies, or other blood or urine test abnormalities ID Date Data Source [id number] 04/22/2020 01:18:14 PM EDT [facility] System Name Value Range Interpretation Description Data Sup porting Code Source(s) Document(s ) 44167-9 NEGATIVE Testing Normal (applies COVID-19.. [facility] was performed to non-numeric Health Syst em using [employer] ID results) NOW COVID-19, an isothermal nucleic acid amplification technology for the qualitative detection of nucleic acid from the SARS-CoV-2 viral RNA in respiratory specimens. The ID NOW COVID-19 test has been approved by the Food and Drug Administration (FDA) under an Emergency Use Authorization for use by authorized laboratories. Reference Range: NEGATIVE . ID Date Data Source [id number] 04/22/2020 01:18:14 PM EDT [facility] Name Value Range Interpretation Description Data Sup porting Code Source(s) Document(s ) Leukocytes 9.3 Normal (applies WBC Count [facility] [#/volume] in {10^3_uL to non-numeric Health Unspecified } results) System specimen by Automated count Erythrocytes 3.55 Below low normal RBC Count [facility] [#/volume] in {10^6_uL Health Blood by } System Automated count Hemoglobin 10.1 Below low normal Hemoglobin [facility] [Mass/volume] in {gm/dL} Health Blood System Hematocrit 31.7 % Below low normal Hematocrit [facility] [Volume Health Fraction] of System Blood Erythrocyte mean 89.3 fl Normal (applies MCV [facility] corpuscular to non-numeric Health volume [Entitic results) System volume] by Automated count Erythrocyte mean 28.5 pg Normal (applies [facility] [facility] to non-numeric Health hemoglobin results) System [Entitic mass] by Automated count Erythrocyte mean 31.9 Normal (applies [facility] [place] corpus[facility] {gm/dL} to non-numeric Health hemoglobin results) System concentration [Mass/volume] by Automated count Erythrocyte 13.6 % Normal (applies RDW-CV [facility] distribution to non-numeric Health width [Entitic results) System volume] by Automated count Platelets 464 Above high Platelet Count [facility] [#/volume] in {10^3_uL normal Health Plasma by } System Automated count Platelet mean 11.0 fl Normal (applies MPV [facility] volume [Entitic to non-numeric Health volume] in Blood results) System by Automated count Nucleated 0.0 Normal (applies NRBC % [facility] erythrocytes {/100_WB to non-numeric Health [#/volume] in C} results) System Body fluid NRBC# 0.00 Normal (applies NRBC # [facility] {10^3_uL to non-numeric Health } results) System Neutrophils/100 70.4 % Normal (applies Neutrophil % [place] leukocytes in to non-numeric Health Blood by results) System Automated count Neutrophils 6.6 Normal (applies Neutrophil # [facility] [#/volume] in {10^3_uL to non-numeric Health Body fluid } results) System Lymphocytes 19.8 % Normal (applies Lymphocyte % [facility] [facility] [#/volume] in to non-numeric Health Blood by results) System Automated count Lymphocyte 1.9 Normal (applies Lymphocyte # [facility] percent {10^3_uL to non-numeric Health differential } results) System count (procedure) Monocytes/100 6.3 % Normal (applies Monocyte % [place] [facility] leukocytes in to non-numeric Health Blood results) System Monocytes 0.6 Normal (applies Monocyte # [facility] [#/volume] in {10^3_uL to non-numeric Health Blood by Manual } results) System count Eosinophils/100 2.4 % Normal (applies Eosinophil % [place] leukocytes in to non-numeric Health Unspecified results) System specimen Eosinophils 0.22 Normal (applies Eosinophil # [facility] [facility] [#/volume] in {10^3_uL to non-numeric Health Blood } results) System Basophils/100 0.5 % Normal (applies Basophil % [place] [facility] leukocytes in to non-numeric Health Unspecified results) System specimen by Manual count Basophils 0.05 Normal (applies Basophil # [facility] [#/volume] in {10^3_uL to non-numeric Health Blood by } results) System Automated count ImmatureGranuloc 0.06 Normal (applies Immature [place] [facility] ytes# {10^3_uL to non-numeric Granulocytes # Health } results) System ImmatureGranuloc 0.6 % Normal (applies Immature [place] ytes% to non-numeric Granulocytes % Health results) System ID Date Data Source [id number] 04/22/2020 01:18:14 PM EDT [facility] Name Value Range Interpretation Description Data Sup porting Code Source(s) Document(s ) Sodium 137 Normal (applies Sodium, Serum [facility] [Moles/volume] in mmol/L to non-numeric Health Serum or Plasma results) System Potassium 4.7 Normal (applies Potassium, [facility] [Mass/volume] in mmol/L to non-numeric Serum Health Serum or Plasma results) System Chloride 103 Normal (applies Chloride, [facility] [Moles/volume] in mmol/L to non-numeric Serum Health Serum or Plasma results) System Carbon dioxide, 25.8 Normal (applies CO2, Serum [facility] total mmol/L to non-numeric Health [Moles/volume] in results) System Serum or Plasma TotalProtein 5.9 Below low normal Total Protein [facility] mg/dl [facility] System Glucose 83 Normal (applies Glucose, [facility] [Mass/volume] in mg/dL to non-numeric Serum Health Serum or Plasma results) System Urea nitrogen 26 Above high Blood Urea [facility] [Mass/volume] in mg/dl normal Nitrogen, Health Serum or Plasma Serum System Creatinine 0.94 Normal (applies Creatinine, [facility] [Mass/volume] in mg/dl to non-numeric Serum Health Serum or Plasma results) System Alkaline 53 Normal (applies Alkaline [facility] phosphatase {IU/L} to non-numeric Phosphatase, Health isoenzymes results) Serum System [Enzymatic activity/volume] in Serum or Plasma by Heat stability Bilirubin.total 0.5 Normal (applies Bilirubin, [facility] [Mass/volume] in mg/dl to non-numeric Serum Total Health Serum or Plasma results) System DirectBilirubin 0.1 Normal (applies Direct [place] mg/dl to non-numeric Bilirubin Health results) System Aspartate 26 Normal (applies Aspartate [facility] aminotransferase {IU/L} to non-numeric Transaminase, Heal th [Enzymatic results) Serum System activity/volume] in Serum or Plasma by With P-5'-P Albumin 3.1 Below low normal Albumin, [facility] [Mass/volume] in {gm/dl} Serum Health Serum or Plasma System I.Phosphorus 3.9 Normal (applies I. Phosphorus [facility] mg/dl to non-numeric Health results) System Alanine 43 Above high Alanine [facility] aminotransferase {IU/L} normal Aminotransfer Health [Enzymatic ase, Serum System activity/volume] in Serum or Plasma Calcium 8.6 Normal (applies Calcium, [facility] [Mass/volume] in mg/dl to non-numeric Total Serum Health Serum or Plasma results) System A/GRatio 1.11 Normal (applies A/G Ratio [facility] to non-numeric Health results) System Urate 5.2 Normal (applies Uric Acid, [facility] [Mass/volume] in mg/dl to non-numeric Serum Health Serum or Plasma results) System Anion gap in Serum 8.20 Normal (applies Anion Gap [place] or Plasma mmol/L to non-numeric Health results) System Glomerular 78.00 Normal (applies GFR [facility] filtration to non-numeric Health rate/1.73 sq results) System M.predicted [Volume Rate/Area] in Serum or Plasma by Creatinine-based formula (CKD-EPI) eGFR will provide clinicians with a more accurate indicator of renal function then the serum creatinine. The eGFR is automa tically calculated from an empiric formula (endorsed by the National [employer] ion) which incorporates age, sex, and race.Clinicians may notice surprisingly low GFR's with serum creatinine valueswithin normal range- particularly in elderly wo men (with low muscle mass).In the hospital setting, the eGFR should add an element of safety in drug dosing, in assessing the risk of IV contrast administration, and in assessing vascular risk.The NKF staging system is as follows:Normal: eGFR >90 with no kidney markersStage 1: eGFR >90 with kidney markers*Stage 2: eGFR 60- 89Stage 3: eGFR 30-59Stage 4: eGFR 15-29Stage 5: eGFR <15 (usually requir ing dialysis)*Markers include: Proteinuria, Hematuria, abnormal imaging-studies, or other blood or urine test abnormalities ID Date Data Source [id number] 04/22/2020 01:18:14 PM EDT [facility] Name Value Range Interpretation Description Data Sup porting Code Source(s) Document(s ) TroponinIQuantitative 20.06 Above upper Troponin I [place] ng/ml panic limits Quantitative Health System Detection of a rise and/or fall of cardi ac troponin I above the cut-off of 0.03 ng/mL is consistent with myocardial infarction in the appropriate clinical setting. With the use of lower cut-offs, testing of se rial samples is required for diagnosis.Result Reporting|Telephone|marlin lunsford rn/alivia b| 04/06/2020 at 8:44 AMCalled to:marlin lunsford rn/devikaTech Name:donna Hafsa ack by:marlin lunsford rn/devika 04/06/2020 / 8:44 AM ID Date Data Source [id number] 04/17/2020 09:52:00 AM EDT [facility] Name Value Range Interpretation Code Description Data Ana rce(s) Supporting Document(s ) HOLOGIC [facility] SARS-CoV-2 TMA PCR This lab was ordered by [facility] and reported by [facility]. ID Date Data Source [id number] 04/15/2020 11:27:00 AM EDT [facility] Name Value Range Interpretation Code Description Data Ana rce(s) Supporting Document(s ) COVID-19.. [facility] This lab was ordered by [facility] and reported by [facility]. ID Date Data Source [id number] 04/12/2020 01:58:00 PM EDT [facility] Neck pain.EXAMINATION/TECHNIQUE:XR Spine Cervical 4 or 5 Views: 3 views.COMPARISON: None FINDINGS:VERTEBRAE: C1 through base of V0jhomfsxuzgbp on the lateralview. Pr eserved vertebral body height. No acute fracture. Nospondylolisthesis.Straighten ing of the normal cervicallordosis. Multilevel mild facet arthropathy.DISCS: Multilevel degenerativedisc disease changes from C3-4through C6-7. Loss of disc heig ht and endplate osteophyteformation at theselevelsNECK SOFT TISSUES: No prevert ebral soft tissue widening.LUNG APICES: Clear. Aortic archcalcification.IMPRESSI ON:Limited exam, without acute cervical spine osseousinjury.Multilevel cervical spondy losis changes. Electronically Signed by Pete Beth MD on04/14/2020 at 08 42 Reported and signed by: Pete Beth MDEnemory university orthopaedics & spine hospitalion Physician ServicesDECATUR COUNTY [facility] [address]PAU [phone] Signed:Pete Beth, at 8:41 E [phone], Service support , [phone] Name Value Range Interpretation Code Description Data Ana rce(s) Supporting Document(s ) ID Date Data Source [id number] 04/11/2020 10:05:00 AM EDT [facility] Name Value Range Interpretation Code Description Data Ana rce(s) Supporting Document(s ) COVID-19.. [facility] This lab was ordered by [facility] and reported by [facility]. ID Date Data Source [id number] 04/05/2020 05:19:00 PM EDT [facility] STUDY: X-RAY CHESTREASON FOR EXAM: Dixon pierce, 79 years old. SOB;Comparison: Same Soni single view of the chest was taken.The h eart is enlarged.Lungs are well expanded.There arecongestive changes.The re is no acute infiltrate, effusion or pneumothorax.IMPRESSION: Cardiomegaly wi thcongestive changes.Electronically Signed:Nicholas Ware, at 18:39 [phone], Service support , [phone] Name Value Range Interpretation Code Description Data Ana rce(s) Supporting Document(s ) ID Date Data Source [id number] 04/05/2020 11:39:00 AM EDT [facility] Chest radiographCLINICAL INFORMATION: Muna lema, 79 years old. Cough. Fever. Sepsis.TECHNIQUE: Frontal view of the c hest was obtained.FINDINGS: No prior studies were submitted for directcomparison.The cardiomediastinal silhouette appears to be unremarkable. There are atheroscleroticc alcifications noted involving thethoracic aorta. There are mild diffuse bilateral interstitialprominencenoted. There is no definite focal consolidation orsignifica nt pleural effusion noted. The visualizedbonythoracic cage appears inta ct. There are mild degenerativechanges noted involving the bilateral shouldersand dipti salspine.IMPRESSION:Mild diffuse bilateral interstitial prominence.Nodefinite focal consolidation or significant pleural effusion.Electronically Signed:Jeff cole, at 11:51 EDTTel , Service support ,[phone] Name Value Range Interpretation Code Description Data Ana rce(s) Supporting Document(s ) ID Date Data Source [id number] 04/05/2020 10:22:00 AM EDT [facility] Retroperitoneal ultrasoundCLINICAL HISTO RY: Urinary retentionReal-time scanning was performed. Right kidney measures 9.5 cm in length and the left kidney measures 10.3 cm in length. Nohydronephrosis,calculus , mass, perinephric fluid collectionbilaterally. Renal cortical t hickness is within normal. Urinarybladder volume is 401 cc. Possible mass lesion at thebase of the bladder measuring 5.7 x 3.3 x 4.8 cm.Suggestfollow-up urologic evalu ation. Prostate gland not visualized.IMPRESSION:Nohydronephrosis. Possible mass at the bladder base for whichfollow-up evaluation isrecommended. Electronically Signed:Bhaskar Jenkins, at 11:20 EDTTel ,Service support , [phone] Name Value Range Interpretation Code Description Data Ana rce(s) Supporting Document(s ) ID Date Data Source [id number] 04/05/2020 08:09:00 AM EDT [facility] Name Value Range Interpretation Code Description Data Ana rce(s) Supporting Document(s ) COVID-19.. [facility] This lab was ordered by [facility] and reported by [facility]. ID Date Data Source [id number] 04/02/2020 02:54:00 AM EDT [facility] ([facility] Name Value Range Interpretation Code Description Data Supporting Source(s) Document(s ) FOLATE 9.4NG/ML >5.4 <td [facility] ID="Observation- ([facility] Tngm-r5nn4917-59 For Aged 83-4c03-611h8g25-216i-ckk [facility]) 34h2ul191">(FOL) FOLATE</td><td ID="Observation- Svoic-i2wg7694-7 427-6l64-561q-ca h48p0ml534">9.4< /td><td ID="Observation- Thmo-r3hi4307-78 03-5z93-725i4o30-919i-qtf 34y9kw535">NG/ML </td><td ID="Observation- RefRange-e5pu487 9-2323-2z13-983a -hxu90j0dp214">> 5.4</td><td ID="Observation- Abnormal-h5eu376 8-7567-0a59-983a -ysj47e6ss154">< /td><td ID="Observation- Status-s4lm6028- 8956-7v92-115v-c jn84r7vr777">Fin al</td> ID Date Data Source [id number] 04/02/2020 02:54:00 AM EDT [facility] ( [facility] Name Value Range Interpretation Description Data Sup porting Code Source(s) Document(s ) VITAMIN B12 366PG/ML 211-911 <td [facility] ID="Observatio ([facility] x-Pete-qf241c3 For Aged 0-n067-9i5ve837-1f7m-zv [place]) 4d-42gj0o9ok21 9">(B12) VITAMIN B12</td><td ID="Observatio v-Hybys-wg640p 75-t009-6r1b-a v2d-59uf8t2dh6 99">366</td><t d ID="Observatio g-Grvg-mt575d0 6-n916-4l0fi347-3r2u-gs 4d-59td7k8bw61 9">PG/ML</td>< td ID="Observatio o-LndJnknb-vc7 07r82-q008-0r9 s-la6m-29sj5v0 ad099">211-911 </td><td ID="Observatio e-Fcqpcsec-ge2 12h02-j966-7c8 f-nm4v-76fl6u8 ad099"></td><t d ID="Observatio m-Qjrzyu-gr426 o09-o870-9y5o- kd4n-53kg7w1eo 099">Final</td > ID Date Data Source FE 04/02/2020 02:54:00 AM EDT [facility] ([facility] [place]) Name Value Range Interpretation Code Description Data Ana rce(s) Supporting Document(s ) IRON 31UG/DL 65-175 Below low normal <td [facility] ID="Observation- ([facility] Vaiz-95053rb7-da For Aged 30-5427-542v-1f2 [place]) iedghf2oe">(FE) IRON</td><td ID="Observation- Xcnjf-70481pn2-f j71-1441-260u-0l 9tgmzzm9my">31</ td><td ID="Observation- Cais-20877qw5-kl 85-7584-881k-1f2 roalni1xu">UG/DL </td><td ID="Observation- RefRange-16140kr 6-lf41-2586te42-6831-401n -8e9tjzdzf0wa">6 5-175</td><td ID="Observation- Abnormal-37741uw 9-cq66-8825yg86-8902-191f -8r4xpubud3yd">L </td><td ID="Observation- Status-20012iy8- is70-7260-574d-2 m3szbods2lq">Fin al</td> ID Date Data Source [facility] 04/02/2020 02:53:00 AM EDT [facility] ([facility]) Name Value Range Interpretation Description Data Sup porting Code Source(s) Document(s ) GLUCOSE 80MG/DL 74-106 <td [facility] ID="Observatio ([facility] u-Iwfp-154t104 For Aged 2-e646-05f6l978-13a1-dv [place]) 3f-g2v4s2w3v3p b">(GLU) GLUCOSE</td><t d ID="Observatio h-Icmhd-300f85 73-v311-37b4-b s2n-g1y1b5c1x7 cb">80</td><td ID="Observatio n-Pwcr-259f393 8-q361-84h2y684-35b5-uo 3f-h6x4x0j3b3v b">MG/DL</td>< td ID="Observatio j-HboRrmvx-095 p9094-o611-26o 1-pf0a-x4c0y7c 4f0cb">74-106< /td><td ID="Observatio t-Cqozxcuv-037 y4963-o141-60l 5-qx6w-z3o7b8q 4f0cb"></td><t d ID="Observatio k-Bpxmio-934d1 160-x930-50o3- cb2v-s4f1m8b5c 0cb">Final</td > SODIUM 138MMOL/ 136-145 <td [facility] L ID="Observatio ([facility] z-Koxi-b55541o For Aged n-1oqe-8wb0-ae [place]) 2e-g721jmh997s 6">(NA) SODIUM</td><td ID="Observatio w-Dsbix-l48470 kb-8dsn-8iy5-a c4r-w440icg703 c6">138</td><t d ID="Observatio f-Bbnq-w80391o o-9byn-5qx3-ae 2e-r478rtw649a 6">MMOL/L</td> <td ID="Observatio o-KakEgoao-a83 736py-1mzp-0xz 6-gd8m-x466wut 829c6">136-145 </td><td ID="Observatio e-Wzaamgcp-v52 033po-9oke-6nu 8-vu0l-u876fnv 829c6"></td><t d ID="Observatio x-Chvocv-a7394 4kg-7gcb-5nf1- mz9g-w509rdj72 9c6">Final</td > POTASSIUM 4.2MMOL/ 3.5-5.3 <td [facility] L ID="Observatio ([facility] p-Lwoj-66kg3mc For Aged 0-k11r-5q9sh22w-5e0n-05 [facility]) 95-a30wna2b339 5">(K) POTASSIUM</td> <td ID="Observatio p-Mtoxj-65wj2j d4-k41e-2y0q-9 395-b66suk2z33 05">4.2</td><t d ID="Observatio e-Cohr-65ie5wu 3-p71n-3u0gb01n-8g8x-79 95-p28efn2i666 5">MMOL/L</td> <td ID="Observatio u-JcrQwyno-81m u0ez9-o59u-5d9 e-0273-m73tps8 a7305">3.5-5.3 </td><td ID="Observatio m-Nyagulhk-60g b7ny1-b91y-8b7 v-5874-w55odr8 a7305"></td><t d ID="Observatio f-Ruhhtl-34og6 pm2-b40c-5y0z- 9395-w03krl1y9 305">Final</td > CHLORIDE 103MMOL/ 98-107 <td [facility] L ID="Observatio ([facility] j-Iypt-jsg6i69 For Aged 8d [facility]) 15-2p700930vfc d">(CL) CHLORIDE</td>< td ID="Observatio s-Kmtui-woq3f2 -8 b60-1k662304xj dd">103</td><t d ID="Observatio s-Hdmo-wee5c56 -8d 15-2e882003jon d">MMOL/L</td> <td ID="Observatio l-RfsYeqyh-mol 8p103-5480-117 0-3k70-7d05071 6ccdd">98-107< /td><td ID="Observatio d-Tnwrvmwd-rew 5w676-3994-587 0-4p44-8b28286 6ccdd"></td><t d ID="Observatio d-Lgkwgo-ubj7u 751-2920-2069- 2v78-1c248408b cdd">Final</td > CARBON 27MMOL/L 23-31 <td [facility] DIOXIDE ID="Observatio ([facility] m-Kzxr-377t882 For Aged 3-290c-5t58-b6 Alejandrobregustavo) 0d-r323mq6w10t 8">(CO2) CARBON DIOXIDE</td><t d ID="Observatio v-Ductr-716e50 25-311r-1d92-b 60d-d126qk3r57 d8">27</td><td ID="Observatio v-Teyq-985e711 2-234j-3g77-b6 0d-o892pu8m57y 8">MMOL/L</td> <td ID="Observatio d-AgpFasih-737 a0751-284w-7i7 1-h59g-n692hb0 c28d8">23-31</ td><td ID="Observatio k-Ymwxgjcu-350 g7448-552d-7u4 6-h65d-p087kn7 c28d8"></td><t d ID="Observatio g-Frhbjw-170x6 744-005b-2u28- n31o-s625mk5r7 8d8">Final</td > ANION GAP 12 6-18 <td [facility] ID="Observatio ([facility] b-Htzw-4821010 For Aged 8-8v71-59kq2s11-51py-h4 Arelisws) 00-u7k200t43f9 a">(AGAP) ANION GAP</td><td ID="Observatio k-Enctx-546272 97-7a33-63rx-a 600-n7q266r36c 8a">12</td><td ID="Observatio b-Olaz-8584716 4-0t80-09vm0m38-66jv-m2 00-v5l866t99c0 a"></td><td ID="Observatio t-OusCwsxy-411 45014-0z05-04g b-u233-w0b192a 15a8a">6-18</t d><td ID="Observatio a-Xavwxicd-246 50114-7x23-54z k-p761-r1b142m 15a8a"></td><t d ID="Observatio l-Vyrdkw-70281 750-0c14-53oz- v043-f6i582m92 a8a">Final</td > BLOOD UREA 21MG/DL 6-20 Above high normal <td [facility] NITROGEN ID="Observatio ([facility] g-Ffnk-4h1ls68 For Aged 5-j37f-3feqe32h-8fyp-6e [facility]) 27-7pi2j354l73 d">(BUN) BLOOD UREA NITROGEN</td>< td ID="Observatio q-Clkku-8r1xb9 85-e07q-9uyp-9 o68-7bv3a918d3 4d">21</td><td ID="Observatio g-Rapb-9f0lb66 2-j60w-4vkap35e-5zqy-2f 27-3az8f430y28 d">MG/DL</td>< td ID="Observatio u-YzkKxvdk-0d1 ot058-f52e-9jh o-6o81-4ub7o37 0a64d">6-20</t d><td ID="Observatio i-Rgdflslz-2m5 ec099-j58b-8kq y-3c06-2pq3v32 0a64d">H</td>< td ID="Observatio t-Lhpsia-0m0ke 268-k28v-9soy- 2o61-9cw1y123z 64d">Final</td > CREATININE 0.9MG/DL 0.9-1.3 <td [facility] ID="Observatio ([facility] j-Uzjz-i249483 For Aged 5-52h0-7xho06n8-8hal-2d [facility]) 8c-bb14i4z030i 8">(CRET) CREATININE</td ><td ID="Observatio k-Xnllo-i36051 74-51c6-8asu-9 j9g-nh88q7v131 d8">0.9</td><t d ID="Observatio x-Zdxt-d557859 3-27a7-9nde63l2-0oxz-0d 8c-ra09a1o703n 8">MG/DL</td>< td ID="Observatio q-SnoVngyn-m01 05033-71k6-1fz u-7r9o-sl59k8s 700d8">0.9-1.3 </td><td ID="Observatio c-Rbtegprt-v81 32254-70t2-7es k-6v4q-hh00p6t 700d8"></td><t d ID="Observatio w-Wuiddh-k1845 803-02j3-4zap- 7j2r-ya86j6n14 0d8">Final</td > BUN/CREATININ 23.3 6.0-20.0 Above high normal <td [facility] E E RATIO ID="Observatio ([facility] e-Wzop-9723998 For Aged 7-5h7p-46613u5z-4533-z5 [facility] [place]) d1-e81a6y726sn a">(BCR) BUN/CREATININE RATIO</td><td ID="Observatio r-Zfgxc-646961 06-5r1i-6765-a 3s1-q54o2d221g ca">23.3</td>< td ID="Observatio j-Grgt-9681346 8-3i6q-47522g0x-0821-h9 d1-x06a8v338vf a"></td><td ID="Observatio n-YxsVmclj-604 01321-9k6o-954 7-y2r0-q12t1o8 98dca">6.0-20. 0</td><td ID="Observatio b-Hskgcevn-157 00926-9h4y-384 8-s1j1-e73r0o0 98dca">H</td>< td ID="Observatio x-Otomfl-14611 603-4x4m-4086- x5q5-w28p7d340 dca">Final</td > CALCIUM 8.6MG/DL 8.3-10.6 <td [facility] ID="Observatio ([facility] v-Mnhc-21ma2wh For Aged z-0g08-1n712v14-1l17-0w [facility]) 8e-2y48vv4zu8o 2">(CA) CALCIUM</td><t d ID="Observatio e-Mvzwo-45af5b qr-7d57-0z30-9 a4r-7y22ng1lg2 d2">8.6</td><t d ID="Observatio h-Vpzu-62ou9ld r-6e36-4w322m87-4g50-2t 8e-0u65in4im4q 2">MG/DL</td>< td ID="Observatio k-NbwZucyo-81m p9xsb-5o47-9m5 4-0m4s-7m68ph5 fe2d2">8.3-10. 6</td><td ID="Observatio x-Rdtmtqcz-57t o6enj-5k54-5w9 3-0x4w-7g61xt5 fe2d2"></td><t d ID="Observatio f-Ainsfv-48bo3 cbt-8m26-5l74- 8s6d-7l76ly6lh 2d2">Final</td > ID Date Data Source [facility] 04/02/2020 01:41:00 AM EDT [facility] ([facility]) Name Value Range Interpretation Description Data Sup porting Code Source(s) Document(s ) WHITE BLOOD 7.3K/UL 4.0-10.0 <td [facility] CELL COUNT ID="Observatio ([facility] x-Eyzj-f56b884 [facility] For 4i17-1942-cg Aged -euci5251z48 [place]) a">(WBC) WHITE BLOOD CELL COUNT</td><td ID="Observatio z-Gvzgd-s22w98 25-6s62-7765-a e22-dzis8210g2 0a">7.3</td><t d ID="Observatio t-Wnxv-i17v610 2-8z37-21229x48-2736-gb 07-mgsn3608r06 a">K/UL</td><t d ID="Observatio b-AblXdikx-l95 b9617-2y08-145 2-jv03-fohk163 3f70a">4.0-10. 0</td><td ID="Observatio y-Endmrbkj-f17 u2066-4x64-840 8-vm68-fdvm555 3f70a"></td><t d ID="Observatio p-Iwpwbo-q64y5 414-1b50-3851- vb64-kooz3929n 70a">Final</td > RED BLOOD CELL 3.88MIL/ 4.50-5.9 Below low normal <td [facility] E COUNT UL 0 ID="Observatio ([facility] z-Wkbr-n210658 [facility] For o-8459-6n12 Aged 02-o2x57688234 [facility] [place]) 2">(RBC) RED BLOOD CELL COUNT</td><td ID="Observati e-Mcery-l24945 0f-2338-4q19-9 802-a0f9218182 72">3.88</td>< td ID="Observatio v-Ryvp-a048758 k-8594-6h37 02-i8v69323653 2">MIL/UL</td> <td ID="Marcelo p-DwaZkgyt-t44 0897v-4807-1w7 7-1552-q9n4733 76004">4.50-5. 90</td><td ID="Observatio d-Isiklajb-k57 9499l-8534-4b0 6-0960-e8g7304 91668">L</td>< td ID="Marcel v-Elvvvx-v3987 72x-1841-0e22- 9802-f2o796157 772">Final</td > HEMOGLOBIN 11.0GM/D 13.6-17. Below low normal <td [facility] 0 ID="Observatio ([facility] o-Cspk-u0y52ha Home For 6-bh15-2ydiib25-5eqz-08 Aged a5-i758gi21w00 [facility] [place]) e">(HGB) HEMOGLOBIN</td ><td ID="Observatio i-Hopzz-o9x13a w7-tl04-5lyu-9 5a7-t837nv75d2 5e">11.0</td>< td ID="Observatio p-Sqeh-f8o69pl 7-rn97-0macpq40-8drj-01 a5-y635ag76y21 e">GM/DL</td>< td ID="Observatio z-UxtEugxq-o9j 50jx9-oc08-6gq c-73a3-r801rq0 0f15e">13.6-17 .0</td><td ID="Observatio n-Exrzziya-p9j 42lk2-ph84-4go f-03h7-o389jj3 0f15e">L</td>< td ID="Observatio t-Zjohqe-u2d09 kq3-zn34-5ars- 18i9-k179nu86z 15e">Final</td > HEMATOCRIT 34.9% 42.0-50. Below low normal <td [facility] 0 ID="Observatio ([facility] y-Wzte-v3746a3 Home For q-zz38-0775jw39-6808-8t Aged 6a-40f8597qu3j [facility] [place]) 9">(HCT) HEMATOCRIT</td ><td ID="Observatio c-Dscgm-b2134w 5s-sq04-9713-8 i0e-91i1203uu0 f9">34.9</td>< td ID="Observatio h-Hmzm-h0352a4 g-jv31-6100es62-8726-3i 6a-66g7768lv6e 9">%</td><td ID="Observatio j-SdtEwxad-h35 73n4o-os66-270 2-6z2q-16p7124 cc0f9">42.0-50 .0</td><td ID="Observatio v-Sjgxugfe-c82 63t3u-qw13-618 9-0q8g-54g7605 cc0f9">L</td>< td ID="Observatio k-Hcydqc-d7450 i1e-xr31-6145- 4e8k-14w8836ul 0f9">Final</td > MEAN 89.9FL 80.0-96. <td [facility] CORPUSCULAR 0 ID="Observatio ([facility] VOLUME w-Pqyc-09lz717 Home For 4-x96g-56k6n29m-33q4-r5 Aged 4c-g10i6525o8p [facility] [place]) 7">(MCV) MEAN CORPUSCULAR VOLUME</td><td ID="Observatio d-Gokeg-38fm86 82-l46u-77i5-a 34c-l60e4904b8 b7">89.9</td>< td ID="Observatio y-Sksv-65fa343 7-y41v-26g0s81g-32y8-l0 4c-o61b5343c0y 7">FL</td><td ID="Observatio q-IqxXyvow-69y k3521-m75h-93o 7-a55b-q18u868 4f3b7">80.0-96 .0</td><td ID="Observatio f-Otteadxt-50y w5418-t83u-37m 9-p57g-v40u741 4f3b7"></td><t d ID="Observatio d-Suhioz-46hu5 771-e95k-88i6- g42l-f25o9476e 3b7">Final</td > MEAN 28.4PG 27.0-34. <td [facility] CORPUSCULAR 0 ID="Observatio ([facility] HEMOGLOBIN j-Hada-6x6x711 Home For 2-6035-5iq4-aa Aged 7d-8733u8myv1v [facility] [place]) 4">([facility]) MEAN CORPUSCULAR HEMOGLOBIN</td ><td ID="Observatio h-Vizoz-5f8e86 30-9551-1yi1-a m6s-5819h8nrz7 d4">28.4</td>< td ID="Observatio j-Hwqs-5j5i611 8-0066-1ms6-aa 7d-8396c3qqn4a 4">PG</td><td ID="Observatio o-WawUctkx-1c8 d9157-1250-1aa 9-hh9x-8736u5o ef7d4">27.0-34 .0</td><td ID="Observatio f-Dqchawtr-1d2 q6902-5706-5os 7-yp3d-5827g7v ef7d4"></td><t d ID="Observatio r-Tbvvwr-8t9f3 742-9227-0bc2- dx1p-5984z4crn 7d4">Final</td > MEAN 31.5GM/D 31.0-36. <td [facility] CORPUSCULAR HGB L 0 ID="Observatio ([facility] u-Melx-7ve994x Home For 9-981q-2fm7-9b Aged de-v2gl11f7ht8 [facility]) 8">([facility]) MEAN CORPUSCULAR HGB CONCEN</td><td ID="Observatio t-Sdykn-6qj837 y1-343d-8wt6-9 bde-h5dv30n8fi 58">31.5</td>< td ID="Observatio w-Zgpe-8xo974a 3-394t-8nu2-9b de-a6nf43n9rc3 8">GM/DL</td>< td ID="Observatio j-KgsFhjoe-8wr 010a5-575o-0gi 6-5hnc-r7jv50p 0bc58">31.0-36 .0</td><td ID="Observatio j-Cznotyfz-1us 349q8-696k-3vj 2-7dcn-t4pb03o 0bc58"></td><t d ID="Observatio h-Neyxjo-2or05 3p6-407l-3wn8- 9bde-q0zq26z7e c58">Final</td > RED CELL 13.1% 11.5-14. <td [facility] DISTRIBUTION 5 ID="Observatio ([facility] WIDTH q-Bscm-1nm1483 Home For g-4i23-80171g86-0819-oe Aged a0-892uroc4f13 [facility]) 3">(RDW) RED CELL DISTRIBUTION WIDTH</td><td ID="Observatio n-Pknnh-9tc085 3j-6q19-7460-a ba0-352tbvs5t1 23">13.1</td>< td ID="Observatio b-Zlzc-4vj3546 g-2w08-46180c62-1630-wd a0-669akpw2a44 3">%</td><td ID="Observatio e-TilWyngw-4jb 6629m-3e27-664 1-obz7-025drds 7d923">11.5-14 .5</td><td ID="Observatio a-Tqfqxqac-7cv 5720y-8u90-478 8-gsx0-940uibh 7d923"></td><t d ID="Observatio s-Agwile-2kr08 54o-4p91-8384- aba0-835blgr6z 923">Final</td > PLATELET COUNT 339K/UL 150-400 <td [facility] ID="Observatio ([facility] m-Uqdv-283884a [facility] For o-6t63-5x394k59-4r26-43 Aged 25-626yk641p55 [facility]) d">(PLTC) PLATELET COUNT</td><td ID="Observatio o-Qvnrc-975751 jj-9e56-0t88-9 725-348vf240l8 3d">339</td><t d ID="Observatio p-Wclr-930608z y-2g41-2g902b45-2n41-17 25-752hn067z50 d">K/UL</td><t d ID="Observatio h-RsmUycji-027 078ru-6a87-6m6 5-2867-927yj40 6c83d">150-400 </td><td ID="Observatio q-Rdygvumd-817 150at-4m75-4w8 9-9887-955zq97 6c83d"></td><t d ID="Observatio l-Rbnwvw-27021 9tu-4u76-5d04- 9725-010tr593w 83d">Final</td > MEAN PLATELET 11.2FL 9.6-12.8 <td [facility] VOLUME ID="Observatio ([facility] o-Ispv-7o2ti88 Home For c-g342-1akvf797-1llb-u0 Aged bd-397lv91535i [facility]) b">(MPV) MEAN PLATELET VOLUME</td><td ID="Observatio r-Ypcuz-3o8hs4 7t-b369-9ury-b 0bd-032xn62511 fb">11.2</td>< td ID="Observatio a-Mzzh-8b4uv78 j-q003-6mwmu323-5you-p1 bd-062ft44720f b">[place]</td><td ID="Observatio h-PqoKuurl-5j0 zk60l-e366-3sa x-d5ij-281yw69 469fb">9.6-12. 8</td><td ID="Observatio a-Qlnclpbl-4f3 nk20v-k201-2ru l-m0pu-132wm91 469fb"></td><t d ID="Observatio o-Mkjsgb-9g7mp 15k-e965-3ruj- m8mx-959gn9999 9fb">Final</td > ID Date Data Source [facility] 03/31/2020 04:17:00 AM EDT [facility] ([facility] [place]) Name Value Range Interpretation Description Data Sup porting Code Source(s) Document(s ) GLUCOSE 68MG/DL 74-106 Below low normal <td [facility] ID="Observatio ([facility] r-Thkv-9m6954j For Aged 5-16y2-800671e1-0954-95 [place]) f2-1x5069nx50v a">(GLU) GLUCOSE</td><t d ID="Observatio e-Fvbku-3t3523 l9-56u8-5965-8 7b7-1u0031eo41 ca">68</td><td ID="Observatio l-Wejn-3o5222a 4-95y6-071073r1-8478-41 f2-5e5683es41o a">MG/DL</td>< td ID="Observatio w-RndZuafy-0v8 791w5-92b5-344 4-78e5-5c8819z d31ca">74-106< /td><td ID="Observatio t-Uncjjpwa-9r9 739d8-83l1-618 9-63o4-3r1094a d31ca">L</td>< td ID="Observatio w-Ktqjnu-9r870 0u1-63s2-1088- 31a1-7q0311uj2 1ca">Final</td > SODIUM 137MMOL/ 136-145 <td [facility] L ID="Observatio ([facility] s-Jdtt-vw665i6 For Aged 0-yd6u-8458uo5m-6738-9j Hebrews) 79-3x0sap99na8 7">(NA) SODIUM</td><td ID="Observatio h-Xokkk-vg515d 36-pn2o-3252-8 b99-6y8ses92lr 97">137</td><t d ID="Observatio k-Znoa-of444i5 0-zj0n-8978uy3d-7294-4x 79-4b5cjq33ak0 7">MMOL/L</td> <td ID="Observatio h-ApdUrgur-hg4 77l44-nc7f-739 3-9g18-2t6sjf0 3bb97">136-145 </td><td ID="Observatio t-Vrhhiqqv-wy8 37c54-bo4g-317 9-7i23-8j0dsu0 3bb97"></td><t d ID="Observatio o-Rfpjoo-qi086 r21-eu0b-8514- 5j30-1g1tdi05l b97">Final</td > POTASSIUM 3.9MMOL/ 3.5-5.3 <td [facility] L ID="Observatio ([facility] y-Ujcw-950768x For Aged u-mh9q-4z7tor0i-2x0s-14 [facility] [place]) 9d-1j94fm0o2a7 3">(K) POTASSIUM</td> <td ID="Observatio i-Dwxku-654084 uh-nc3x-4n2z-9 39d-7s60le2p8s 03">3.9</td><t d ID="Observatio y-Vmao-161834o a-ha4m-9e6rkt5t-4i1b-93 9d-2c97im0h9q8 3">MMOL/L</td> <td ID="Observatio q-EqqClbby-038 637yd-qn6b-4w8 l-712y-3q33hc8 d9a03">3.5-5.3 </td><td ID="Observatio w-Bvhuflwx-267 502hp-cj5l-0e7 r-032y-2x69ug2 d9a03"></td><t d ID="Observatio u-Ocbsmp-59763 7ts-vt4y-0e5x- 939d-7o58dh9f8 a03">Final</td > CHLORIDE 101MMOL/ 98-107 <td [facility] L ID="Observatio ([facility] t-Myem-8w87637 For Aged 2-g286-7a38v298-0c28-r0 Hebrews) e4-35ipb028n9z b">(CL) CHLORIDE</td>< td ID="Observatio b-Yjedq-6w0196 99-k342-0v09-b 4u4-99qta664n1 ab">101</td><t d ID="Observatio i-Xdpv-1v58130 1-z089-7h06s764-0a87-s7 e4-12crt414z5l b">MMOL/L</td> <td ID="Observatio b-QpoPkbhj-6t8 93911-w555-7y8 4-f8g3-21zzh20 4a6ab">98-107< /td><td ID="Observatio a-Kjezsoni-0b5 03578-q803-8a6 9-f5s7-51dxf74 4a6ab"></td><t d ID="Observatio c-Lqeqlh-4k871 475-d365-8j83- t0y2-41kct892h 6ab">Final</td > CARBON 28MMOL/L 23-31 <td [facility] DIOXIDE ID="Observatio ([facility] p-Jqyo-8nn4kq5 For Aged 8-4p67-63yw5w75-03bg-f2 [place]s) 92-d8573359l9v f">(CO2) CARBON DIOXIDE</td><t d ID="Observatio l-Qzzxj-3vy1vv 06-0d23-18so-b 292-n7507698i8 af">28</td><td ID="Observatio u-Qlcp-2ju8zs2 3-4p30-33hz1l62-20dh-r5 92-c5700650b1i f">MMOL/L</td> <td ID="Observatio a-GqaLxpxq-1sr 7al05-9u33-81f e-g343-z726804 2a1af">23-31</ td><td ID="Observatio c-Bkxlgvos-5ro 3qo67-3x22-73l k-d220-f781286 2a1af"></td><t d ID="Observatio k-Gdypis-6fa8c h29-8m69-59at- v805-b5742309s 1af">Final</td > ANION GAP 12 6-18 <td [facility] ID="Observatio ([facility] y-Dgia-3n5130b For Aged e-35v3-1aiy36b3-0fpn-z3 Arelisws) 9f-0j8b7l2kbji 1">(AGAP) ANION GAP</td><td ID="Observatio u-Jddcj-7t4456 to-48q8-5ape-b 19f-7a6k5q4jhg e1">12</td><td ID="Observatio h-Exju-0o9183h b-26e2-9ove63q7-6rba-v3 9f-8w7z0f3ormn 1"></td><td ID="Observatio n-QduSqyxq-5m9 617nr-76b9-5uz i-b67r-7v4h7d6 cffe1">6-18</t d><td ID="Observatio y-Hwtshmvb-0r5 129fn-68n6-1qo o-t39g-7v5a0d3 cffe1"></td><t d ID="Observatio m-Ynfvvm-4u375 6ex-69h8-3moz- z41d-4e0w2r8vs fe1">Final</td > BLOOD UREA 25MG/DL 6-20 Above high normal <td [facility] NITROGEN ID="Observatio ([facility] q-Lesk-4e72665 For Aged z-ih02-62fgbr34-77bx-9g Hebrews) 6c-76zvk4i7065 e">(BUN) BLOOD UREA NITROGEN</td>< td ID="Observatio k-Qspyw-4d2048 3i-js90-19iv-9 m3h-62dez0u401 0e">25</td><td ID="Observatio p-Tcbd-3t09182 y-lq92-70bemi44-62lp-1k 6c-92uem2t9086 e">MG/DL</td>< td ID="Observatio v-RbcPmvcx-2i9 5975x-kk10-24n k-2f1s-81iio2h 8020e">6-20</t d><td ID="Observatio j-Cpzqnfls-3u6 5077q-lp11-07h e-1l3u-47prn6q 8020e">H</td>< td ID="Observatio y-Tnuvuz-3x666 78b-tf59-57eg- 8p2w-44ati0e17 20e">Final</td > CREATININE 0.8MG/DL 0.9-1.3 Below low normal <td [facility] ID="Observatio ([facility] x-Soja-m1ee735 For Aged 5-7my7-85c09xm0-42m6-69 Hebrews) a8-p81ji15m8k8 0">(CRET) CREATININE</td ><td ID="Observatio l-Lpqbb-s8gn01 86-0kw0-65y9-9 7f1-t10vl99k3i 70">0.8</td><t d ID="Observatio g-Cqeh-m6dc363 8-6tz1-67i52gu1-19q9-79 a8-a92dh74n3j7 0">MG/DL</td>< td ID="Observatio j-TogRpnyb-a5y u0324-2cx2-77h 1-88p2-p28qt81 c1d70">0.9-1.3 </td><td ID="Observatio g-Guhqdxwp-c5w r2458-8dq5-91z 1-17i3-t97bn68 c1d70">L</td>< td ID="Observatio z-Khhida-f5iy9 568-2qd4-14h7- 98m3-k79bn56z7 d70">Final</td > BUN/CREATININ 31.3 6.0-20.0 Above high normal <td [facility] E E RATIO ID="Observatio ([facility] b-Ewor-40y1883 For Aged [facility] [place]) 8d-1680j45r2j2 5">(BCR) BUN/CREATININE RATIO</td><td ID="Observatio l-Ypwer-16r257 10-51e2-5092-8 68d-7151m38z4l 75">31.3</td>< td ID="Observatio q-Wyeo-10v6279 8d-7514z84z9f9 5"></td><td ID="Observatio s-XacEtrcu-11q 92648-92d1-174 5-910y-1686r05 b0e75">6.0-20. 0</td><td ID="Observatio s-Qomilvet-98j 66849-51r5-789 2-503v-7964c13 b0e75">H</td>< td ID="Observatio z-Eklaxa-70t15 405-46i5-9731- 868d-6339n41k2 e75">Final</td > CALCIUM 8.2MG/DL 8.3-10.6 Below low normal <td [facility] ID="Observatio ([facility] j-Bfea-4j0559p For Aged -a [facility] [place]) f4-99j9m78by14 d">(CA) CALCIUM</td><t d ID="Observatio b-Xjdtl-8t7059 j3-1369-9150-a 7p3-80x8g56kq8 7d">8.2</td><t d ID="Observatio h-Udze-0o0697n -a8 f4-75j2j12gx70 d">MG/DL</td>< td ID="Observatio d-IevWzfnj-0p6 943c8-5027-743 8-c9q8-40d5y64 cb87d">8.3-10. 6</td><td ID="Observatio x-Zxdrmqgg-0g4 822h7-3809-188 2-h9q0-86q2h57 cb87d">L</td>< td ID="Observatio y-Ttapeo-5q267 4b6-5813-4996- w0n1-98b0h66xy 87d">Final</td > ID Date Data Source [facility] 03/31/2020 03:36:00 AM EDT [facility] ([facility] [place]) Name Value Range Interpretation Description Data Sup porting Code Source(s) Document(s ) WHITE BLOOD 9.6K/UL 4.0-10.0 <td [facility] CELL COUNT ID="Observatio ([facility] p-Ghkg-2sw9644 Home For 8-329m-07ef-b8 Aged 15-487h082kdtu [place]) d">(WBC) WHITE BLOOD CELL COUNT</td><td ID="Observatio w-Obrvs-1ig880 97-396a-29yl-b 815-170q730lwh fd">9.6</td><t d ID="Observatio x-Ypue-2xn1024 5-265f-27jk-b8 15-932a288fwfq d">K/UL</td><t d ID="Observatio c-RbxEhrhl-1tj 27928-264r-07p q-n116-179a702 ebffd">4.0-10. 0</td><td ID="Observatio h-Zszhzxpi-4tx 18182-544j-98y p-l654-996x562 ebffd"></td><t d ID="Observatio v-Pfdrwf-9ed79 595-575l-42fc- t298-622g253rz ffd">Final</td > RED BLOOD CELL 3.84MIL/ 4.50-5.9 Below low normal <td [facility] E COUNT UL 0 ID="Observatio ([facility] f-Ppsr-y641960 Home For 6-r5a5-522sy5p1-183x-8m Aged 8b-3tie19n70n9 [facility] [place] [facility]) 3">(RBC) RED BLOOD CELL COUNT</td><td ID="Observatio v-Kfjsw-v86539 16-t3r7-521d-8 i8b-0kug29h42x 63">3.84</td>< td ID="Observatio g-Lbwi-v699520 3-q1m2-542nl4i8-876w-7a 8b-7frq59v96m0 3">MIL/UL</td> <td ID="Observatio a-WoqLhjzz-h26 99065-a3i1-716 d-4y1s-0vgm99e 31e63">4.50-5. 90</td><td ID="Observatio z-Vcthzfky-i41 76979-w4v3-678 a-6h7c-9hoy83e 31e63">L</td>< td ID="Observatio b-Gvxcxb-n6034 073-n9p1-374b- 8i0k-2hix76n65 e63">Final</td > HEMOGLOBIN 11.1GM/D 13.6-17. Below low normal <td [facility] L 0 ID="Observatio ([facility] e-Rtzr-b249643 Home For 3-3060-9pp1-9d Aged b1-bjgt42y47q1 [facility] [place]) 2">(HGB) HEMOGLOBIN</td ><td ID="Observatio d-Xwerr-m85256 63-5218-0jy6-9 db1-wzsf38v43a 82">11.1</td>< td ID="Observatio d-Dqsk-w407944 8-8743-3pp0-9d b1-ucli24w45l7 2">GM/DL</td>< td ID="Observatio s-EgyTjslk-p32 [address]-1ta 5-5uy5-szpe23a 62a82">13.6-17 .0</td><td ID="Observatio t-Qgmrtatw-r31 [address]-8yb 7-5gz4-gkmz37h 62a82">L</td>< td ID="Observatio j-Gwlbqk-t0390 428-0593-9tc7- 6yh5-cqls22z40 a82">Final</td > HEMATOCRIT 34.9% 42.0-50. Below low normal <td [facility] 0 ID="Observatio ([facility] b-Tkru-4u4q95o Home For 0-4r71-30nl4c73-06cd-t0 Aged 23-89597gzc26h [facility] [place]) 9">(HCT) HEMATOCRIT</td ><td ID="Observatio z-Hoool-9c8j00 n2-0d75-89yq-b 123-45925spm12 a9">34.9</td>< td ID="Observatio n-Jshi-2c7u69f 6-1s18-49sw1g84-06kx-c9 23-52444hlv10w 9">%</td><td ID="Observatio d-GvpRaxnv-1i0 n98h9-0g87-64d l-f821-50539pu b38a9">42.0-50 .0</td><td ID="Observatio s-Eatffuho-0s9 j50w4-7c75-33w t-p615-63996lz b38a9">L</td>< td ID="Observatio v-Jraaiz-7t9b6 5w5-8e57-35gz- r628-98487lit8 8a9">Final</td > MEAN 90.9FL 80.0-96. <td [facility] CORPUSCULAR 0 ID="Observatio ([facility] VOLUME x-Mztd-61124o5 Home For o-lld4-1960-82 Aged 63-r2y0658862d [facility] [place]) 8">(MCV) MEAN CORPUSCULAR VOLUME</td><td ID="Observatio a-Nuvkv-55992n 7c-nyn5-8229-8 263-j2e4478182 b8">90.9</td>< td ID="Observatio e-Txku-25998z1 a-cwd4-1661-82 63-b5r3076628b 8">[place]</td><td ID="Observatio r-NdtUvrnl-031 25i8q-jfc9-283 1-2919-o1j0747 767b8">80.0-96 .0</td><td ID="Observatio a-Tebtafeg-054 18s1c-nyy0-261 2-3131-w2h8718 767b8"></td><t d ID="Observatio m-Mudfjz-51561 q0b-var4-8660- 8263-a2j296123 7b8">Final</td > MEAN 28.9PG 27.0-34. <td [facility] CORPUSCULAR 0 ID="Observatio ([facility] HEMOGLOBIN s-Btfc-8376351 Home For 3-9u56-541f4l61-600n-i6 Aged 68-7m04353o6tv [facility] [place]) 5">(MCH) MEAN CORPUSCULAR HEMOGLOBIN</td ><td ID="Observatio f-Gnekf-153577 05-8f60-926q-b 568-2o82849g0f a5">28.9</td>< td ID="Observatio s-Pgbj-6208173 3-8o35-862l8p28-147v-b8 68-3x78055a1fp 5">PG</td><td ID="Observatio h-JpwWqlpy-152 99955-6c17-289 x-l374-5v82340 f0aa5">27.0-34 .0</td><td ID="Observatio m-Kxdumhkf-184 88076-5h65-335 y-o320-5x56254 f0aa5"></td><t d ID="Observatio c-Uezxjx-43076 897-1z10-801w- l680-6t50097i5 aa5">Final</td > MEAN 31.8GM/D 31.0-36. <td [facility] CORPUSCULAR HGB L 0 ID="Observatio ([facility] CONCEN r-Ouff-34tl2p2 Home For 9-3p27-031n9s59-494a-k5 Aged e4-7xt36k26465 [facility] [place] [facility]) 6">([facility]) MEAN CORPUSCULAR HGB CONCEN</td><td ID="Observatio f-Xntvg-35bk0v 41-9m82-804e-b 5d2-0tj09g1977 26">31.8</td>< td ID="Observatio g-Kdga-53lk9f5 0-3i11-462l5b86-406s-s2 e4-0hx72q74757 6">GM/DL</td>< td ID="Observatio q-OjwJdoxj-77n v9e66-4u37-952 n-y1a6-6dw89z8 30061">31.0-36 .0</td><td ID="Observatio u-Srbqpset-37f g4d31-5i68-949 e-b1t0-4ab14v4 22924"></td><t d ID="Observatio k-Sptwlg-38vw3 l75-9q54-416z- h5u3-3fq31s473 826">Final</td > RED CELL 12.6% 11.5-14. <td [facility] DISTRIBUTION 5 ID="Observatio ([facility] h-Ukkz-7625856 Home For z-15v9-753955b6-8038-92 Aged d1-4xkm4315wrf [facility]) a">(RDW) RED CELL DISTRIBUTION WIDTH</td><td ID="Observatio c-Ceoni-098203 9c-08u3-2995-9 7m2-3ira5660rx fa">12.6</td>< td ID="Observatio g-Bwmb-2562692 p-70s8-035085m6-0339-90 d1-4zkz5459wyy a">%</td><td ID="Observatio u-BamAwked-518 4943a-50a7-970 7-84g5-0tyr817 2dcfa">11.5-14 .5</td><td ID="Observatio j-Acbxdhso-462 2496u-20y5-556 8-02i6-0get407 2dcfa"></td><t d ID="Observatio n-Dqnrpj-54023 89j-20w3-7838- 75n3-9ute7392m candy separator enrobing">Final</td > PLATELET COUNT 350K/UL 150-400 <td [facility] ID="Observatio ([facility] r-Ccqv-u0p91sc Home For 3ar6-1043-do Aged 49-7ky14nw3l0n [facility]) f">(PLTC) PLATELET COUNT</td><td ID="Observatio p-Ghyli-i6z66y b2-8du0-2138-a s74-1fy60pj1t4 ef">350</td><t d ID="Observatio s-Dowg-a9r85ff 0-6pg9-83650mt5-0616-rj 49-0eg23wg4p5f f">K/UL</td><t d ID="Observatio r-LndFbxkm-l6k 26le5-9uu5-519 3-ki16-3aw58ku 8b2ef">150-400 </td><td ID="Observatio q-Ijbppdlk-l6t 86kn0-4wo9-702 9-vt34-5hv43cf 8b2ef"></td><t d ID="Observatio s-Lkjbqe-m9t59 og6-7vg2-9105- zd35-2kb53lv9h 2ef">Final</td > MEAN PLATELET 11.2FL 9.6-12.8 <td [facility] VOLUME ID="Observatio ([facility] v-Ccsb-jfy1562 Home For Aged 29-wm1293a9wlc [facility]) 0">(MPV) MEAN PLATELET VOLUME</td><td ID="Observatio e-Xlmxz-gqr777 -8 929-ge6532e9hc e0">11.2</td>< td ID="Observatio o-Uefb-oyg1245 29-tp5377i0dzw 0">FL</td><td ID="Observatio j-AajWgjbf-wgr 2-1836-cc6536v 7bee0">9.6-12. 8</td><td ID="Observatio h-Jrehgyqq-qhf 9982p-7276-380 9-4821-bw9422k 7bee0"></td><t d ID="Observatio m-Rwlxyg-acs98 03p-8270-0232- 8929-fd1977o0k ee0">Final</td > ID Date Data Source [id number] 03/27/2020 12:00:00 PM EDT [facility] Name Value Range Interpretation Code Description Data Ana rce(s) Supporting Document(s ) SARS-CoV-2 [facility] Ql J LUIS+probe This lab was ordered by [facility] a nd reported by [facility]. ID Date Data Source [id number] 03/20/2020 05:04:[address] [facility] Name Value Range Interpretation Code Description Data Ana rce(s) Supporting Document(s ) SARS-CoV-2 [facility] Ql J LUIS+probe This lab was ordered by [facility] a nd reported by [facility]. ID Date Data Source Liver 03/19/2020 06:00:00 AM EDT [facility] Profile.[id number] Name Value Range Interpretation Description Data Sup porting Code Source(s) Document(s ) Aspartate 17-59 <content [facility] aminotransferase styleCode="Bold"> Fei hs [Enzymatic Aspartate Medical activity/volume] Aminotransferase Center in Serum or Plasma (AST) </content>46 IU/L<content styleCode="Italic s"> (17-59 IU/L)</content> Alanine 7-50 Above high <content [facility] aminotransferase normal styleCode="Bold"> Fei hs [Enzymatic Alanine Medical activity/volume] Aminotransferase Center in Serum or Plasma (ALT) </content>57 IU/L H<content styleCode="Italic s"> (7-50 IU/L)</content> Alkaline 38-126 <content [facility] phosphatase styleCode="Bold"> Mishel [Enzymatic Alkaline Medical activity/volume] Phosphatase (ALP) Cente r in Serum or Plasma </content>58 IU/L<content styleCode="Italic s"> (38-126 IU/L)</content> Albumin 3.5-5.0 Below low <content [facility] [Mass/volume] in normal styleCode="Bold"> Fei hs Serum or Plasma Albumin Medical </content>3.1 Center G/DL L<content styleCode="Italic s"> (3.5-5.0 G/DL)</content> Bilirubin.total 0.2-1.3 <content [facility] [Mass/volume] in styleCode="Bold"> Fei hs Serum or Plasma Bilirubin Total Medical </content>0.4 Center MG/DL<content styleCode="Italic s"> (0.2-1.3 MG/DL)</content> ID Date Data Source HematologyRou.[id number] 03/19/2020 06:00:00 AM EDT [facility] 0400 Name Value Range Interpretation Description Data Sup porting Code Source(s) Document(s ) Erythrocytes 4.4-5.9 Below low normal <content [facility] [#/volume] in styleCode="Bold [facility] Blood by ">Red Blood Medical Automated count Cell Count Center </content>4.05 MCUMM L<content styleCode="Ital ics"> (4.4-5.9 MCUMM)</content > Hemoglobin 13.5-17. Below low normal <content [facility] [Mass/volume] in 5 styleCode="Bold [facility] Blood ">Hemoglobin Medical </content>12.0 Center G/DL L<content styleCode="Ital ics"> (13.5-17.5 G/DL)</content> Leukocytes 4.4-11.0 <content [facility] [#/volume] in styleCode="Bold [facility] Blood by ">White Blood Medical Automated count Cell Count Center </content>9.01 KCUMM<content styleCode="Ital ics"> (4.4-11.0 KCUMM)</content > Hematocrit 41.0-53. Below low normal <content [facility] [Volume 0 styleCode="Bold [facility] Fraction] of ">Hematocrit Medical Blood by </content>36.9 Center Automated count % L<content styleCode="Ital ics"> (41.0-53.0 %)</content> Erythrocyte mean 26.0-34. <content [facility] corpuscular 0 styleCode="Bold [facility] hemoglobin ">Mean Medical [Entitic mass] Corposcular Center by Automated Hemoglobin count </content>29.6 PG<content styleCode="Ital ics"> (26.0-34.0 PG)</content> Erythrocyte mean 80.0-100 <content [facility] corpuscular .0 styleCode="Bold [facility] volume [Entitic ">Mean Medical volume] by Corpuscular Center Automated count Volume </content>91.1 FL<content styleCode="Ital ics"> (80.0-100.0 FL)</content> Erythrocyte mean 32.0-37. <content [facility] corpuscular 0 styleCode="Bold [facility] hemoglobin ">Mean Corpus. Medical concentration Hgb Center [Mass/volume] by Concentration Automated count (MCHC) </content>32.5 G/DL<content styleCode="Ital ics"> (32.0-37.0 G/DL)</content> Erythrocyte 11.5-14. <content [facility] distribution 5 styleCode="Bold [facility] width [Ratio] by ">Red Cell Medical Automated count Distribution Center Width </content>12.9 %<content styleCode="Ital ics"> (11.5-14.5 %)</content> Platelet mean 8.0-11.0 <content [facility] volume [Entitic styleCode="Bold [facility] volume] in Blood ">Mean Platelet Medical by Automated Volume Center count </content>10.6 FL<content styleCode="Ital ics"> (8.0-11.0 FL)</content> Neutrophils 36-66 Above high <content [facility] [#/volume] in normal styleCode="Bold [facility] Blood by ">Neutrophil Medical Automated count </content>66.9 Center % H<content styleCode="Ital ics"> (36-66 %)</content> Platelets 130-400 <content [facility] [#/volume] in styleCode="Bold [facility] Blood by ">Platelet Medical Automated count Count Center </content>300 KCUMM<content styleCode="Ital ics"> (130-400 KCUMM)</content > UNK 1.0-4.8 <content [facility] styleCode="Bold [facility] ">Lymphocyte Medical Count Center </content>2.01 KCUMM<content styleCode="Ital ics"> (1.0-4.8 KCUMM)</content > UNK 1.6-7.3 <content [facility] styleCode="Bold [facility] ">Neutrophil Medical Count Center </content>6.02 KCUMM<content styleCode="Ital ics"> (1.6-7.3 KCUMM)</content > Lymphocytes 24.0-44. Below low normal <content [facility] [#/volume] in 0 styleCode="Bold [facility] Blood by ">Lymphocyte Medical Automated count </content>22.3 Center % L<content styleCode="Ital ics"> (24.0-44.0 %)</content> Monocytes 3.0-10.0 <content [facility] [#/volume] in styleCode="Bold [facility] Blood by ">Monocyte Medical Automated count </content>7.5 Center %<content styleCode="Ital ics"> (3.0-10.0 %)</content> UNK 0.0-0.6 <content [facility] styleCode="Bold [facility] ">Eosinophil Medical Count Center </content>0.20 KCUMM<content styleCode="Ital ics"> (0.0-0.6 KCUMM)</content > UNK 0.2-0.9 <content [facility] styleCode="Bold [facility] ">Monocyte Medical Count Center </content>0.68 KCUMM<content styleCode="Ital ics"> (0.2-0.9 KCUMM)</content > Eosinophils 0-5.0 <content [facility] [#/volume] in styleCode="Bold [facility] Blood by ">Eosinophil Medical Automated count </content>2.2 Center %<content styleCode="Ital ics"> (0-5.0 %)</content> Basophils 0.0-1.0 <content [facility] [#/volume] in styleCode="Bold [facility] Blood by ">Basophil Medical Automated count </content>0.4 Center %<content styleCode="Ital ics"> (0.0-1.0 %)</content> UNK 0.0-0.3 <content [facility] styleCode="Bold [facility] ">Basophil Medical Count Center </content>0.04 KCUMM<content styleCode="Ital ics"> (0.0-0.3 KCUMM)</content > UNK 0-0.1 <content [facility] styleCode="Bold [facility] ">Immature Medical Granulocyte Center Count </content>0.06 KCUMM<content styleCode="Ital ics"> (0-0.1 KCUMM)</content > UNK 0 <content [facility] styleCode="Bold [facility] ">Nucleated Red Medical Blood Cell Center </content>0.0 /100<content styleCode="Ital ics"> (0 /100)</content> UNK 0.0 <content [facility] styleCode="Bold [facility] ">Nucleated Red Medical Blood Cell Center Count </content>0.00 KCUMM<content styleCode="Ital ics"> (0.0 KCUMM)</content > UNK < 1 <content [facility] styleCode="Bold [facility] ">Immature Medical Granulocyte Center Ratio </content>0.7 %<content styleCode="Ital ics"> (< 1 %)</content> ID Date Data Source GFR(Creatinine).[id number] 03/19/2020 06:00:00 AM EDT [facility] 0-0400 Name Value Range Interpretation Code Description Data Ana rce(s) Supporting Document(s ) UNK > 60 <content [facility] styleCode="Bold"> Medical Cent er EGFR </content>77 GFR<content styleCode="Italic s"> (> 60 GFR)</content> ID Date Data Source Coagulation 03/19/2020 06:00:00 AM [facility] Rout.[id number] EDT Name Value Range Interpretation Description Data Sup porting Code Source(s) Document(s ) INR in 0.80-1.2 <content Platelet poor 0 styleCode="Bold" [facility] plasma by >INR Medical Coagulation </content>1.09 Center assay #<content styleCode="Itali cs"> (0.80-1.20 #)</content> UNK 9.0-13.0 <content [facility] styleCode="Bold" [facility] >Protime Medical </content>12.1 Center SEC<content styleCode="Itali cs"> (9.0-13.0 SEC)</content> aPTT in 25.1-36. <content [facility] Platelet poor 5 styleCode="Bold" [facility] plasma by >Partial Medical Coagulation Thromboplastin Center assay Time </content>30.8 SEC<content styleCode="Itali cs"> (25.1-36.5 SEC)</content> ID Date Data Source [id number] 03/19/2020 06:00:00 AM EDT [facility] -0400 Name Value Range Interpretation Description Data Sup porting Code Source(s) Document(s ) UNK >= 1.0 <content [facility] styleCode="Veronica Powells d">AG Ratio Medical </content>1.0 Center <content styleCode="Isabel lics"> (>= 1.0 )</content> Phosphate 2.5-4.5 <content [facility] [Mass/volume] styleCode="Veronica Powells in Serum or d">Phosphorus Medical Plasma </content>3.0 Center MG/DL<content styleCode="Isabel lics"> (2.5-4.5 MG/DL)</conten t> UNK 2.3-3.5 <content [facility] styleCode="Veronica Powells d">Globulin Medical </content>3.0 Center G/DL<content styleCode="Isabel lics"> (2.3-3.5 G/DL)</content > Magnesium 1.6-2.3 <content [facility] [Mass/volume] styleCode="Veronica Powells in Serum or d">Magnesium Medical Plasma </content>1.9 Center MG/DL<content styleCode="Isabel lics"> (1.6-2.3 MG/DL)</conten t> Protein 6.3-8.2 Below low normal <content [facility] [Mass/volume] styleCode="Veroinca Mishel in Serum or d">Total Medical Plasma Protein Center </content>6.1 G/DL L<content styleCode="Isabel lics"> (6.3-8.2 G/DL)</content > ID Date Data Source CardiacMarkers.[id number] 03/19/2020 06:00:00 AM EDT [facility] -0400 Name Value Range Interpretation Description Data Sup porting Code Source(s) Document(s ) Troponin < 0.034 Above upper panic <content [facility] I.cardiac limits styleCode="Bold Mishel [Mass/volume ">Troponin I Medical ] in Serum </content><cont Center or Plasma ent styleCode="Bold ">0.676 NG/ML HH</content><co ntent styleCode="Ital ics"> (< 0.034 NG/ML)</content > ID Date Data Source [facility].[id number] 03/19/2020 06:00:00 AM EDT [facility] Name Value Range Interpretation Description Data Sup porting Code Source(s) Document(s ) Sodium 137-145 Below low <content [facility] [Moles/volume] in normal styleCode="Bold"> [facility] Serum or Plasma Sodium Medical </content>135 Center MEQ/L L<content styleCode="Italic s"> (137-145 MEQ/L)</content> Potassium 3.5-5.3 <content [facility] [Moles/volume] in styleCode="Bold"> [facility] Serum or Plasma Potassium Medical </content>4.0 Center MEQ/L<content styleCode="Italic s"> (3.5-5.3 MEQ/L)</content> Carbon dioxide, 22-30 <content [facility] total styleCode="Bold"> [facility]hel [Moles/volume] in Carbon Dioxide Medical Serum or Plasma </content>29 Center MEQ/L<content styleCode="Italic s"> (22-30 MEQ/L)</content> Chloride 98-107 <content [facility] [Moles/volume] in styleCode="Bold"> [facility] Serum or Plasma Chloride Medical </content>105 Center MEQ/L<content styleCode="Italic s"> (98-107 MEQ/L)</content> Creatinine 0.5-1.3 <content [facility] [Mass/volume] in styleCode="Bold"> [facility] Serum or Plasma Creatinine Medical </content>1.0 Center MG/DL<content styleCode="Italic s"> (0.5-1.3 MG/DL)</content> UNK 9-20 Above high <content [facility] normal styleCode="Bold"> [facility] BUN </content>27 Medical MG/DL H<content Center styleCode="Italic s"> (9-20 MG/DL)</content> UNK > 60 <content [facility] styleCode="Bold"> [facility] EGFR </content>77 Medical GFR<content Center styleCode="Italic s"> (> 60 GFR)</content> Calcium 8.4-10. <content [facility] [Mass/volume] in 2 styleCode="Bold"> [facility] Serum or Plasma Calcium Medical </content>8.6 Center MG/DL<content styleCode="Italic s"> (8.4-10.2 MG/DL)</content> Aspartate 17-59 <content [facility] aminotransferase styleCode="Bold"> [facility]i [facility] [Enzymatic Aspartate Medical activity/volume] Aminotransferase Center in Serum or Plasma (AST) </content>46 IU/L<content styleCode="Italic s"> (17-59 IU/L)</content> Glucose 74-106 <content [facility] [Mass/volume] in styleCode="Bold"> [facility] Serum or Plasma Glucose Medical </content>93 Center MG/DL<content styleCode="Italic s"> (74-106 MG/DL)</content> Alkaline 38-126 <content [facility] phosphatase styleCode="Bold"> [facility] [Enzymatic Alkaline Medical activity/volume] Phosphatase (ALP) Cente r in Serum or Plasma </content>58 IU/L<content styleCode="Italic s"> (38-126 IU/L)</content> Alanine 7-50 Above high <content [facility] aminotransferase normal styleCode="Bold"> [facility] [Enzymatic Alanine Medical activity/volume] Aminotransferase Center in Serum or Plasma (ALT) </content>57 IU/L H<content styleCode="Italic s"> (7-50 IU/L)</content> Bilirubin.total 0.2-1.3 <content [facility] [Mass/volume] in styleCode="Bold"> [facility] Serum or Plasma Bilirubin Total Medical </content>0.4 Center MG/DL<content styleCode="Italic s"> (0.2-1.3 MG/DL)</content> Albumin 3.5-5.0 Below low <content [facility] [Mass/volume] in normal styleCode="Bold"> [facility] Serum or Plasma Albumin Medical </content>3.1 Center G/DL L<content styleCode="Italic s"> (3.5-5.0 G/DL)</content> ID Date Data Source Liver 03/18/2020 05:15:00 AM EDT [facility] Profile.[id number] Name Value Range Interpretation Description Data Sup porting Code Source(s) Document(s ) Aspartate 17-59 <content [facility] aminotransferase styleCode="Bold"> [facility]i hs [Enzymatic Aspartate Medical activity/volume] Aminotransferase Center in Serum or Plasma (AST) </content>57 IU/L<content styleCode="Italic s"> (17-59 IU/L)</content> Alanine 7-50 Above high <content [facility] aminotransferase normal styleCode="Bold"> [facility]i [facility] [Enzymatic Alanine Medical activity/volume] Aminotransferase Center in Serum or Plasma (ALT) </content>53 IU/L H<content styleCode="Italic s"> (7-50 IU/L)</content> Alkaline 38-126 <content [facility] phosphatase styleCode="Bold"> [facility] [Enzymatic Alkaline Medical activity/volume] Phosphatase (ALP) Cente r in Serum or Plasma </content>60 IU/L<content styleCode="Italic s"> (38-126 IU/L)</content> Bilirubin.total 0.2-1.3 <content [facility] [Mass/volume] in styleCode="Bold"> Fei [facility] Serum or Plasma Bilirubin Total Medical </content>0.5 Center MG/DL<content styleCode="Italic s"> (0.2-1.3 MG/DL)</content> Albumin 3.5-5.0 Below low <content [facility] [Mass/volume] in normal styleCode="Bold"> [facility]i [facility] Serum or Plasma Albumin Medical </content>2.9 Center G/DL L<content styleCode="Italic s"> (3.5-5.0 G/DL)</content> ID Date Data Source Hormones.[id number] 03/18/2020 05:15:00 AM EDT [facility] Name Value Range Interpretation Description Data Sup porting Code Source(s) Document(s ) Thyrotropin 0.465-4. <content [facility] [Units/volume] 68 styleCode="Veronica Mishel in Serum or d">Thyroid Medical Plasma by Stimulating Center Detection Hormone limit <= 0.05 </content>2.10 mIU/L MIU/L<content styleCode="Isabel lics"> (0.465-4.68 MIU/L)</conten t> ID Date Data Source HematologyRou.[id number] 03/18/2020 05:15:00 AM EDT [facility] 0400 Name Value Range Interpretation Description Data Sup porting Code Source(s) Document(s ) Leukocytes 4.4-11.0 <content [facility] [#/volume] in styleCode="Bold Mishel Blood by ">White Blood Medical Automated count Cell Count Center </content>8.23 KCUMM<content styleCode="Ital ics"> (4.4-11.0 KCUMM)</content > Erythrocytes 4.4-5.9 Below low normal <content [facility] [#/volume] in styleCode="Bold Mishel Blood by ">Red Blood Medical Automated count Cell Count Center </content>4.25 MCUMM L<content styleCode="Ital ics"> (4.4-5.9 MCUMM)</content > Hemoglobin 13.5-17. Below low normal <content [facility] [Mass/volume] in 5 styleCode="Bold Mishel Blood ">Hemoglobin Medical </content>12.6 Center G/DL L<content styleCode="Ital ics"> (13.5-17.5 G/DL)</content> Erythrocyte mean 26.0-34. <content [facility] corpuscular 0 styleCode="Bold Mishel hemoglobin ">Mean Medical [Entitic mass] Corposcular Center by Automated Hemoglobin count </content>29.6 PG<content styleCode="Ital ics"> (26.0-34.0 PG)</content> Erythrocyte mean 80.0-100 <content [facility] corpuscular .0 styleCode="Bold Mishel volume [Entitic ">Mean Medical volume] by Corpuscular Center Automated count Volume </content>89.6 FL<content styleCode="Ital ics"> (80.0-100.0 FL)</content> Hematocrit 41.0-53. Below low normal <content [facility] [Volume 0 styleCode="Bold Mishel Fraction] of ">Hematocrit Medical Blood by </content>38.1 Center Automated count % L<content styleCode="Ital ics"> (41.0-53.0 %)</content> Erythrocyte mean 32.0-37. <content [facility] corpuscular 0 styleCode="Bold Mishel hemoglobin ">Mean Corpus. Medical concentration Hgb Center [Mass/volume] by Concentration Automated count (MCHC) </content>33.1 G/DL<content styleCode="Ital ics"> (32.0-37.0 G/DL)</content> Erythrocyte 11.5-14. <content [facility] distribution 5 styleCode="Bold Mishel width [Ratio] by ">Red Cell Medical Automated count Distribution Center Width </content>12.7 %<content styleCode="Ital ics"> (11.5-14.5 %)</content> Platelet mean 8.0-11.0 <content [facility] volume [Entitic styleCode="Bold Mishel volume] in Blood ">Mean Platelet Medical by Automated Volume Center count </content>10.7 FL<content styleCode="Ital ics"> (8.0-11.0 FL)</content> Neutrophils 36-66 Above high <content [facility] [#/volume] in normal styleCode="Bold Mishel Blood by ">Neutrophil Medical Automated count </content>67.6 Center % H<content styleCode="Ital ics"> (36-66 %)</content> Platelets 130-400 <content [facility] [#/volume] in styleCode="Bold Mishel Blood by ">Platelet Medical Automated count Count Center </content>334 KCUMM<content styleCode="Ital ics"> (130-400 KCUMM)</content > UNK 1.6-7.3 <content [facility] styleCode="Bold Mishel ">Neutrophil Medical Count Center </content>5.57 KCUMM<content styleCode="Ital ics"> (1.6-7.3 KCUMM)</content > Lymphocytes 24.0-44. Below low normal <content [facility] [#/volume] in 0 styleCode="Bold Mishel Blood by ">Lymphocyte Medical Automated count </content>21.6 Center % L<content styleCode="Ital ics"> (24.0-44.0 %)</content> UNK 1.0-4.8 <content [facility] styleCode="Bold Mishel ">Lymphocyte Medical Count Center </content>1.78 KCUMM<content styleCode="Ital ics"> (1.0-4.8 KCUMM)</content > Monocytes 3.0-10.0 <content [facility] [#/volume] in styleCode="Bold Mishel Blood by ">Monocyte Medical Automated count </content>7.8 Center %<content styleCode="Ital ics"> (3.0-10.0 %)</content> UNK 0.2-0.9 <content [facility] styleCode="Bold Mishel ">Monocyte Medical Count Center </content>0.64 KCUMM<content styleCode="Ital ics"> (0.2-0.9 KCUMM)</content > UNK 0.0-0.6 <content [facility] styleCode="Bold Mishel ">Eosinophil Medical Count Center </content>0.18 KCUMM<content styleCode="Ital ics"> (0.0-0.6 KCUMM)</content > Eosinophils 0-5.0 <content [facility] [#/volume] in styleCode="Bold Mishel Blood by ">Eosinophil Medical Automated count </content>2.2 Center %<content styleCode="Ital ics"> (0-5.0 %)</content> UNK 0 <content [facility] styleCode="Bold Mishel ">Nucleated Red Medical Blood Cell Center </content>0.0 /100<content styleCode="Ital ics"> (0 /100)</content> Basophils 0.0-1.0 <content [facility] [#/volume] in styleCode="Bold Mishel Blood by ">Basophil Medical Automated count </content>0.4 Center %<content styleCode="Ital ics"> (0.0-1.0 %)</content> UNK 0.0-0.3 <content [facility] styleCode="Bold Mishel ">Basophil Medical Count Center </content>0.03 KCUMM<content styleCode="Ital ics"> (0.0-0.3 KCUMM)</content > UNK 0-0.1 <content [facility] styleCode="Bold Mishel ">Immature Medical Granulocyte Center Count </content>0.03 KCUMM<content styleCode="Ital ics"> (0-0.1 KCUMM)</content > UNK 0.0 <content [facility] styleCode="Bold Mishel ">Nucleated Red Medical Blood Cell Center Count </content>0.00 KCUMM<content styleCode="Ital ics"> (0.0 KCUMM)</content > UNK < 1 <content [facility] styleCode="Bold Mishel ">Immature Medical Granulocyte Center Ratio </content>0.4 %<content styleCode="Ital ics"> (< 1 %)</content> ID Date Data Source GFR(Creatinine).[id number] 03/18/2020 05:15:00 AM EDT [facility] 0-0400 Name Value Range Interpretation Code Description Data Ana rce(s) Supporting Document(s ) UNK > 60 <content [facility] styleCode="Bold"> Medical Cent er EGFR </content>77 GFR<content styleCode="Italic s"> (> 60 GFR)</content> ID Date Data Source ChemistrySpecia.[id number] 03/18/2020 05:15:00 AM EDT [facility] 0-0400 Name Value Range Interpretation Description Data Sup porting Code Source(s) Document(s ) Cobalamin 239-931 <content [facility] (Vitamin B12) styleCode="Veronica Mishel [Mass/volume] d">Vitamin B12 Medical in Serum or </content>487 Center Plasma PG/ML<content styleCode="Isabel lics"> (239-931 PG/ML)</conten t> ID Date Data Source CHMROUTINECCDA.[id number] 03/18/2020 05:15:00 AM EDT [facility] -0400 Name Value Range Interpretation Description Data Sup porting Code Source(s) Document(s ) UNK >= 1.0 <content [facility] styleCode="Bold Medical ">AG Ratio Center </content>1.0 <content styleCode="Ital ics"> (>= 1.0 )</content> UNK 2.3-3.5 <content [facility] styleCode="Bold Medical ">Globulin Center </content>2.9 G/DL<content styleCode="Ital ics"> (2.3-3.5 G/DL)</content> Protein 6.3-8.2 Below low normal <content [facility] [Mass/volum styleCode="Bold Medical e] in Serum ">Total Protein Center or Plasma </content>5.8 G/DL L<content styleCode="Ital ics"> (6.3-8.2 G/DL)</content> ID Date Data Source [employer]iacMarkers.[id number] 03/18/2020 05:15:00 AM EDT [facility] -0400 Name Value Range Interpretation Description Data Sup porting Code Source(s) Document(s ) Troponin < 0.034 Above upper panic <content [facility] I.cardiac limits styleCode="Bold Mishel [Mass/volume ">Troponin I Medical ] in Serum </content><cont Center or Plasma ent styleCode="Bold ">0.937 NG/ML HH</content><co ntent styleCode="Ital ics"> (< 0.034 NG/ML)</content > ID Date Data Source [facility].[id number] 03/18/2020 05:15:00 AM EDT [facility] Name Value Range Interpretation Description Data Sup porting Code Source(s) Document(s ) Potassium 3.5-5.3 <content [facility] [Moles/volume] in styleCode="Bold"> [facility] Serum or Plasma Potassium Medical </content>4.1 Center MEQ/L<content styleCode="Italic s"> (3.5-5.3 MEQ/L)</content> Sodium 137-145 Below low <content [facility] [Moles/volume] in normal styleCode="Bold"> [facility] Serum or Plasma Sodium Medical </content>134 Center MEQ/L L<content styleCode="Italic s"> (137-145 MEQ/L)</content> UNK 9-20 Above high <content [facility] normal styleCode="Bold"> Mishel BUN </content>21 Medical MG/DL H<content Center styleCode="Italic s"> (9-20 MG/DL)</content> Chloride 98-107 <content [facility] [Moles/volume] in styleCode="Bold"> [facility] Serum or Plasma Chloride Medical </content>104 Center MEQ/L<content styleCode="Italic s"> (98-107 MEQ/L)</content> Creatinine 0.5-1.3 <content [facility] [Mass/volume] in styleCode="Bold"> Fei [facility] Serum or Plasma Creatinine Medical </content>1.0 Center MG/DL<content styleCode="Italic s"> (0.5-1.3 MG/DL)</content> Carbon dioxide, 22-30 <content [facility] total styleCode="Bold"> Mishel [Moles/volume] in Carbon Dioxide Medical Serum or Plasma </content>27 Center MEQ/L<content styleCode="Italic s"> (22-30 MEQ/L)</content> Calcium 8.4-10. <content [facility] [Mass/volume] in 2 styleCode="Bold"> Fei hs Serum or Plasma Calcium Medical </content>8.7 Center MG/DL<content styleCode="Italic s"> (8.4-10.2 MG/DL)</content> Glucose 74-106 <content [facility] [Mass/volume] in styleCode="Bold"> Fei hs Serum or Plasma Glucose Medical </content>102 Center MG/DL<content styleCode="Italic s"> (74-106 MG/DL)</content> Aspartate 17-59 <content [facility] aminotransferase styleCode="Bold"> Fei hs [Enzymatic Aspartate Medical activity/volume] Aminotransferase Center in Serum or Plasma (AST) </content>57 IU/L<content styleCode="Italic s"> (17-59 IU/L)</content> UNK > 60 <content [facility] styleCode="Bold"> [facility] EGFR </content>77 Medical GFR<content Center styleCode="Italic s"> (> 60 GFR)</content> Alanine 7-50 Above high <content [facility] aminotransferase normal styleCode="Bold"> Fei hs [Enzymatic Alanine Medical activity/volume] Aminotransferase Center in Serum or Plasma (ALT) </content>53 IU/L H<content styleCode="Italic s"> (7-50 IU/L)</content> Alkaline 38-126 <content [facility] phosphatase styleCode="Bold"> [facility]hel [Enzymatic Alkaline Medical activity/volume] Phosphatase (ALP) Cente r in Serum or Plasma </content>60 IU/L<content styleCode="Italic s"> (38-126 IU/L)</content> Albumin 3.5-5.0 Below low <content [facility] [Mass/volume] in normal styleCode="Bold"> Fei hs Serum or Plasma Albumin Medical </content>2.9 Center G/DL L<content styleCode="Italic s"> (3.5-5.0 G/DL)</content> Bilirubin.total 0.2-1.3 <content [facility] [Mass/volume] in styleCode="Bold"> Fei hs Serum or Plasma Bilirubin Total Medical </content>0.5 Center MG/DL<content styleCode="Italic s"> (0.2-1.3 MG/DL)</content> ID Date Data Source Liver 03/17/2020 05:45:00 AM EDT [facility] Profile.[id number] Name Value Range Interpretation Description Data Sup porting Code Source(s) Document(s ) Alanine 7-50 <content [facility] aminotransferase styleCode="Bold"> Fei hs [Enzymatic Alanine Medical activity/volume] Aminotransferase Center in Serum or Plasma (ALT) </content>29 IU/L<content styleCode="Italic s"> (7-50 IU/L)</content> Aspartate 17-59 <content [facility] aminotransferase styleCode="Bold"> Fei hs [Enzymatic Aspartate Medical activity/volume] Aminotransferase Center in Serum or Plasma (AST) </content>39 IU/L<content styleCode="Italic s"> (17-59 IU/L)</content> Alkaline 38-126 <content [facility] phosphatase styleCode="Bold"> Mishel [Enzymatic Alkaline Medical activity/volume] Phosphatase (ALP) Cente r in Serum or Plasma </content>57 IU/L<content styleCode="Italic s"> (38-126 IU/L)</content> Bilirubin.total 0.2-1.3 <content [facility] [Mass/volume] in styleCode="Bold"> Fei hs Serum or Plasma Bilirubin Total Medical </content>0.4 Center MG/DL<content styleCode="Italic s"> (0.2-1.3 MG/DL)</content> Albumin 3.5-5.0 Below low <content [facility] [Mass/volume] in normal styleCode="Bold"> Fei hs Serum or Plasma Albumin Medical </content>3.0 Center G/DL L<content styleCode="Italic s"> (3.5-5.0 G/DL)</content> ID Date Data Source Hormones.[id number] 03/17/2020 05:45:00 AM EDT [facility] Name Value Range Interpretation Description Data Sup porting Code Source(s) Document(s ) Thyroxine (T4) 0.78-2.1 <content [facility] free 9 styleCode="Veronica Mishel [Mass/volume] d">T4 Free Medical in Serum or </content>1.19 Center Plasma NG/DL<content styleCode="Isabel lics"> (0.78-2.19 NG/DL)</conten t> Thyrotropin 0.465-4. <content [facility] [Units/volume] 68 styleCode="Veronica Mishel in Serum or d">Thyroid Medical Plasma by Stimulating Center Detection Hormone limit <= 0.05 </content>2.64 mIU/L MIU/L<content styleCode="Isabel lics"> (0.465-4.68 MIU/L)</conten t> ID Date Data Source HematologyRou.[id number] 03/17/2020 05:45:00 AM EDT [facility] 0400 Name Value Range Interpretation Description Data Sup porting Code Source(s) Document(s ) Leukocytes 4.4-11.0 <content [facility] [#/volume] in styleCode="Bold Mishel Blood by ">White Blood Medical Automated count Cell Count Center </content>10.03 KCUMM<content styleCode="Ital ics"> (4.4-11.0 KCUMM)</content > Hematocrit 41.0-53. Below low normal <content [facility] [Volume 0 styleCode="Bold Mishel Fraction] of ">Hematocrit Medical Blood by </content>37.1 Center Automated count % L<content styleCode="Ital ics"> (41.0-53.0 %)</content> Hemoglobin 13.5-17. Below low normal <content [facility] [Mass/volume] in 5 styleCode="Bold Mishel Blood ">Hemoglobin Medical </content>12.2 Center G/DL L<content styleCode="Ital ics"> (13.5-17.5 G/DL)</content> Erythrocytes 4.4-5.9 Below low normal <content [facility] [#/volume] in styleCode="Bold Mishel Blood by ">Red Blood Medical Automated count Cell Count Center </content>4.15 MCUMM L<content styleCode="Ital ics"> (4.4-5.9 MCUMM)</content > Erythrocyte mean 80.0-100 <content [facility] corpuscular .0 styleCode="Bold Mishel volume [Entitic ">Mean Medical volume] by Corpuscular Center Automated count Volume </content>89.4 FL<content styleCode="Ital ics"> (80.0-100.0 FL)</content> Erythrocyte mean 26.0-34. <content [facility] corpuscular 0 styleCode="Bold Mishel hemoglobin ">Mean Medical [Entitic mass] Corposcular Center by Automated Hemoglobin count </content>29.4 PG<content styleCode="Ital ics"> (26.0-34.0 PG)</content> Erythrocyte mean 32.0-37. <content [facility] corpuscular 0 styleCode="Bold Mishel hemoglobin ">Mean Corpus. Medical concentration Hgb Center [Mass/volume] by Concentration Automated count (MCHC) </content>32.9 G/DL<content styleCode="Ital ics"> (32.0-37.0 G/DL)</content> Platelet mean 8.0-11.0 Above high <content [facility] volume [Entitic normal styleCode="Bold Mishel volume] in Blood ">Mean Platelet Medical by Automated Volume Center count </content>11.2 FL H<content styleCode="Ital ics"> (8.0-11.0 FL)</content> Erythrocyte 11.5-14. <content [facility] distribution 5 styleCode="Bold Mishel width [Ratio] by ">Red Cell Medical Automated count Distribution Center Width </content>12.7 %<content styleCode="Ital ics"> (11.5-14.5 %)</content> Platelets 130-400 <content [facility] [#/volume] in styleCode="Bold Mishel Blood by ">Platelet Medical Automated count Count Center </content>283 KCUMM<content styleCode="Ital ics"> (130-400 KCUMM)</content > UNK 1.6-7.3 <content [facility] styleCode="Bold Mishel ">Neutrophil Medical Count Center </content>7.20 KCUMM<content styleCode="Ital ics"> (1.6-7.3 KCUMM)</content > Neutrophils 36-66 Above high <content [facility] [#/volume] in normal styleCode="Bold Mishel Blood by ">Neutrophil Medical Automated count </content>71.8 Center % H<content styleCode="Ital ics"> (36-66 %)</content> Lymphocytes 24.0-44. Below low normal <content [facility] [#/volume] in 0 styleCode="Bold Mishel Blood by ">Lymphocyte Medical Automated count </content>20.3 Center % L<content styleCode="Ital ics"> (24.0-44.0 %)</content> UNK 1.0-4.8 <content [facility] styleCode="Bold Mishel ">Lymphocyte Medical Count Center </content>2.04 KCUMM<content styleCode="Ital ics"> (1.0-4.8 KCUMM)</content > Monocytes 3.0-10.0 <content [facility] [#/volume] in styleCode="Bold Mishel Blood by ">Monocyte Medical Automated count </content>6.3 Center %<content styleCode="Ital ics"> (3.0-10.0 %)</content> Eosinophils 0-5.0 <content [facility] [#/volume] in styleCode="Bold Mishel Blood by ">Eosinophil Medical Automated count </content>1.1 Center %<content styleCode="Ital ics"> (0-5.0 %)</content> UNK 0.0-0.6 <content [facility] styleCode="Bold Mishel ">Eosinophil Medical Count Center </content>0.11 KCUMM<content styleCode="Ital ics"> (0.0-0.6 KCUMM)</content > UNK 0.2-0.9 <content [facility] styleCode="Bold Mishel ">Monocyte Medical Count Center </content>0.63 KCUMM<content styleCode="Ital ics"> (0.2-0.9 KCUMM)</content > UNK 0.0-0.3 <content [facility] styleCode="Bold Mishel ">Basophil Medical Count Center </content>0.02 KCUMM<content styleCode="Ital ics"> (0.0-0.3 KCUMM)</content > Basophils 0.0-1.0 <content [facility] [#/volume] in styleCode="Bold Mishel Blood by ">Basophil Medical Automated count </content>0.2 Center %<content styleCode="Ital ics"> (0.0-1.0 %)</content> UNK 0 <content [facility] styleCode="Bold Mishel ">Nucleated Red Medical Blood Cell Center </content>0.0 /100<content styleCode="Ital ics"> (0 /100)</content> UNK 0.0 <content [facility] styleCode="Bold Mishel ">Nucleated Red Medical Blood Cell Center Count </content>0.00 KCUMM<content styleCode="Ital ics"> (0.0 KCUMM)</content > UNK 0-0.1 <content [facility] styleCode="Bold Mishel ">Immature Medical Granulocyte Center Count </content>0.03 KCUMM<content styleCode="Ital ics"> (0-0.1 KCUMM)</content > UNK < 1 <content [facility] styleCode="Bold Mishel ">Immature Medical Granulocyte Center Ratio </content>0.3 %<content styleCode="Ital ics"> (< 1 %)</content> ID Date Data Source GFR(Creatinine).[id number] 03/17/2020 05:45:00 AM EDT [facility] 0-0400 Name Value Range Interpretation Code Description Data Ana rce(s) Supporting Document(s ) UNK > 60 <content [facility] styleCode="Bold"> Medical Cent er EGFR </content>77 GFR<content styleCode="Italic s"> (> 60 GFR)</content> ID Date Data Source Coagulation 03/17/2020 05:45:00 AM [facility] Rout.[id number] EDT Name Value Range Interpretation Description Data Sup porting Code Source(s) Document(s ) INR in 0.80-1.2 <content [facility] Platelet poor 0 styleCode="Bold" [facility] plasma by >INR Medical Coagulation </content>1.05 Center assay #<content styleCode="Itali cs"> (0.80-1.20 #)</content> aPTT in 25.1-36. <content [facility] Platelet poor 5 styleCode="Bold" [facility] plasma by >Partial Medical Coagulation Thromboplastin Center assay Time </content>29.7 SEC<content styleCode="Itali cs"> (25.1-36.5 SEC)</content> UNK 9.0-13.0 <content [facility] styleCode="Bold" [facility] >Protime Medical </content>11.7 Center SEC<content styleCode="Itali cs"> (9.0-13.0 SEC)</content> ID Date Data Source CHMROUTINECCDA.[id number] 03/17/2020 05:45:00 AM EDT [facility] -0400 Name Value Range Interpretation Description Data Sup porting Code Source(s) Document(s ) UNK >= 1.0 <content [facility] styleCode="Veronica Powells d">AG Ratio Medical </content>1.1 Center <content styleCode="Isabel lics"> (>= 1.0 )</content> Protein 6.3-8.2 Below low normal <content [facility] [Mass/volume] styleCode="Veronica Powells in Serum or d">Total Medical Plasma Protein Center </content>5.7 G/DL L<content styleCode="Isabel lics"> (6.3-8.2 G/DL)</content > Phosphate 2.5-4.5 <content [facility] [Mass/volume] styleCode="Veronica Powells in Serum or d">Phosphorus Medical Plasma </content>2.7 Center MG/DL<content styleCode="Isabel lics"> (2.5-4.5 MG/DL)</conten t> Magnesium 1.6-2.3 <content [facility] [Mass/volume] styleCode="Veronica Powells in Serum or d">Magnesium Medical Plasma </content>1.9 Center MG/DL<content styleCode="Isabel lics"> (1.6-2.3 MG/DL)</conten t> UNK 2.3-3.5 <content [facility] styleCode="Veronica Mishel d">Globulin Medical </content>2.7 Center G/DL<content styleCode="Isabel lics"> (2.3-3.5 G/DL)</content > ID Date Data Source [employer]iacMarkers.[id number] 03/17/2020 05:45:00 AM EDT [facility] -0400 Name Value Range Interpretation Description Data Sup porting Code Source(s) Document(s ) Troponin < 0.034 Above upper panic <content [facility] I.cardiac limits styleCode="Bold Mishel [Mass/volume ">Troponin I Medical ] in Serum </content><cont Center or Plasma ent styleCode="Bold ">1.32 NG/ML HH</content><co ntent styleCode="Ital ics"> (< 0.034 NG/ML)</content > ID Date Data Source [facility].[id number] 03/17/2020 05:45:00 AM EDT [facility] Name Value Range Interpretation Description Data Sup porting Code Source(s) Document(s ) Potassium 3.5-5.3 <content [facility] [Moles/volume] in styleCode="Bold"> [facility] Serum or Plasma Potassium Medical </content>4.0 Center MEQ/L<content styleCode="Italic s"> (3.5-5.3 MEQ/L)</content> Chloride 98-107 <content [facility] [Moles/volume] in styleCode="Bold"> [facility] Serum or Plasma Chloride Medical </content>105 Center MEQ/L<content styleCode="Italic s"> (98-107 MEQ/L)</content> Sodium 137-145 Below low <content [facility] [Moles/volume] in normal styleCode="Bold"> [facility] Serum or Plasma Sodium Medical </content>134 Center MEQ/L L<content styleCode="Italic s"> (137-145 MEQ/L)</content> Carbon dioxide, 22-30 <content [facility] total styleCode="Bold"> [facility] [Moles/volume] in Carbon Dioxide Medical Serum or Plasma </content>23 Center MEQ/L<content styleCode="Italic s"> (22-30 MEQ/L)</content> Creatinine 0.5-1.3 <content [facility] [Mass/volume] in styleCode="Bold"> [facility] Serum or Plasma Creatinine Medical </content>1.0 Center MG/DL<content styleCode="Italic s"> (0.5-1.3 MG/DL)</content> UNK 9-20 Above high <content [facility] normal styleCode="Bold"> [facility] BUN </content>22 Medical MG/DL H<content Center styleCode="Italic s"> (9-20 MG/DL)</content> Aspartate 17-59 <content [facility] aminotransferase styleCode="Bold"> [facility] [Enzymatic Aspartate Medical activity/volume] Aminotransferase Center in Serum or Plasma (AST) </content>39 IU/L<content styleCode="Italic s"> (17-59 IU/L)</content> Calcium 8.4-10. <content [facility] [Mass/volume] in 2 styleCode="Bold"> [facility] Serum or Plasma Calcium Medical </content>8.4 Center MG/DL<content styleCode="Italic s"> (8.4-10.2 MG/DL)</content> UNK > 60 <content [facility] styleCode="Bold"> [facility] EGFR </content>77 Medical GFR<content Center styleCode="Italic s"> (> 60 GFR)</content> Glucose 74-106 <content [facility] [Mass/volume] in styleCode="Bold"> [facility] Serum or Plasma Glucose Medical </content>106 Center MG/DL<content styleCode="Italic s"> (74-106 MG/DL)</content> Albumin 3.5-5.0 Below low <content [facility] [Mass/volume] in normal styleCode="Bold"> [facility] Serum or Plasma Albumin Medical </content>3.0 Center G/DL L<content styleCode="Italic s"> (3.5-5.0 G/DL)</content> Alkaline 38-126 <content [facility] phosphatase styleCode="Bold"> [facility] [Enzymatic Alkaline Medical activity/volume] Phosphatase (ALP) Cente r in Serum or Plasma </content>57 IU/L<content styleCode="Italic s"> (38-126 IU/L)</content> Bilirubin.total 0.2-1.3 <content [facility] [Mass/volume] in styleCode="Bold"> [facility] Serum or Plasma Bilirubin Total Medical </content>0.4 Center MG/DL<content styleCode="Italic s"> (0.2-1.3 MG/DL)</content> Alanine 7-50 <content [facility] aminotransferase styleCode="Bold"> [facility] [Enzymatic Alanine Medical activity/volume] Aminotransferase Center in Serum or Plasma (ALT) </content>29 IU/L<content styleCode="Italic s"> (7-50 IU/L)</content> ID Date Data Source Liver 03/16/2020 06:00:00 AM EDT [facility] Profile.[id number] Name Value Range Interpretation Description Data Sup porting Code Source(s) Document(s ) Aspartate 17-59 <content [facility] aminotransferase styleCode="Bold"> [facility] [Enzymatic Aspartate Medical activity/volume] Aminotransferase Center in Serum or Plasma (AST) </content>24 IU/L<content styleCode="Italic s"> (17-59 IU/L)</content> Alanine 7-50 <content [facility] aminotransferase styleCode="Bold"> [facility] [Enzymatic Alanine Medical activity/volume] Aminotransferase Center in Serum or Plasma (ALT) </content>19 IU/L<content styleCode="Italic s"> (7-50 IU/L)</content> Alkaline 38-126 <content [facility] phosphatase styleCode="Bold"> [facility] [Enzymatic Alkaline Medical activity/volume] Phosphatase (ALP) Cente r in Serum or Plasma </content>52 IU/L<content styleCode="Italic s"> (38-126 IU/L)</content> Bilirubin.total 0.2-1.3 <content [facility] [Mass/volume] in styleCode="Bold"> [facility] Serum or Plasma Bilirubin Total Medical </content>0.7 Center MG/DL<content styleCode="Italic s"> (0.2-1.3 MG/DL)</content> Albumin 3.5-5.0 Below low <content [facility] [Mass/volume] in normal styleCode="Bold"> [facility] Serum or Plasma Albumin Medical </content>2.9 Center G/DL L<content styleCode="Italic s"> (3.5-5.0 G/DL)</content> ID Date Data Source HematologyRou.[id number] 03/16/2020 06:00:00 AM EDT [facility] 0400 Name Value Range Interpretation Description Data Sup porting Code Source(s) Document(s ) Leukocytes 4.4-11.0 <content [facility] [#/volume] in styleCode="Bold Mishel Blood by ">White Blood Medical Automated count Cell Count Center </content>8.79 KCUMM<content styleCode="Ital ics"> (4.4-11.0 KCUMM)</content > Hemoglobin 13.5-17. Below low normal <content [facility] [Mass/volume] in 5 styleCode="Bold Mishel Blood ">Hemoglobin Medical </content>11.8 Center G/DL L<content styleCode="Ital ics"> (13.5-17.5 G/DL)</content> Erythrocytes 4.4-5.9 Below low normal <content [facility] [#/volume] in styleCode="Bold Mishel Blood by ">Red Blood Medical Automated count Cell Count Center </content>3.98 MCUMM L<content styleCode="Ital ics"> (4.4-5.9 MCUMM)</content > Hematocrit 41.0-53. Below low normal <content [facility] [Volume 0 styleCode="Bold Mishel Fraction] of ">Hematocrit Medical Blood by </content>35.9 Center Automated count % L<content styleCode="Ital ics"> (41.0-53.0 %)</content> Erythrocyte mean 32.0-37. <content [facility] corpuscular 0 styleCode="Bold Mishel hemoglobin ">Mean Corpus. Medical concentration Hgb Center [Mass/volume] by Concentration Automated count (MCHC) </content>32.9 G/DL<content styleCode="Ital ics"> (32.0-37.0 G/DL)</content> Erythrocyte mean 80.0-100 <content [facility] corpuscular .0 styleCode="Bold Mishel volume [Entitic ">Mean Medical volume] by Corpuscular Center Automated count Volume </content>90.2 FL<content styleCode="Ital ics"> (80.0-100.0 FL)</content> Erythrocyte mean 26.0-34. <content [facility] corpuscular 0 styleCode="Bold Mishel hemoglobin ">Mean Medical [Entitic mass] Corposcular Center by Automated Hemoglobin count </content>29.6 PG<content styleCode="Ital ics"> (26.0-34.0 PG)</content> Erythrocyte 11.5-14. <content [facility] distribution 5 styleCode="Bold Mishel width [Ratio] by ">Red Cell Medical Automated count Distribution Center Width </content>12.8 %<content styleCode="Ital ics"> (11.5-14.5 %)</content> Platelets 130-400 <content [facility] [#/volume] in styleCode="Bold Mishel Blood by ">Platelet Medical Automated count Count Center </content>276 KCUMM<content styleCode="Ital ics"> (130-400 KCUMM)</content > Platelet mean 8.0-11.0 Above high <content [facility] volume [Entitic normal styleCode="Bold Mishel volume] in Blood ">Mean Platelet Medical by Automated Volume Center count </content>11.2 FL H<content styleCode="Ital ics"> (8.0-11.0 FL)</content> Lymphocytes 24.0-44. Below low normal <content [facility] [#/volume] in 0 styleCode="Bold Mishel Blood by ">Lymphocyte Medical Automated count </content>22.8 Center % L<content styleCode="Ital ics"> (24.0-44.0 %)</content> UNK 1.6-7.3 <content [facility] styleCode="Bold Mishel ">Neutrophil Medical Count Center </content>5.88 KCUMM<content styleCode="Ital ics"> (1.6-7.3 KCUMM)</content > Neutrophils 36-66 Above high <content [facility] [#/volume] in normal styleCode="Bold Mishel Blood by ">Neutrophil Medical Automated count </content>66.9 Center % H<content styleCode="Ital ics"> (36-66 %)</content> Monocytes 3.0-10.0 <content [facility] [#/volume] in styleCode="Bold Mishel Blood by ">Monocyte Medical Automated count </content>7.5 Center %<content styleCode="Ital ics"> (3.0-10.0 %)</content> UNK 1.0-4.8 <content [facility] styleCode="Bold Mishel ">Lymphocyte Medical Count Center </content>2.00 KCUMM<content styleCode="Ital ics"> (1.0-4.8 KCUMM)</content > UNK 0.0-0.6 <content [facility] styleCode="Bold Mishel ">Eosinophil Medical Count Center </content>0.18 KCUMM<content styleCode="Ital ics"> (0.0-0.6 KCUMM)</content > UNK 0.2-0.9 <content [facility] styleCode="Bold Mishel ">Monocyte Medical Count Center </content>0.66 KCUMM<content styleCode="Ital ics"> (0.2-0.9 KCUMM)</content > Eosinophils 0-5.0 <content [facility] [#/volume] in styleCode="Bold Mishel Blood by ">Eosinophil Medical Automated count </content>2.0 Center %<content styleCode="Ital ics"> (0-5.0 %)</content> Basophils 0.0-1.0 <content [facility] [#/volume] in styleCode="Bold Mishel Blood by ">Basophil Medical Automated count </content>0.3 Center %<content styleCode="Ital ics"> (0.0-1.0 %)</content> UNK 0 <content [facility] styleCode="Bold Mishel ">Nucleated Red Medical Blood Cell Center </content>0.0 /100<content styleCode="Ital ics"> (0 /100)</content> UNK 0.0-0.3 <content [facility] styleCode="Bold Mishel ">Basophil Medical Count Center </content>0.03 KCUMM<content styleCode="Ital ics"> (0.0-0.3 KCUMM)</content > UNK 0-0.1 <content [facility] styleCode="Bold Mishel ">Immature Medical Granulocyte Center Count </content>0.04 KCUMM<content styleCode="Ital ics"> (0-0.1 KCUMM)</content > UNK 0.0 <content [facility] styleCode="Bold Mishel ">Nucleated Red Medical Blood Cell Center Count </content>0.00 KCUMM<content styleCode="Ital ics"> (0.0 KCUMM)</content > UNK < 1 <content [facility] styleCode="Bold Mishel ">Immature Medical Granulocyte Center Ratio </content>0.5 %<content styleCode="Ital ics"> (< 1 %)</content> ID Date Data Source GFR(Creatinine).[id number] 03/16/2020 06:00:00 AM EDT [facility] 0-0400 Name Value Range Interpretation Code Description Data Ana rce(s) Supporting Document(s ) UNK > 60 <content [facility] styleCode="Bold"> Medical Cent er EGFR </content>87 GFR<content styleCode="Italic s"> (> 60 GFR)</content> ID Date Data Source Coagulation 03/16/2020 06:00:00 AM [facility] ical Center Rout.[id number] EDT Name Value Range Interpretation Description Data Sup porting Code Source(s) Document(s ) UNK 9.0-13.0 <content [facility] styleCode="Bold" Mishel >Protime Medical </content>11.8 Center SEC<content styleCode="Itali cs"> (9.0-13.0 SEC)</content> INR in 0.80-1.2 <content [facility] Platelet poor 0 styleCode="Bold" Mishel plasma by >INR Medical Coagulation </content>1.06 Center assay #<content styleCode="Itali cs"> (0.80-1.20 #)</content> aPTT in 25.1-36. <content [facility] Platelet poor 5 styleCode="Bold" [facility] plasma by >Partial Medical Coagulation Thromboplastin Center assay Time </content>30.2 SEC<content styleCode="Itali cs"> (25.1-36.5 SEC)</content> ID Date Data Source CHMROUTINECCDA.[id number] 03/16/2020 06:00:00 AM EDT [facility] -0400 Name Value Range Interpretation Description Data Sup porting Code Source(s) Document(s ) Magnesium 1.6-2.3 <content [facility] [Mass/volume] styleCode="Veronica Powells in Serum or d">Magnesium Medical Plasma </content>1.9 Center MG/DL<content styleCode="Isabel lics"> (1.6-2.3 MG/DL)</conten t> UNK 2.3-3.5 <content [facility] styleCode="Veronica Powells d">Globulin Medical </content>2.7 Center G/DL<content styleCode="Isabel lics"> (2.3-3.5 G/DL)</content > UNK >= 1.0 <content [facility] styleCode="Veronica Powells d">AG Ratio Medical </content>1.1 Center <content styleCode="Isabel lics"> (>= 1.0 )</content> Protein 6.3-8.2 Below low normal <content [facility] [Mass/volume] styleCode="Veronica Powells in Serum or d">Total Medical Plasma Protein Center </content>5.6 G/DL L<content styleCode="Isabel lics"> (6.3-8.2 G/DL)</content > Phosphate 2.5-4.5 <content [facility] [Mass/volume] styleCode="Veronica Powells in Serum or d">Phosphorus Medical Plasma </content>3.0 Center MG/DL<content styleCode="Isabel lics"> (2.5-4.5 MG/DL)</conten t> ID Date Data Source [employer].[id number] 03/16/2020 06:00:00 AM EDT [facility] -0400 Name Value Range Interpretation Description Data Sup porting Code Source(s) Document(s ) Troponin < 0.034 Above upper panic <content [facility] I.cardiac limits styleCode="Bold Mishel [Mass/volume ">Troponin I Medical ] in Serum </content><cont Center or Plasma ent styleCode="Bold ">1.42 NG/ML HH</content><co ntent styleCode="Ital ics"> (< 0.034 NG/ML)</content > ID Date Data Source BMP.[id number] 03/16/2020 06:00:00 AM EDT [facility] Name Value Range Interpretation Description Data Sup porting Code Source(s) Document(s ) Sodium 137-145 Below low <content [facility] [Moles/volume] in normal styleCode="Bold"> [facility] Serum or Plasma Sodium Medical </content>134 Center MEQ/L L<content styleCode="Italic s"> (137-145 MEQ/L)</content> Potassium 3.5-5.3 <content [facility] [Moles/volume] in styleCode="Bold"> [facility] Serum or Plasma Potassium Medical </content>3.8 Center MEQ/L<content styleCode="Italic s"> (3.5-5.3 MEQ/L)</content> Chloride 98-107 <content [facility] [Moles/volume] in styleCode="Bold"> [facility] Serum or Plasma Chloride Medical </content>104 Center MEQ/L<content styleCode="Italic s"> (98-107 MEQ/L)</content> Creatinine 0.5-1.3 <content [facility] [Mass/volume] in styleCode="Bold"> [facility] Serum or Plasma Creatinine Medical </content>0.9 Center MG/DL<content styleCode="Italic s"> (0.5-1.3 MG/DL)</content> UNK 9-20 Above high <content [facility] normal styleCode="Bold"> [facility] BUN </content>22 Medical MG/DL H<content Center styleCode="Italic s"> (9-20 MG/DL)</content> Carbon dioxide, 22-30 <content [facility] total styleCode="Bold"> [facility] [Moles/volume] in Carbon Dioxide Medical Serum or Plasma </content>25 Center MEQ/L<content styleCode="Italic s"> (22-30 MEQ/L)</content> Glucose 74-106 <content [facility] [Mass/volume] in styleCode="Bold"> [facility] Serum or Plasma Glucose Medical </content>90 Center MG/DL<content styleCode="Italic s"> (74-106 MG/DL)</content> Calcium 8.4-10. Below low <content [facility] [Mass/volume] in 2 normal styleCode="Bold"> [facility] Serum or Plasma Calcium Medical </content>8.2 Center MG/DL L<content styleCode="Italic s"> (8.4-10.2 MG/DL)</content> Aspartate 17-59 <content [facility] aminotransferase styleCode="Bold"> [facility] [Enzymatic Aspartate Medical activity/volume] Aminotransferase Center in Serum or Plasma (AST) </content>24 IU/L<content styleCode="Italic s"> (17-59 IU/L)</content> UNK > 60 <content [facility] styleCode="Bold"> [facility] EGFR </content>87 Medical GFR<content Center styleCode="Italic s"> (> 60 GFR)</content> Alanine 7-50 <content [facility] aminotransferase styleCode="Bold"> [facility] [Enzymatic Alanine Medical activity/volume] Aminotransferase Center in Serum or Plasma (ALT) </content>19 IU/L<content styleCode="Italic s"> (7-50 IU/L)</content> Alkaline 38-126 <content [facility] phosphatase styleCode="Bold"> [facility] [Enzymatic Alkaline Medical activity/volume] Phosphatase (ALP) Cente r in Serum or Plasma </content>52 IU/L<content styleCode="Italic s"> (38-126 IU/L)</content> Bilirubin.total 0.2-1.3 <content [facility] [Mass/volume] in styleCode="Bold"> [facility] Serum or Plasma Bilirubin Total Medical </content>0.7 Center MG/DL<content styleCode="Italic s"> (0.2-1.3 MG/DL)</content> Albumin 3.5-5.0 Below low <content [facility] [Mass/volume] in normal styleCode="Bold"> [facility] Serum or Plasma Albumin Medical </content>2.9 Center G/DL L<content styleCode="Italic s"> (3.5-5.0 G/DL)</content> ID Date Data Source Liver 03/15/2020 05:50:00 AM EDT [facility] Profile.[id number] Name Value Range Interpretation Description Data Sup porting Code Source(s) Document(s ) Aspartate 17-59 <content [facility] aminotransferase styleCode="Bold"> [facility] [Enzymatic Aspartate Medical activity/volume] Aminotransferase Center in Serum or Plasma (AST) </content>28 IU/L<content styleCode="Italic s"> (17-59 IU/L)</content> Bilirubin.total 0.2-1.3 <content [facility] [Mass/volume] in styleCode="Bold"> Fei hs Serum or Plasma Bilirubin Total Medical </content>0.5 Center MG/DL<content styleCode="Italic s"> (0.2-1.3 MG/DL)</content> Alkaline 38-126 <content [facility] phosphatase styleCode="Bold"> [facility] [Enzymatic Alkaline Medical activity/volume] Phosphatase (ALP) Cente r in Serum or Plasma </content>47 IU/L<content styleCode="Italic s"> (38-126 IU/L)</content> Alanine 7-50 <content [facility] aminotransferase styleCode="Bold"> [facility]i [facility] [Enzymatic Alanine Medical activity/volume] Aminotransferase Center in Serum or Plasma (ALT) </content>17 IU/L<content styleCode="Italic s"> (7-50 IU/L)</content> Albumin 3.5-5.0 Below low <content [facility] [Mass/volume] in normal styleCode="Bold"> Fei hs Serum or Plasma Albumin Medical </content>2.7 Center G/DL L<content styleCode="Italic s"> (3.5-5.0 G/DL)</content> ID Date Data Source HematologyRou.[id number] 03/15/2020 05:50:00 AM EDT [facility] 0400 Name Value Range Interpretation Description Data Sup porting Code Source(s) Document(s ) Erythrocytes 4.4-5.9 Below low normal <content [facility] [#/volume] in styleCode="Bold Mishel Blood by ">Red Blood Medical Automated count Cell Count Center </content>3.79 MCUMM L<content styleCode="Ital ics"> (4.4-5.9 MCUMM)</content > Leukocytes 4.4-11.0 <content [facility] [#/volume] in styleCode="Bold Mishel Blood by ">White Blood Medical Automated count Cell Count Center </content>8.31 KCUMM<content styleCode="Ital ics"> (4.4-11.0 KCUMM)</content > Hemoglobin 13.5-17. Below low normal <content [facility] [Mass/volume] in 5 styleCode="Bold Mishel Blood ">Hemoglobin Medical </content>11.2 Center G/DL L<content styleCode="Ital ics"> (13.5-17.5 G/DL)</content> Hematocrit 41.0-53. Below low normal <content [facility] [Volume 0 styleCode="Bold Mishel Fraction] of ">Hematocrit Medical Blood by </content>33.8 Center Automated count % L<content styleCode="Ital ics"> (41.0-53.0 %)</content> Erythrocyte mean 26.0-34. <content [facility] corpuscular 0 styleCode="Bold Mishel hemoglobin ">Mean Medical [Entitic mass] Corposcular Center by Automated Hemoglobin count </content>29.6 PG<content styleCode="Ital ics"> (26.0-34.0 PG)</content> Erythrocyte mean 80.0-100 <content [facility] corpuscular .0 styleCode="Bold Mishel volume [Entitic ">Mean Medical volume] by Corpuscular Center Automated count Volume </content>89.2 FL<content styleCode="Ital ics"> (80.0-100.0 FL)</content> Erythrocyte mean 32.0-37. <content [facility] corpuscular 0 styleCode="Bold Mishel hemoglobin ">Mean Corpus. Medical concentration Hgb Center [Mass/volume] by Concentration Automated count (MCHC) </content>33.1 G/DL<content styleCode="Ital ics"> (32.0-37.0 G/DL)</content> Erythrocyte 11.5-14. <content [facility] distribution 5 styleCode="Bold Mishel width [Ratio] by ">Red Cell Medical Automated count Distribution Center Width </content>13.0 %<content styleCode="Ital ics"> (11.5-14.5 %)</content> Platelet mean 8.0-11.0 <content [facility] volume [Entitic styleCode="Bold Mishel volume] in Blood ">Mean Platelet Medical by Automated Volume Center count </content>10.2 FL<content styleCode="Ital ics"> (8.0-11.0 FL)</content> Platelets 130-400 <content [facility] [#/volume] in styleCode="Bold Mishel Blood by ">Platelet Medical Automated count Count Center </content>268 KCUMM<content styleCode="Ital ics"> (130-400 KCUMM)</content > UNK 1.6-7.3 <content [facility] styleCode="Bold Mishel ">Neutrophil Medical Count Center </content>5.60 KCUMM<content styleCode="Ital ics"> (1.6-7.3 KCUMM)</content > Neutrophils 36-66 Above high <content [facility] [#/volume] in normal styleCode="Bold Mishel Blood by ">Neutrophil Medical Automated count </content>67.4 Center % H<content styleCode="Ital ics"> (36-66 %)</content> UNK 1.0-4.8 <content [facility] styleCode="Bold Mishel ">Lymphocyte Medical Count Center </content>1.87 KCUMM<content styleCode="Ital ics"> (1.0-4.8 KCUMM)</content > Monocytes 3.0-10.0 <content [facility] [#/volume] in styleCode="Bold Mishel Blood by ">Monocyte Medical Automated count </content>7.3 Center %<content styleCode="Ital ics"> (3.0-10.0 %)</content> Lymphocytes 24.0-44. Below low normal <content [facility] [#/volume] in 0 styleCode="Bold Mishel Blood by ">Lymphocyte Medical Automated count </content>22.5 Center % L<content styleCode="Ital ics"> (24.0-44.0 %)</content> UNK 0.2-0.9 <content [facility] styleCode="Bold Mishel ">Monocyte Medical Count Center </content>0.61 KCUMM<content styleCode="Ital ics"> (0.2-0.9 KCUMM)</content > Eosinophils 0-5.0 <content [facility] [#/volume] in styleCode="Bold Mishel Blood by ">Eosinophil Medical Automated count </content>2.2 Center %<content styleCode="Ital ics"> (0-5.0 %)</content> Basophils 0.0-1.0 <content [facility] [#/volume] in styleCode="Bold Mishel Blood by ">Basophil Medical Automated count </content>0.4 Center %<content styleCode="Ital ics"> (0.0-1.0 %)</content> UNK 0.0-0.6 <content [facility] styleCode="Bold Mishel ">Eosinophil Medical Count Center </content>0.18 KCUMM<content styleCode="Ital ics"> (0.0-0.6 KCUMM)</content > UNK 0.0-0.3 <content [facility] styleCode="Bold Mishel ">Basophil Medical Count Center </content>0.03 KCUMM<content styleCode="Ital ics"> (0.0-0.3 KCUMM)</content > UNK 0 <content [facility] styleCode="Bold Mishel ">Nucleated Red Medical Blood Cell Center </content>0.0 /100<content styleCode="Ital ics"> (0 /100)</content> UNK 0-0.1 <content [facility] styleCode="Bold Mishel ">Immature Medical Granulocyte Center Count </content>0.02 KCUMM<content styleCode="Ital ics"> (0-0.1 KCUMM)</content > UNK 0.0 <content [facility] styleCode="Bold Mishel ">Nucleated Red Medical Blood Cell Center Count </content>0.00 KCUMM<content styleCode="Ital ics"> (0.0 KCUMM)</content > UNK < 1 <content [facility] styleCode="Bold Mishel ">Immature Medical Granulocyte Center Ratio </content>0.2 %<content styleCode="Ital ics"> (< 1 %)</content> ID Date Data Source GFR(Creatinine).[id number] 03/15/2020 05:50:00 AM EDT [facility] 0-0400 Name Value Range Interpretation Code Description Data Ana rce(s) Supporting Document(s ) UNK > 60 <content [facility] styleCode="Bold"> Medical Cent er EGFR </content>69 GFR<content styleCode="Italic s"> (> 60 GFR)</content> ID Date Data Source Coagulation 03/15/2020 05:50:00 AM [facility] ical Center Rout.[id number] EDT Name Value Range Interpretation Description Data Sup porting Code Source(s) Document(s ) UNK 9.0-13.0 <content [facility] styleCode="Bold" Mishel >Protime Medical </content>11.7 Center SEC<content styleCode="Itali cs"> (9.0-13.0 SEC)</content> INR in 0.80-1.2 <content [facility] Platelet poor 0 styleCode="Bold" [facility]hel plasma by >INR Medical Coagulation </content>1.05 Center assay #<content styleCode="Itali cs"> (0.80-1.20 #)</content> aPTT in 25.1-36. <content [facility] Platelet poor 5 styleCode="Bold" [facility] plasma by >Partial Medical Coagulation [facility]oplastin Center assay Time </content>32.3 SEC<content styleCode="Itali cs"> (25.1-36.5 SEC)</content> ID Date Data Source EMILI.[id number] 03/15/2020 05:50:00 AM EDT [facility] -0400 Name Value Range Interpretation Description Data Sup porting Code Source(s) Document(s ) UNK >= 1.0 <content [facility] styleCode="Veronica Mishel d">AG Ratio Medical </content>1.0 Center <content styleCode="Isabel lics"> (>= 1.0 )</content> UNK 2.3-3.5 <content [facility] styleCode="Veronica Mishel d">Globulin Medical </content>2.7 Center G/DL<content styleCode="Isabel lics"> (2.3-3.5 G/DL)</content > Magnesium 1.6-2.3 <content [facility] [Mass/volume] styleCode="Veronica Mishel in Serum or d">Magnesium Medical Plasma </content>2.0 Center MG/DL<content styleCode="Isabel lics"> (1.6-2.3 MG/DL)</conten t> Phosphate 2.5-4.5 <content [facility] [Mass/volume] styleCode="Veronica Mishel in Serum or d">Phosphorus Medical Plasma </content>2.9 Center MG/DL<content styleCode="Isabel lics"> (2.5-4.5 MG/DL)</conten t> Protein 6.3-8.2 Below low normal <content [facility] [Mass/volume] styleCode="Veronica Mishel in Serum or d">Total Medical Plasma Protein Center </content>5.4 G/DL L<content styleCode="Isabel lics"> (6.3-8.2 G/DL)</content > ID Date Data Source CardiacMarkers.[id number] 03/15/2020 05:50:00 AM EDT [facility] -0400 Name Value Range Interpretation Description Data Sup porting Code Source(s) Document(s ) Troponin < 0.034 Above upper panic <content [facility] I.cardiac limits styleCode="Bold Mishel [Mass/volume ">Troponin I Medical ] in Serum </content><cont Center or Plasma ent styleCode="Bold ">1.97 NG/ML HH</content><co ntent styleCode="Ital ics"> (< 0.034 NG/ML)</content > ID Date Data Source [facility].[id number] 03/15/2020 05:50:00 AM EDT [facility] Name Value Range Interpretation Description Data Sup porting Code Source(s) Document(s ) Sodium 137-145 Below low <content [facility] [Moles/volume] in normal styleCode="Bold"> Adilson phs Serum or Plasma Sodium Medical </content>134 Center MEQ/L L<content styleCode="Italic s"> (137-145 MEQ/L)</content> Potassium 3.5-5.3 <content [facility] [Moles/volume] in styleCode="Bold"> Adilson phs Serum or Plasma Potassium Medical </content>3.7 Center MEQ/L<content styleCode="Italic s"> (3.5-5.3 MEQ/L)</content> Chloride 98-107 Above high <content [facility] [Moles/volume] in normal styleCode="Bold"> Adilson [facility] Serum or Plasma Chloride Medical </content>108 Center MEQ/L H<content styleCode="Italic s"> (98-107 MEQ/L)</content> Carbon dioxide, 22-30 <content [facility] total styleCode="Bold"> [facility] [Moles/volume] in Carbon Dioxide Medical Serum or Plasma </content>25 Center MEQ/L<content styleCode="Italic s"> (22-30 MEQ/L)</content> UNK 9-20 Above high <content [facility] normal styleCode="Bold"> [facility] BUN </content>36 Medical MG/DL H<content Center styleCode="Italic s"> (9-20 MG/DL)</content> Glucose 74-106 <content [facility] [Mass/volume] in styleCode="Bold"> Fei hs Serum or Plasma Glucose Medical </content>101 Center MG/DL<content styleCode="Italic s"> (74-106 MG/DL)</content> Calcium 8.4-10. Below low <content [facility] [Mass/volume] in 2 normal styleCode="Bold"> Fei hs Serum or Plasma Calcium Medical </content>8.2 Center MG/DL L<content styleCode="Italic s"> (8.4-10.2 MG/DL)</content> Creatinine 0.5-1.3 <content [facility] [Mass/volume] in styleCode="Bold"> Fei hs Serum or Plasma Creatinine Medical </content>1.1 Center MG/DL<content styleCode="Italic s"> (0.5-1.3 MG/DL)</content> Aspartate 17-59 <content [facility] aminotransferase styleCode="Bold"> Fei hs [Enzymatic Aspartate Medical activity/volume] Aminotransferase Center in Serum or Plasma (AST) </content>28 IU/L<content styleCode="Italic s"> (17-59 IU/L)</content> Alanine 7-50 <content [facility] aminotransferase styleCode="Bold"> Fei hs [Enzymatic Alanine Medical activity/volume] Aminotransferase Center in Serum or Plasma (ALT) </content>17 IU/L<content styleCode="Italic s"> (7-50 IU/L)</content> UNK > 60 <content [facility] styleCode="Bold"> [facility] EGFR </content>69 Medical GFR<content Center styleCode="Italic s"> (> 60 GFR)</content> Alkaline 38-126 <content [facility] phosphatase styleCode="Bold"> [facility] [Enzymatic Alkaline Medical activity/volume] Phosphatase (ALP) Cente r in Serum or Plasma </content>47 IU/L<content styleCode="Italic s"> (38-126 IU/L)</content> Bilirubin.total 0.2-1.3 <content [facility] [Mass/volume] in styleCode="Bold"> Fei hs Serum or Plasma Bilirubin Total Medical </content>0.5 Center MG/DL<content styleCode="Italic s"> (0.2-1.3 MG/DL)</content> Albumin 3.5-5.0 Below low <content [facility] [Mass/volume] in normal styleCode="Bold"> Fei hs Serum or Plasma Albumin Medical </content>2.7 Center G/DL L<content styleCode="Italic s"> (3.5-5.0 G/DL)</content> ID Date Data Source Coagulation 03/14/2020 05:40:00 AM [facility] Rout.[id number] EDT Name Value Range Interpretation Description Data Sup porting Code Source(s) Document(s ) aPTT in 25.1-36. <content [facility] Platelet poor 5 styleCode="Bold" [facility] plasma by >Partial Medical Coagulation Thromboplastin Center assay Time </content>26.2 SEC<content styleCode="Itali cs"> (25.1-36.5 SEC)</content> UNK 9.0-13.0 <content [facility] styleCode="Bold" Mishel >Protime Medical </content>12.0 Center SEC<content styleCode="Itali cs"> (9.0-13.0 SEC)</content> INR in 0.80-1.2 <content [facility] Platelet poor 0 styleCode="Bold" [facility] plasma by >INR Medical Coagulation </content>1.08 Center assay #<content styleCode="Itali cs"> (0.80-1.20 #)</content> ID Date Data Source Liver 03/14/2020 05:40:00 AM EDT [facility] Profile.[id number] Name Value Range Interpretation Description Data Sup porting Code Source(s) Document(s ) Aspartate 17-59 <content [facility] aminotransferase styleCode="Bold"> Fei hs [Enzymatic Aspartate Medical activity/volume] Aminotransferase Center in Serum or Plasma (AST) </content>46 IU/L<content styleCode="Italic s"> (17-59 IU/L)</content> Alanine 7-50 <content [facility] aminotransferase styleCode="Bold"> Fei hs [Enzymatic Alanine Medical activity/volume] Aminotransferase Center in Serum or Plasma (ALT) </content>22 IU/L<content styleCode="Italic s"> (7-50 IU/L)</content> Alkaline 38-126 <content [facility] phosphatase styleCode="Bold"> [facility] [Enzymatic Alkaline Medical activity/volume] Phosphatase (ALP) Cente r in Serum or Plasma </content>49 IU/L<content styleCode="Italic s"> (38-126 IU/L)</content> Bilirubin.total 0.2-1.3 <content [facility] [Mass/volume] in styleCode="Bold"> Fei hs Serum or Plasma Bilirubin Total Medical </content>0.9 Center MG/DL<content styleCode="Italic s"> (0.2-1.3 MG/DL)</content> Albumin 3.5-5.0 Below low <content [facility] [Mass/volume] in normal styleCode="Bold"> Fei hs Serum or Plasma Albumin Medical </content>3.0 Center G/DL L<content styleCode="Italic s"> (3.5-5.0 G/DL)</content> ID Date Data Source HematologyRou.[id number] 03/14/2020 05:40:00 AM EDT [facility] 0400 Name Value Range Interpretation Description Data Sup porting Code Source(s) Document(s ) Leukocytes 4.4-11.0 Above high <content [facility] [#/volume] in normal styleCode="Bold Mishel Blood by ">White Blood Medical Automated count Cell Count Center </content>12.04 KCUMM H<content styleCode="Ital ics"> (4.4-11.0 KCUMM)</content > Erythrocyte mean 80.0-100 <content [facility] corpuscular .0 styleCode="Bold Mishel volume [Entitic ">Mean Medical volume] by Corpuscular Center Automated count Volume </content>89.5 FL<content styleCode="Ital ics"> (80.0-100.0 FL)</content> Erythrocytes 4.4-5.9 Below low normal <content [facility] [#/volume] in styleCode="Bold Mishel Blood by ">Red Blood Medical Automated count Cell Count Center </content>4.01 MCUMM L<content styleCode="Ital ics"> (4.4-5.9 MCUMM)</content > Hemoglobin 13.5-17. Below low normal <content [facility] [Mass/volume] in 5 styleCode="Bold Mishel Blood ">Hemoglobin Medical </content>11.9 Center G/DL L<content styleCode="Ital ics"> (13.5-17.5 G/DL)</content> Hematocrit 41.0-53. Below low normal <content [facility] [Volume 0 styleCode="Bold Mishel Fraction] of ">Hematocrit Medical Blood by </content>35.9 Center Automated count % L<content styleCode="Ital ics"> (41.0-53.0 %)</content> Platelet mean 8.0-11.0 <content [facility] volume [Entitic styleCode="Bold Mishel volume] in Blood ">Mean Platelet Medical by Automated Volume Center count </content>10.3 FL<content styleCode="Ital ics"> (8.0-11.0 FL)</content> Erythrocyte 11.5-14. <content [facility] distribution 5 styleCode="Bold Mishel width [Ratio] by ">Red Cell Medical Automated count Distribution Center Width </content>13.1 %<content styleCode="Ital ics"> (11.5-14.5 %)</content> Erythrocyte mean 26.0-34. <content [facility] corpuscular 0 styleCode="Bold Mishel hemoglobin ">Mean Medical [Entitic mass] Corposcular Center by Automated Hemoglobin count </content>29.7 PG<content styleCode="Ital ics"> (26.0-34.0 PG)</content> Platelets 130-400 <content [facility] [#/volume] in styleCode="Bold Mishel Blood by ">Platelet Medical Automated count Count Center </content>299 KCUMM<content styleCode="Ital ics"> (130-400 KCUMM)</content > Erythrocyte mean 32.0-37. <content [facility] corpuscular 0 styleCode="Bold Mishel hemoglobin ">Mean Corpus. Medical concentration Hgb Center [Mass/volume] by Concentration Automated count (MCHC) </content>33.1 G/DL<content styleCode="Ital ics"> (32.0-37.0 G/DL)</content> Neutrophils 36-66 Above high <content [facility] [#/volume] in normal styleCode="Bold Mishel Blood by ">Neutrophil Medical Automated count </content>82.2 Center % H<content styleCode="Ital ics"> (36-66 %)</content> Lymphocytes 24.0-44. Below low normal <content [facility] [#/volume] in 0 styleCode="Bold Mishel Blood by ">Lymphocyte Medical Automated count </content>10.1 Center % L<content styleCode="Ital ics"> (24.0-44.0 %)</content> UNK 1.6-7.3 Above high <content [facility] normal styleCode="Bold Mishel ">Neutrophil Medical Count Center </content>9.89 KCUMM H<content styleCode="Ital ics"> (1.6-7.3 KCUMM)</content > UNK 1.0-4.8 <content [facility] styleCode="Bold Mishel ">Lymphocyte Medical Count Center </content>1.22 KCUMM<content styleCode="Ital ics"> (1.0-4.8 KCUMM)</content > Eosinophils 0-5.0 <content [facility] [#/volume] in styleCode="Bold Mishel Blood by ">Eosinophil Medical Automated count </content>0.2 Center %<content styleCode="Ital ics"> (0-5.0 %)</content> UNK 0.0-0.6 <content [facility] styleCode="Bold Mishel ">Eosinophil Medical Count Center </content>0.03 KCUMM<content styleCode="Ital ics"> (0.0-0.6 KCUMM)</content > Monocytes 3.0-10.0 <content [facility] [#/volume] in styleCode="Bold Mishel Blood by ">Monocyte Medical Automated count </content>7.0 Center %<content styleCode="Ital ics"> (3.0-10.0 %)</content> UNK 0.2-0.9 <content [facility] styleCode="Bold Mishel ">Monocyte Medical Count Center </content>0.84 KCUMM<content styleCode="Ital ics"> (0.2-0.9 KCUMM)</content > UNK 0 <content [facility] styleCode="Bold Mishel ">Nucleated Red Medical Blood Cell Center </content>0.0 /100<content styleCode="Ital ics"> (0 /100)</content> UNK 0.0-0.3 <content [facility] styleCode="Bold Mishel ">Basophil Medical Count Center </content>0.02 KCUMM<content styleCode="Ital ics"> (0.0-0.3 KCUMM)</content > UNK 0.0 <content [facility] styleCode="Bold Mishel ">Nucleated Red Medical Blood Cell Center Count </content>0.00 KCUMM<content styleCode="Ital ics"> (0.0 KCUMM)</content > Basophils 0.0-1.0 <content [facility] [#/volume] in styleCode="Bold [facility] Blood by ">Basophil Medical Automated count </content>0.2 Center %<content styleCode="Ital ics"> (0.0-1.0 %)</content> UNK 0-0.1 <content [facility] styleCode="Bold Mishel ">Immature Medical Granulocyte Center Count </content>0.04 KCUMM<content styleCode="Ital ics"> (0-0.1 KCUMM)</content > UNK < 1 <content [facility] styleCode="Bold Mishel ">Immature Medical Granulocyte Center Ratio </content>0.3 %<content styleCode="Ital ics"> (< 1 %)</content> ID Date Data Source GFR(Creatinine).[id number] 03/14/2020 05:40:00 AM EDT [facility] 0-0400 Name Value Range Interpretation Code Description Data Ana rce(s) Supporting Document(s ) UNK > 60 Below low normal <content [facility] styleCode="Bold"> Medical Cent er EGFR </content>22 GFR L<content styleCode="Italic s"> (> 60 GFR)</content> ID Date Data Source EMILI.[id number] 03/14/2020 05:40:00 AM EDT [facility] -0400 Name Value Range Interpretation Description Data Sup porting Code Source(s) Document(s ) UNK >= 1.0 <content [facility] styleCode="Veronica Mishel d">AG Ratio Medical </content>1.1 Center <content styleCode="Isabel lics"> (>= 1.0 )</content> UNK 2.3-3.5 <content [facility] styleCode="Veronica Mishel d">Globulin Medical </content>2.7 Center G/DL<content styleCode="Isabel lics"> (2.3-3.5 G/DL)</content > Magnesium 1.6-2.3 Above high normal <content [facility] [Mass/volume] styleCode="Veronica Mishel in Serum or d">Magnesium Medical Plasma </content>2.5 Center MG/DL H<content styleCode="Isabel lics"> (1.6-2.3 MG/DL)</conten t> Phosphate 2.5-4.5 Above high normal <content [facility] [Mass/volume] styleCode="Veronica Mishel in Serum or d">Phosphorus Medical Plasma </content>5.1 Center MG/DL H<content styleCode="Isabel lics"> (2.5-4.5 MG/DL)</conten t> Protein 6.3-8.2 Below low normal <content [facility] [Mass/volume] styleCode="Veronica Mishel in Serum or d">Total Medical Plasma Protein Center </content>5.7 G/DL L<content styleCode="Isabel lics"> (6.3-8.2 G/DL)</content > ID Date Data Source [employer]iacMarkers.[id number] 03/14/2020 05:40:00 AM EDT [facility] -0400 Name Value Range Interpretation Description Data Sup porting Code Source(s) Document(s ) Troponin < 0.034 Above upper panic <content [facility] I.cardiac limits styleCode="Bold Mishel [Mass/volume ">Troponin I Medical ] in Serum </content><cont Center or Plasma ent styleCode="Bold ">5.99 NG/ML HH</content><co ntent styleCode="Ital ics"> (< 0.034 NG/ML)</content > ID Date Data Source [facility].[id number] 03/14/2020 05:40:00 AM EDT [facility] Name Value Range Interpretation Description Data Sup porting Code Source(s) Document(s ) Sodium 137-145 <content [facility] [Moles/volume] in styleCode="Bold"> Adilson phs Serum or Plasma Sodium Medical </content>137 Center MEQ/L<content styleCode="Italic s"> (137-145 MEQ/L)</content> UNK 9-20 Above high <content [facility] normal styleCode="Bold"> [facility] BUN </content>62 Medical MG/DL H<content Center styleCode="Italic s"> (9-20 MG/DL)</content> Chloride 98-107 <content [facility] [Moles/volume] in styleCode="Bold"> Adilson phs Serum or Plasma Chloride Medical </content>107 Center MEQ/L<content styleCode="Italic s"> (98-107 MEQ/L)</content> Carbon dioxide, 22-30 <content [facility] total styleCode="Bold"> [facility]hel [Moles/volume] in Carbon Dioxide Medical Serum or Plasma </content>27 Center MEQ/L<content styleCode="Italic s"> (22-30 MEQ/L)</content> Potassium 3.5-5.3 <content [facility] [Moles/volume] in styleCode="Bold"> Adilson phs Serum or Plasma Potassium Medical </content>4.6 Center MEQ/L<content styleCode="Italic s"> (3.5-5.3 MEQ/L)</content> UNK > 60 Below low <content [facility] normal styleCode="Bold"> [facility]hel EGFR </content>22 Medical GFR L<content Center styleCode="Italic s"> (> 60 GFR)</content> Glucose 74-106 <content [facility] [Mass/volume] in styleCode="Bold"> Fei hs Serum or Plasma Glucose Medical </content>105 Center MG/DL<content styleCode="Italic s"> (74-106 MG/DL)</content> Calcium 8.4-10. <content [facility] [Mass/volume] in 2 styleCode="Bold"> Fei hs Serum or Plasma Calcium Medical </content>8.9 Center MG/DL<content styleCode="Italic s"> (8.4-10.2 MG/DL)</content> Creatinine 0.5-1.3 Above high <content [facility] [Mass/volume] in normal styleCode="Bold"> Fei hs Serum or Plasma Creatinine Medical </content>2.9 Center MG/DL H<content styleCode="Italic s"> (0.5-1.3 MG/DL)</content> Alkaline 38-126 <content [facility] phosphatase styleCode="Bold"> [facility] [Enzymatic Alkaline Medical activity/volume] Phosphatase (ALP) Cente r in Serum or Plasma </content>49 IU/L<content styleCode="Italic s"> (38-126 IU/L)</content> Alanine 7-50 <content [facility] aminotransferase styleCode="Bold"> Fei hs [Enzymatic Alanine Medical activity/volume] Aminotransferase Center in Serum or Plasma (ALT) </content>22 IU/L<content styleCode="Italic s"> (7-50 IU/L)</content> Albumin 3.5-5.0 Below low <content [facility] [Mass/volume] in normal styleCode="Bold"> Fei hs Serum or Plasma Albumin Medical </content>3.0 Center G/DL L<content styleCode="Italic s"> (3.5-5.0 G/DL)</content> Bilirubin.total 0.2-1.3 <content [facility] [Mass/volume] in styleCode="Bold"> Fei hs Serum or Plasma Bilirubin Total Medical </content>0.9 Center MG/DL<content styleCode="Italic s"> (0.2-1.3 MG/DL)</content> Aspartate 17-59 <content [facility] aminotransferase styleCode="Bold"> Fei hs [Enzymatic Aspartate Medical activity/volume] Aminotransferase Center in Serum or Plasma (AST) </content>46 IU/L<content styleCode="Italic s"> (17-59 IU/L)</content> ID Date Data Source Urinalysis.[id number] 03/14/2020 02:10:00 AM EDT [facility] 0 Name Value Range Interpretation Description Data Sup porting Code Source(s) Document(s ) Color of Urine YELLOW <content [facility] styleCode="Veronica Mishle d">Color, Medical Urine Center </content>YELL OW <content styleCode="Isabel lics"> (YELLOW )</content> Glucose NEGATIVE <content [facility] [Mass/volume] styleCode="Veronica Florentino in Urine by d">Urine Medical Test strip Glucose Center </content>NEGA TIVE MG/DL<content styleCode="Isabel lics"> (NEGATIVE MG/DL)</conten t> UNK CLEAR <content [facility] styleCode="Veronica Mishel d">Urine Medical Clarity Center </content>DEVANTE R <content styleCode="Isabel lics"> (CLEAR )</content> Ketones NEGATIVE <content [facility] [Mass/volume] styleCode="Veronica Powells in Urine by d">Urine Medical Test strip Ketone Center </content>NEGA TIVE MG/DL<content styleCode="Isabel lics"> (NEGATIVE MG/DL)</conten t> UNK NEGATIVE <content [facility] styleCode="Veronica Mishel d">Urine Medical Bilirubin Center </content>NEGA TIVE <content styleCode="Isabel lics"> (NEGATIVE )</content> Specific 1.015-1.02 <content [facility] gravity of 5 styleCode="Veronica Powells Urine by Test d">Urine Medical strip Specific Center [place] </content>1.01 5 <content styleCode="Isbael lics"> (1.015-1.025 )</content> Hemoglobin NEGATIVE <content [facility] [Presence] in styleCode="Veronica Powells Urine by Test d">Urine Blood Medical strip </content>LARG Center E <content styleCode="Isabel lics"> (NEGATIVE )</content> pH of Urine by 4.5-8.0 <content [facility] Test strip styleCode="Veronica Mishel d">Urine pH Medical </content>5.0 Center <content styleCode="Isabel lics"> (4.5-8.0 )</content> Protein NEGATIVE <content [facility] [Mass/volume] styleCode="Veronica Mishel in Urine by d">Urine Medical Test strip Protein Center </content>NEGA TIVE MG/DL<content styleCode="Isabel lics"> (NEGATIVE MG/DL)</conten t> Urobilinogen 0.2-1.0 <content [facility] [Units/volume] styleCode="Veronica Mishel in Urine by d">Urine Medical Test strip Urobilinogen Center </content>0.2 MG/DL<content styleCode="Isabel lics"> (0.2-1.0 MG/DL)</conten t> Nitrite NEGATIVE <content [facility] [Presence] in styleCode="Veronica Powells Urine by Test d">Urine Medical strip Nitrite Center </content>NEGA TIVE <content styleCode="Isabel lics"> (NEGATIVE )</content> Leukocyte NEGATIVE <content [facility] esterase styleCode="Veronica Powells [Presence] in d">Urine Medical Urine by Test Leukocyte Center strip </content>NEGA TIVE <content styleCode="Isabel lics"> (NEGATIVE )</content> UNK 0-3 <content [facility] styleCode="Veronica Mishel d">Urine Red Medical Blood Cell Center </content>10 - 20 HPF<content styleCode="Siabel lics"> (0-3 HPF)</content> UNK 0-3 <content [facility] styleCode="Veronica Mishel d">Urine White Medical Blood Cell Center </content>0-3 HPF<content styleCode="Isabel lics"> (0-3 HPF)</content> UNK NEGATIVE <content [facility] styleCode="Veronica Mishel d">Urine Medical Bacteria Center </content>FEW HPF<content styleCode="Isabel lics"> (NEGATIVE HPF)</content> ID Date Data Source [employer]iacMarkers.[id number] 03/13/2020 08:36:00 PM EDT [facility] -0400 Name Value Range Interpretation Description Data Sup porting Code Source(s) Document(s ) Troponin < 0.034 Above upper panic <content [facility] I.cardiac limits styleCode="Bold Mishel [Mass/volume ">Troponin I Medical ] in Serum </content><cont Center or Plasma ent styleCode="Bold ">4.99 NG/ML HH</content><co ntent styleCode="Ital ics"> (< 0.034 NG/ML)</content > ID Date Data Source LIPID.[id number] 03/13/2020 05:47:00 PM EDT [facility] Name Value Range Interpretation Description Data Sup porting Code Source(s) Document(s ) Triglyceride < 150 <content [facility] [Mass/volume] in styleCode="Veronica Mishel Serum or Plasma d">Triglycerid [facility] </content>93 MG/DL<content styleCode="Isabel lics"> (< 150 MG/DL)</conten t> Cholesterol -<200 Above high normal <content [facility] [Mass/volume] in styleCode="Veronica Mishel Serum or Plasma d">Cholesterol Medical </content>205 Center MG/DL H<content styleCode="Isabel lics"> (-<200 MG/DL)</conten t> UNK > 60 <content [facility] styleCode="Veronica Mishel d">HDL- Medical Cholesterol Center </content>71 MG/DL<content styleCode="Isabel lics"> (> 60 MG/DL)</conten t> UNK < 100 Above high normal <content [facility] styleCode="Veronica Mishel d">LDL-Cholest [facility] eleni Ennice </content>115 MG/DL H<content styleCode="Isabel lics"> (< 100 MG/DL)</conten t> ID Date Data Source BMP.[id number] 03/13/2020 05:47:00 PM EDT [facility] Name Value Range Interpretation Description Data Sup porting Code Source(s) Document(s ) Chloride 98-107 <content [facility] [Moles/volume] styleCode="Veronica Mishel in Serum or d">Chloride Medical Plasma </content>104 Center MEQ/L<content styleCode="Isabel lics"> (98-107 MEQ/L)</conten t> Sodium 137-145 Below low normal <content [facility] [Moles/volume] styleCode="Veronica Mishel in Serum or d">Sodium Medical Plasma </content>133 Center MEQ/L L<content styleCode="Isabel lics"> (137-145 MEQ/L)</conten t> Potassium 3.5-5.3 <content [facility] [Moles/volume] styleCode="Veronica Mishel in Serum or d">Potassium Medical Plasma </content>5.0 Center MEQ/L<content styleCode="Isabel lics"> (3.5-5.3 MEQ/L)</conten t> UNK 9-20 Above high normal <content [facility] styleCode="Veronica Mishel d">BUN Medical </content>66 Center MG/DL H<content styleCode="Isabel lics"> (9-20 MG/DL)</conten t> Glucose 74-106 Above high normal <content [facility] [Mass/volume] styleCode="Veronica Mishel in Serum or d">Glucose Medical Plasma </content>114 Center MG/DL H<content styleCode="Isabel lics"> (74-106 MG/DL)</conten t> Creatinine 0.5-1.3 Above high normal <content [facility] [Mass/volume] styleCode="Veronica Mishel in Serum or d">Creatinine Medical Plasma </content>3.2 Center MG/DL H<content styleCode="Isabel lics"> (0.5-1.3 MG/DL)</conten t> Carbon 22-30 <content [facility] dioxide, total styleCode="Veronica Mishel [Moles/volume] d">Carbon Medical in Serum or Dioxide Center Plasma </content>23 MEQ/L<content styleCode="Isabel lics"> (22-30 MEQ/L)</conten t> Calcium 8.4-10.2 <content [facility] [Mass/volume] styleCode="Veronica Mishel in Serum or d">Calcium Medical Plasma </content>9.8 Center MG/DL<content styleCode="Isabel lics"> (8.4-10.2 MG/DL)</conten t> UNK > 60 Below low normal <content [facility] styleCode="Veronica Mishel d">EGFR Medical </content>20 Center GFR L<content styleCode="Isabel lics"> (> 60 GFR)</content> ID Date Data Source HematologyRou.[id number] 03/13/2020 05:47:00 PM EDT [facility] 0400 Name Value Range Interpretation Description Data Sup porting Code Source(s) Document(s ) Leukocytes 4.4-11.0 Above high <content [facility] [#/volume] in normal styleCode="Bold Mishel Blood by ">White Blood Medical Automated count Cell Count Center </content>15.63 KCUMM H<content styleCode="Ital ics"> (4.4-11.0 [facility])</content > Erythrocytes 4.4-5.9 Below low normal <content [facility] [#/volume] in styleCode="Bold Mishel Blood by ">Red Blood Medical Automated count Cell Count Center </content>4.15 [facility] L<content styleCode="Ital ics"> (4.4-5.9 [facility])</content > Hemoglobin 13.5-17. Below low normal <content [facility] [Mass/volume] in 5 styleCode="Bold Mishel Blood ">Hemoglobin Medical </content>12.2 Center G/DL L<content styleCode="Ital ics"> (13.5-17.5 G/DL)</content> Hematocrit 41.0-53. Below low normal <content [facility] [Volume 0 styleCode="Bold Mishel Fraction] of ">Hematocrit Medical Blood by </content>36.7 Center Automated count % L<content styleCode="Ital ics"> (41.0-53.0 %)</content> Erythrocyte mean 80.0-100 <content [facility] corpuscular .0 styleCode="Bold Mishel volume [Entitic ">Mean Medical volume] by Corpuscular Center Automated count Volume </content>88.4 FL<content styleCode="Ital ics"> (80.0-100.0 FL)</content> Erythrocyte mean 32.0-37. <content [facility] corpuscular 0 styleCode="Bold Mishel hemoglobin ">Mean Corpus. Medical concentration Hgb Center [Mass/volume] by Concentration Automated count (MCHC) </content>33.2 G/DL<content styleCode="Ital ics"> (32.0-37.0 G/DL)</content> Erythrocyte 11.5-14. <content [facility] distribution 5 styleCode="Bold Mishel width [Ratio] by ">Red Cell Medical Automated count Distribution Center Width </content>13.2 %<content styleCode="Ital ics"> (11.5-14.5 %)</content> Erythrocyte mean 26.0-34. <content [facility] corpuscular 0 styleCode="Bold Mishel hemoglobin ">Mean Medical [Entitic mass] Corposcular Center by Automated Hemoglobin count </content>29.4 PG<content styleCode="Ital ics"> (26.0-34.0 PG)</content> UNK 0 <content Saint styleCode="Bold Mishel ">Nucleated Red Medical Blood Cell Center </content>0.0 /100<content styleCode="Ital ics"> (0 /100)</content> Platelets 130-400 <content [facility] [#/volume] in styleCode="Bold Mishel Blood by ">Platelet Medical Automated count Count Center </content>341 [facility]<content styleCode="Ital ics"> (130-400 [facility])</content > Platelet mean 8.0-11.0 <content [facility] volume [Entitic styleCode="Bold Mishel volume] in Blood ">Mean Platelet Medical by Automated Volume Center count </content>10.4 FL<content styleCode="Ital ics"> (8.0-11.0 FL)</content> UNK 0.0 <content Saint styleCode="Bold Mishel ">Nucleated Red Medical Blood Cell Center Count </content>0.00 [facility]<content styleCode="Ital ics"> (0.0 [facility])</content > ID Date Data Source GFR(Creatinine).[id number] 03/13/2020 05:47:00 PM EDT [facility] 0-0400 Name Value Range Interpretation Code Description Data Ana rce(s) Supporting Document(s ) UNK > 60 Below low normal <content [facility] styleCode="Bold"> Medical Cent er EGFR </content>20 GFR L<content styleCode="Italic s"> (> 60 GFR)</content> ID Date Data Source Coagulation 03/13/2020 05:47:00 PM [facility] ical Center Rout.[id number] EDT Name Value Range Interpretation Description Data Sup porting Code Source(s) Document(s ) INR in 0.80-1.2 <content [facility] Platelet poor 0 styleCode="Bold" Mishel plasma by >INR Medical Coagulation </content>1.07 Center assay #<content styleCode="Itali cs"> (0.80-1.20 #)</content> UNK 9.0-13.0 <content [facility] styleCode="Bold" Mishel >Protime Medical </content>11.9 Center SEC<content styleCode="Itali cs"> (9.0-13.0 SEC)</content> aPTT in 25.1-36. <content [facility] Platelet poor 5 styleCode="Bold" Mishel plasma by >Partial Medical Coagulation Thromboplastin Center assay Time </content>28.3 SEC<content styleCode="Itali cs"> (25.1-36.5 SEC)</content> ID Date Data Source CardiacMarkers.[id number] 03/13/2020 05:47:00 PM EDT [facility] -0400 Name Value Range Interpretation Description Data Sup porting Code Source(s) Document(s ) Troponin < 0.034 Above upper panic <content [facility] I.cardiac limits styleCode="Bold Mishel [Mass/volume ">Troponin I Medical ] in Serum </content><cont Center or Plasma ent styleCode="Bold ">6.10 NG/ML HH</content><co ntent styleCode="Ital ics"> (< 0.034 NG/ML)</content > ID Date Data Source [id number] 03/13/2020 12:00:00 AM EDT [facility] Name Value Range Interpretation Code Description Data Ana rce(s) Supporting Document(s ) 2019-nCoV [facility] RNA XXX J LUIS+probe- Imp This lab was ordered by [facility] and reported by [facility]. Procedure Social History Code Duration Value Status Description Data Source(s ) Smoking 05/16/2020 Tobacco smoking completed Tobacco smoking [facility] e [place] 06:11:00 AM EDT consumption consumption [facility]osp[facility] unknown (finding) unknown (finding) Smoking 03/14/2020 Denies Ever Smoked completed Denies Ever Smoke d [facility] 01:46:00 AM EDT Medical C enter Smoking 03/13/2020 Denies Ever Smoked completed Denies Ever Smoke d [facility] 05:45:00 PM EDT Medical C enter Smoking 03/13/2020 Denies Ever Smoked completed Denies Ever Smoke d [facility] 05:00:00 PM EDT Medical C enter Smoking 03/13/2020 Denies Ever Smoked completed Denies Ever Smoke d [facility] 04:57:00 PM EDT Medical C enter Vital Signs ID Date Data Source UNK Name Value Range Interpretation Code Description Data Source(s) Diastolic blood 76 mm[Hg] 76 mm[Hg] [facility] pressure [facility] Systolic blood 126 mm[Hg] 126 mm[Hg] [facility] ns pressure [facility] Respiratory rate 18 /min 18 /min [facility] Heart rate 70 /min 70 /min [facility] Body mass index 22.0 kg/m2 22.0 kg/m2 [facility] (BMI) [Ratio] Hospital Body weight 132.28 132.28 [lb_av] [facility] [lb_av] Hospital Body temperature 36.71285 36.60389 Far[facility] Body temperature 98.1 98.1 [degF] [facility] [degF] Hospital Body temperature 97.9 0 - 200 Normal (applies to 97.9 [degF] [facility] [degF] non-numeric Health System results) Body temperature 36.6 Farrah 0 - 99.9 Normal (applies to 36.6 Farrah [facility] non-numeric Health System results) Diastolic blood 73 mm[Hg] 0 - 999 Normal (applies to 73 mm[Hg] [facility] non-numeric [facility] System results) Systolic blood 124 mm[Hg] 0 - 999 Normal (applies to 124 mm[Hg] [facility] pressure non-numeric [facility] results) Oxygen saturation 96 % 0 - 999 Normal (applies to 96 % [facility] in Arterial blood non-numeric Health System by Pulse oximetry results) Respiratory rate 18 0 - 999 Above high normal 18 M [facility] Health System Heart rate 74 0 - 999 Normal (applies to 74 [facility] non-numeric [facility] results) Body weight 65 kg 65 kg [facility] System O[facility] system Body surface area 1.6 m2 1.6 m2 [facility] Derived from Health Syste m formula Body mass index 24.2 kg/m2 24.2 kg/m2 [facility] e (BMI) [Ratio] Health Syst em Body height 160.02 cm 160.02 cm [facility] Body temperature 36.279128 36.922121 Farrah [facility] Respiratory rate 18 /min 18 /min [facility] Heart rate 50 /min 50 /min [facility] Diastolic blood 75 mm[Hg] 75 mm[Hg] [facility] Systolic blood 129 mm[Hg] 129 mm[Hg] [facility] Heart rate 58 /min 58 /min [facility] Diastolic blood 80 mm[Hg] 80 mm[Hg] [facility] Ennice Systolic blood 118 mm[Hg] 118 mm[Hg] [facility] Body temperature 36.820499 36.589441 Farrah [facility] Respiratory rate 20 /min 20 /min [facility] Heart rate 63 /min 63 /min [facility] Diastolic blood 79 mm[Hg] 79 mm[Hg] [facility] Systolic blood 131 mm[Hg] 131 mm[Hg] [facility] Respiratory rate 20 /min 20 /min [facility] Heart rate 82 /min 82 /min [facility] Diastolic blood 87 mm[Hg] 87 mm[Hg] [facility] Systolic blood 164 mm[Hg] 164 mm[Hg] [facility] Center Body temperature 36.482878 36.122823 Far[facility] Respiratory rate 20 /min 20 /min [facility] Heart rate 60 /min 60 /min [facility] Diastolic blood 64 mm[Hg] 64 mm[Hg] [facility] Center Systolic blood 120 mm[Hg] 120 mm[Hg] [facility] Medical Ennice Body temperature 36.259757 36.182140 Farrah [facility] Respiratory rate 18 /min 18 /min [facility] Body temperature 36.806974 36.916565 [facility]rah [facility] Body weight 60.267656 60.844286 kg [facility] hs Measured kg Medical Center Body weight 64.816191 64.061138 kg [facility] hs Measured kg Medical Center Oxygen saturation 95 % 95 % [facility] by Pulse oximetry Respiratory rate 19 /min 19 /min [facility] Heart rate 44 /min 44 /min [facility] Diastolic blood 54 mm[Hg] 54 mm[Hg] [facility] Medical [facility]nice Systolic blood 93 mm[Hg] 93 mm[Hg] [facility] Respiratory rate 17 /min 17 /min [facility] Heart rate 49 /min 49 /min [facility] Diastolic blood 58 mm[Hg] 58 mm[Hg] [facility] Medical Ennice Systolic blood 95 mm[Hg] 95 mm[Hg] [facility] Body temperature 36.024866 36.481893 [facility] Respiratory rate 27 /min 27 /min [facility] Heart rate 56 /min 56 /min [facility] Diastolic blood 63 mm[Hg] 63 mm[Hg] [facility] Medical Center Systolic blood 105 mm[Hg] 105 mm[Hg] [facility] Respiratory rate 16 /min 16 /min [facility] Heart rate 47 /min 47 /min [facility] Diastolic blood 62 mm[Hg] 62 mm[Hg] [facility] Medical Center Systolic blood 93 mm[Hg] 93 mm[Hg] [facility] Medical Center Body temperature 36.947055 36.535674 [facility] Respiratory rate 18 /min 18 /min [facility] Heart rate 96 /min 96 /min [facility] Diastolic blood 63 mm[Hg] 63 mm[Hg] [facility] pressure Medical Center Systolic blood 105 mm[Hg] 105 mm[Hg] [facility] pressure Medical Center Oxygen saturation 96 % 96 % [facility] Arterial blood [facility] Center by Pulse oximetry Body temperature 36.072377 36.679658 [facility] Body weight 63.906050 63.017172 kg [facility] Fei hs Measured kg Medical Center Oxygen saturation 97 % 97 % [facility] Arterial blood Medical Center by Pulse oximetry Oxygen saturation 95 % 95 % [facility] Arterial blood Medical Center by Pulse oximetry Body temperature 36.582062 36.619398 [facility] Oxygen saturation 98 % 98 % [facility] Arterial blood [facility] Center by Pulse oximetry Body temperature 37.164447 37.294618 [facility] Oxygen saturation 98 % 98 % [facility] Arterial blood [facility] Center by Pulse oximetry Body weight 64.072048 64.647216 kg [facility] Measured kg Medical Center Body height 164.419073 164.973484 cm [facility] Medical Center Body mass index 23.5 kg/m2 23.5 kg/m2 [facility] (BMI) [Ratio] Medical Ravindra ter ID Date Data Source 04/07/2020 12:57:55 PM EDT [facility] Name Value Range Interpretation Code Description Data Source(s) TEMPERATURE 95 F 95 F [facility] ([facility] RESPIRATION 18 rpm 18 rpm [facility] ([facility] PULSE 70 bpm 70 bpm [facility] ([facility]) OXYGEN SATURATION 95 % 95 % [facility] ([facility]) DIASTOLIC BLOOD 87 mmHg 87 mmHg [facility] ([facility]) SYSTOLIC BLOOD 141 mmHg 141 mmHg [facility] ([facility] TEMPERATURE 97.3 F 97.3 F [facility] ([facility] DIASTOLIC BLOOD 77 mmHg 77 mmHg [facility] ([facility] SYSTOLIC BLOOD 123 mmHg 123 mmHg [facility] ([facility] TEMPERATURE 97.2 F 97.2 F [facility] ([facility] RESPIRATION 18 rpm 18 rpm [facility]) PULSE 57 bpm 57 bpm [facility] ([facility]) OXYGEN SATURATION 96 % 96 % [facility] ([facility]) DIASTOLIC BLOOD 64 mmHg 64 mmHg [facility] ([facility] SYSTOLIC BLOOD 94 mmHg 94 mmHg [facility] ([facility] TEMPERATURE 97.6 F 97.6 F [facility] ([facility] DIASTOLIC BLOOD 76 mmHg 76 mmHg [facility] ([facility] SYSTOLIC BLOOD 127 mmHg 127 mmHg [facility] ([facility] WEIGHT 137.8 lbs 137.8 lbs [facility] ([facility]) TEMPERATURE 97.2 F 97.2 F [facility] ([facility] RESPIRATION 18 rpm 18 rpm [facility] ([facility]) PULSE 64 bpm 64 bpm [facility] ([facility]) OXYGEN SATURATION 95 % 95 % [facility] ([facility]) DIASTOLIC BLOOD 78 mmHg 78 mmHg [facility] ([facility]) SYSTOLIC BLOOD 114 mmHg 114 mmHg [facility] ([facility]) DIASTOLIC BLOOD 65 mmHg 65 mmHg [facility] ([facility]) SYSTOLIC BLOOD 115 mmHg 115 mmHg [facility] ([facility] WEIGHT 133.6 lbs 133.6 lbs [facility] ([facility]) HEIGHT 65 in 65 in [facility] ([facility]) TEMPERATURE 96.5 F 96.5 F [facility] ([facility] RESPIRATION 16 rpm 16 rpm [facility]) PULSE 57 bpm 57 bpm [facility] ([facility]) OXYGEN SATURATION 96 % 96 % [facility] ([facility]) DIASTOLIC BLOOD 75 mmHg 75 mmHg [facility] ([facility]) SYSTOLIC BLOOD 112 mmHg 112 mmHg [facility] ([facility]) TEMPERATURE 96.8 F 96.8 F [facility] TEMPERATURE 97 F 97 F [facility]) DIASTOLIC BLOOD 78 mmHg 78 mmHg [facility] ([facility]) SYSTOLIC BLOOD 128 mmHg 128 mmHg [facility] ([facility]) TEMPERATURE 96.8 F 96.8 F [facility] RESPIRATION 18 rpm 18 rpm [facility] ([facility] PULSE 78 bpm 78 bpm [facility] ([facility]) DIASTOLIC BLOOD 68 mmHg 68 mmHg [facility] ([facility]) SYSTOLIC BLOOD 122 mmHg 122 mmHg [facility] ([facility]) TEMPERATURE 97.3 F 97.3 F [facility] ([facility] RESPIRATION 18 rpm 18 rpm [facility] ([facility]) PULSE 73 bpm 73 bpm [facility] ([facility]) OXYGEN SATURATION 97 % 97 % [facility] ([facility]) DIASTOLIC BLOOD 83 mmHg 83 mmHg [facility] ([facility]) SYSTOLIC BLOOD 155 mmHg 155 mmHg [facility] ([facility]) PULSE 65 bpm 65 bpm [facility] ([facility]) DIASTOLIC BLOOD 96 mmHg 96 mmHg [facility] ([facility]) SYSTOLIC BLOOD 108 mmHg 108 mmHg [facility] ([facility])
--- NOTE | 2020-05-27 21:50 | PDOC ---
Documentation entered by Lizzette Landeros SCRIBE, acting as scribe for Lexie Burton MD. Lexie Burton MD: This documentation has been prepared by the Tigre munoz Brenda, SCRIBE, under my direction and personally reviewed by me in its entirety. I confirm that the documentation accurately reflects all work, treatment, procedures, and medical decision making performed by me. Attending Attestation - Resident Resident Name: Shruti Mendoza - ED Attending Attestation I have performed the following: I have examined & evaluated the patient, The case was reviewed & discussed with the resident, I agree w/resident's findings & plan, Exceptions are as noted - HPI HPI: 05/27/20 21:42 The patient is a 79 year old male with a significant PMH of BPH and chronic penile skin irritation who presents to the ED BIBA from home for evaluation of pelvic pain. Patient states that he has a chronic indwelling Mendez and accidentally pulled it out and it is now uncomfortable. The also notes that the leg bag was leaking. Allergies: Walnuts - Physicial Exam PE: 05/27/20 21:45 GENERAL: (+) Slender Well-appearing, well-nourished. No apparent distress. HEENT: Normocephalic, atraumatic. PERRL, EOM intact. CARDIOVASCULAR: Normal S1, S2. Regular rate and rhythm. PULMONARY: Clear to auscultation bilaterally. ABDOMEN: Soft, non-distended, non-tender. EXTREMITIES: Normal ROM in all four extremities. No gross deformities. SKIN: (+) Chronic penile skin irritation Warm, dry. No rash NEUROLOGICAL: AOx3 No focal neurological deficits. - Medical Decision Making 05/27/20 23:23 ekg nsr @ 61 bpm, inc rbbb 05/28/20 01:45 coude mendez placed,urine obtained and set to lab 05/28/20 01:54 s/o to night team Discharge - Discharge Information Problems reviewed: Yes Clinical Impression/Diagnosis: Urinary retention UTI (urinary tract infection) Qualifiers: Urinary tract infection type: acute cystitis Hematuria presence: with hematuria Qualified Code(s): N30.01 - Acute cystitis with hematuria Condition: Fair - Follow up/Referral - Patient Discharge Instructions - Post Discharge Activity
[2020-05-27] MEDS ORDERED: LIDOCAINE HCL 2% JELLY 10 ML CARTRIDGE ONE (22:02)
--- NOTE | 2020-05-27 22:20 | PDOC ---
History of Present Illness - General Chief Complaint: Altered Mental Status Stated Complaint: PAIN & AMS Time Seen by Provider: 05/27/20 21:37 - History of Present Illness Initial Comments: HPI: 05/27/20 22:23 79 yo M PMH HTN, RLS, essential tremors, dementia, BPH, presenting with Booth problem. Here with domestic partner, who provides most of the history. States that this evening, he tugged on the Booth and was complaining of pain. Notes that he has had a Booth intermittently for the past month and a half due to urinary retention. Reports that he had a urethral dilation on March 10, and has suffered from repeat UTIs and urosepsis. States that he does not have a consistent urologist but has seen Dr. Caro twice. Further notes that the urine has not been draining like normal for the past day. ROS: Unable to assess due to dementia. Patient complains of pain around his urethra. PE: Gen: well-developed, well-nourished, NAD Neuro: AAOX1 (name), CN II-XII intact HEENT: atraumatic, normocephalic Neck: trachea midline, supple CV: regular rate, regular rhythm, no murmurs, rubs, or gallops Pulm: CTA b/l, no wheezing Abd: soft, non-distended, non-tender : dilated urethra with Booth in place, but without any urine in the bag MSK: full ROM, intact pulses Extr: no edema, no deformities Skin: warm, dry MDM: Bladder ultrasound shows intact Booth bulb, but with 403 ccs of urine in the bladder. Booth removed and noted to be clotted at the Booth tip, likely cause of the inability to drain. Attempted Urojet and Booth insertion without success, unable to pass beyond the prostate. - CBC, CMP - EKG - considering history of urethral dilation, will consider discussion with urology 05/28/20 22:[address] Pena, urology edi consultant, to discuss patient. 05/28/20 23:18 EKG normal sinus at 61 bpm, MD 168, QRS 92, QTc 450, incomplete RBBB 05/28/20 00:17 Dr. Pena asks that we contact Dr. Caro as he has seen the patient before. Call placed to Dr. Caro's office. 05/28/20 01:10 WBC 14.4, Hgb 8.8, Cr 1.4. 05/28/20 01:11 Second call placed to Dr. Caro. Call also placed to cell phone without response. Considering white count and inability to get UA, will cover empirically with ceftriaxone. 05/28/20 01:27 Dr. Caro asks that we attempt the coude, call back at [phone] and report results. 05/28/20 01:46 Coude passed successfully, draining bloody urine. Will send UA, consider abx if infected. 05/28/20 02:45 UA with florid UTI. Will admit for UTI in setting of prior urosepsis. Past History - Medical History Allergies/Adverse Reactions: Allergies Allergy/AdvReac Type Severity Reaction Status Date / Time walnut Allergy Intermediate Swelling Verified 05/27/20 21:25 walnuts Allergy Intermediate Swelling Uncoded 05/27/20 21:25 Home Medications: Ambulatory Orders Nebivolol [Bystolic -] 5 mg PO HS 05/29/18 Pramipexole Di-HCl [Mirapex] 1 mg PO HS 05/29/18 Primidone [Mysoline -] 50 mg PO HS 05/29/18 Silodosin [Rapaflo] 8 mg PO HS 05/29/18 Anemia: No Asthma: No Cancer: No Cardiac Disorders: Yes (s/p MA 2001) CVA: No COPD: No CHF: No Dementia: No Diabetes: No GI Disorders: Yes (BPH) Disorders: No HTN: Yes Hypercholesterolemia: Yes Liver Disease: No Seizures: No Thyroid Disease: No - Surgical History Abdominal Surgery: No Appendectomy: No Cardiac Surgery: No Cholecystectomy: No Lung Surgery: No Neurologic Surgery: No Orthopedic Surgery: Yes (Back surgery x2,Rightr Bicep Tendon Repair) - Immunization History Immunization Up to Date: No - Psycho-Social/Smoking History Smoking History: Unknown if ever smoked Have you smoked in the past 12 months: No If you are a former smoker, when did you quit?: 1974 *Physical Exam - Vital Signs Last Vital Signs Temp Pulse Resp BP Pulse Ox 98.8 F 66 17 112/88 96 05/27/20 21:10 05/27/20 21:10 05/27/20 21:10 05/27/20 21:10 05/27/20 21:10 ED Treatment Course - LABORATORY CBC & Chemistry Diagram: 05/30/20 08:50 05/29/20 09:55 Discharge - Discharge Information Problems reviewed: Yes Clinical Impression/Diagnosis: Urinary retention UTI (urinary tract infection) Qualifiers: Urinary tract infection type: acute cystitis Hematuria presence: with hematuria Qualified Code(s): N30.01 - Acute cystitis with hematuria Condition: Fair - Follow up/Referral - Patient Discharge Instructions - Post Discharge Activity
[2020-05-27] MEDS ORDERED: LIDOCAINE HCL 2% JELLY 10 ML CARTRIDGE UR ONE (23:19)
[2020-05-28 00:06] LABS: BASO % 0.9 % (0-2.0); EOS % 0.8 % (0-4.5); HEMOGLOBIN 8.8 GM/dL (11.7-16.9); LYMPH % 10.5 % (8-40); MCH 26.2 pg (25.7-33.7); MCHC 31.4 g/dl (32.0-35.9); MEAN CELL VOLUME 83.4 fl (80-96); MEAN PLT VOLUME 8.4 fl (7.5-11.1); MONO % 5.1 % (3.8-10.2); NEUT % 82.7 % (42.8-82.8); PLATELET COUNT 461 K/MM3 (134-434); RBC 3.36 M/mm3 (4.00-5.60); RDW 16.2 % (11.9-15.9); WHITE BLOOD COUNT 14.6 K/mm3 (4.0-10.0)
[2020-05-28 00:27] LABS: POTASSIUM 4.8 mmol/L (3.5-5.1)
[2020-05-28 00:28] LABS: CALCIUM 8.6 mg/dL (8.5-10.1)
[2020-05-28 00:29] LABS: ALBUMIN 2.2 g/dl (3.4-5.0); BLOOD UREA NITROGEN 40.4 mg/dL (7-18)
[2020-05-28 00:32] LABS: CREATININE 1.4 mg/dL (0.55-1.3)
[2020-05-28 00:34] LABS: BILIRUBIN,TOTAL 0.4 mg/dL (0.2-1); TOT PROT 6.7 g/dl (6.4-8.2)
[2020-05-28 01:24] LABS: ANISOCYTOSIS 1+; MACROCYTOSIS 1+; PLATELET ESTIMATE NORMAL
[2020-05-28] MEDS ORDERED: CEFTRIAXONE 1,000 MG in DEXTROSE 5%-WATER - 50 ML IVPB ONE ×2 (01:24→03:12)
[2020-05-28] MEDS ORDERED: LIDOCAINE HCL 2% JELLY 10 ML CARTRIDGE UR ONE (01:30)
[2020-05-28 02:52] LABS: URINE COLOR RED
[2020-05-28 02:53] LABS: URINE APPEARANCE TURBID; URINE BILIRUBIN MODERATE (NEGATIVE); URINE GLUCOSE (UA) NEG (NEGATIVE); URINE KETONE NEGATIVE (NEGATIVE)
[2020-05-28 02:54] LABS: URINE NITRITE POSITIVE (NEGATIVE); URINE PROTEIN 100 (NEGATIVE)
[2020-05-28 02:55] LABS: URINE RBC 6759.2 /uL (0-23.9); URINE WBC 14083.8 /uL (0-25.8)
[2020-05-28 02:56] LABS: HYALINE CASTS 680.17 /uL (0-3.1); URINE BACTERIA 7711.9 /uL (0-1359); YEAST NONE SEEN (NEGATIVE)
[2020-05-28 03:00] LABS: URINE LEUK ESTERASE 3+ (NEGATIVE)
[2020-05-28] MEDS ORDERED: LACTATED RINGERS SOLUTION 1,000 ML/1,000 ML INFUS.BAG IV STA (03:39)
--- NOTE | 2020-05-28 04:22 | PN ---
Teaching Attending Note Name of Resident: Matty Collado ATTENDING PHYSICIAN STATEMENT I saw and evaluated the patient. I reviewed the resident's note and discussed the case with the resident. I agree with the resident's findings and plan as documented. SUBJECTIVE: History obtained primiarily from patient's partner who is at bedside. 79yoM with history of BPH and urinary retention with indwelling Booth, untreated CAD, primary progressive aphasia, HTN, RLS, and essential tremors who presents due to suprapubic and penile pain and poor drainage from the Booth x1 day. Patient underwent urethral dilatation on Mar 10 and has had an indwelling Booth since then, complicated by multiple UTIs and sepsis. He noticed some blood draining from the catheter today with slow urine output and progressive suprapubic discomfort. He pulled on the Booth which led to a stop in the urinary output. History from patient is limited by his aphasia but he denies fever, chills, nausea, vomiting, diarrhea. Has had a cough for several days but no shortness of breath. Afebrile and hemodynamically stable in the ED. Bladder scan showed urinary retention despite Booth, which was removed and found to have a clot at the tip. ED discussed with urology, Dr. Caro, who recommended placement of Coude catheter. Patient drained bloody urine from the catheter. Labs notable for WBC 14.6, Hgb 8.8, creatinine 1.4. CXR shows some pulmonary vascular congestion by my read. Patient received ceftriaxone and is admitted for further management. OBJECTIVE: Vital Signs - 24 hr 05/27/20 21:10 Temperature 98.8 F Pulse Rate 66 Respiratory 17 Rate Blood Pressure 112/88 O2 Sat by Pulse 96 Oximetry (%) EXAM Gen: awake, alert, NAD. Generalized pallor HEENT: NC/AT. Anicteric sclera CV: RRR, 1/6 systolic murmur best heard at left sternal border Resp: crackles bilateral bases Abd: Soft, NT, ND. +BS throughout Ext: 1+ edema bilateral ankles Neuro: CN II-XII grossly intact. Moving all extremities Psych: AOx3, has word finding difficulty but understands Laboratory Results - last 24 hr 05/27/20 05/27/20 05/28/20 23:53 23:53 02:00 WBC 14.6 H RBC 3.36 L Hgb 8.8 L Hct 28.0 L D MCV 83.4 MCH 26.2 D MCHC 31.4 L RDW 16.2 H Plt Count 461 H D MPV 8.4 Absolute Neuts (auto) 12.1 H Neutrophils % 82.7 Neutrophils % (Manual) 79.2 Band Neutrophils % 0.0 Lymphocytes % 10.5 D Lymphocytes % (Manual) 16.8 Monocytes % 5.1 Monocytes % (Manual) 4 Eosinophils % 0.8 Eosinophils % (Manual) 0.0 Basophils % 0.9 Basophils % (Manual) 0.0 Myelocytes % (Man) 0 Promyelocytes % (Man) 0 Blast Cells % (Manual) 0 Nucleated RBC % 0 Metamyelocytes 0 Hypochromia 0 Platelet Estimate Normal Platelet Comment Present Polychromasia 2+ Poikilocytosis 0 Anisocytosis 1+ Microcytosis 1+ Macrocytosis 1+ Sodium 143 Potassium 4.8 Chloride 110 H Carbon Dioxide 27 Anion Gap 5 L BUN 40.4 H Creatinine 1.4 H Est GFR (CKD-EPI)AfAm 55.38 Est GFR (CKD-EPI)NonAf 47.78 Random Glucose 107 H Calcium 8.6 Total Bilirubin 0.4 AST 57 H ALT 100 H Alkaline Phosphatase 77 Total Protein 6.7 Albumin 2.2 L Urine Color Red Urine Appearance Turbid Urine pH 5.0 Ur Specific Crawford 1.017 Urine Protein 100 Urine Glucose (UA) Neg Urine Ketones Negative Urine Blood 2+ H Urine Nitrite Positive H Urine Bilirubin Moderate Urine Urobilinogen 1.0 Ur Leukocyte Esterase 3+ H Urine WBC (Auto) 53882.8 Urine RBC (Auto) 6759.2 Urine Casts (Auto) 680.17 U Pathogenic Cast Auto None seen U Epithel Cells (Auto) 24.0 Urine Bacteria (Auto) 7711.9 Urine Yeast (Auto) None seen Imaging, EKG reviewed in chart ASSESSMENT AND PLAN: 79yoM with history of BPH and urinary retention with indwelling Booth, untreated CAD, primary progressive aphasia, HTN, RLS, and essential tremors who presents due to suprapubic and penile pain and poor drainage from the Booth x1 day. CAUTI, present on admission With leukocytosis, otherwise does not meet sepsis criteria UA grossly infected, in setting of hematuria and Booth malfunction Booth changed to Coude in ED - continue empiric ceftriaxone - f/u urine culture Hematuria, anemia Catheter draining red tinged urine Hgb 8.8, previously around 10 in 2019 - urology consult - type/screen - rpt H/H in AM - goal hgb 8 given reported severe CAD - check coags SURESH Creatinine 1.4 from 0.9 a year ago In setting of urinary retention as above May have prerenal component as well - monitor I/O - f/u renal US - trend renal function h/o untreated CAD; ?CHF Reports patient had cardiac MRI in March showing severe triple vessel disease No intervention done as yet given his recent admissions with sepsis No current cardiac symptoms but on exam appears mildly hypervolemic despite anemia/SURESH Investment Accountant: Dr. Zoran Maria - obtain outpatient cardiology records - patient/partner unsure of his medications; please reconcile with his pharmacy Essential tremor: continue primidone HTN: hold nebivolol for now in setting of bleed RLS: continue pramipexole DVT ppx: SCD
--- OUTSIDE RECORDS SUMMARY | 2020-05-28 04:49 | XMS ---
:1940 Author Organization [facility] Care Team Providers Name Role Phone Shu Thompson MD Unavailable Unavailable ED STAFF PHYSICIAN, STAFF Unavailable Unavailable Leatha Neil MD Unavailable Unavailable Samuel Neil MD [...] is protected by Article 27-F of the [facility] Public Health law. If you continue you may haveaccess to information: Regarding HIV / AIDS; Provided by facilities licensed or operated by the [facility] Office of Mental Health; or Provided by the [facility] Office for People With Developmental Disabilities. If such information is present, then the following [facility] mandated warning applies: This information has been [...] law may result in a fine or longterm sentence or both. A general authorization for the release of medical or other information is NOT sufficient authorization for further disclosure. 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 Observation Data Description Source(s ) Resuscitation [facility] Resuscitatio n [facility] Geriatric ([facility] [place]) Allergies and Adverse Reactions Type Description Substance Reaction Status Data Source(s ) Food allergy walnut walnut NOT LISTED [facility] Drug allergy No Known Allergies No Known NO KNOWN ALLERG [place] Allergies [facility] 9 N/A N/A [facility] ([facility] F or Aged [place]) Encounters Encounter Providers Location Date Indications Data Source(s ) Emergency Attender: Shu 05/16/2020 BLEED FROM THE [place] Donna HERNÁNDEZ 04:44:00 AM [facility] Hospit [facility] EDT - 05/16/2020 06:57:00 AM EDT BLEED FROM THE [facility]- [facility] Patient discharged. Inpatient Attender: MD Batista ICU-5J 04/05/2020 A41.9 Sepsis [facility] - Messi Nunez: 07:34:00 AM EDT - Dania HoganAttender: 04/16/2020 H ospital Leatha Neil MDAttender: 12:05:00 PM EDT Doctor OtherAdmitter: MD Yanely Hogan A41.9 Sepsis Patient discharged. Inpatient Attender: [place]ley 4 [place]-4 [place] 03/28/2020 01:30:00 [facility] ([facility] PM EDT - 04/05/2020 [facility] 07:30:00 AM EDT [place]) Patient discharged. Inpatient Attender: Michael Rutherford-HAL6 03/13/2020 04:42:00 [facility] HerbereghAttender: [place] PM EDT - 03/19/2020 [facility] Nguyen MDAttender: STAFF ED 10:00:00 AM EDT STAFF PHYSICIANAdmitter: Michael Landerserrer: Michael Espinozah Patient discharged. Immunizations Vaccine Date Status Description Data Source(s) pneumococcal 03/18/2020 completed [facility] edical polysaccharide PPV23 10:29:00 PM EDT Cent er Medications Medication Brand Start Product Dose Route [facility] Indications Reaction Description Data Name Date Form Instructions Instructions Source(s) cefpodoxime Cefpod 05/16/ TABLET 200 ORAL active White 200 MG Oral oxime 2020 mg [place] Tablet Proxet 06:18: Hospital Cefpodoxime il 00 AM Proxetil EDT Vitamin 874804 04/02/ complet Vitamin B- 12 [facility] B-12 15541 2019 ed 1,000 mcg ([facility] (cyanocobal 08:48: tablet Home For [facility] 43 AM Aged (vitamin EDT ) b-12)) 1,000 mcg tablet Vitamin C 862882 04/02/ complet Vitamin C [facility] (ascorbic 01297 2019 ed 500 mg ([facility] acid 08:48: tablet Home For (vitamin 15 AM Aged c)) 500 mg EDT ) tablet ferrous ferrou 04/02/ complet ferrous SI [facility] sulfate 325 s 2020 ed sulfate 325 ( [facility] mg (65 mg sulfat 08:47: mg (65 mg H ome For iron) e 325 18 AM iron) tablet Aged tablet MG EDT ) Oral Tablet hydrocortis 834718 03/28/ complet hydroc ortiso [facility] one 1 % 51695 2019 ed ne 1 % ([facility] topical 12:56: topical Home Fo r cream 35 PM cream Aged EDT [place]) pramipexole 757272 03/28/ complet pramip exole [facility] 1 mg tablet 516122019 ed 1 mg tablet ([facility] 12:27: Home For 43 PM Aged EDT [place]) primidone 663341 complet primidon e 50 [facility] 50 mg 61183 2019 ed mg tablet ([facility] tablet 12:27: Home For 43 PM Aged EDT [place]) atorvastati 639903 complet atorva statin [facility] n 80 mg 07276 2019 ed 80 mg tablet (Un ited tablet 12:27: Home For 43 PM Aged EDT [place]) silodosin 8 916884 complet silodo sin 8 [facility] mg capsule 14097 2019 ed mg capsule (U nited 12:27: Home For 43 PM Aged EDT [place]) pantoprazol pantop complet pantop razole [facility] e 40 mg [...] [facility] Coated n 81 2019 ed Coated ([facility] Asp[facility]in MG 10:48: Aspirin 81 Home For (aspirin) [place] 59 AM mg Aged 81 mg d EDT tablet,delay Ukrainian s) tablet,mine Releas ed release yed release e Oral Tablet acetaminoph 414694 complet acetam inophe [facility] en 325 mg 01420 2019 ed n 325 mg (Unit ed tablet 10:48: tablet Home For 59 AM Aged EDT [place]) Insurance Providers Payer name Policy type / Policy ID Covered Covered libertarian's Policy Plan Coverage type libertarian ID relationship to Jc Information jc [place] [id number] SP [id number] HEALTHCARE (MEDICARE) M [id number] 01 [id number] [facility] [id number] 01 [id number] HEALTHCARE MCARE [place] [id number] PT [id number] HEALTHCARE MCR Medicare TERA Medicare [id number] 1 [id number] AARP Medicare Commercial [id number] Complete HMO UHC Indemnity HMO Unknown Unknow n Medicaid Medicaid [id number] 1 [id number] Golden Commercial [id number] 1 [id number] Healthcare PPO Medicare Part Medicare [id number] 1 [id number] Outpatient UHC Indemnity HMO Unknown Unknow n UHC Indemnity 8 Unknown Unknow n UNITED [id number] 01 [id number] HEALTHCARE MCARE OPD W [id number] 01 [id number] M [id number] 01 [id number] [place] [id number] SP [id number] HEALTHCARE (MEDICARE) [facility] [id number] SP [id number] CARE OPTIONS MEDICARE [id number] SP [id number] Medicare [facility] Medicare Part [id number] self [id number] Secure B [facility] Problems, Conditions, and Diagnoses Code Display Name Description Problem Type Effective Data Sour ce(s) Dates A41.9 Severe sepsis Severe sepsis 15426-4 04/05/2020 [place] 12:00:00 AM Health System EDT A41.9 Sepsis Sepsis 44904-2 04/05/[facility] 09[facility] System EDT Z79.82 intermediate (current) Z79.82 Diagnosis 05/16/2020 Maya Butler use of aspirin 05:32:00 AM Hospital EDT N40.0 Benign prostatic N40.0 Diagnosis 05/16/2020 Maya Brandt ains hyperplasia without 05:32:00 AM Hosp ital lower urinary tract EDT symptoms G20 Parkinson's disease G20 Diagnosis 05/16/2020 [place] 05:32:00 AM Hospital EDT F02.80 Dementia in other F02.80 Diagnosis 05/16/2020 Maya Carrizales lains diseases classified 05:32:00 AM Hosp ital elsewhere without EDT behavioral disturbance B96.4 Proteus (mirabilis) B96.4 Diagnosis 05/16/2020 Maya Butler (morganii) as the 05:32:00 AM Hospit al cause of diseases EDT classified elsewhere N39.0 Urinary tract N39.0 Diagnosis 05/16/2020 [place] infection, site not 05:32:00 AM Hosp ital specified EDT R31.9 Hematuria, R31.9 Diagnosis 05/16/2020 [place] unspecified 05:32:00 AM Hospital EDT A41.9 Sepsis A41.9 Sepsis Diagnosis 04/05/2020 S - New 09:21:00 AM [facility] SEPSIS/ [facility] SEPSIS/ [facility] Diagnosis 04/05/2020 S - New 07:34:00 AM [facility] A41.9 Sepsis, unspecified Severe sepsis Diagnosis 04/05/2020 S - New organism 12:00:00 AM [facility] D51.9 Vitamin B12 Vitamin B12 Diagnosis 04/02/2020 [facility] deficiency anemia, deficiency anemia, 12:00:00 AM ([facility] D50.9 Iron deficiency Iron deficiency Diagnosis 04/02/2020 [facility] AC[facility] anemia, unspecified anemia, 12:00:00 AM ([facility] unspecified [facility]T [facility] D51.8 Other vitamin B12 Other vitamin B12 Diagnosis 04/02/2020 [facility] deficiency anemias deficiency anemias 12:00:00 AM ([facility] EDT [facility]) R33.9 Retention of urine, Retention of Diagnosis 03/29/2020 [facility] unspecified urine, unspecified 12:00:00 AM ([facility]T [facility]) G25.0 Essential tremor Essential tremor Diagnosis 03/28/2020 SI [facility] 12:00:00 AM ([facility] EDT For [facility] [place]) N40.1 Benign prostatic Benign prostatic Diagnosis 03/28/2020 SI [facility] hyperplasia with hyperplasia with 12:00:00 AM ( [facility] lower urinary tract lower urinary EDT Fo r [facility] symptoms tract symp [facility]) G25.81 Restless legs Restless legs Diagnosis 03/28/2020 [facility] E syndrome syndrome 12:00:00 AM ([facility] EDT For [facility] [place]) G20 Parkinson's disease Parkinson's Diagnosis 03/28/2020 [facility] disease 12:00:00 AM ([facility] EDT For [facility] [place]) K21.9 Gastro-esophageal Gastro-esophageal Diagnosis 03/28/2020 [facility] reflux [...] 03/28/2020 [facility] postprocedural pain postprocedural 12:00:00 AM ([facility] pain EDT For Aged [place]) G89.11 Acute pain due to Acute pain due to Diagnosis 03/28/2020 [facility] trauma trauma 12:00:00 AM ([facility] EDT For Aged [place]) R21 Rash and other Rash and other Diagnosis 03/28/2020 [facility] nonspecific skin nonspecific skin 12:00:00 AM ( [facility] eruption eruption EDT For Aged [place]) M62.81 Muscle weakness Muscle weakness Diagnosis 03/28/2020 [facility] (generalized) (generalized) 12:00:00 AM ([facility] EDT For Aged [place]) R26.2 Difficulty in Difficulty in Diagnosis 03/28/2020 [facility] E walking, not walking, not 12:00:00 AM ([facility] ome elsewhere elsewhere EDT For Aged classified classified [place]) E78.5 Hyperlipidemia, Hyperlipidemia, Diagnosis 03/28/2020 [facility] unspecified unspecified 12:00:00 AM ([facility] e EDT For Aged brews) I10 Essential (primary) Essential Diagnosis 03/28/2020 [facility]MA CARE hypertension (primary) 12:00:00 AM ([facility] e hypertension EDT For Aged [place]) Z95.5 Presence of Presence of Diagnosis 03/28/2020 [facility] coronary coronary 12:00:00 AM ([facility] angioplasty implant angioplasty EDT For Aged and graft implant and graft [place] ) R47.1 Dysarthria and Dysarthria and Diagnosis 03/28/2020 [facility] anarthria anarthria 12:00:00 AM ([facility] EDT For Aged [place]) R47.01 Aphasia Aphasia Diagnosis 03/28/2020 [facility] 12:00:00 AM ([facility] EDT For Aged [place]) Z96.0 Presence of Presence of Diagnosis 03/28/2020 [facility] urogenital implants urogenital 12:00:00 AM ([facility] implants EDT For Aged [place]) N17.9 Acute kidney Acute kidney Diagnosis 03/28/2020 [facility] failure, failure, 12:00:00 AM ([facility] unspecified unspecified EDT For Aged [place]) Y92.[address]sp place in unsp Diagnosis 03/28/2020 [facility] in unspecified non-institut 12:00:00 AM ([facility] non-institutional (private) EDT For Age d (private) residence residence as place [place]) as the place of occurrence of the external cause W19.XXXD Unspecified fall, Unspecified fall, Diagnosis 03/28/2020 [facility] subsequent subsequent 12:00:00 AM ([facility] encounter encounter EDT For Aged [place]) 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 Diagnosis 03/28/2020 SIG[facility]A RE heart disease of disease of [place] 12:00:00 AM ([facility] [place] coronary coronary artery EDT For Aged artery without w/o ang pctrs [place] ) angina pectoris I21.29 ST elevation STEMI involving Diagnosis 03/28/2020 [facility]A RE (STEMI) myocardial oth sites 12:00:00 AM ([facility] infarction EDT For Aged involving other [place]) sites Z48.812 Encounter for Encntr for Diagnosis 03/28/2020 [facility] surgical aftercare surgical aftcr 12:00:00 AM ( [facility] following surgery following surgery EDT For Aged on the circulatory on the circ sys H ebselmas) system D72.829 Elevated white ELEVATED WHITE Diagnosis 03/19/2020 [place] blood cell count, BLOOD CELL COUNT, 10:00:00 AM Medical Center unspecified UNSPECIFIED EDT R00.1 Bradycardia, BRADYCARDIA, Diagnosis 03/19/2020 [facility] unspecified UNSPECIFIED 10:00:[address] EDT F03.90 Unspecified UNSPECIFIED Diagnosis 03/19/2020 [place] [facility] dementia without DEMENTIA WITHOUT 10:00:00 [facility] EDT disturbance DISTURBANCE R33.8 Other retention of OTHER RETENTION OF Diagnosis 0 [place] urine URINE 10:00:00 AM Medical Cente r EDT N40.1 Benign prostatic BENIGN PROSTATIC Diagnosis 03/19/2020 [facility] [place] hyperplasia with HYPERPLASIA WITH 10:00:00 AM [facility] lower urinary tract LOWER URINARY EDT symptoms TRACT SYMP G25.81 Restless legs RESTLESS LEGS Diagnosis 03/19/2020 [facility] syndrome SYNDROME 10:00:00 AM Medical Cente r EDT I25.10 Atherosclerotic ATHSCL HEART Diagnosis 03/19/2020 [facility] heart disease of DISEASE OF [place] 10:00:00 AM [facility] [place] coronary CORONARY ARTERY EDT artery without W/O ANG PCTRS angina pectoris I10 Essential (primary) ESSENTIAL Diagnosis 03/19/2020 [place] hypertension (PRIMARY) 10:00:[address] HYPERTENSION EDT R47.01 Aphasia APHASIA Diagnosis 03/19/2020 [facility] [place] 10:00:00 AM Medical Cente r EDT N17.9 Acute kidney ACUTE KIDNEY Diagnosis 03/19/2020 [facility] failure, FAILURE, 10:00:00 AM Medical Christophe r unspecified UNSPECIFIED EDT I21.4 Non-ST elevation NON-ST ELEVATION Diagnosis 03/19/2020 [facility] (NSTEMI) myocardial (NSTEMI) 10:00:00 AM [facility] infarction MYOCARDIAL EDT INFARCTION Z91.81 History of falling HISTORY OF FALLING Diagnosis 0 [facility] [place] 10:00:00 AM Medical Cente r EDT Z95.5 Presence of PRESENCE OF Diagnosis 03/19/2020 [facility] [place] coronary CORONARY 10:00:00 AM Medical Christ[facility] r angioplasty implant ANGIOPLASTY EDT and graft IMPLANT AND GRAFT R79.89 Other specified OTHER SPECIFIED Diagnosis 03/13/2020 [facility] [place] abnormal findings ABNORMAL FINDINGS 04:42:[address] [facility] of blood chemistry OF BLOOD CHEMISTRY EDT Surgeries/Procedures Procedure Description Date Indications Data Source(s) XR Cervical Spine Complete XR 04/12/2020 [facility] Cervical Spine Complete 01:58:00 PM Syst em EDT - 04/12/2020 01:58:00 PM EDT Electrocardiographic 04/08/2020 [facility] procedure (procedure) 01:20:00 PM System EDT - 04/08/2020 01:50:00 PM EDT Electrocardiographic 04/08/2020 [facility] procedure (procedure) 07:30:00 AM System EDT - 04/08/2020 09:37:00 AM EDT Echocardiography, real-time 04/07/2020 [facility] with image documentation with 08:14:00 AM System M-mode recording, complete EDT - (procedure) 04/09/2020 03:27:00 PM EDT Aerobic Culture, Urine 04/05/2020 [facility] 09:34:00 PM System EDT - 04/05/2020 09:36:00 PM EDT Electrocardiographic 04/05/2020 [facility] procedure (procedure) 07:11:08 PM System EDT - 04/05/2020 07:27:00 PM EDT Standard chest X-ray 04/05/2020 [facility] (procedure) 05:19:00 PM System EDT - 04/05/2020 05:19:00 PM EDT Electrocardiographic 04/05/2020 [facility] procedure (procedure) 05:08:31 PM System EDT - 04/05/2020 05:27:00 PM EDT XR [facility] 11:39:00 AM System EDT - 04/05/2020 11:39:00 AM EDT US Renal US Renal 04/05/2020 [facility] 10:22:00 AM System EDT - 04/05/2020 10:22:00 AM EDT Electrocardiographic 04/05/2020 [facility] procedure (procedure) 07:58:47 AM System EDT - 04/05/2020 10:17:00 AM EDT Results ID Date Data Source [id number] 05/16/2020 05:23:00 AM EDT [facility] Name Value Range Interpretation Code Description Data Ana rce(s) Supporting Document(s ) Lipase 43 U/L [place] [Enzymatic Hospital activity/vo lume] in Serum or Plasma ID Date Data Source [id number] 05/16/2020 05:23:00 AM EDT [facility] Name Value Range Interpretation Description Data Sup porting Code Source(s) Document(s ) Aspartate 17 U/L [place] aminotransferase [place] [Enzymatic Hospital activity/volume] in Serum or Plasma ID Date Data Source [id number] 05/16/2020 05:23:00 AM EDT [facility] Name Value Range Interpretation Description Data Sup porting Code Source(s) Document(s ) Alanine 27 U/L [facility] [Enzymatic Hospital activity/volume] in Serum or Plasma ID Date Data Source [id number] 05/16/2020 05:23:00 AM EDT [facility] Name Value Range Interpretation Description Data Sup porting Code Source(s) Document(s ) Alkaline 70 U/L [place] phosphatase Hospital [Enzymatic activity/volume ] in Serum or Plasma ID Date Data Source [id number] 05/16/2020 05:23[facility] Name Value Range Interpretation Description Data Sup porting Code Source(s) Document(s ) Bilirubin.t 0.3 mg/dL [facility] [Mass/volum e] in Serum or Plasma ID Date Data Source [id number] 05/16/2020 05:23:00 AM [facility] Name Value Range Interpretation Code Description Data Ana rce(s) Supporting Document(s ) Albumin/Glob 1.5 [facility] [Mass Hospital Ratio] in Serum or Plasma ID Date Data Source [id number] 05/16/2020 05:23:00 [facility] Name Value Range Interpretation Description Data Sup porting Code Source(s) Document(s ) Albumin 3.7 g/dL [place] [Mass/volume Hospital ] in Serum or Plasma ID Date Data Source [id number] 05/16/2020 05:23:00 [facility] Name Value Range Interpretation Description Data Sup porting Code Source(s) Document(s ) Protein 6.1 g/dL [place] [Mass/volume Hospital ] in Serum or Plasma ID Date Data Source [id number] 05/16/2020 05:23:00 AM EDT [facility] Name Value Range Interpretation Description Data Sup porting Code Source(s) Document(s ) Calcium 8.5 mg/dL [place] [Mass/volume Hospital ] in Serum or Plasma ID Date Data Source [id number] 05/16/2020 05:23:00 AM EDT [facility] Name Value Range Interpretation Code Description Data Ana rce(s) Supporting Document(s ) Urea 40.0 [place] nitrogen/Cre Hospital atinine [Mass Ratio] in Serum or Plasma ID Date Data Source [id number] 05/16/2020 05:23:00 AM EDT [facility] Value Range Interpretation Description Data Sup porting Code Source(s) Document(s ) Creatinine 1.0 mg/dL [place] [Mass/volume] Hospital in Serum or Plasma ID Date Data Source [id number] 05/16/2020 05:23:00 AM EDT [facility] Name Value Range Interpretation Description Data Sup porting Code Source(s) Document(s ) Urea 40 mg/dL [place] nitrogen Hospital [Mass/volume ] in Serum or Plasma ID Date Data Source [id number] 05/16/2020 05:23:00 AM EDT [facility] Value Range Interpretation Code Description Data Ana rce(s) Supporting Document(s ) Anion gap in 13 [place] Serum or [facility] Plasma ID Date Data Source [id number] 05/16/2020 05:23:00 AM EDT [facility] Name Value Range Interpretation Description Data Sup porting Code Source(s) Document(s ) Carbon 28 mmol/L [place] dioxide, Hospital total [Moles/volu me] in Serum or Plasma ID Date Data Source [id number] 05/16/2020 05:23:00 AM EDT [facility] Name Value Range Interpretation Description Data Sup porting Code Source(s) Document(s ) Chloride 104 [place] [Moles/volum mmol/L Hospital e] in Serum or Plasma ID Date Data Source [id number] 05/16/2020 05:23:00 AM EDT [facility] Name Value Range Interpretation Description Data Sup porting Code Source(s) Document(s ) Potassium 4.6 [place] [Moles/volume mmol/L Hospital ] in Serum or Plasma ID Date Data Source [id number] 05/16/2020 05:23:00 AM EDT [facility] Value Range Interpretation Description Data Sup porting Code Source(s) Document(s ) Sodium 140 mmol/L [place] [Moles/volu Hospital me] in Serum or Plasma ID Date Data Source [id number] 05/16/2020 05:23:00 AM EDT [facility] Value Range Interpretation Description Data Sup porting Code Source(s) Document(s ) Glucose 96 mg/dL [place] [Mass/volume Hospital ] in Serum or Plasma ID Date Data Source [id number] 05/16/2020 05:23:00 AM EDT [facility] Value Range Interpretation Description Data Sup porting Code Source(s) Document(s ) Erythrocytes >100 [place] [#/area] in /[HPF] Hospital Urine sediment by Microscopy high power field ID Date Data Source [id number] 05/16/2020 05:23:00 AM EDT [facility] Value Range Interpretation Description Data Sup porting Code Source(s) Document(s ) Leukocytes 60-100 [place] [#/area] in /[HPF] Hospital Urine sediment by Microscopy high power field ID Date Data Source [id number] 05/16/2020 05:23:00 AM EDT [facility] Name Value Range Interpretation Code Description Data Supporting Source(s) Document(s ) Leukocyte 3+ [facility] esterase Hospital [Presence] in Urine by Test strip ID Date Data Source [id number] 05/16/2020 05:23:00 AM EDT [facility] Name Value Range Interpretation Description Data Sup porting Code Source(s) Document(s ) URINE POSITIVE [facility] NITRITES Hospital ID Date Data Source [id number] 05/16/2020 05:23:00 AM EDT [facility] Name Value Range Interpretation Description Data Sup porting Code Source(s) Document(s ) Erythrocytes 3+ [place] [#/volume] in Hospital Urine by Test strip ID Date Data Source [id number] 05/16/2020 05:23:00 AM EDT [facility] In addition to bilirubin, a positive res ult may be caused by metabolites of certain medications and by atypically colored ur ine samples. If clinically indicated, correlate positive results with serum li lázaro function tests. Name Value Range Interpretation Code Description Data Ana rce(s) Supporting Document(s ) Bilirubin. POSITIVE [facility] total Hospital [Presence] in Urine by Test strip ID Date Data Source [id number] 05/16/2020 05:23:00 AM EDT [facility] Name Value Range Interpretation Description Data Sup porting Code Source(s) Document(s ) Urobilinogen 0.2 [facility] [Units/volume] mg/dL Hospital in Urine by Test strip ID Date Data Source [id number] 05/16/2020 05:23:00 AM EDT [facility] Name Value Range Interpretation Description Data Sup porting Code Source(s) Document(s ) Ketones NEGATIVE [facility] [Mass/volume Hospital ] in Urine by Test strip ID Date Data Source [id number] 05/16/2020 05:23:00 AM EDT [facility] Name Value Range Interpretation Description Data Sup porting Code Source(s) Document(s ) Glucose NEGATIVE [place] [Mass/volume Hospital ] in Urine by Test strip ID Date Data Source [id number] 05/16/2020 05:23:00 AM EDT [facility] Name Value Range Interpretation Code Description Data Ana rce(s) Supporting Document(s ) Protein 2+ [facility] [Presence] Hospital in Urine by Test strip ID Date Data Source [id number] 05/16/2020 05:23[facility] Name Value Range Interpretation Code Description Data Ana rce(s) Supporting Document(s ) pH of Urine 7.5 [facility] by Test Hospital strip ID Date Data Source [id number] 05/16/2020 05:23:00 [facility] Name Value Range Interpretation Code Description Data Supporting Source(s) Document(s ) Specific 1.025 [facility] gravity of Hospital Urine by Test strip ID Date Data Source [id number] 05/16/2020 05:23:00 [facility] Name Value Range Interpretation Description Data Sup porting Code Source(s) Document(s ) Clarity in Urine CLOUDY [facility] by Refractometry Hospital automated ID Date Data Source [id number] 05/16/2020 05:23:00 [facility] Name Value Range Interpretation Code Description Data Ana rce(s) Supporting Document(s ) Color of RED [facility] Urine Hospital ID Date Data Source [id number] 05/16/2020 05:23:00 AM [facility] THERAPEUTIC RANGES:UNFRACTIONATED HEPARI N THERAPY: 60-90 SECONDSARGATROBAN THERAPY: 49-99 SECONDS Name Value Range Interpretation Description Data Sup porting Code Source(s) Document(s ) aPTT in 34.1 s [facility] Platelet poor Hospital plasma by Coagulation assay ID Date Data Source [id number] 05/16/2020 05:23:00 AM [facility] THERAPEUTIC RANGE FOR STANDARD ORALANTIC OAGULANT THERAPY: 2.0-3.0THERAPEUTIC RANGE FOR HIGH DOSE ORALANTICOAGULANT THERAPY (MECHANICAL HEARTVALVE REPLACEMENT): 2.5-3.5 Name Value Range Interpretation Description Data Sup porting Code Source(s) Document(s ) INR in Platelet 1.2 [facility] poor plasma by Hospital Coagulation assay ID Date Data Source [id number] 05/16/2020 05:23:00 [facility] Name Value Range Interpretation Description Data Sup porting Code Source(s) Document(s ) PT panel - 13.5 s [facility] Platelet poor [facility] plasma by Coagulation assay ID Date Data Source [id number] 05/16/2020 05:23:00 AM [facility] Name Value Range Interpretation Code Description Data Supporting Source(s) Document(s ) NUCLEATED RBCS 0.0 % [facility] (AUTO Hospital DIFF%)DIS ID Date Data Source [id number] 05/16/2020 05:23:00 AM [facility] Value Range Interpretation Description Data Sup porting Code Source(s) Document(s ) Differential AUTOMATED [facility] cell count Hospital method - Blood ID Date Data Source [id number] 05/16/2020 05:23:00 [facility] Name Value Range Interpretation Description Data Sup porting Code Source(s) Document(s ) Immature 0.04 [facility] granulocytes 10*3/uL Hospital [#/volume] in Blood by Automated count ID Date Data Source [id number] 05/16/2020 [facility]:23[facility] Interpretation Description Data Sup porting Code Source(s) Document(s ) Basophils 0.05 [facility] [#/volume] in 10*3/uL Hospital Blood by Automated count ID Date Data Source [id number] 05/16/2020 05:23:00 AM EDT [facility] Value Range Interpretation Description Data Sup porting Code Source(s) Document(s ) Eosinophils 0.68 [facility] [#/volume] in 10*3/uL Hospital Blood by Automated count ID Date Data Source [id number] 05/16/2020 05:23:00 AM EDT [facility] Value Range Interpretation Description Data Sup porting Code Source(s) Document(s ) Monocytes 0.85 [facility] [#/volume] in 10*3/uL Hospital Blood by Automated count ID Date Data Source [id number] 05/16/2020 05:23:00 AM EDT [facility] Value Range Interpretation Description Data Sup porting Code Source(s) Document(s ) Lymphocytes 3.02 [facility] [#/volume] in 10*3/uL Hospital Blood by Automated count ID Date Data Source [id number] 05/16/2020 05:23:00 AM EDT [facility] Value Range Interpretation Description Data Sup porting Code Source(s) Document(s ) Neutrophils 9.33 [facility] [#/volume] in 10*3/uL Hospital Blood by Automated count ID Date Data Source [id number] 05/16/2020 05:23:00 AM EDT [facility] Value Range Interpretation Description Data Sup porting Code Source(s) Document(s ) Nucleated 0.0 % [facility] erythrocytes/10 Hospital 0 leukocytes [Ratio] in Blood by Automated count ID Date Data Source [id number] 05/16/2020 05:23:00 AM EDT [facility] Value Range Interpretation Description Data Sup porting Code Source(s) Document(s ) Immature 0.3 % [facility] granulocytes/10 Hospital 0 leukocytes in Blood by Automated count ID Date Data Source [id number] 05/16/2020 05:23:00 AM EDT [facility] Name Value Range Interpretation Description Data Sup porting Code Source(s) Document(s ) Basophils/100 0.4 % [facility] leukocytes in Hospital Blood by Automated count ID Date Data Source [id number] 05/16/2020 05:23:00 AM EDT [facility] Name Value Range Interpretation Description Data Sup porting Code Source(s) Document(s ) Eosinophils/100 4.9 % [facility] leukocytes in Hospital Blood by Automated count ID Date Data Source [id number] 05/16/2020 05:23:00 AM EDT [facility] Value Range Interpretation Description Data Sup porting Code Source(s) Document(s ) Monocytes/100 6.1 % [facility] leukocytes in Hospital Blood by Automated count ID Date Data Source [id number] 05/16/2020 05:23:00 AM EDT [facility] Value Range Interpretation Description Data Sup porting Code Source(s) Document(s ) Lymphocytes/10 21.6 % [facility] 0 leukocytes Hospital in Blood by Automated count ID Date Data Source [id number] 05/16/2020 05:23:00 AM EDT [facility] Value Range Interpretation Description Data Sup porting Code Source(s) Document(s ) Neutrophils/10 66.7 % [facility] 0 leukocytes Hospital in Blood by Automated count ID Date Data Source [id number] 05/16/2020 05:23:00 AM EDT [facility] Name Value Range Interpretation Description Data Sup porting Code Source(s) Document(s ) Platelet mean 11.5 fL [facility] volume Hospital [Entitic volume] in Blood by Automated count ID Date Data Source [id number] 05/16/2020 05:23:00 AM EDT [facility] Value Range Interpretation Description Data Sup porting Code Source(s) Document(s ) Platelets 418 [facility] [#/volume] in 10*3/uL Hospital Blood by Automated count ID Date Data Source [id number] 05/16/2020 05:23:00 AM EDT [facility] Value Range Interpretation Description Data Sup porting Code Source(s) Document(s ) Erythrocyte 14.1 % [facility] distribution Hospital width [Ratio] by Automated count ID Date Data Source [id number] 05/16/2020 05:23:00 AM EDT [facility] Value Range Interpretation Description Data Sup porting Code Source(s) Document(s ) Erythrocyte mean 31.9 [facility] corpuscular g/dL Hospital hemoglobin concentration [Mass/volume] by Automated count ID Date Data Source [id number] 05/16/2020 05:23:[facility] Value Range Interpretation Description Data Sup porting Code Source(s) Document(s ) Erythrocyte 27.6 pg [facility] corpuscular hemoglobin [Entitic mass] by Automated count ID Date Data Source [id number] 05/16/2020 05:23:00 AM [facility] Value Range Interpretation Description Data Sup porting Code Source(s) Document(s ) Erythrocyte 86.4 fL [facility] corpuscular volume [Entitic volume] by Automated count ID Date Data Source [id number] 05/16/2020 05:23:00 AM [facility] Value Range Interpretation Description Data Sup porting Code Source(s) Document(s ) Hematocrit 32.9 % [facility] [Volume Hospital Fraction] of Blood by Automated count ID Date Data Source [id number] 05/16/2020 05:23:00 AM EDT [facility] Name Value Range Interpretation Description Data Sup porting Code Source(s) Document(s ) Hemoglobin 10.5 g/dL [facility] [Mass/volume] Hospital in Blood ID Date Data Source [id number] 05/16/2020 05:23:00 AM EDT [facility] Name Value Range Interpretation Description Data Sup porting Code Source(s) Document(s ) Erythrocytes 3.81 [facility] [#/volume] in 10*6/uL Hospital Blood by Automated count ID Date Data Source [id number] 05/16/2020 05:23:00 AM EDT [facility] Name Value Range Interpretation Description Data Sup porting Code Source(s) Document(s ) Leukocytes 14.0 [facility] [#/volume] in 10*3/uL Hospital Blood by Automated count ID Date Data Source [id number] 04/22/2020 01:18:14 PM EDT [facility] [...] Isolate by Agglutination ColonyCount ONE SET FOR [place] Count [facility] IDENTIFICATION Health AND SENSITIVITY System REFER TO #[id number] ColonyCount ONE SET FOR [place] Count [facility] IDENTIFICATION [facility] AND SENSITIVITY System REFER TO #[id number] ID Date Data Source [id number] 04/22/2020 01:18:14 PM EDT [facility] Name Value Range Interpretation Description Data Sup porting Code Source(s) Document(s ) Bacteria Micro Result Normal (applies Culture [facility] identified in Result to non-numeric Bacteria Blood Health Blood by Reporting|Tele results) System [employer] phone| culture | 04/06/2020 at 10:44 AMCalled to: Name:MARCELA Readback by: 04/06/2020 / 10:44 AM XXX Klebsiella Organism [facility] microorganism pneumoniae Health serotype System [Identifier] in Isolate by Agglutination CellCode GRAM NEGATIVE Cell Code [facility] BACILLI: - IN Health AEROBIC AND System ANAEROBIC BOTTLES MicroscopicTe GRAM STAIN Microscopic [facility] chnique [employer] [facility] System ColonyCount ONE SET [place] Count [facility] Ampicillin >16 Resistant - Ampicillin [...] Ciprofloxacin Health ty] System ColonyCount ONE SET [place] Count [facility] System XXX Staphylococcus Organism [facility] microorganism epidermidis Health serotype MRS System [Identifier] [...] Health in Serum or System Plasma Trimethoprim+ >/38 - [facility] Sulfamethoxaz Resistant Trimethoprim/S Health ole ulfamethoxazol System [Susceptibili e ty] Vancomycin 1 Sensitive - Vancomycin [facility] [Susceptibili Health ty] System ID Date Data Source [id number] 04/22/2020 01:18:14 PM EDT [facility] Name Value Range Interpretation Description Data Sup porting Code Source(s) Document(s ) Deprecated NO GROWTH Aerobic [facility] Bacteria Culture, Urine Health System identified in Urine by Aerobe culture ID Date Data Source [id number] 04/22/2020 01:18:14 PM EDT [facility] [...] Health results) System ID Date Data Source [id number] 04/22/2020 01:18:14 PM EDT [facility] [...] Health results) System ID Date Data Source [id number] 04/22/2020 01:18:14 PM EDT [facility] [...] Health results) System ID Date Data Source [id number] 04/22/2020 01:18:14 PM EDT [facility] Name Value Range Interpretation [...] is consistent with myocardial infarction in the [facility] clinical setting. With the use of lower cut-offs, testing of serial samples is r equired for diagnosis.Result Reporting|Telephone|resident| 04/05/2020 at 7:55 PMCalled to:Tech Name:Ovieadbjaswinder by:trop added to er sp from 1130 am 04/05as resquested by resident 04/05/2020 / 7:54 PM ID Date Data Source [id number] 04/22/2020 01:18:14 PM EDT [facility] Name Value Range Interpretation [...] urine test abnormalities ID Date Data Source [id number] 04/22/2020 01:18:14 PM EDT [facility] [...] Heart = 3.0-4.5 ID Date Data Source [id number] 04/22/2020 01:18:14 PM EDT [facility] Name Value Range Interpretation Description Data Sup porting Code Source(s) Document(s ) aPTT in Blood 29.8 Normal (applies Activated [facility] by Coagulation {Seconds to non-numeric Partial Health assay } results) Thromboplastin System Time ID Date Data Source [id number] 04/22/2020 01:18:14 PM EDT [facility] Name Value Range Interpretation Description Data Sup porting Code Source(s) Document(s ) Color Yellow Normal (applies Color [facility] to non-numeric Health results) System Specific gravity 1.008 Normal (applies Urine Specific [facility] of Urine to non-numeric [facility] results) System Appearance of HAZY Normal [...] [facility] [Units/volume] in Urine (applies to Esterase [facility] System non-numeric Concentration results) Leukocytes [#/volume] [...] Bacteria M [facility] Unspecified specimen to non-numeric [facility] System results) UricAcidCrystal RARE Normal (applies Uric Acid Crystal [facility] to non-numeric Health System results) AmorphousCrystals RARE Normal (applies Amorphous [facility] to non-numeric Crystals Health System results) UrineBlood LG(3+) Abnormal Urine Blood [facility] (applies to Health System non-numeric results) ID Date Data Source [id number] 04/22/2020 01:18:14 PM EDT [facility] Name Value Range Interpretation Description Data Sup porting Code Source(s) Document(s ) [id number] NEGATIVE Testing Normal (applies COVID-19.. [facility] [...] Range: NEGATIVE . ID Date Data Source [id number] 04/22/2020 01:18:14 PM EDT [facility] Name Value Range Interpretation Description Data Source(s ) Supporting Code Document(s ) LacticAc 20.0 Above upper panic Lactic Acid [facility] idWholeB mmol/L limits Whole Blood Health System lood*NEW *MESSI HEADLEY ONLY* ONLY* Result Reporting|Telephone|ryanne lazo rn /rb| 04/05/2020 at 8:38 AMCalled to:ryanne lazo rn/rbTech Name:smRroderick by:ryanne lazo rn/rb 04/05/2020 / 8:38 AM ID Date Data Source [id number] 04/22/2020 01:18:14 PM [facility] Name Value Range Interpretation Description [...] by Automated count ID Date Data Source [id number] 04/22/2020 01:18:14 PM EDT [facility] Name Value Range Interpretation Description Data Source(s ) Supporting Code Document(s ) LacticAc 4.3 Above upper panic Lactic Acid [facility] idWholeB mmol/L limits Whole Blood Health System lood*NEW *[facility] ONLY* ONLY* Result Reporting|Telephone|theodore waller/rb| 04/05/2020 at 1:31 PMCalled to:theodore izuqierdo rn/rbTech Name:Delanodback by: 04/05 / 1:30 PM ID Date Data Source [id number] 04/22/2020 01:18:14 PM EDT [facility] Name Value Range Interpretation Description Data Sup porting Code Source(s) Document(s ) Natriuretic 864.0 Above high normal B-Type [facility] peptide B pg/ml Natri[facility] [Mass/volume] Peptide in Serum or Plasma ID Date Data Source [id number] 04/22/2020 01:18:14 PM EDT [facility] Name Value Range Interpretation [...] Reporting|Telephone|florida rod | 04/05/2020 at 6:55 PMCalled to:[employer] Name:mmReadbjaswinder by:florida rod / 6:54 PM ID Date Data Source [id number] 04/22/2020 01:18:14 PM EDT [facility] Name Value Range Interpretation [...] low normal TCO2 [facility] mmol/L [facility] System [id number] 98.0 % Normal (applies O2 Saturation [facility] [...] / 8:23 PM ID Date Data Source [id number] 04/22/2020 01:18:14 PM EDT [facility] [...] % Health System ID Date Data Source [id number] 04/22/2020 01:18:14 PM EDT [facility] Name Value Range Interpretation Description Data Sup porting Code Source(s) Document(s ) aPTT in Blood 35.0 Normal (applies Activated [facility] by Coagulation {Seconds to non-numeric Partial Health assay } results) Thromboplastin System Time ID Date Data Source [id number] 04/22/2020 01:18:14 PM EDT [facility] [...] Heart = 3.0-4.5 ID Date Data Source [id number] 04/22/2020 01:18:14 PM EDT [facility] Name Value Range Interpretation Description Data Source(s ) Supporting Code Document(s ) Blood,Oc Negative Normal (applies to Blood, Occult [facility] cultFece non-numeric Feces Health System s results) ID Date Data Source [id number] 04/22/2020 01:18:14 PM EDT [facility] [...] Health results) System ID Date Data Source [id number] 04/22/2020 01:18:14 PM EDT [facility] [...] # [facility] [#/volume[facility]) Basophils/100 0.4 % Normal Basophil % [facility] leukocytes in (applies to Health System Unspecified specimen non-numeric by Manual count results) Basophils [#/volume] 0.14 {10^3_uL} Above high Basophil # [facility] in Blood by normal [facility] System Automated count ImmatureGranulocytes 3.54 {10^3_uL} Above high Immature [facility] # normal Granulocytes # Health System ImmatureGranulocytes 8.9 % Above high Immature [facility] % normal Granulocytes % Health System ID Date Data Source [id number] 04/22/2020 01:18:14 PM EDT [facility] [...] urine test abnormalities ID Date Data Source [id number] 04/22/2020 01:18:14 PM EDDavid neal System Name Value Range Interpretation Description [...] final fluorescent detection. ID Date Data Source [id number] 04/22/2020 01:18:14 PM EDDavid VIVAelias Allen [facility] System Name Value Range Interpretation Description Data Sup porting Code Source(s) Document(s ) Prothrombintim 17.90 Above high normal Prothrombin [facility] e(PT) {seconds time (PT) Health System } Prothrombin Ab 1.54 Above high normal INR Result [facility] [Units/volume] {Ratio} Health System in Serum or Plasma Normal = 0.7-1.1Therapeutic = 2.0-3.0Mec hanical Heart = 3.0-4.5 ID Date Data Source [id number] 04/22/2020 01:18:14 PM EDT [facility] [...] / 9:40 AM ID Date Data Source [id number] 04/22/2020 01:18:14 PM EDT [facility] [...] / 11:06 AM ID Date Data Source [id number] 04/22/2020 01:18:14 PM EDT [facility] Name Value Range Interpretation Description Data Sup porting Code Source(s) Document(s ) aPTT in Blood 89.8 Above high Activated [facility] by Coagulation {Seconds normal Partial Health assay } Thromboplastin System Time ID Date Data Source [id number] 04/22/2020 01:18:14 PM EDT [facility] Name Value Range Interpretation Description Data Sup porting Code Source(s) Document(s ) aPTT in Blood 36.0 Normal (applies Activated [facility] by Coagulation {Seconds to non-numeric Partial Health assay } results) Thromboplastin System Time ID Date Data Source [id number] 04/22/2020 01:18:14 PM EDT [facility] Name Value Range Interpretation Description Data Sup porting Code Source(s) Document(s ) Leukocytes 35.2 Above upper panic WBC Count [facility] [#/volume] in {10^3_uL limits Health System Unspecified } specimen by Automated count Previously released as 35.2-(1) on 2019, 09:34 AM [place] [id number] - (1) - Please refer to Mamnual [...] [facility] [Entitic volume] in (applies to [facility] Blood by Automated non-numeric count results) Nucleated 0.0 {/100_WBC} Normal NRBC % [facility] erythrocytes (applies to Health System [#/volume] in Body non-numeric fluid results) NRBC# 0.00 {10^3_uL} Normal NRBC # [facility] (applies to Health System non-numeric results) Neutrophils/100 80.3 % Above high Neutrophil % [facility] leukocytes in Blood normal [facility] tem by Automated count Neutrophils 28.2 {10^3_uL} Above high Neutrophil # [facility] [#/volume] in Body normal Health [facility] em fluid Lymphocytes 4.7 % Below low Lymphocyte % [facility] [#/volume] in Blood normal [facility] tem by Automated count Lymphocyte percent 1.7 {10^3_uL} Normal Lymphocyte # [facility] differential count (applies to Health stem (procedure) non-numeric results) Monocytes/100 1.5 % Below low Monocyte % [facility] leukocytes in Blood normal [facility] tem Monocytes [#/volume] 0.5 {10^3_uL} Normal Monocyte # Rohit [facility] in Blood by Manual (applies to Health Sy stem count non-numeric results) Eosinophils/100 0.1 % Normal Eosinophil % [facility] leukocytes in (applies to [facility] System Unspecified specimen non-numeric results) Eosinophils 0.03 {10^3_uL} Normal Eosinophil # [facility] [#/volume] in Blood (applies to [facility] non-numeric results) Basophils/100 0.4 % Normal Basophil [...] % Health System ID Date Data Source [id number] 04/22/2020 01:18:14 PM EDT [facility] [...] urine test abnormalities ID Date Data Source [id number] 04/22/2020 01:18:14 PM EDT [facility] Name Value Range Interpretation Description Data Sup porting Code Source(s) Document(s ) aPTT in Blood 37.6 Above high Activated [facility] by Coagulation {Seconds normal Partial Health assay } Thromboplastin System Time ID Date Data Source [id number] 04/22/2020 01:18:14 PM EDT [facility] Name Value Range Interpretation Description Data Sup porting Code Source(s) Document(s ) Magnesium 1.5 Normal (applies Magnesium, [facility] [Mass/volume] {mEq/L} to non-numeric Serum Health Syst em in Serum or results) Plasma ID Date Data Source [id number] 04/22/2020 01:18:14 PM EDT [facility] Name Value Range Interpretation Description Data Sup porting Code Source(s) Document(s ) Natriuretic 732.0 Above high normal B-Type [facility] peptide B pg/ml Natriuetic [facility] [Mass/volume] Peptide in Serum or Plasma ID Date Data Source [id number] 04/22/2020 01:18:14 PM EDT [facility] Heparin drip Name Value Range Interpretation Description Data Sup porting Code Source(s) Document(s ) aPTT in Blood 35.2 Normal (applies Activated [facility] by Coagulation {Seconds to non-numeric Partial Health assay } results) Thromboplastin System Time ID Date Data Source [id number] 04/22/2020 01:18:14 PM EDT [facility] Name Value Range Interpretation Description Data Sup porting Code Source(s) Document(s ) aPTT in Blood 40.3 Above high Activated [facility] by Coagulation {Seconds normal Partial Health assay } Thromboplastin System Time ID Date Data Source [id number] 04/22/2020 01:18:14 PM EDT [facility] [...] Normal RDW-CV [facility] distribution width (applies to [facility] stem [Entitic volume] by non-numeric Automated count results) Platelets [#/volume] 232 {10^3_uL} Normal Platelet Count [facility] in Plasma by (applies to [facility] System Automated count non-numeric results) Platelet mean volume 11.9 fl Normal MPV [facility] [Entitic volume] in (applies to [facility] Blood by Automated non-numeric count results) Nucleated 0.0 {/100_WBC} Normal NRBC % [facility] erythrocytes (applies to [facility] System [#/volume] in Body non-numeric fluid results) NRBC# 0.00 {10^3_uL} Normal NRBC # [facility] (applies to Health System non-numeric results) Neutrophils/100 91.0 % Above high Neutrophil % [facility] leukocytes in Blood normal [facility] tem by Automated count Neutrophils 26.1 {10^3_uL} Above high Neutrophil # [facility] [#/volume] in Body normal Health Syst em fluid Lymphocytes 6.0 % Below low Lymphocyte % [facility] [#/volume] in Blood normal [facility] tem by Automated count Lymphocyte percent 1.7 {10^3_uL} Normal Lymphocyte # [facility] differential count (applies to [facility] (procedure) non-numeric results) Monocytes/100 1.5 % Below low Monocyte % [facility] leukocytes in Blood normal [facility] tem Monocytes [#/volume] 0.4 {10^3_uL} Normal Monocyte # [facility] in Blood by Manual (applies to [facility] stem count non-numeric results) Eosinophils/100 0.7 % Normal Eosinophil % [facility] leukocytes in (applies to [facility] Unspecified specimen non-numeric results) Eosinophils 0.20 {10^3_uL} Normal Eosinophil # [facility] [#/volume] in Blood (applies to [facility] non-numeric results) Basophils/100 0.3 % Normal Basophil [...] System non-numeric results) ID Date Data Source [id number] 04/22/2020 01:18:14 PM EDT [facility] Name Value Range Interpretation Description Data Sup porting Code Source(s) Document(s ) Vancomycin 7.7 Normal (applies Vancomycin [facility] [Mass/volume] ug/mL to non-numeric Level, [facility] in Serum or results) Plasma ID Date Data Source [id number] 04/22/2020 01:18:14 PM EDT [facility] [...] urine test abnormalities ID Date Data Source [id number] 04/22/2020 01:18:14 PM EDT [facility] Name Value Range Interpretation Description Data Sup porting Code Source(s) Document(s ) aPTT in Blood 52.1 Above high Activated [facility] by Coagulation {Seconds normal Partial Health assay } Thromboplastin System Time ID Date Data Source [id number] 04/22/2020 01:18:14 PM EDT [facility] Heparin drip Name Value Range Interpretation Description Data Sup porting Code Source(s) Document(s ) aPTT in Blood 41.8 Above high Activated [facility] by Coagulation {Seconds normal Partial Health assay } Thromboplastin System Time ID Date Data Source [id number] 04/22/2020 01:18:14 PM EDT [facility] Name Value Range Interpretation Description Data Sup porting Code Source(s) Document(s ) aPTT in Blood 63.1 Above high Activated [facility] by Coagulation {Seconds normal Partial Health assay } Thromboplastin System Time ID Date Data Source [id number] 04/22/2020 01:18:14 PM EDT [facility] Name Value Range Interpretation Description Data Sup porting Code Source(s) Document(s ) Digoxin 1.9 ng/ml Normal (applies to Digoxin Level, [facility] [Mass/volum non-numeric Serum Health [facility] e] in Serum results) or Plasma ID Date Data Source [id number] 04/22/2020 01:18:14 PM EDT [facility] [...] % [facility] System ID Date Data Source [id number] 04/22/2020 01:18:14 PM EDT [facility] [...] urine test abnormalities ID Date Data Source [id number] 04/22/2020 01:18:14 PM EDT [facility] [...] % [facility] System ID Date Data Source [id number] 04/22/2020 01:18:14 PM EDT [facility] Name Value Range Interpretation Description Data Sup porting Code Source(s) Document(s ) Magnesium 1.5 Normal (applies Magnesium, [facility] [Mass/volume] {mEq/L} to non-numeric Serum Health Syst em in Serum or results) Plasma ID Date Data Source [id number] 04/22/2020 01:18:14 PM EDT [facility] [...] urine test abnormalities ID Date Data Source [id number] 04/22/2020 01:18:14 PM EDT [facility] ángel [...] % Health System ID Date Data Source [id number] 04/22/2020 01:18:14 PM EDT [facility] [...] urine test abnormalities ID Date Data Source [id number] 04/22/2020 01:18:14 PM EDT [facility] Name Value Range Interpretation Description Data Sup porting Code Source(s) Document(s ) 73904-1 NEGATIVE Testing Normal (applies COVID-19.. [facility] [...] Range: NEGATIVE . ID Date Data Source [id number] 04/22/2020 01:18:14 PM EDT [facility] [...] % [facility] System ID Date Data Source [id number] 04/22/2020 01:18:14 PM EDT [facility] [...] urine test abnormalities ID Date Data Source [id number] 04/22/2020 01:18:14 PM EDT [facility] Alejandro neal [...] % Health System ID Date Data Source [id number] 04/22/2020 01:18:14 PM EDT [facility] [...] urine test abnormalities ID Date Data Source [id number] 04/22/2020 01:18:14 PM EDT [facility] á[facility]el [...] % Health System ID Date Data Source [id number] 04/22/2020 01:18:14 PM EDT [facility] [...] urine test abnormalities ID Date Data Source [id number] 04/22/2020 01:18:14 PM EDT Erika neal System [...] Health results) System ID Date Data Source [id number] 04/22/2020 01:18:14 PM EDT [facility] ángel [...] urine test abnormalities ID Date Data Source [id number] 04/22/2020 01:18:14 PM EDT [facility] Name Value Range Interpretation Description Data Sup porting Code Source(s) Document(s ) 45032-3 NEGATIVE Testing Normal (applies COVID-19.. [facility] [...] Range: NEGATIVE . ID Date Data Source [id number] 04/22/2020 01:18:14 PM EDT [facility] [...] Health results) System ID Date Data Source [id number] 04/22/2020 01:18:14 PM EDT [facility] [...] urine test abnormalities ID Date Data Source [id number] 04/22/2020 01:18:14 PM EDT Erika neal System [...] samples is required for diagnosis.Result Reporting|Telephone|marlin lunsford rn/r b| 04/06/2020 at 8:44 AMCalled to:marlin lunsford rn/rbTech Name:donna gabrielk by:mralin lunsford rn/rb 04/06/2020 / 8:44 AM ID Date Data Source [id number] 04/17/2020 09:52:00 AM EDT [facility] Name Value Range Interpretation Code Description Data Ana rce(s) Supporting Document(s ) HOLOGIC [facility] SARS-CoV-2 TMA PCR This lab was ordered by [facility] and reported by [facility]. ID Date Data Source [id number] 04/15/2020 11:27:00 AM EDT [facility] Name Value Range Interpretation Code Description Data Ana rce(s) Supporting Document(s ) COVID-19.. [facility] This lab was ordered by [facility] and reported by [facility]. ID Date Data Source [id number] 04/12/2020 01:58:00 PM EDT [facility] Neck pain.EXAMINATION/TECHNIQUE:XR Spine Cervical 4 or 5 Views: 3 views.COMPARISON: None FINDINGS:VERTEBRAE: C1 through base of Q0xtalvyorrsxp on the lateralview. Pr eserved vertebral body [...] 42 Reported and signed by: Pete Beth MDEnpiedmont augustaion Physician ServicesERLANGER EAST [facility] [address]PAU [phone] Signed:Pete Beth at 8:41 E [phone], Service support , [phone] Name Value Range Interpretation Code Description Data Ana rce(s) Supporting Document(s ) ID Date Data Source [id number] 04/11/2020 10:05:00 AM EDT [facility] Name Value Range Interpretation Code Description Data Ana rce(s) Supporting Document(s ) COVID-19.. [facility] This lab was ordered by [facility] and reported by [facility]. ID Date Data Source [id number] 04/05/2020 05:19:00 PM EDT [facility] STUDY: X-RAY CHESTREASON FOR EXAM: Dixon pierce, 79 years old. SOB;Comparison: Same Soni single view of the chest was taken.The h eart is enlarged.Lungs are well expanded.There arecongestive changes.The re is no acute infiltrate, effusion or pneumothorax.IMPRESSION: Cardiomegaly wi thcongestive changes.Electronically Signed:Nicholas Ware, at 18:39 [phone], Service support , [phone] Name Value Range Interpretation Code Description Data Ana rce(s) Supporting Document(s ) ID Date Data Source [id number] 04/05/2020 11:39:00 AM EDT [facility] Chest radiographCLINICAL INFORMATION: Muna lema, 79 years [...] cole, at 11:51 EDTTel , Service support ,[phone] Name Value Range Interpretation Code Description Data Ana rce(s) Supporting Document(s ) ID Date Data Source [id number] 04/05/2020 10:22:00 AM EDT [facility] Retroperitoneal ultrasoundCLINICAL HISTO RY: Urinary retentionReal-time scanning [...] Jenkins, at 11:20 EDTTel ,Service support , [phone] Name Value Range Interpretation Code Description Data Ana rce(s) Supporting Document(s ) ID Date Data Source [id number] 04/05/2020 08:09:00 AM EDT [facility] Name Value Range Interpretation Code Description Data Ana rce(s) Supporting Document(s ) COVID-19.. [facility] This lab was ordered by [facility] and reported by [facility]. ID Date Data Source FOL 04/02/2020 02:54:00 AM EDT [facility] ([facility] Name Value Range Interpretation Code Description Data Supporting Source(s) Document(s ) FOLATE 9.4NG/ML >5.4 <td [facility] ID="Observation- ([facility] Bfhh-d2lu0329-91 For Aged 65-2u94-563s8o24-124c-yxl [facility]) 71t7au992">(FOL) FOLATE</td><td ID="Observation- Veusi-x6am5319-4 662-5f56-056x-ca s31t8gj260">9.4< /td><td ID="Observation- Spje-q8qo6227-12 71-4s21-472x0r56-549q-gqg 46v9xr752">NG/ML </td><td ID="Observation- RefRange-a5mi595 3-8030-9h96-983a -wot60b0zl675">> 5.4</td><td ID="Observation- Abnormal-r9vb157 5-7464-1f39-983a -uai92n5xw050">< /td><td ID="Observation- Status-c3qh5696- 9880-8l50-796z-c aa65c8xl657">Fin al</td> ID Date Data Source B12 04/02/2020 02:54:00 AM EDT [facility] ([facility] [place]) Name Value Range Interpretation Description Data Sup porting Code Source(s) Document(s ) VITAMIN B12 366PG/ML <td [facility] ID="Observatio ([facility] f-Mltb-rr257x7 For Aged 3-c160-2w4bi658-8o8r-yg [place]) 4d-88bi2q9rc82 9">(B12) VITAMIN B12</td><td ID="Observatio n-Ixmfy-ny720b 68-x823-9x7y-a k8v-13vu5o2vo7 99">366</td><t d ID="Observatio k-Bmku-dm228w4 3-n275-4n5ja196-9v2b-dc 4d-02ya9l9np33 9">PG/ML</td>< td ID="Observatio l-SrdHoxjj-ik8 90e41-l772-0m9 f-go3r-23gc7j3 ad099">211-911 </td><td ID="Observatio h-Ulprxpfw-kn8 35c61-a134-4h7 p-qc0h-06dm4j4 ad099"></td><t d ID="Observatio s-Ykismr-tv034 f72-c569-9f9p- lu7n-90dq4j6rs 099">Final</td > ID Date Data Source FE 04/02/2020 02:54:00 AM EDT [facility] ([facility] [place] Name Value Range Interpretation Code Description Data Ana rce(s) Supporting Document(s ) IRON 31UG/DL 65-175 Below low normal <td [facility] ID="Observation- ([facility] Nujs-65212du9-uf For Aged 23-0759-801l-1f2 [place]) ayudej5bi">(FE) IRON</td><td ID="Observation- Ujdlu-68326ou7-o l78-5970-975m-5t 5alhnmp4dy">31</ td><td ID="Observation- Vmsi-31434me4-aw 24-9455-771t-1f2 hrcodb8jx">UG/DL </td><td ID="Observation- RefRange-66139op 7-oa90-0244oz21-3900-672h -4r5oulgbx6bq">6 5-175</td><td ID="Observation- Abnormal-89264mf 1-wn35-4362eh13-2911-820j -8o2mexqti4pj">L </td><td ID="Observation- Status-21342rf5- kw82-7558-270m-0 k9pleybj5ee">Fin al</td> ID Date Data Source [facility] 04/02/2020 02:53:00 AM EDT [facility] ([facility]) Name Value Range Interpretation Description Data Sup porting Code Source(s) Document(s ) GLUCOSE 80MG/DL 74-106 <td [facility] ID="Observatio ([facility] w-Ugxb-818i359 For Aged 1-n464-01a4h689-04u2-nf [place]) 3f-d8k3r9c1j7r b">(GLU) GLUCOSE</td><t d ID="Observatio t-Zatno-742b30 77-l581-35h6-b a4h-u2r5n2t2k7 cb">80</td><td ID="Observatio r-Jtub-224i128 4-z909-38o1q923-65q2-im 3f-h1r1h8d7v0t b">MG/DL</td>< td ID="Observatio q-TqwDjjdo-571 c1162-m977-48s 9-su0s-c3q8y1d 4f0cb">74-106< /td><td ID="Observatio r-Vkbajwlj-218 k8799-b931-78v 3-gw7w-w8f0c4o 4f0cb"></td><t d ID="Observatio i-Hmdndr-951o8 425-g119-46x9- bk0v-k7q9s1w9k 0cb">Final</td > SODIUM 138MMOL/ 136-145 <td [facility] L ID="Observatio ([facility] o-Roho-f91298u For Aged t-2tto-0ra7-ae [place]) 2e-f971pzu491n 6">(NA) SODIUM</td><td ID="Observatio m-Xajes-v80799 gq-0foz-2mu6-a m6d-l854bbd693 c6">138</td><t d ID="Observatio q-Xeun-c59495b w-2tnq-1gf1-ae 2e-h592rfl460v 6">MMOL/L</td> <td ID="Observatio k-MlkLvnzl-i51 194ab-4wlr-5zn 6-jy7q-u209ekd 829c6">136-145 </td><td ID="Observatio u-Lpcrtxmo-q93 748gq-4nhe-1xm 7-ju8v-r107jcq 829c6"></td><t d ID="Observatio l-Twdlnu-a9714 6ey-4qqm-0tm4- vy7c-g131mnb70 9c6">Final</td > POTASSIUM 4.2MMOL/ 3.5-5.3 <td [facility] L ID="Observatio ([facility] f-Bpvg-16nw5xz For Aged 7-p27y-0b3tx23h-1u3w-94 [facility]) 95-a90zek6d291 5">(K) POTASSIUM</td> <td ID="Observatio v-Xezoq-46lq5y q8-x46e-1y2n-9 395-p97hlg9e44 05">4.2</td><t d ID="Observatio i-Exex-93yi3bm 8-v85o-1d9yk57z-7k1a-03 95-i92nsp1k754 5">MMOL/L</td> <td ID="Observatio a-IqzQclem-90j d2ej1-i20j-3z3 v-3163-x84tyx1 a7305">3.5-5.3 </td><td ID="Observatio r-Aosbpbbm-51u r8il1-o28o-4n2 c-9750-i50uma7 a7305"></td><t d ID="Observatio n-Ijzakd-90vb9 od8-s19p-4a3h- 9395-a40aqz0n9 305">Final</td > CHLORIDE 103MMOL/ 98-107 <td [facility] L ID="Observatio ([facility] j-Iyxt-eqo4d54 For Aged [facility]) 15-5l245555onc d">(CL) CHLORIDE</td>< td ID="Observatio q-Girbq-rsk3q7 -8 f48-3n504492cp dd">103</td><t d ID="Observatio g-Pens-enp1x06 -8d 15-3b555221dhk d">MMOL/L</td> <td ID="Observatio l-VwwPiexf-vny 0p200-8458-964 6-1f58-4e90228 6ccdd">98-107< /td><td ID="Observatio c-Hlivtnal-wgl 9h003-2470-099 7-8h97-8b28728 6ccdd"></td><t d ID="Observatio p-Kqxgtd-kdb0x - 1a11-9n664147l cdd">Final</td > CARBON 27MMOL/L 23-31 <td [facility] DIOXIDE ID="Observatio ([facility] z-Heyx-290i881 For Aged 1-133r-7t50-b6 [facility]) 0d-l991ya3j50s 8">(CO2) CARBON DIOXIDE</td><t d ID="Observatio e-Gznge-657l72 89-988n-1i60-b 60d-u326nw5o82 d8">27</td><td ID="Observatio t-Jsyi-932y707 8-066y-6f85-b6 0d-r275zx5l50g 8">MMOL/L</td> <td ID="Observatio y-YqlPcoga-987 g4736-614w-1r7 3-n43n-a814ne2 c28d8">23-31</ td><td ID="Observatio b-Rnzjjqag-845 q8377-172m-9r8 9-g32x-t639wr6 c28d8"></td><t d ID="Observatio f-Sxswwv-628l2 053-842p-0j27- t21c-y219pt9g1 8d8">Final</td > ANION GAP 12 6-18 <td [facility] ID="Observatio ([facility] f-Tlyb-1395880 For Aged 9-9z16-93ib1u37-73mp-k6 [place]) 00-t6z655k84y4 a">(AGAP) ANION GAP</td><td ID="Observatio n-Oayki-051295 02-5o29-00rv-a 600-d0d592i92s 8a">12</td><td ID="Observatio z-Lkzz-7011712 8-8n88-96ma6j40-07qo-r8 00-o9g669w12k0 a"></td><td ID="Observatio p-MlpQngrh-899 32751-6k09-64q u-b954-z3j880f 15a8a">6-18</t d><td ID="Observatio v-Zggdptms-844 00148-1d67-83x j-h014-i1j716u 15a8a"></td><t d ID="Observatio e-Nvejka-78268 667-5f40-20hh- e907-l3f307z71 a8a">Final</td > BLOOD UREA 21MG/DL 6-20 Above high normal <td [facility] NITROGEN ID="Observatio ([facility] w-Ltrw-1n9we10 For Aged 2-e99j-3reyp25c-4wwt-3a [facility]) 27-5yh2h181v82 d">(BUN) BLOOD UREA NITROGEN</td>< td ID="Observatio d-Iqlbs-5w4sw6 49-z59p-6mey-9 j57-3dk8f931r7 4d">21</td><td ID="Observatio w-Khng-3s9nx24 8-q07q-0iial20h-9iit-7i 27-1if5z945v28 d">MG/DL</td>< td ID="Observatio e-NkmYetdr-0o2 sf395-o38f-8pk b-4g53-2ek4c78 0a64d">6-20</t d><td ID="Observatio f-Ljopkxyn-7o5 ua970-s32b-9wd g-8z76-5zc9y88 0a64d">H</td>< td ID="Observatio s-Yxczip-8h2gk 968-q39v-8ocp- 0u68-5hx0m199w 64d">Final</td > CREATININE 0.9MG/DL 0.9-1.3 <td [facility] ID="Observatio ([facility] g-Hrmr-v755867 For Aged 6-66a4-3ymu54m3-4sxo-7x [facility]) 8c-ez07q9u609s 8">(CRET) CREATININE</td ><td ID="Observatio l-Jmmvl-q81599 68-08y5-6muc-9 x3x-zb96i9r579 d8">0.9</td><t d ID="Observatio y-Fxaa-k234604 3-80p3-5fcy63k1-1aav-2p 8c-gc12s9x458x 8">MG/DL</td>< td ID="Observatio v-AixSmkvd-b82 04463-63f2-8cd z-5z1m-hb18s5z 700d8">0.9-1.3 </td><td ID="Observatio t-Dhmjyamh-z15 91644-57z2-7km n-4m5x-zk53n6c 700d8"></td><t d ID="Observatio r-Npyroq-v3470 752-24i0-4tou- 6e5t-za24j5o35 0d8">Final</td > BUN/CREATININ 23.3 6.0-20.0 Above high normal <td [facility] E E RATIO ID="Observatio ([facility] s-Fkng-7898397 For Aged 8-6u0r-45272g6q-0380-r8 [facility]) d1-q43r1l557ze a">(BCR) BUN/CREATININE RATIO</td><td ID="Observatio x-Hzkcl-155786 84-4w4o-7745-a 2x0-c52e4b290d ca">23.3</td>< td ID="Observatio w-Dcsy-2576598 8-5d9l-31032j6u-1714-i8 d1-u66w5e187bt a"></td><td ID="Observatio f-MedFmdbo-745 74943-1r8v-018 8-k6i7-d58y9l9 98dca">6.0-20. 0</td><td ID="Observatio i-Bhaohbdv-901 53873-1z1b-929 0-i4o7-h29g7t1 98dca">H</td>< td ID="Observatio f-Kwpgsl-63903 005-7e1h-9228- p5n3-y27i0z337 dca">Final</td > CALCIUM 8.6MG/DL 8.3-10.6 <td [facility] ID="Observatio ([facility] p-Ylpi-69di2ms For Aged m-4b86-2h627j48-7e56-8c [facility]) 8e-7w98nw6so1s 2">(CA) CALCIUM</td><t d ID="Observatio v-Itaew-23sy3k vx-1d63-1q88-9 p5j-7b36db4xh3 d2">8.6</td><t d ID="Observatio t-Hngi-80rj7jf j-8h76-8t200h70-8s30-0h 8e-1b41kq8uv8x 2">MG/DL</td>< td ID="Observatio n-FkwWltoz-11v e1udt-7z41-9q1 7-3z2n-2e43gj3 fe2d2">8.3-10. 6</td><td ID="Observatio a-Rerzecec-25t c5kcn-9v38-0c8 1-6b9p-5h74oh6 fe2d2"></td><t d ID="Observatio j-Fprmkr-21yh4 axa-4r22-1c96- 0y7h-3b79lm5rh 2d2">Final</td > ID Date Data Source [facility] 04/02/2020 01:41:00 AM EDT [facility] ([facility]) Name Value Range Interpretation Description Data Sup porting Code Source(s) Document(s ) WHITE BLOOD 7.3K/UL 4.0-10.0 <td [facility] CELL COUNT ID="Observatio ([facility] l-Sfux-q89k627 [facility] For 0i38-2625-pz Aged -muaa8828y04 [place]) a">(WBC) WHITE BLOOD CELL COUNT</td><td ID="Observatio k-Pjepd-y39i72 60-7w29-0570-a r72-zvgv3247o8 0a">7.3</td><t d ID="Observatio e-Tvpw-j57w680 6-2p71-95827a52-6561-xv 07-vojy1871z71 a">K/UL</td><t d ID="Observatio u-DaxSvqwk-x04 u3885-4q33-627 2-qo01-hlau240 3f70a">4.0-10. 0</td><td ID="Observatio p-Xrancixg-h82 m7146-8a93-364 4-td51-nxfd830 3f70a"></td><t d ID="Observatio q-Urpxyf-q24l6 018-3a32-9579- ru82-vnon0981q 70a">Final</td > RED BLOOD CELL 3.88MIL/ 4.50-5.9 Below low normal <td [facility] E COUNT UL 0 ID="Observatio ([facility] g-Rrlj-i574812 Home For o-7335-5o46 Aged 02-g6g92015710 [facility]) 2">(RBC) RED BLOOD CELL COUNT</td><td ID="Observatio y-Jjaii-d98205 1l-6568-2x37-9 802-v4i4324575 72">3.88</td>< td ID="Observatio f-Vcjy-s410487 h-2219-8f51 02-c2b23722268 2">MIL/UL</td> <td ID="Observatio p-PojEswrz-i40 2191q-2842-6i3 8-3635-n3z8489 81187">4.50-5. 90</td><td ID="Observatio f-Kqalnote-k59 6213k-9252-5p6 0-7975-v4g3185 38883">L</td>< td ID="Observatio j-Evvvod-k0556 56j-1471-9l02- 2-z6p200508 772">Final</td > HEMOGLOBIN 11.0GM/D 13.6-17. Below low normal <td [facility] L 0 ID="Observatio ([facility] w-Azfq-e9d09xu Home For 6-hu84-0jdqvx19-4nde-89 Aged a5-g213pz44z01 [facility]) e">(HGB) HEMOGLOBIN</td ><td ID="Observatio e-Urtut-i4q86n i7-in52-8qia-9 7b7-k444os22c9 5e">11.0</td>< td ID="Observatio k-Sobl-f2l97jq 0-fa93-7zryuz61-1sgh-95 a5-j857ka39l08 e">GM/DL</td>< td ID="Observatio m-WtkMxehs-v6q 52ux7-ti85-3aj t-85d9-g039ag1 0f15e">13.6-17 .0</td><td ID="Observatio h-Hekfvuwe-c3t 35zz4-us66-5bl o-31k2-t506ee8 0f15e">L</td>< td ID="Observatio f-Ztyaph-g6z94 fm2-he28-1zhr- 14m0-p663rm24b 15e">Final</td > HEMATOCRIT 34.9% 42.0-50. Below low normal <td [facility] 0 ID="Observatio ([facility] l-Cowu-l0300o9 Home For o-sl72-5903qe11-8621-4f Aged 6a-24g3786ie2f [facility]) 9">(HCT) HEMATOCRIT</td ><td ID="Observatio n-Lcbew-w5206m 6e-ze31-0108-8 n7o-49z2062qp7 f9">34.9</td>< td ID="Observatio z-Ysdv-c1677d4 e-mv39-6244ly00-9056-5f 6a-28y6472zr1d 9">%</td><td ID="Observatio c-OqkDdvrp-x69 64p9a-km81-105 3-9i8d-95b9896 cc0f9">42.0-50 .0</td><td ID="Observatio r-Gevbycaj-j04 09i2v-pf47-771 8-5v4j-66e1377 cc0f9">L</td>< td ID="Observatio z-Zxecht-z6117 v1t-ap23-2582- 6c7h-80w0974if 0f9">Final</td > MEAN 89.9FL 80.0-96. <td [facility] CORPUSCULAR 0 ID="Observatio ([facility] n-Xcfi-62gr671 Home For 0-a80x-29f8i17a-97j3-t7 Aged 4c-p84a8577t9s [facility]) 7">([facility]) MEAN CORPUSCULAR VOLUME</td><td ID="Observatio d-Kblsa-49fv59 96-l57i-79p0-a 34c-c72l3401b9 b7">89.9</td>< td ID="Observatio w-Urtn-49tt975 3-o71s-20o5z31y-31o9-a1 4c-o84c5753y3s 7">FL</td><td ID="Observatio o-JecWusgz-52l f4385-z55e-21u 1-e27f-v33b045 4f3b7">80.0-96 .0</td><td ID="Observatio s-Vedpiwdn-98j x6252-d36k-99d 9-h73a-e62n933 4f3b7"></td><t d ID="Observatio k-Gbofgr-34oq4 496-p92s-37y7- v12c-y06j9854p 3b7">Final</td > MEAN 28.4PG 27.0-34. <td [facility] CORPUSCULAR 0 ID="Observatio ([facility] k-Vjat-4f8q648 Home For 2-7877-9oo2-aa Aged 7d-1013t6uhq2w [facility]) 4">([facility]) MEAN CORPUSCULAR HEMOGLOBIN</td ><td ID="Observatio z-Gjzli-2t7f32 95-9991-4bf3-a f5o-3398l7khu9 d4">28.4</td>< td ID="Observatio b-Wvdk-0j9u847 1-4220-8zr5-aa 7d-1477g0uve5k 4">PG</td><td ID="Observatio u-EdtLoozb-4l2 e2992-8161-2ng 0-av5f-2400y8q ef7d4">27.0-34 .0</td><td ID="Observatio d-Pfcuuimq-1r3 o6257-7989-7kk 2-nv9d-1836l8p ef7d4"></td><t d ID="Observatio m-Fqhdtp-1x2s2 459-3758-3ti6- sx8j-6928i1bxm 7d4">Final</td > MEAN 31.5GM/D 31.0-36. <td [facility] CORPUSCULAR HGB L 0 ID="Observatio ([facility] i-Iofk-8cv504u Home For 1-951o-9bf8-9b Aged de-x0qj65a1xa0 [facility]) 8">([facility]) MEAN CORPUSCULAR HGB CONCEN</td><td ID="Observatio q-Jvkbg-2gx015 d4-992e-1fi2-9 bde-d4fj88v1rk 58">31.5</td>< td ID="Observatio k-Vvzy-7ia050u 1-501y-2gj0-9b de-t3vp68t1fi2 8">GM/DL</td>< td ID="Observatio x-TzpMvddp-1gy 443t5-391z-7mz 5-0kxp-f2jd49o 0bc58">31.0-36 .0</td><td ID="Observatio l-Rxcgphkr-6qw 835w4-199g-5ra 7-3xdl-g3wi73u 0bc58"></td><t d ID="Observatio h-Pvhtub-2ws63 1z3-225x-7ty2- 9bde-i1bp37j5j c58">Final</td > RED CELL 13.1% 11.5-14. <td [facility] DISTRIBUTION 5 ID="Observatio ([facility] WIDTH v-Dvco-7rd5860 Home For t-2v61-63816p19-3599-bl Aged a0-589fver3f29 [facility]) 3">(RDW) RED CELL DISTRIBUTION WIDTH</td><td ID="Observatio h-Bwtlr-6ro652 1o-2p54-2520-a ba0-200edzu5q3 23">13.1</td>< td ID="Observatio f-Ptzv-3tt5118 w-0p70-62842d11-9988-ro a0-529sagz5f91 3">%</td><td ID="Observatio m-HnpYskyd-4hv 3874s-5o32-804 0-gyl2-052jxjp 7d923">11.5-14 .5</td><td ID="Observatio i-Fekhwiea-3mp 0177v-4c33-648 8-tus0-550ditr 7d923"></td><t d ID="Observatio g-Iqiyvk-3km08 04g-7l90-8017- aba0-609pcav0g 923">Final</td > PLATELET COUNT 339K/UL 150-400 <td [facility] ID="Observatio ([facility] c-Oozo-035928p Home For f-5t34-5b997s38-9h39-35 Aged 25-750ey651y18 [facility]) d">(PLTC) PLATELET COUNT</td><td ID="Observatio a-Pjdvu-289837 vr-8f97-4m54-9 725-863ls430y1 3d">339</td><t d ID="Observatio h-Ylcr-275643i j-6q82-7z366e61-0f75-02 25-882ej579k54 d">K/UL</td><t d ID="Observatio n-ZsbHmvdk-190 268jb-3l43-9y6 4-9081-010rj47 6c83d">150-400 </td><td ID="Observatio d-Wxiyfdcv-240 491lq-3l83-4n0 9-1191-960ew12 6c83d"></td><t d ID="Observatio b-Lsprtg-83225 9uc-8k14-5c35- 9725-918hj807b 83d">Final</td > MEAN PLATELET 11.2FL 9.6-12.8 <td [facility] VOLUME ID="Observatio ([facility] s-Rbei-9u4en74 Home For p-k330-9ebzx435-7bsk-v3 Aged bd-494zw32287u [facility]) b">(MPV) MEAN PLATELET VOLUME</td><td ID="Observatio o-Lyypt-5g6hb6 3h-k324-1wxm-b 0bd-533bd28520 fb">11.2</td>< td ID="Observatio i-Xiom-8g1dq48 v-u812-8bhuw109-8wfv-t1 bd-688zg50483m b">FL</td><td ID="Observatio r-OioOwrdx-1f3 qb71m-v838-1qn e-f5jg-955tb45 469fb">9.6-12. 8</td><td ID="Observatio s-Pvyqjxye-0k2 hu56r-l744-3ti w-y2lv-606wf13 469fb"></td><t d ID="Observatio f-Vpvljn-7m2ch 36h-c718-1vcc- w1mh-491hn4002 9fb">Final</td > ID Date Data Source [facility] 03/31/2020 04:17:00 AM EDT [facility] ( [facility]) Name Value Range Interpretation Description Data Sup porting Code Source(s) Document(s ) GLUCOSE 68MG/DL 74-106 Below low normal <td [facility] ID="Observatio ([facility] t-Gndx-1h6082e For Aged 7-95g1-388416v3-8397-67 [place]) f2-2l6826ag55k a">(GLU) GLUCOSE</td><t d ID="Observatio e-Nomcq-2s7516 t2-49x7-6792-8 5q1-5r9229kt83 ca">68</td><td ID="Observatio c-Oulr-0c4009f 1-50j8-602625b3-3517-66 f2-8t8518mt12r a">MG/DL</td>< td ID="Observatio a-FffRpupy-7d1 903h0-96d8-900 3-29w8-3b5290m d31ca">74-106< /td><td ID="Observatio s-Brolvmpz-0p1 283y4-20k4-509 7-43j3-0u1648k d31ca">L</td>< td ID="Observatio g-Czvrcm-6y716 4v4-71u1-9713- 84a8-6l5081gy9 1ca">Final</td > SODIUM 137MMOL/ 136-145 <td [facility] L ID="Observatio ([facility] d-Kiob-la877c6 For Aged 8-kg8r-5716wn1o-9799-6o [facility]) 79-8m6xjg75zq5 7">(NA) SODIUM</td><td ID="Observatio y-Achvp-fq431s 28-nd1c-0822-8 j23-0h9wle84ka 97">137</td><t d ID="Observatio j-Vsdm-ux447h0 8-va1s-6461nh9n-9533-9m 79-6u1pao31jg9 7">MMOL/L</td> <td ID="Observatio u-KpkQsssz-qd5 30s06-li9x-300 0-8y70-3p0lgb2 3bb97">136-145 </td><td ID="Observatio o-Qqakkjwx-dh8 76s01-nn4m-048 1-0y99-4q9xvr4 3bb97"></td><t d ID="Observatio v-Zlqzhz-uz323 g92-op6c-5096- 1o89-0o5cdf31l b97">Final</td > POTASSIUM 3.9MMOL/ 3.5-5.3 <td [facility] L ID="Observatio ([facility] h-Ehwa-673542p For Aged i-fq5q-1n7jzu5e-5r1x-[address] [facility]) 9d-2k42hs9k0j0 3">(K) POTASSIUM</td> <td ID="Observatio e-Lodvq-619931 vh-kz1b-1c8j-9 39d-8u12ps0u7r 03">3.9</td><t d ID="Observatio l-Jajr-903354z j-hi8v-9b4ghp4k-9u5c-62 9d-8n67ml9a6r1 3">MMOL/L</td> <td ID="Observatio j-MgdNkaqu-719 216bc-np7q-6l1 o-487j-6v93kb4 d9a03">3.5-5.3 </td><td ID="Observatio f-Oevgxomf-300 614jx-gv2j-8w6 s-955b-1t18lg0 d9a03"></td><t d ID="Observatio k-Kfyssu-36720 4zv-ws1k-0x0s- 939d-2q61xq3r7 a03">Final</td > CHLORIDE 101MMOL/ 98-107 <td [facility] L ID="Observatio ([facility] l-Urgl-1f59029 For Aged 4-m195-3v72x084-1g01-f3 [facility]) e4-68xgz988b4b b">(CL) CHLORIDE</td>< td ID="Observatio b-Itjeo-6v0046 95-w220-9n21-b 1i9-29iel325h8 ab">101</td><t d ID="Observatio f-Cfhb-6c65164 0-q466-5d07b579-8k19-v3 e4-55box716u2d b">MMOL/L</td> <td ID="Observatio w-MnrYlsaw-1w3 37928-f861-3k4 2-v0d1-51cqo25 4a6ab">98-107< /td><td ID="Observatio w-Geotejjj-5g1 02932-k603-1b9 8-y4h2-76kfx40 4a6ab"></td><t d ID="Observatio u-Cyhdhu-3o125 485-j246-8j46- o9o6-49byj353a 6ab">Final</td > CARBON 28MMOL/L 23-31 <td [facility] DIOXIDE ID="Observatio ([facility] p-Iwfw-4wb5tv2 For Aged 8-7p04-32jb5p64-93sn-x3 [facility]s) 92-q8758464h6c f">(CO2) CARBON DIOXIDE</td><t d ID="Observatio g-Nyhsd-0hc6te 08-9o15-38eh-b 292-b2323816f2 af">28</td><td ID="Observatio o-Uixm-8ur9wt3 9-6j85-07fr3r62-19pg-x9 92-j3482083s4w f">MMOL/L</td> <td ID="Observatio c-GxtJmwwo-1sr 8vp71-8z92-37g k-s150-z544651 2a1af">23-31</ td><td ID="Observatio o-Ozuzjzmy-7os 7rz32-6y36-98d z-j435-a550177 2a1af"></td><t d ID="Observatio c-Ckzuxg-7nu7q u10-6o88-36gx- s127-m6043349v 1af">Final</td > ANION GAP 12 6-18 <td [facility] ID="Observatio ([facility] x-Tuey-9k0426y For Aged c-19b0-1nyk45z0-0ywg-r3 [facility]) 9f-9a2g2c7gsfi 1">(AGAP) ANION GAP</td><td ID="Observatio i-Rnxvw-4n5711 dr-38t6-0vsd-b 19f-3l6f1g7gsf e1">12</td><td ID="Observatio u-Qems-1b2331v c-26o4-6zar94h5-6sav-q0 9f-6h1j9m0weif 1"></td><td ID="Observatio z-AtoZuynz-0x8 295qm-94x2-6pw t-x52h-5u0g5x4 cffe1">6-18</t d><td ID="Observatio i-Mcsrzagl-1n5 875qg-50e0-4ik p-k64b-3u3j4u5 cffe1"></td><t d ID="Observatio n-Mahxuy-9p346 7gt-04z9-4wcm- t98a-9u4m1g6dp fe1">Final</td > BLOOD UREA 25MG/DL 6-20 Above high normal <td [facility] NITROGEN ID="Observatio ([facility] x-Ewzp-7t54533 For Aged r-vy75-46ipvr57-06gb-6y [facility]) 6c-51ard5k4810 e">(BUN) BLOOD UREA NITROGEN</td>< td ID="Observatio w-Gpfhv-4s0019 9n-ne44-01ee-9 f1j-55ikl9n627 0e">25</td><td ID="Observatio l-Hqwi-0v32940 g-xf87-51wupg03-39qn-6a 6c-95igv0w0335 e">MG/DL</td>< td ID="Observatio l-AdpUamfx-7w1 1713h-wr63-02r q-9l3f-05ryu2l 8020e">6-20</t d><td ID="Observatio k-Tvdultzc-1k8 0275n-um89-17d f-6d1l-52bgc9s 8020e">H</td>< td ID="Observatio u-Zguocl-7h132 89r-ua41-87rf- 0e3y-66psm1z72 20e">Final</td > CREATININE 0.8MG/DL 0.9-1.3 Below low normal <td [facility] ID="Observatio ([facility] d-Gzse-f2ty495 For Aged 7-6pl4-85f77av0-90j6-80 [facility]) a8-y45op68m5u6 0">(CRET) CREATININE</td ><td ID="Observatio a-Jdafw-x7uf19 72-4rh8-44x2-9 1b6-e59as77s0j 70">0.8</td><t d ID="Observatio p-Dxii-n1sp854 5-3zp4-33r28yp8-47m0-54 a8-y49qb30r7k8 0">MG/DL</td>< td ID="Observatio u-EqoKabwg-z5v y9330-7zj2-47p 7-67p0-w85xn95 c1d70">0.9-1.3 </td><td ID="Observatio j-Gdjjzmvg-w6l e6276-1sx9-36y 9-75p4-o25lj86 c1d70">L</td>< td ID="Observatio u-Sogsie-g0xi0 053-9af0-17w5- 73t7-c95df59q0 d70">Final</td > BUN/CREATININ 31.3 6.0-20.0 Above high normal <td SIG[facility]AR E E RATIO ID="Marcelo ([facility] b-Gugi-73w1484 For Aged [facility]) 8d-4195q99n3d9 5">(BCR) BUN/CREATININE RATIO</td><td ID="Observatio r-Ngoak-79l471 48-03c6-4812-8 68d-5354j90p0l 75">31.3</td>< td ID="Marcelo l-Seev-01d1083 8d-3498n77x5u6 5"></td><td ID="Marcelo i-VnqUpcmc-83j 25688-21o2-137 2-340z-8985e09 b0e75">6.0-20. 0</td><td ID="Observatio u-Zbyuhgkw-43r 06296-81i0-917 1-843s-6733v15 b0e75">H</td>< td ID="Charoatio p-Ovavll-30o59 835-92d9-2284- 868d-3159y92k6 e75">Final</td > CALCIUM 8.2MG/DL 8.3-10.6 Below low normal <td [facility] ID="Observatio ([facility] g-Wmkm-1v3156g For Aged -a [facility]) f4-98w8i74yp41 d">(CA) CALCIUM</td><t d ID="Observatio k-Geavl-6t9726 w5-8029-7942-a 2f3-94o2i17pp9 7d">8.2</td><t d ID="Observatio g-Xfwk-5t6769v -a8 f4-31i2z53aa26 d">MG/DL</td>< td ID="Observatio k-ZalRaynb-2p7 400d1-6935-169 8-b8u6-62f4c74 cb87d">8.3-10. 6</td><td ID="Observatio v-Hezxcyad-8o5 559y4-4463-038 7-p2l4-41g9d73 cb87d">L</td>< td ID="Observatio x-Ibovmi-2h699 0v2-5418-1340- y2d5-99z9v61ql 87d">Final</td > ID Date Data Source CBC 03/31/2020 03:36:00 AM EDT [facility] ([facility] [place] Name Value Range Interpretation Description Data Sup porting Code Source(s) Document(s ) WHITE BLOOD 9.6K/UL 4.0-10.0 <td [facility] CELL COUNT ID="Observatio ([facility] y-Rraw-7ni3532 [facility] For 8-760k-12bt-b Aged 15-413b474zbcx [place]) d">(WBC) WHITE BLOOD CELL COUNT</td><td ID="Observatio t-Qpqqe-6ex387 94-531o-98ci-b 815-664c569mha fd">9.6</td><t d ID="Observatio n-Ssxr-2lo8107 4-090r-62xf-b8 15-935u751mmun d">K/UL</td><t d ID="Observatio f-SvgAoplv-5gg 51315-643d-57a k-h670-012e648 ebffd">4.0-10. 0</td><td ID="Observatio v-Abzskasy-0rw 31539-703s-37c x-r802-798f687 ebffd"></td><t d ID="Observatio k-Wzmank-7vw25 885-985j-29zo- l786-225q564un ffd">Final</td > RED BLOOD CELL 3.84MIL/ 4.50-5.9 Below low normal <td SIG[facility] E COUNT UL 0 ID="Observatio ([facility] d-Cgbo-w818702 [facility] For 3-e7v8-731pj3d6-734y-0h Aged 8b-6scx36h45e2 [place]) 3">(RBC) RED BLOOD CELL COUNT</td><td ID="Observatio c-Ywcip-x08149 17-n3j5-695v-8 z6z-9xyi43i00c 63">3.84</td>< td ID="Observatio n-Ihwt-s173886 7-c1x3-220bw9r7-122u-4t 8b-2dcv51c56o7 3">MIL/UL</td> <td ID="Observatio y-LkqHhgin-p45 87560-x3g6-231 k-0k5l-9ivs50v 31e63">4.50-5. 90</td><td ID="Observatio s-Viyxnsre-n54 50167-m8j9-184 r-0v0g-8fji87z 31e63">L</td>< td ID="Observatio r-Ymxyvm-n2103 457-u1d8-762v- 1u5b-3anr11l16 e63">Final</td > HEMOGLOBIN 11.1GM/D 13.6-17. Below low normal <td [facility] L 0 ID="Observatio ([facility] z-Fnyy-w545712 [facility] For d Aged b1-djfv02k98j5 [place]) 2">(HGB) HEMOGLOBIN</td ><td ID="Observatio i-Mdbju-d04506 55-8581-3gu6-9 db1-uiwp49g07y 82">11.1</td>< td ID="Observatio r-Uzpg-l995718 8-2265-5kg8-9d b1-heqe53q89t9 2">GM/DL</td>< td ID="Observatio q-PyfLhihe-d18 [address]-1gr 0-5xi8-bxne17m 62a82">13.6-17 .0</td><td ID="Observatio v-Dqlokikt-d65 [address]-1mp 8-8tq3-vrym09b 62a82">L</td>< td ID="Observatio w-Imfhvq-y9548 308-3886-2vj7- 6gz8-vyzc49e75 a82">Final</td > HEMATOCRIT 34.9% 42.0-50. Below low normal <td [facility] 0 ID="Observatio ([facility] c-Kjwh-0q4a23g Home For 5-4q45-78kn4u99-76hn-s5 Aged 23-44045ljz44y [facility]) 9">(HCT) HEMATOCRIT</td ><td ID="Observatio d-Zoaqr-8q9f02 y0-8m29-60gk-b 123-31226tgi29 a9">34.9</td>< td ID="Observatio v-Wmqm-8d0o78v 5-9z06-57gy6m35-09pq-c5 23-66630jsh63a 9">%</td><td ID="Observatio r-UptXlvpw-0a4 o90o3-3i15-81c e-g340-42969zl b38a9">42.0-50 .0</td><td ID="Observatio r-Lmtmppxt-7n4 k00r1-6g54-59p o-x147-85310zt b38a9">L</td>< td ID="Observatio b-Knnkgt-8u0z1 3f4-4h46-09us- o890-96128wrt1 8a9">Final</td > MEAN 90.9FL 80.0-96. <td [facility] CORPUSCULAR 0 ID="Observatio ([facility] VOLUME b-Akdu-81075p5 Home For g-tpr3-7135-82 Aged 63-i4o0376652v [place]) 8">(MCV) MEAN CORPUSCULAR VOLUME</td><td ID="Observatio y-Kabbg-90050d 5g-lzv1-3803-8 263-x9s8125530 b8">90.9</td>< td ID="Observatio u-Wwqt-78653l1 e-enl7-6011-82 63-x7j1044853l 8">FL</td><td ID="Observatio u-AbhHtvhj-502 95t6u-ngi4-657 6-3005-k0c5127 767b8">80.0-96 .0</td><td ID="Observatio f-Iksbojqz-957 14p5w-bpz4-337 9-5978-s4r6391 767b8"></td><t d ID="Observatio c-Jsobkz-46112 d3i-fiq9-6728- 8263-f7i907515 7b8">Final</td > MEAN 28.9PG 27.0-34. <td [facility] CORPUSCULAR 0 ID="Observatio ([facility] HEMOGLOBIN n-Qedt-0262006 Home For 6-3e49-957z7h80-070e-m1 Aged 69-1u59056d9vl [facility]) 5">(MCH) MEAN CORPUSCULAR HEMOGLOBIN</td ><td ID="Observatio j-Ympnp-320345 83-3n40-535j-b 568-4w43255k4a a5">28.9</td>< td ID="Observatio d-Obgh-7444271 4-8g57-215m0x72-056r-t0 68-2j54521g6hi 5">PG</td><td ID="Observatio p-TzuXtprt-157 65714-6o46-986 i-h237-6z37602 f0aa5">27.0-34 .0</td><td ID="Observatio u-Wjpribmh-306 91332-9r68-974 o-q446-4c87593 f0aa5"></td><t d ID="Observatio u-Gutdsd-86750 643-3d03-395a- u345-9y92767m8 aa5">Final</td > MEAN 31.8GM/D 31.0-36. <td [facility] CORPUSCULAR HGB L 0 ID="Observatio ([facility] CONCEN l-Fgeg-46ot9o3 Home For 2-9d96-529r1z95-271r-s2 Aged e4-3wd71o50473 [facility]) 6">(MCH[facility]) MEAN CORPUSCULAR HGB CONCEN</td><td ID="Observatio b-Jvigp-38wv7z 81-3t89-125l-b 3t9-9vs19x0881 26">31.8</td>< td ID="Observatio c-Njnf-09cn1f9 7-3a95-195h0m20-490z-h8 e4-3ag35z86834 6">GM/DL</td>< td ID="Observatio d-BipTmgvl-41m p9e81-9l70-711 b-g8u4-4wm00c5 37572">31.0-36 .0</td><td ID="Observatio n-Rtpuhuix-61q a1h07-0f13-589 i-m1r6-8oa83k3 79773"></td><t d ID="Observatio f-Hhkogc-09nr5 o11-6i21-664y- s4i0-3os24k085 826">Final</td > RED CELL 12.6% 11.5-14. <td [facility] DISTRIBUTION 5 ID="Observatio ([facility] q-Emfb-1517701 Home For b-76i6-298548e1-4472-90 Aged d1-6hwg4209mic [place]) a">(RDW) RED CELL DISTRIBUTION WIDTH</td><td ID="Observatio s-Dsgpz-383369 2b-71m5-2343-9 8z4-7oql8459sf fa">12.6</td>< td ID="Observatio z-Kbft-7810475 a-00s1-293887u1-7125-74 d1-1zgy7046lsj a">%</td><td ID="Observatio c-IhtTtllm-546 9531w-95t1-133 0-86r0-4moy994 2dcfa">11.5-14 .5</td><td ID="Observatio a-Cssmjkez-349 9785r-73a6-772 0-19w0-7uqm593 2dcfa"></td><t d ID="Observatio r-Ickaoh-03263 37t-38p9-0449- 98n4-5kqc7170x vp of marketing">Final</td > PLATELET COUNT 350K/UL 150-400 <td [facility] ID="Observatio ([facility] w-Pftv-r3t53jo [facility] For 3-0af0-01413cd2-1575-la Aged 49[facility]h [facility] f">(PLTC) PLATELET COUNT</td><td ID="Observatio j-Zutpt-s5h10r a2-2eh2-1831-a a96-0bq66ez7r8 ef">350</td><t d ID="Observatio j-Qzcn-d2q07qj 9-5cd7-78544ws9-5779-zc 49-3bm67kd7g0a f">K/UL</td><t d ID="Observatio d-CeyJaoqb-w5c 43yv0-8hp8-504 1-tv17-1bz88qj 8b2ef">150-400 </td><td ID="Observatio a-Fjzwkdjq-z1i 37pz9-7mv5-598 5-bz79-9uv68iw 8b2ef"></td><t d ID="Observatio q-Dvmwbj-a0k59 wi2-6bi4-2951- sh85-6sk27dy1d 2ef">Final</td > MEAN PLATELET 11.2FL 9.6-12.8 <td [facility] VOLUME ID="Observatio ([facility] b-Siuj-klo8918 [facility] For Aged -eo2709j9elk [place]) 0">(MPV) MEAN PLATELET VOLUME</td><td ID="Observatio e-Ebmas-zcz873 5d-4614-8951-8 929-gk5929l6ez e0">11.2</td>< td ID="Observatio k-Qpip-ede6573 29-gw4750m6trd 0">FL</td><td ID="Observatio j-LilQlchz-bpt 1586v-2399-201 6-7910-iv3962e 7bee0">9.6-12. 8</td><td ID="Observatio x-Gpphpiww-flm 1323t-7079-487 2-1436-uk8086o 7bee0"></td><t d ID="Observatio j-Qvzhvc-qfk81 36n-1348-2329- 8929-hi5265s6r ee0">Final</td > ID Date Data Source [id number] 03/27/2020 12:00:00 PM EDT [facility] Name Value Range Interpretation Code Description Data Ana rce(s) Supporting Document(s ) SARS-CoV-2 [facility] Ql J LUIS+probe This lab was ordered by [facility] a nd reported by [facility]. ID Date Data Source [id number] 03/20/2020 05:04:00 PM EDT [facility] Name Value Range Interpretation Code Description Data Ana rce(s) Supporting Document(s ) SARS-CoV-2 [facility] Ql J LUIS+probe This lab was ordered by [facility] a nd reported by [facility]. ID Date Data Source Liver 03/19/2020 06:00:00 AM EDT [facility] Profile.[id number] Name Value Range Interpretation Description Data Sup porting Code Source(s) Document(s ) Aspartate 17-59 <content [facility] aminotransferase styleCode="Bold"> Fei hs [Enzymatic Aspartate Medical activity/volume] Aminotransferase Center in Serum or Plasma (AST) </content>46 IU/L<content styleCode="Italic s"> (17-59 IU/L)</content> Alanine 7-50 Above high <content [facility] aminotransferase normal styleCode="Bold"> Fei hs [Enzymatic Alanine Medical activity/volume] Aminotransferase Center in Serum or Plasma (ALT) </content>57 IU/L H<content styleCode="Italic s"> (7-50 IU/L)</content> Alkaline 38-126 <content [facility] phosphatase styleCode="Bold"> Mishel [Enzymatic Alkaline Medical activity/volume] [...] s"> (0.2-1.3 MG/DL)</content> ID Date Data Source HematologyRou.[id number] 03/19/2020 06:00:00 AM EDT [facility] 0400 Name Value Range Interpretation Description Data [...] low normal <content [facility] [Volume 0 styleCode="[facility] Fraction] of ">Hematocrit Medical Blood by </content>36.9 [...] (< 1 %)</content> ID Date Data Source GFR(Creatinine).[id number] 03/19/2020 06:00:00 AM EDT [facility] 0-0400 Name Value Range Interpretation Code Description Data Ana rce(s) Supporting Document(s ) UNK > 60 <content [facility] styleCode="Bold"> Medical Cent er EGFR </content>77 GFR<content styleCode="Italic s"> (> 60 GFR)</content> ID Date Data Source Coagulation 03/19/2020 06:00:00 AM [facility] Rout.[id number] EDT Name Value Range Interpretation Description Data Sup porting Code Source(s) Document(s ) INR in 0.80-1.2 <content [facility] Platelet poor 0 styleCode="Bold" Mishel plasma by >INR Medical Coagulation </content>1.09 Center assay #<content styleCode="Itali cs"> (0.80-1.20 #)</content> UNK 9.0-13.0 <content [facility] styleCode="Bold" Mishel >Protime Medical </content>12.1 Center SEC<content styleCode="Itali cs"> (9.0-13.0 SEC)</content> aPTT in 25.1-36. <content [facility] Platelet poor 5 styleCode="Bold" Mishel plasma by >Partial Medical Coagulation Thromboplastin Center assay Time </content>30.8 SEC<content styleCode="Itali cs"> (25.1-36.5 SEC)</content> ID Date Data Source CHMROUTINECCDA.[id number] 03/19/2020 06:00:00 AM EDT [facility] -0400 Name Value Range Interpretation Description Data Sup porting Code Source(s) Document(s ) UNK >= 1.0 <content [facility] styleCode="Veronica Powells d">AG Ratio Medical </content>1.0 Center <content styleCode="Isabel lics"> (>= 1.0 )</content> Phosphate 2.5-4.5 <content [facility] [Mass/volume] styleCode="Veronica Powells in Serum or d">Phosphorus Medical Plasma </content>3.0 Center MG/DL<content styleCode="Isabel lics"> (2.5-4.5 MG/DL)</conten t> UNK 2.3-3.5 <content [facility] styleCode="Veronica Mishel d">Globulin Medical </content>3.0 Center G/DL<content styleCode="Isabel lics"> (2.3-3.5 G/DL)</content > Magnesium 1.6-2.3 <content [facility] [Mass/volume] styleCode="Veronica Powells in Serum or d">Magnesium Medical Plasma </content>1.9 Center MG/DL<content styleCode="Isabel lics"> (1.6-2.3 MG/DL)</conten t> Protein 6.3-8.2 Below low normal <content [facility] [Mass/volume] styleCode="Veronica Mishel in Serum or d">Total Medical Plasma Protein Center </content>6.1 G/DL L<content styleCode="Isabel lics"> (6.3-8.2 G/DL)</content > ID Date Data Source CardiacMarkers.[id number] 03/19/2020 06:00:00 AM EDT [facility] -0400 Name Value Range Interpretation Description Data Sup porting Code Source(s) Document(s ) Troponin < 0.034 Above upper panic <content [facility] I.cardiac limits styleCode="Bold Mishel [Mass/volume ">Troponin I Medical ] in Serum </content><cont Center or Plasma ent styleCode="Bold ">0.676 NG/ML HH</content><co ntent styleCode="Ital ics"> (< 0.034 NG/ML)</content > ID Date Data Source [facility].[id number] 03/19/2020 06:00:00 AM EDT [facility] Name Value Range Interpretation Description Data Sup porting Code Source(s) Document(s ) Sodium 137-145 Below low <content [facility] [Moles/volume] in normal styleCode="Bold"> Adilson phs Serum or Plasma Sodium Medical </content>135 Center MEQ/L L<content styleCode="Italic s"> (137-145 MEQ/L)</content> Potassium 3.5-5.3 <content [facility] [Moles/volume] in styleCode="Bold"> Adilson phs Serum or Plasma Potassium Medical </content>4.0 Center MEQ/L<content styleCode="Italic s"> (3.5-5.3 MEQ/L)</content> Carbon dioxide, 22-30 <content [facility] total styleCode="Bold"> Mishel [Moles/volume] in Carbon Dioxide Medical Serum or Plasma </content>29 Center MEQ/L<content styleCode="Italic s"> (22-30 MEQ/L)</content> Chloride 98-107 <content [facility] [Moles/volume] in styleCode="Bold"> Adilson phs Serum or Plasma Chloride Medical </content>105 Center [...] Data Source Liver 03/18/2020 05:15:00 AM EDT [facility] Profile.[id number] Name Value Range Interpretation Description Data Sup [...] s"> (3.5-5.0 G/DL)</content> ID Date Data Source Hormones.[id number] 03/18/2020 05:15:00 AM EDT [facility] Name Value Range Interpretation Description Data Sup porting Code Source(s) Document(s ) Thyrotropin 0.465-4. <content [facility] [Units/volume] 68 styleCode="Veronica Mishel in Serum or d">Thyroid Medical Plasma by Stimulating Center Detection Hormone limit <= 0.05 </content>2.10 mIU/L MIU/L<content styleCode="Isabel lics"> (0.465-4.68 MIU/L)</conten t> ID Date Data Source HematologyRou.[id number] 03/18/2020 05:15:00 AM EDT [facility] 0400 Name Value Range Interpretation Description Data [...] (< 1 %)</content> ID Date Data Source GFR(Creatinine).[id number] 03/18/2020 05:15:00 AM EDT [facility] 0-0400 Name Value Range Interpretation Code Description Data Ana rce(s) Supporting Document(s ) UNK > 60 <content [facility] styleCode="Bold"> Medical Cent er EGFR </content>77 GFR<content styleCode="Italic s"> (> 60 GFR)</content> ID Date Data Source ChemistrySpecia.[id number] 03/18/2020 05:15:00 AM EDT [facility] 0-0400 Name Value Range Interpretation Description Data Sup porting Code Source(s) Document(s ) Cobalamin 239-931 <content (Vitamin B12) styleCode="Veronica Mishel [Mass/volume] d">Vitamin B12 Medical in Serum or </content>487 Center Plasma PG/ML<content styleCode="Isabel lics"> (239-931 PG/ML)</conten t> ID Date Data Source CHMROUTINECCDA.[id number] 03/18/2020 05:15:00 AM EDT [facility] -0400 Name Value Range Interpretation Description Data Sup porting Code Source(s) Document(s ) UNK >= 1.0 <content Mishel styleCode="Bold Medical ">AG Ratio Center </content>1.0 <content styleCode="Ital ics"> (>= 1.0 )</content> UNK 2.3-3.5 <content [facility] styleCode="Bold Medical ">Globulin Center </content>2.9 G/DL<content styleCode="Ital ics"> (2.3-3.5 G/DL)</content> Protein 6.3-8.2 Below low normal <content [facility] [Mass/volum styleCode="Bold Medical e] in Serum ">Total Protein Center or Plasma </content>5.8 G/DL L<content styleCode="Ital ics"> (6.3-8.2 G/DL)</content> ID Date Data Source CardiacMarkers.[id number] 03/18/2020 05:15:00 AM EDT [facility] -0400 Name Value Range Interpretation Description Data Sup porting Code Source(s) Document(s ) Troponin < 0.034 Above upper panic <content [facility] I.cardiac limits styleCode="Bold Mishel [Mass/volume ">Troponin I Medical ] in Serum </content><cont Center or Plasma ent styleCode="Bold ">0.937 NG/ML HH</content><co ntent styleCode="Ital ics"> (< 0.034 NG/ML)</content > ID Date Data Source [facility].[id number] 03/18/2020 05:15:00 AM EDT [facility] Name Value Range Interpretation Description Data Sup porting Code Source(s) Document(s ) Potassium 3.5-5.3 <content [facility] [Moles/volume] in styleCode="Bold"> Adilson phs Serum or Plasma Potassium Medical </content>4.1 Center [...] 98-107 <content [facility] [Moles/volume] in styleCode="Bold"> Adilson [facility] Serum or Plasma Chloride Medical [...] Data Source Liver 03/17/2020 05:45:00 AM EDT [facility] Profile.[id number] Name Value Range Interpretation Description Data Sup [...] IU/L)</content> Alkaline 38-126 <content [facility] phosphatase styleCode="Bold"> [facility] [Enzymatic Alkaline Medical activity/volume] Phosphatase (ALP) Cente [...] s"> (3.5-5.0 G/DL)</content> ID Date Data Source Hormones.[id number] 03/17/2020 05:45:00 AM EDT [facility] Name Value Range Interpretation Description [...] (0.465-4.68 MIU/L)</conten t> ID Date Data Source HematologyRou.[id number] 03/17/2020 05:45:[facility] Name Value Range Interpretation Description [...] mean 26.0-34. <content [facility] corpuscular 0 styleCode="Bold Mihsel hemoglobin ">Mean Medical [Entitic mass] Corposcular Center [...] > Basophils 0.0-1.0 <content [facility] [#/volume] in styleCode="[facility] Blood by ">Basophil Medical Automated count </content>0.2 [...] (< 1 %)</content> ID Date Data Source GFR(Creatinine).[id number] 03/17/2020 05:45:00 AM EDT [facility] 0-0400 Name Value Range Interpretation Code Description Data Ana rce(s) Supporting Document(s ) UNK > 60 <content [facility] styleCode="Bold"> Medical Cent er EGFR </content>77 GFR<content styleCode="Italic s"> (> 60 GFR)</content> ID Date Data Source Coagulation 03/17/2020 05:45:00 AM [facility] ical Center Rout.[id number] EDT Name Value Range Interpretation Description Data [...] cs"> (9.0-13.0 SEC)</content> ID Date Data Source CHMROUTINECCDA.[id number] 03/17/2020 05:45:00 AM EDT [facility] -0400 Name Value Range Interpretation Description Data Sup porting Code Source(s) Document(s ) UNK >= 1.0 <content [facility] styleCode="Veronica Powells d">AG Ratio Medical </content>1.1 Center <content styleCode="Isabel lics"> (>= 1.0 )</content> Protein 6.3-8.2 Below low normal <content [facility] [Mass/volume] styleCode="Veronica Powells in Serum or d">Total Medical Plasma Protein Center </content>5.7 G/DL L<content styleCode="Isabel lics"> (6.3-8.2 G/DL)</content > Phosphate 2.5-4.5 <content [facility] [Mass/volume] styleCode="Veronica Mishel in Serum or d">Phosphorus Medical Plasma </content>2.7 Center MG/DL<content styleCode="Isabel lics"> (2.5-4.5 MG/DL)</conten t> Magnesium 1.6-2.3 <content [facility] [Mass/volume] styleCode="Veronica Mishel in Serum or d">Magnesium Medical Plasma </content>1.9 Center MG/DL<content styleCode="Isabel lics"> (1.6-2.3 MG/DL)</conten t> UNK 2.3-3.5 <content [facility] styleCode="Veronica Mishel d">Globulin Medical </content>2.7 Center G/DL<content styleCode="Isabel lics"> (2.3-3.5 G/DL)</content > ID Date Data Source CardiacMarkers.[id number] 03/17/2020 05:45:00 AM EDT [facility] -0400 Name Value Range Interpretation Description Data Sup porting Code Source(s) Document(s ) Troponin < 0.034 Above upper panic <content [facility] I.cardiac limits styleCode="Bold Mishel [Mass/volume ">Troponin I Medical ] in Serum </content><cont Center or Plasma ent styleCode="Bold ">1.32 NG/ML HH</content><co ntent styleCode="Ital ics"> (< 0.034 NG/ML)</content > ID Date Data Source BMP.[id number] 03/17/2020 05:45:00 AM EDT [facility] Name Value Range Interpretation Description Data Sup porting Code Source(s) Document(s ) Potassium 3.5-5.3 <content [facility] [Moles/volume] in styleCode="Bold"> Adilson [facility] Serum or Plasma Potassium Medical </content>4.0 Center MEQ/L<content styleCode="Italic s"> (3.5-5.3 MEQ/L)</content> Chloride 98-107 <content Saint [Moles/volume] in styleCode="Bold"> Adilson [facility] Serum or Plasma Chloride Medical </content>105 Center MEQ/L<content styleCode="Italic s"> (98-107 MEQ/L)</content> Sodium 137-145 Below low <content Saint [Moles/volume] in normal styleCode="Bold"> Adilson [facility] Serum or Plasma Sodium Medical [...] Data Source Liver 03/16/2020 06:00:00 AM EDT [facility] Profile.[id number] Name Value Range Interpretation Description Data Sup [...] s"> (3.5-5.0 G/DL)</content> ID Date Data Source HematologyRou.[id number] 03/16/2020 06:00:00 AM EDT [facility] 0400 Name Value Range Interpretation Description Data Sup porting Code Source(s) Document(s ) Leukocytes 4.4-11.0 <content Saint [#/volume] in styleCode="Bold [facility] Blood by ">White Blood Medical Automated count [...] low normal <content Saint [Volume 0 styleCode="Bold [facility] Fraction] of ">Hematocrit Medical Blood by </content>35.9 [...] (< 1 %)</content> ID Date Data Source GFR(Creatinine).[id number] 03/16/2020 06:00:00 AM EDT [facility] 0-0400 Name Value Range Interpretation Code Description Data Ana rce(s) Supporting Document(s ) UNK > 60 <content [facility] styleCode="Bold"> Medical Cent er EGFR </content>87 GFR<content styleCode="Italic s"> (> 60 GFR)</content> ID Date Data Source Coagulation 03/16/2020 06:00:00 AM [facility] ical Center Rout.[id number] EDT Name Value Range Interpretation Description Data [...] cs"> (25.1-36.5 SEC)</content> ID Date Data Source CHMROUTINECCDA.[id number] 03/16/2020 06:00:00 AM EDT [facility] -0400 Name Value Range Interpretation Description Data [...] (2.5-4.5 MG/DL)</conten t> ID Date Data Source CardiacMarkers.[id number] 03/16/2020 06:00:00 AM EDT [facility] -0400 Name Value Range Interpretation Description Data Sup porting Code Source(s) Document(s ) Troponin < 0.034 Above upper panic <content Saint I.cardiac limits styleCode="Bold Mishel [Mass/volume ">Troponin I Medical ] in Serum </content><cont Center or Plasma ent styleCode="Bold ">1.42 NG/ML HH</content><co ntent styleCode="Ital ics"> (< 0.034 NG/ML)</content > ID Date Data Source [facility].[id number] 03/16/2020 06:00:00 AM EDT [facility] Name Value Range Interpretation Description Data Sup porting Code Source(s) Document(s ) Sodium 137-145 Below low <content Saint [Moles/volume] in normal styleCode="Bold"> Adilson phs Serum or Plasma Sodium Medical </content>134 Center MEQ/L L<content styleCode="Italic s"> (137-145 MEQ/L)</content> Potassium 3.5-5.3 <content Saint [Moles/volume] in styleCode="Bold"> Adilson phs Serum or Plasma Potassium Medical </content>3.8 Center MEQ/L<content styleCode="Italic s"> (3.5-5.3 MEQ/L)</content> Chloride 98-107 <content Saint [Moles/volume] in styleCode="Bold"> Adilson phs Serum or Plasma Chloride Medical </content>104 Center [...] Data Source Liver 03/15/2020 05:50:00 AM EDT [facility] Profile.[id number] Name Value Range Interpretation Description Data Sup [...] s"> (3.5-5.0 G/DL)</content> ID Date Data Source HematologyRou.[id number] 03/15/2020 05:50:00 AM EDT [facility] 0400 Name Value Range Interpretation Description Data [...] (< 1 %)</content> ID Date Data Source GFR(Creatinine).[id number] 03/15/2020 05:50:00 AM EDT [facility] 0-0400 Name Value Range Interpretation Code Description Data Ana rce(s) Supporting Document(s ) UNK > 60 <content [facility] Fl[facility] styleCode="Bold"> Medical Cent er EGFR </content>69 GFR<content styleCode="Italic s"> (> 60 GFR)</content> ID Date Data Source Coagulation 03/15/2020 05:50:00 AM [facility] Rout.[id number] EDT Name Value Range Interpretation Description Data Sup porting Code Source(s) Document(s ) UNK 9.0-13.0 <content Saint styleCode="Bold" Mishel >Protime Medical </content>11.7 Center SEC<content styleCode="Itali cs"> (9.0-13.0 SEC)</content> INR in 0.80-1.2 <content Saint Platelet poor 0 styleCode="Bold" Mishel plasma by >INR Medical Coagulation </content>1.05 Center assay #<content styleCode="Itali cs"> (0.80-1.20 #)</content> aPTT in 25.1-36. <content Saint Platelet poor 5 styleCode="Bold" [facility] plasma by >Partial Medical Coagulation Thromboplastin Center assay Time </content>32.3 SEC<content styleCode="Itali cs"> (25.1-36.5 SEC)</content> ID Date Data Source [facility][id number] 03/15/2020 05:50:00 AM [facility] Name Value Range Interpretation Description Data Sup porting Code Source(s) Document(s ) UNK >= 1.0 <content Saint styleCode="Veronica Powells d">AG Ratio Medical </content>1.0 Center <content styleCode="Isabel lics"> (>= 1.0 )</content> UNK 2.3-3.5 <content Saint styleCode="Veronica Powells d">Globulin Medical </content>2.7 Center G/DL<content styleCode="Isabel lics"> (2.3-3.5 G/DL)</content > Magnesium 1.6-2.3 <content Saint [Mass/volume] styleCode="Veronica Powells in Serum or d">Magnesium Medical Plasma </content>2.0 Center MG/DL<content styleCode="Isabel lics"> (1.6-2.3 MG/DL)</conten t> Phosphate 2.5-4.5 <content Saint [Mass/volume] styleCode="Veronica Powells in Serum or d">Phosphorus Medical Plasma </content>2.9 Center MG/DL<content styleCode="Isabel lics"> (2.5-4.5 MG/DL)</conten t> Protein 6.3-8.2 Below low normal <content Saint [Mass/volume] styleCode="Veronica Mishel in Serum or d">Total Medical Plasma Protein Center </content>5.4 G/DL L<content styleCode="Isabel lics"> (6.3-8.2 G/DL)</content > ID Date Data Source CardiacMarkers.[id number] 03/15/2020 05:50:00 AM EDT [facility] -0400 Name Value Range Interpretation Description Data Sup porting Code Source(s) Document(s ) Troponin < 0.034 Above upper panic <content Saint I.cardiac limits styleCode="Bold Mishel [Mass/volume ">Troponin I Medical ] in Serum </content><cont Center or Plasma ent styleCode="Bold ">1.97 NG/ML HH</content><co ntent styleCode="Ital ics"> (< 0.034 NG/ML)</content > ID Date Data Source [facility].[id number] 03/15/2020 05:50:00 AM EDT [facility] Name Value Range Interpretation Description Data Sup porting Code Source(s) Document(s ) Sodium 137-145 Below low <content Saint [Moles/volume] in normal styleCode="Bold"> Adilson [facility] Serum or Plasma Sodium Medical </content>134 Center MEQ/L L<content styleCode="Italic s"> (137-145 MEQ/L)</content> Potassium 3.5-5.3 <content Saint [Moles/volume] in styleCode="Bold"> Adilson [facility] Serum or Plasma Potassium Medical </content>3.7 Center MEQ/L<content styleCode="Italic s"> (3.5-5.3 MEQ/L)</content> Chloride 98-107 Above high <content Saint [Moles/volume] in normal styleCode="Bold"> Adilson [facility] Serum or Plasma Chloride Medical [...] Date Data Source Coagulation 03/14/2020 05:40:00 AM [facility] Rout.[id number] EDT Name Value Range Interpretation Description Data [...] styleCode="Bold" Mishel plasma by >INR Medical Coagulation </content>1.08 Center assay #<content styleCode="Itali cs"> (0.80-1.20 #)</content> ID Date Data Source Liver 03/14/2020 05:40:00 AM EDT [facility] Profile.[id number] Name Value Range Interpretation Description Data Sup [...] IU/L)</content> Alkaline 38-126 <content Saint phosphatase styleCode="Bold"> Misehl [Enzymatic Alkaline Medical activity/volume] Phosphatase (ALP) Cente [...] s"> (3.5-5.0 G/DL)</content> ID Date Data Source HematologyRou.[id number] 03/14/2020 05:40:00 AM EDT [facility] 0400 Name Value Range Interpretation Description Data [...] Basophils 0.0-1.0 <content Saint [#/volume] in styleCode="Bold [facility] Blood by ">Basophil Medical Automated count </content>0.2 Center %<content styleCode="Ital ics"> (0.0-1.0 %)</content> UNK 0-0.1 <content Saint styleCode="Bold Mishel ">Immature Medical Granulocyte Center Count </content>0.04 KCUMM<content styleCode="Ital ics"> (0-0.1 KCUMM)</content > UNK < 1 <content Saint styleCode="Bold Mishel ">Immature Medical Granulocyte Center Ratio </content>0.3 %<content styleCode="Ital ics"> (< 1 %)</content> ID Date Data Source GFR(Creatinine).[id number] 03/14/2020 05:40:00 AM EDT [facility] 0-0400 Name Value Range Interpretation Code Description Data Ana rce(s) Supporting Document(s ) UNK > 60 Below low normal <content Saint Mishel styleCode="Bold"> Medical Cent er EGFR </content>22 GFR L<content styleCode="Italic s"> (> 60 GFR)</content> ID Date Data Source EMILI.[id number] 03/14/2020 05:40:00 AM EDT [facility] -0400 Name Value Range Interpretation Description Data [...] (6.3-8.2 G/DL)</content > ID Date Data Source CardiacMarkers.[id number] 03/14/2020 05:40:00 AM EDT [facility] -0400 Name Value Range Interpretation Description Data Sup porting Code Source(s) Document(s ) Troponin < 0.034 Above upper panic <content Saint I.cardiac limits styleCode="Bold Mishel [Mass/volume ">Troponin I Medical ] in Serum </content><cont Center or Plasma ent styleCode="Bold ">5.99 NG/ML HH</content><co ntent styleCode="Ital ics"> (< 0.034 NG/ML)</content > ID Date Data Source [facility].[id number] 03/14/2020 05:40:00 AM EDT [facility] Name Value Range Interpretation Description Data Sup porting Code Source(s) Document(s ) Sodium 137-145 <content Saint [Moles/volume] in styleCode="Bold"> Adilson [facility] Serum or Plasma Sodium Medical </content>137 Center MEQ/L<content styleCode="Italic s"> (137-145 MEQ/L)</content> UNK 9-20 Above high <content Saint normal styleCode="Bold"> Mishel BUN </content>62 Medical MG/DL H<content Center styleCode="Italic s"> (9-20 MG/DL)</content> Chloride 98-107 <content Saint [Moles/volume] in styleCode="Bold"> Adilson [facility] Serum or Plasma Chloride Medical </content>107 Center MEQ/L<content styleCode="Italic s"> (98-107 MEQ/L)</content> Carbon dioxide, 22-30 <content Saint total styleCode="Bold"> Mishel [Moles/volume] in Carbon Dioxide Medical Serum or Plasma </content>27 Center MEQ/L<content styleCode="Italic s"> (22-30 MEQ/L)</content> Potassium 3.5-5.3 <content Saint [Moles/volume] in styleCode="Bold"> Adilson [facility] Serum or Plasma Potassium Medical </content>4.6 Center [...] s"> (17-59 IU/L)</content> ID Date Data Source Urinalysis.[id number] 03/14/2020 02:10:00 AM EDT [facility] 0 Name Value Range Interpretation Description Data Sup porting Code Source(s) Document(s ) Color of Urine YELLOW <content Saint styleCode="Veronica Powells d">Color, Medical Urine Center </content>YELL OW <content styleCode="Isabel lics"> (YELLOW )</content> Glucose NEGATIVE <content Saint [Mass/volume] styleCode="Veronica Florentino in Urine by d">Urine Medical Test strip Glucose Center </content>NEGA TIVE MG/DL<content styleCode="Isabel lics"> (NEGATIVE MG/DL)</conten t> UNK CLEAR <content Saint styleCode="Veronica Powells d">Urine Medical Clarity Center </content>DEVANTE R <content styleCode="Isabel lics"> (CLEAR )</content> Ketones NEGATIVE <content Saint [Mass/volume] styleCode="Veronica Florentino in Urine by d">Urine Medical Test strip Ketone Center </content>NEGA TIVE MG/DL<content styleCode="Isabel lics"> (NEGATIVE MG/DL)</conten t> UNK NEGATIVE <content Saint styleCode="Veronica Powells d">Urine Medical Bilirubin Center </content>NEGA TIVE <content styleCode="Isabel lics"> (NEGATIVE )</content> Specific 1.015-1.02 <content Saint gravity of 5 styleCode="Veronica Florentino Urine by Test d">Urine Medical strip Specific Center [place] </content>1.01 5 <content styleCode="Isabel lics"> (1.015-1.025 )</content> Hemoglobin NEGATIVE <content Saint [Presence] in styleCode="Veronica Powells Urine by Test d">Urine Blood Medical strip </content>LARG Center E <content styleCode="Isabel lics"> (NEGATIVE )</content> pH of Urine by 4.5-8.0 <content Saint Test strip styleCode="Veronica Mishel d">Urine pH Medical </content>5.0 Center <content styleCode="Isabel lics"> (4.5-8.0 )</content> Protein NEGATIVE <content Saint [Mass/volume] styleCode="Veronica Powells in Urine by d">Urine Medical Test strip Protein Center </content>NEGA TIVE MG/DL<content styleCode="Isabel lics"> (NEGATIVE MG/DL)</conten t> Urobilinogen 0.2-1.0 <content Saint [Units/volume] styleCode="Veronica Powells in Urine by d">Urine Medical [...] Blood Cell Center </content>10 - 20 HPF<content styleCode="Isabel lics"> (0-3 HPF)</content> UNK 0-3 <content Saint styleCode="Veronica Mishel d">Urine White Medical Blood Cell Center </content>0-3 HPF<content styleCode="Isabel lics"> (0-3 HPF)</content> UNK NEGATIVE <content Saint styleCode="Veronica Mishel d">Urine Medical Bacteria Center </content>FEW HPF<content styleCode="Isabel lics"> (NEGATIVE HPF)</content> ID Date Data Source CardiacMarkers.[id number] 03/13/2020 08:36:00 PM EDT [facility] -0400 Name Value Range Interpretation Description Data Sup porting Code Source(s) Document(s ) Troponin < 0.034 Above upper panic <content Saint I.cardiac limits styleCode="Bold Mishel [Mass/volume ">Troponin I Medical ] in Serum </content><cont Center or Plasma ent styleCode="Bold ">4.99 NG/ML HH</content><co ntent styleCode="Ital ics"> (< 0.034 NG/ML)</content > ID Date Data Source LIPID.[id number] 03/13/2020 05:47:00 PM EDT [facility] Name Value Range Interpretation Description Data Sup porting Code Source(s) Document(s ) Triglyceride < 150 <content Saint [Mass/volume] in styleCode="Veronica Mishel Serum or Plasma d">Triglycerid Medical Center [place] Center </content>93 MG/DL<content styleCode="Isabel lics"> (< 150 MG/DL)</conten t> Cholesterol -<200 Above high normal <content Saint [Mass/volume] in styleCode="Veronica Mishel Serum or Plasma d">Cholesterol Medical </content>205 Center MG/DL H<content styleCode="Isabel lics"> (-<200 MG/DL)</conten t> UNK > 60 <content Saint styleCode="Veronica Mishel d">HDL- Medical Cholesterol Center </content>71 MG/DL<content styleCode="Isabel lics"> (> 60 MG/DL)</conten t> UNK < 100 Above high normal <content Saint styleCode="Veronica Mishel d">LDL-Cholest Medical eleni Center </content>115 MG/DL H<content styleCode="Isabel lics"> (< 100 MG/DL)</conten t> ID Date Data Source BMP.[id number] 03/13/2020 05:47:00 PM EDT [facility] Name Value Range Interpretation Description Data Sup porting Code Source(s) Document(s ) Chloride 98-107 <content Saint [Moles/volume] styleCode="Veronica Powells in Serum or d">Chloride Medical Plasma </content>104 [...] (> 60 GFR)</content> ID Date Data Source HematologyRou.[id number] 03/13/2020 05:47:00 PM EDT [facility] 0400 Name Value Range Interpretation Description Data [...] low normal <content Saint [Volume 0 styleCode="Bold [facility] Fraction] of ">Hematocrit Medical Blood by </content>36.7 [...] (0.0 KCUMM)</content > ID Date Data Source GFR(Creatinine).[id number] 03/13/2020 05:47:00 PM EDT [facility] 0-0400 Name Value Range Interpretation Code Description Data Ana rce(s) Supporting Document(s ) UNK > 60 Below low normal <content [facility] styleCode="Bold"> Medical Cent er EGFR </content>20 GFR L<content styleCode="Italic s"> (> 60 GFR)</content> ID Date Data Source Coagulation 03/13/2020 05:47:00 PM [facility] ical Center Rout.[id number] EDT Name Value Range Interpretation Description Data [...] cs"> (25.1-36.5 SEC)</content> ID Date Data Source CardiacMarkers.[id number] 03/13/2020 05:47:00 PM EDT [facility] -0400 Name Value Range Interpretation Description Data Sup porting Code Source(s) Document(s ) Troponin < 0.034 Above upper panic <content Saint I.cardiac limits styleCode="Bold Mishel [Mass/volume ">Troponin I Medical ] in Serum </content><cont Center or Plasma ent styleCode="Bold ">6.10 NG/ML HH</content><co ntent styleCode="Ital ics"> (< 0.034 NG/ML)</content > ID Date Data Source [id number] 03/13/2020 12:00:00 AM EDT [facility] Name Value Range Interpretation Code Description Data Ana rce(s) Supporting Document(s ) 2019-nCoV [facility] RNA XXX J LUIS+probe- Imp This lab was ordered by [facility] and reported by [facility] N[facility]. Procedure Social History Code Duration Value Status Description Data Source(s ) Smoking 05/16/2020 Tobacco smoking completed Tobacco smoking [facility] [place] 06:11:00 AM EDT consumption consumption Hospita l unknown (finding) unknown (finding) Smoking 03/14/2020 Denies Ever Smoked completed Denies Ever Smoke d [facility] 01:46:00 AM EDT Medical C enter Smoking 03/13/2020 Denies Ever Smoked completed Denies Ever Smoke d [facility] 05:45:00 PM EDT Medical C enter Smoking 03/13/2020 Denies Ever Smoked completed Denies Ever Smoke d [facility] 05:00:00 PM EDT Medical C enter Smoking 03/13/2020 Denies Ever Smoked completed Denies Ever Smoke d [facility] 04:57:00 PM EDT Medical C enter Vital Signs ID Date Data Source UNK Name Value Range Interpretation Code Description Data Source(s) Diastolic blood 76 mm[Hg] 76 mm[Hg] [facility] Systolic blood 126 mm[Hg] 126 mm[Hg] [facility] Respiratory rate 18 /min 18 /min [facility] Heart rate 70 /min 70 /min [facility] Body mass index 22.0 kg/m2 22.0 kg/m2 [facility] (BMI) [Ratio] Hospital Body weight 132.28 132.28 [lb_av] [facility] [lb_av] Hospital Body temperature 36.20767 36.91021 [facility] Body temperature 98.1 98.1 [degF] [facility] [degF] [facility] Body temperature 97.9 0 - 200 Normal (applies to 97.9 [degF] [facility] [degF] non-numeric Health System results) Body temperature 36.6 Farrah 0 - 99.9 Normal (applies to 36.6 Farrah [facility] non-numeric Health System results) Diastolic blood 73 mm[Hg] 0 - 999 Normal (applies to 73 mm[Hg] [facility] non-numeric [facility] results) Systolic blood 124 mm[Hg] 0 - 999 Normal (applies to 124 mm[Hg] [facility] pressure non-numeric Health System results) Oxygen saturation 96 % 0 - 999 Normal (applies to 96 % [facility] Arterial blood non-numeric Health System by Pulse oximetry results) Respiratory rate 18 0 - 999 Above high normal 18 M [facility] Health [facility] Heart rate 74 0 - 999 Normal (applies to 74 [facility] non-numeric [facility] results) Body weight 65 kg 65 kg [facility] Oxygen gas flow 2 2 [facility] system Body surface area 1.6 m2 1.6 m2 [facility] Derived from Health Syste m formula Body mass index 24.2 kg/m2 24.2 kg/m2 [facility] (BMI) [Ratio] Health Syst em Body height 160.02 cm 160.02 cm [facility] Body temperature 36.765338 36.531178 Far[facility] Respiratory rate 18 /min 18 /min [facility] Heart rate 50 /min 50 /min [facility] Diastolic blood 75 mm[Hg] 75 mm[Hg] [facility] Systolic blood 129 mm[Hg] 129 mm[Hg] [facility] Heart rate 58 /min 58 /min [facility] Diastolic blood 80 mm[Hg] 80 mm[Hg] [facility] Systolic blood 118 mm[Hg] 118 mm[Hg] [facility] Body temperature 36.498679 36.367979 Far[facility] Respiratory rate 20 /min 20 /min [facility] Heart rate 63 /min 63 /min [facility] Diastolic blood 79 mm[Hg] 79 mm[Hg] [facility] Systolic blood 131 mm[Hg] 131 mm[Hg] [facility] Respiratory rate 20 /min 20 /min [facility] Heart rate 82 /min 82 /min [facility] Diastolic blood 87 mm[Hg] 87 mm[Hg] [facility] [place] Systolic blood 164 mm[Hg] 164 mm[Hg] [facility] Body temperature 36.466603 36.412332 [facility] Respiratory rate 20 /min 20 /min [facility] Heart rate 60 /min 60 /min [facility] Diastolic blood 64 mm[Hg] 64 mm[Hg] [facility] [place] Systolic blood 120 mm[Hg] 120 mm[Hg] [facility] Medical [place] Body temperature 36.632577 36.430560 [facility] Respiratory rate 18 /min 18 /min [facility] Body temperature 36.590856 36.066940 [facility] Body weight 60.761015 60.209220 kg [facility] hs Measured kg Medical Center Body weight 64.438209 64.225009 kg [facility] hs Measured kg Medical Center Oxygen saturation 95 % 95 % [facility] Dani lutz in Arterial blood [facility] Center by Pulse oximetry Respiratory rate 19 /min 19 /min [facility] Heart rate 44 /min 44 /min [facility] Diastolic blood 54 mm[Hg] 54 mm[Hg] [facility] Systolic blood 93 mm[Hg] 93 mm[Hg] [facility] Respiratory rate 17 /min 17 /min [facility] Heart rate 49 /min 49 /min [facility] Diastolic blood 58 mm[Hg] 58 mm[Hg] [facility] Systolic blood 95 mm[Hg] 95 mm[Hg] [facility] Body temperature 36.462775 36.417934 [facility] Respiratory rate 27 /min 27 /min [facility] Heart rate 56 /min 56 /min [facility] Diastolic blood 63 mm[Hg] 63 mm[Hg] [facility] Medical [place] Systolic blood 105 mm[Hg] 105 mm[Hg] [facility] Respiratory rate 16 /min 16 /min [facility] Heart rate 47 /min 47 /min [facility] Diastolic blood 62 mm[Hg] 62 mm[Hg] [facility] Center Systolic blood 93 mm[Hg] 93 mm[Hg] [facility] Medical Center Body temperature 36.759031 36.454240 [facility] Respiratory rate 18 /min 18 /min [facility] Heart rate 96 /min 96 /min [facility] Diastolic blood 63 mm[Hg] 63 mm[Hg] [facility] pressure Medical Center Systolic blood 105 mm[Hg] 105 mm[Hg] [facility] Medical Center Oxygen saturation 96 % 96 % [facility] in Arterial blood Medical Center by Pulse oximetry Body temperature 36.791301 36.344771 [facility] Body weight 63.872168 63.043811 kg [facility] Fei hs Measured kg Medical Center Oxygen saturation 97 % 97 % [facility] in Arterial blood Medical Center by Pulse oximetry Oxygen saturation 95 % 95 % [facility] in Arterial blood Medical Center by Pulse oximetry Body temperature 36.434320 36.237052 [facility] Center Oxygen saturation 98 % 98 % [facility] in Arterial blood Medical Center by Pulse oximetry Body temperature 37.727283 37.182575 [facility] Oxygen saturation 98 % 98 % [facility] in Arterial blood Medical Center by Pulse oximetry Body weight 64.238715 64.731265 kg Fei hs Measured kg Medical Center Body height 164.933720 164.736757 cm [facility] Body mass index 23.5 kg/m2 23.5 kg/m2 [facility] [facility] ([facility] [Ratio] Medical Ravind[facility] ter ID Date [...]
[2020-05-28] MEDS ORDERED: CEFTRIAXONE 1 GM/50 ML BAG ONE (04:54)
[2020-05-28] MEDS ORDERED: ACETAMINOPHEN 325 MG TABLET (FP) PO PRN ×2 (05:51→14:46)
[2020-05-28] MEDS ORDERED: SODIUM CHLORIDE 1,000 ML IV SCH (06:00)
--- NOTE | 2020-05-28 06:23 | HP ---
CHIEF COMPLAINT: non-draining Mendez catheter PCP: Dr. Shay HISTORY OF PRESENT ILLNESS: Pt is a 79 yo M with history HTN, RLS, essential tremors, dementia ("primary progressive aphasia"), BPH, and recent history of urinary retention requiring indwelling mendez cather (since March 2020) and recurrent UTIs since then presenting for poor drainage from Mendez x 1 day along with suprapubic pain, penile pain, and hematuria as well. It should be noted that the history was provided by the patient's partner because of his dementia. She reports that the pt's urinary retention had been refractory to medication management and had an indwelling mendez placed several months back; also reports that the pt underwent urethral dilation on March 10 (mendez was placed after this). Since then his course has been complicated by multiple UTIs and his partner also reports a period of "sepsis." The pt also noticed some blood draining from his catheter today and slowing urine output along with suprapubic discomfort that became painful. The pt "tugged" on his Mendez which led to a stop in urinary output and the development of some mild penile pain. Full ROS is limited due to patient's dementia but per the pt and his partner - no fevers, chills, nausea, vomiting, diarrhea, chest pain, or SOB. Pt also has had a new non-productive cough for several days. ER course was notable for: (1) Pt is afebrile and VS stable in ED (2) Bladder scan showed urinary retention despite Mendez, which was removed and found to have a clot at the tip. (3) ED discussed with urology, Dr. Caro, who recommended placement of Coude catheter. Patient drained bloody urine from the catheter. (4) Labs notable for WBC 14.6, Hgb 8.8, creatinine 1.4. UA with evidence of urinary tract infection Recent Travel: denies Sick contacts: denies PAST MEDICAL HISTORY: as per HPI PAST SURGICAL HISTORY: as per HPI\\ Family hx - limited d/t pt's dementia; pt's partner not very familiar with his family hx Social History: Pt's partner lives in [place] but visits often; especially when pt has medical problems. Partner reports pt was briefly in a subacute rehab facility during the last several months Smoking: denies Alcohol: denies Drugs: denies Allergies walnut Allergy (Intermediate, Verified 05/27/20 21:25) Swelling walnuts Allergy (Intermediate, Uncoded 05/27/20 21:25) Swelling HOME MEDICATIONS: Home Medications Medication Instructions Recorded Nebivolol [Bystolic -] 5 mg PO HS 05/29/18 Pramipexole Di-HCl [Mirapex] 1 mg PO HS 05/29/18 Primidone [Mysoline -] 50 mg PO HS 05/29/18 Silodosin [Rapaflo] 8 mg PO HS 05/29/18 REVIEW OF SYSTEMS as per HPI PHYSICAL EXAMINATION Vital Signs - 24 hr 05/27/20 05/28/20 05/28/20 21:10 00:29 05:36 Temperature 98.8 F 99.0 F 98.1 F Pulse Rate 66 Pulse Rate [ 67 64 Right] Respiratory 17 19 18 Rate Blood Pressure 112/88 Blood Pressure 109/75 129/72 [Left] O2 Sat by Pulse 96 97 96 Oximetry (%) GENERAL: Awake, alert, and fully oriented, in no acute distress. Generalized pallor noted HEAD: Normal with no signs of trauma. EYES: Pupils equal, round and reactive to light, extraocular movements intact, sclera anicteric, conjunctiva clear. EARS, NOSE, THROAT: Ears normal, nares patent, oropharynx clear without exudates. Dry mucous membranes. NECK: Normal range of motion, supple without lymphadenopathy, JVD, or masses. LUNGS: Pt with crackles at bilateral bases. No labor breathing. No accessory muscle use. HEART: Regular rate and rhythm, normal S1 and S2 without murmur, rub or gallop. ABDOMEN: Soft, nontender, not distended, normoactive bowel sounds, no guarding, no rebound, no masses. Suprapubic discomfort but no tenderness. MUSCULOSKELETAL: Normal range of motion at all joints. UPPER EXTREMITIES: 2+ pulses, warm, well-perfused. No cyanosis. No clubbing. No peripheral edema. LOWER EXTREMITIES: 2+ pulses, warm, well-perfused. No calf tenderness. 1+ edema bilateral ankles NEUROLOGICAL: Cranial nerves II-XII intact. Normal speech. Moving all extremities equally and spontaneously. PSYCHIATRIC: Cooperative. Good eye contact. Appropriate mood and affect. AOx3 but difficult word finding; understands; and responds to commands SKIN: Warm, dry, normal turgor, no rashes or lesions noted Laboratory Results - last 24 hr 05/27/20 05/27/20 05/28/20 23:53 23:53 02:00 WBC 14.6 H RBC 3.36 L Hgb 8.8 L Hct 28.0 L D MCV 83.4 MCH 26.2 D MCHC 31.4 L RDW 16.2 H Plt Count 461 H D MPV 8.4 Absolute Neuts (auto) 12.1 H Neutrophils % 82.7 Neutrophils % (Manual) 79.2 Band Neutrophils % 0.0 Lymphocytes % 10.5 D Lymphocytes % (Manual) 16.8 Monocytes % 5.1 Monocytes % (Manual) 4 Eosinophils % 0.8 Eosinophils % (Manual) 0.0 Basophils % 0.9 Basophils % (Manual) 0.0 Myelocytes % (Man) 0 Promyelocytes % (Man) 0 Blast Cells % (Manual) 0 Nucleated RBC % 0 Metamyelocytes 0 Hypochromia 0 Platelet Estimate Normal Platelet Comment Present Polychromasia 2+ Poikilocytosis 0 Anisocytosis 1+ Microcytosis 1+ Macrocytosis 1+ Sodium 143 Potassium 4.8 Chloride 110 H Carbon Dioxide 27 Anion Gap 5 L BUN 40.4 H Creatinine 1.4 H Est GFR (CKD-EPI)AfAm 55.38 Est GFR (CKD-EPI)NonAf 47.78 Random Glucose 107 H Calcium 8.6 Total Bilirubin 0.4 AST 57 H ALT 100 H Alkaline Phosphatase 77 Total Protein 6.7 Albumin 2.2 L Urine Color Red Urine Appearance Turbid Urine pH 5.0 Ur Specific [place] 1.017 Urine Protein 100 Urine Glucose (UA) Neg Urine Ketones Negative Urine Blood 2+ H Urine Nitrite Positive H Urine Bilirubin Moderate Urine Urobilinogen 1.0 Ur Leukocyte Esterase 3+ H Urine WBC (Auto) 51547.8 Urine RBC (Auto) 6759.2 Urine Casts (Auto) 680.17 U Pathogenic Cast Auto None seen U Epithel Cells (Auto) 24.0 Urine Bacteria (Auto) 7711.9 Urine Yeast (Auto) None seen ASSESSMENT/PLAN: Pt is a 79 yo M with PMH of HTN, CAD (s/p stent; possibly still untreated), RLS, essential tremors, dementia, BPH, recent recurrent UTIs and indwelling mendez catheter placement presenting with non-draining mendez catheter, urinary retention, penile pain, and hematuria. Patient being admitted for evaluation and treatment of a catheter associated UTI, hematuria (with associated anemia), and SURESH. #Catheter Associated UTI UA 3+ LE, + nititred, >7700 bacteria, > 14k wbc wbc 14.6 -rocephin 1g daily; low threshold to broaden coverage if clinical status worsens -f/u Urine Culture -CBC, CMP -NS @83 cc/hr #Hematuria (associated Anemia, like 2/2 hematuria) Pt with retention and non-draining mendez upon arrival; removed and found to be clotted Possibly d/t urethral trauma vs cystitis vs other urological pathology given retention UA 2+ blood, red/turbid, >6700 rbc Hb 8.8 -monitor Hb/Hct -iron studies -T&S; coags -Urology consulted; appreciate recs -goal Hb>8 given history of CAD with stent placement #SURESH BUN 40.9; Cr 1.4 (0.9 1 year ago) In setting of urinary retention; also may have pre-renal component -f/u renal US -monitor I/Os -monitor BUN/Cr -IVF (NS@75 cc/hr) #Mild transaminitis hemolyzed - recheck LFTs # h/o untreated CAD; ?CHF Reports patient had cardiac MRI in March showing severe triple vessel disease No intervention done as yet given his recent admissions with sepsis No current cardiac symptoms but on exam appears mildly hypervolemic despite anemia/SURESH Clinical Data Abstractor is Dr. Zoran Maria - obtain outpatient cardiology records - patient/partner unsure of his medications; please reconcile with his pharmacy #Chronic Diagnoses Essential tremor: continue primidone HTN: hold nebivolol for now in setting of bleed RLS: continue pramipexole - need med reconciliation #FEN - F - NS @83 cc/hr - E - monitor (replete lytes prn) - N - low salt, low fat diet #DVT ppx SCD #Dispo Admit to med-surg Family Medical History Family History: As Documented Visit type - Medication Review Med list reviewed for High Risk Meds patients 65 and older: Yes - Emergency Visit Emergency Visit: Yes ED Registration Date: 05/28/20 Care time: The patient presented to the Emergency Department on the above date and was hospitalized for further evaluation of their emergent condition. - New Patient This patient is new to me today: Yes Date on this admission: 05/28/20 - Critical Care Critical Care patient: No ATTENDING PHYSICIAN STATEMENT I saw and evaluated the patient. I reviewed the resident's note and discussed the case with the resident. I agree with the resident's findings and plan as documented. SUBJECTIVE: OBJECTIVE: ASSESSMENT AND PLAN:
[2020-05-28 08:50] LABS: INR 1.31 (0.83-1.09); PROTHROMBIN TIME (PATIENT) 15.7 SEC (9.7-13.0)
[2020-05-28 08:53] LABS: ACTIVATED PTT 31.7 SECONDS (25.2-36.5)
[2020-05-28 08:56] LABS: BASO % 0.5 % (0-2.0); HEMATOCRIT 25.8 % (35.4-49); HEMOGLOBIN 8.2 GM/dL (11.7-16.9); LYMPH % 11.2 % (8-40); MCH 26.3 pg (25.7-33.7); MCHC 31.8 g/dl (32.0-35.9); MEAN CELL VOLUME 82.8 fl (80-96); MEAN PLT VOLUME 8.6 fl (7.5-11.1); MONO % 5.6 % (3.8-10.2); NEUT % 81.7 % (42.8-82.8); PLATELET COUNT 435 K/MM3 (134-434); RBC 3.11 M/mm3 (4.00-5.60); RDW 16.1 % (11.9-15.9); WHITE BLOOD COUNT 12.6 K/mm3 (4.0-10.0)
[2020-05-28 09:25] LABS: POTASSIUM 4.1 mmol/L (3.5-5.1)
[2020-05-28 09:29] LABS: ALBUMIN 2.1 g/dl (3.4-5.0); CALCIUM 8.6 mg/dL (8.5-10.1); MAGNESIUM 2.8 mg/dL (1.8-2.4)
[2020-05-28 09:32] LABS: CREATININE 1.3 mg/dL (0.55-1.3); PHOSPHOROUS 3.8 mg/dL (2.5-4.9)
[2020-05-28 09:33] LABS: BILIRUBIN,TOTAL 0.4 mg/dL (0.2-1)
[2020-05-28 09:34] LABS: TOT PROT 6.3 g/dl (6.4-8.2)
--- NOTE | 2020-05-28 10:59 | EKG ---
Test Reason : Blood Pressure : / mmHG Vent. Rate : 061 BPM Atrial Rate : 061 BPM P-R Int : 168 ms QRS Dur : 092 ms QT Int : 448 ms P-R-T Axes : 045 004 006 degrees QTc Int : 450 ms NORMAL SINUS RHYTHM INCOMPLETE RIGHT BUNDLE BRANCH BLOCK NONSPECIFIC ST ABNORMALITY ABNORMAL ECG Confirmed by MD ELHAM, SIRI ([id number]) on 05/28/2020 10:59:09 AM Referred By: Confirmed By:SIRI LIZARRAGA MD
--- NOTE | 2020-05-28 12:28 | PN ---
Teaching Attending Note Name of Resident: Antwon Lopez ATTENDING PHYSICIAN STATEMENT I saw and evaluated the patient. I reviewed the resident's note and discussed the case with the resident. I agree with the resident's findings and plan as documented. SUBJECTIVE: Seen and examined at bedside. Patient is unable to provide history, answers que stions inappropriately: Example, "you have any questions?" "Where is my ice cream?" Coud catheter in place and draining bloody urine. Bladder ultrasound concerning for soft tissue mass suspicious for bladder neoplasm. OBJECTIVE Last Vital Signs Temp Pulse Resp BP Pulse Ox 101.3 F H 83 20 105/64 99 05/28/20 09:30 05/28/20 09:30 05/28/20 09:30 05/28/20 09:30 05/28/20 09:30 PE: Per resident note Labs/Imaging: reviewed ASSESSMENT/PLAN 79-year-old male with a history of HTN, RLS, essential tremors, dementia,? Primary progressive aphasia, BPH, recent history of urinary retention requiring indwelling Booth catheter since March 2020 and recurrent UTIs presented for poor drainage from Booth and suprapubic pain and was found to have SURESH, UTI, and hematuria. #Catheter associated UTI Continue Rocephin Booth catheter changed Follow-up urine culture White count downtrending #Concern for soft tissue bladder mass Urology consulted: Pending evaluation Need for cystoscopy? #Postobstructive SURESH: Improving Booth now draining Continue fluids Trend creatinine Avoid nephrotoxic medications #Iron deficiency anemia In the setting of gross hematuria Check FOBT to rule out additional bowel source Iron sucrose 100 mg x 3 doses #Transaminitis Downtrending Continue to trend #Essential tremor: Continue primidone #Hypertension: Currently normotensive Hold home nebivolol in setting of bleed #Restless leg syndrome Continue pramipexole #DVT PPx SCD
[2020-05-28] MEDS: SODIUM CHLORIDE 1,000 ML IV SCH (12:30)
[2020-05-28] MEDS ORDERED: PNEUMOC 13-VAL CONJ-DIP CRM/PF 0.5 ML DISP.SYRIN IM ONE (15:03)
--- NOTE | 2020-05-28 19:15 | PN ---
Physical Exam: SUBJECTIVE: Patient seen and examined at bedside this AM in ED. Suspicious bladder mass likely neoplasm appreciated on bladder U/S. OBJECTIVE: Vital Signs Period Temp Pulse Resp BP Sys/Townsend Pulse Ox Last 24 Hr 98.1 F-101.3 F 64-83 17-20 105-129/64-88 94-99 GENERAL: Disoriented. Aphasic speech. NAD HEAD: AT/NC EYES: EOMI Sclera Clear . LUNGS: CTAB No wheezing/Rales/Rhonchi. HEART: RRR S1S2 ABDOMEN: Soft, NDNT : Mendez in place EXTREMITIES: No CCE. NEUROLOGICAL: Spontaneously moves all extremities. AAOX1 SKIN: Warm, dry. Laboratory Results - last 24 hr 05/27/20 05/27/20 05/28/20 23:53 23:53 02:00 WBC 14.6 H RBC 3.36 L Hgb 8.8 L Hct 28.0 L D MCV 83.4 MCH 26.2 D MCHC 31.4 L RDW 16.2 H Plt Count 461 H D MPV 8.4 Absolute Neuts (auto) 12.1 H Neutrophils % 82.7 Neutrophils % (Manual) 79.2 Band Neutrophils % 0.0 Lymphocytes % 10.5 D Lymphocytes % (Manual) 16.8 Monocytes % 5.1 Monocytes % (Manual) 4 Eosinophils % 0.8 Eosinophils % (Manual) 0.0 Basophils % 0.9 Basophils % (Manual) 0.0 Myelocytes % (Man) 0 Promyelocytes % (Man) 0 Blast Cells % (Manual) 0 Nucleated RBC % 0 Metamyelocytes 0 Hypochromia 0 Platelet Estimate Normal Platelet Comment Present Polychromasia 2+ Poikilocytosis 0 Anisocytosis 1+ Microcytosis 1+ Macrocytosis 1+ Retic Count PT with INR INR PTT (Actin FS) Sodium 143 Potassium 4.8 Chloride 110 H Carbon Dioxide 27 Anion Gap 5 L BUN 40.4 H Creatinine 1.4 H Est GFR (CKD-EPI)AfAm 55.38 Est GFR (CKD-EPI)NonAf 47.78 Random Glucose 107 H Calcium 8.6 Phosphorus Magnesium Iron TIBC Iron Saturation Unsaturated IBC Ferritin Total Bilirubin 0.4 AST 57 H ALT 100 H Alkaline Phosphatase 77 Total Protein 6.7 Albumin 2.2 L Urine Color Red Urine Appearance Turbid Urine pH 5.0 Ur Specific [place] 1.017 Urine Protein 100 Urine Glucose (UA) Neg Urine Ketones Negative Urine Blood 2+ H Urine Nitrite Positive H Urine Bilirubin Moderate Urine Urobilinogen 1.0 Ur Leukocyte Esterase 3+ H Urine WBC (Auto) 50825.8 Urine RBC (Auto) 6759.2 Urine Casts (Auto) 680.17 U Pathogenic Cast Auto None seen U Epithel Cells (Auto) 24.0 Urine Bacteria (Auto) 7711.9 Urine Yeast (Auto) None seen Blood Type Antibody Screen 05/28/20 05/28/20 05/28/20 08:30 08:30 08:30 WBC 12.6 H RBC 3.11 L Hgb 8.2 L Hct 25.8 L MCV 82.8 MCH 26.3 MCHC 31.8 L RDW 16.1 H Plt Count 435 H MPV 8.6 Absolute Neuts (auto) 10.3 H Neutrophils % 81.7 Neutrophils % (Manual) Band Neutrophils % Lymphocytes % 11.2 Lymphocytes % (Manual) Monocytes % 5.6 Monocytes % (Manual) Eosinophils % 1.0 Eosinophils % (Manual) Basophils % 0.5 Basophils % (Manual) Myelocytes % (Man) Promyelocytes % (Man) Blast Cells % (Manual) Nucleated RBC % 0 Metamyelocytes Hypochromia Platelet Estimate Platelet Comment Polychromasia Poikilocytosis Anisocytosis Microcytosis Macrocytosis Retic Count 1.74 H PT with INR INR PTT (Actin FS) Sodium 143 Potassium 4.1 Chloride 111 H Carbon Dioxide 25 Anion Gap 7 L BUN 39.0 H Creatinine 1.3 Est GFR (CKD-EPI)AfAm 60.57 Est GFR (CKD-EPI)NonAf 52.26 Random Glucose 104 Calcium 8.6 Phosphorus 3.8 Magnesium 2.8 H Iron 13 L TIBC 212 L Iron Saturation 6 L Unsaturated IBC 199 L Ferritin 137.6 Total Bilirubin 0.4 AST 39 H ALT 83 H Alkaline Phosphatase 73 Total Protein 6.3 L Albumin 2.1 L Urine Color Urine Appearance Urine pH Ur Specific [place] Urine Protein Urine Glucose (UA) Urine Ketones Urine Blood Urine Nitrite Urine Bilirubin Urine Urobilinogen Ur Leukocyte Esterase Urine WBC (Auto) Urine RBC (Auto) Urine Casts (Auto) U Pathogenic Cast Auto U Epithel Cells (Auto) Urine Bacteria (Auto) Urine Yeast (Auto) Blood Type Antibody Screen 05/28/20 05/28/20 08:30 08:30 WBC RBC Hgb Hct MCV MCH MCHC RDW Plt Count MPV Absolute Neuts (auto) Neutrophils % Neutrophils % (Manual) Band Neutrophils % Lymphocytes % Lymphocytes % (Manual) Monocytes % Monocytes % (Manual) Eosinophils % Eosinophils % (Manual) Basophils % Basophils % (Manual) Myelocytes % (Man) Promyelocytes % (Man) Blast Cells % (Manual) Nucleated RBC % Metamyelocytes Hypochromia Platelet Estimate Platelet Comment Polychromasia Poikilocytosis Anisocytosis Microcytosis Macrocytosis Retic Count PT with INR 15.70 H INR 1.31 H PTT (Actin FS) 31.7 Sodium Potassium Chloride Carbon Dioxide Anion Gap BUN Creatinine Est GFR (CKD-EPI)AfAm Est GFR (CKD-EPI)NonAf Random Glucose Calcium Phosphorus Magnesium Iron TIBC Iron Saturation Unsaturated IBC Ferritin Total Bilirubin AST ALT Alkaline Phosphatase Total Protein Albumin Urine Color Urine Appearance Urine pH Ur Specific [place] Urine Protein Urine Glucose (UA) Urine Ketones Urine Blood Urine Nitrite Urine Bilirubin Urine Urobilinogen Ur Leukocyte Esterase Urine WBC (Auto) Urine RBC (Auto) Urine Casts (Auto) U Pathogenic Cast Auto U Epithel Cells (Auto) Urine Bacteria (Auto) Urine Yeast (Auto) Blood Type A POSITIVE Antibody Screen Negative Active Medications Generic Name Dose Route Start Last Admin Trade Name Freq PRN Reason Stop Dose Admin Acetaminophen 650 mg 05/28/20 05:51 Tylenol - PO Q4H PRN PAIN LEVEL 7 - 10 Acetaminophen 650 mg 05/28/20 14:46 Tylenol - PO Q4H PRN FEVER Ceftriaxone Sodium 1 gm/ 50 mls @ 200 mls/hr 05/29/20 04:00 Dextrose IVPB DAILY [facility] Protocol Sodium Chloride 1,000 mls @ 83 mls/hr 05/28/20 12:30 05/28/20 12:30 Normal Saline - IV 05/29/20 13:00 83 mls/hr ASDIR [facility] Administration ASSESSMENT/PLAN: 79yoM with history of BPH and urinary retention with indwelling Mendez, untreated CAD, primary progressive aphasia, HTN, RLS, and essential tremors who presents due to suprapubic and penile pain and poor drainage from the Mendez x1 day. #UTI UA: 3+ Leukocyte esterase, extensive amount of urine WBCs. Albeit 24 epithelial cells. - continue empiric ceftriaxone - f/u urine culture #Hematuria likely 2/2 Bladder Malignancy -Catheter draining red tinged urine -Hgb 8.8, previously around 10 in 2019 -Bladder Sono--> Suspicious thick walled mass likely neoplasm. Cystoscopy recommended -Will keep patient NPO for possible Cystoscopy bladder biopsy with Dr Caro - on board- Dr Caro. Recs appreciated - H/H 8.2/01/04. Trend. #SURESH -Creatinine down from admission. Renal sono neg for hydro -Likely 2/2 obstruction from malfunctioning mendez. #h/o untreated CAD; ?CHF -Reports patient had cardiac MRI in March showing severe triple vessel disease -No intervention done as yet given his recent admissions with sepsis -Senior Electrical Controls Engineer: Dr. Zoran Maria - obtain outpatient cardiology records Essential tremor: continue primidone HTN: hold nebivolol for now in setting of bleed RLS: continue pramipexole DVT ppx: SCD Visit type - Emergency Visit Emergency Visit: Yes ED Registration Date: 05/28/20 Care time: The patient presented to the Emergency Department on the above date and was hospitalized for further evaluation of their emergent condition. - New Patient This patient is new to me today: Yes Date on this admission: 05/28/20 - Critical Care Critical Care patient: No - Discharge Referral Referred to [facility] No - Medication Review Med list reviewed for High Risk Meds patients 65 and older: Yes ATTENDING PHYSICIAN STATEMENT I saw and evaluated the patient. I reviewed the resident's note and discussed the case with the resident. I agree with the resident's findings and plan as documented. SUBJECTIVE: OBJECTIVE: ASSESSMENT AND PLAN:
[2020-05-29] MEDS ORDERED: DEXTROSE 5%-WATER - 50 ML IVPB ONE ×2 (03:58→11:38)
[2020-05-29] MEDS ORDERED: cefTRIAXone SODIUM 1 GM VIAL ONE ×2 (03:58→11:38)
[2020-05-29] MEDS: CEFTRIAXONE 1 GM in DEXTROSE 5%-WATER - 50 ML IVPB SCH ×2 (04:39→12:58)
[2020-05-29] MEDS: SODIUM CHLORIDE 1,000 ML IV SCH ×3 (06:05→20:22)
--- NOTE | 2020-05-29 08:47 | CONSULT ---
Consult - text type - Consultation Consultation Note: CC: obstructed mendez catheter with urinary retention hpi: patient is s/p a urethrotomy for urethral stricture disease. Cystoscopy at that time did not show any bladder masses. Patient presented after traumatic event with mendez after which he was noted to have gross hematuria. The patient was in retention and a catheter was successfully passed. Patient is currently comfortable with clear urine draining from catheter. PE vss; afeb abd- soft/non-tender; no palpable bladder mendez draining clear urine imp uti s/p obstructed mendez and retention plan continue with antibiotics d/c home with mendez will follow-up as outpatient
[2020-05-29 10:26] LABS: HEMATOCRIT 27.1 % (35.4-49); HEMOGLOBIN 8.5 GM/dL (11.7-16.9); MCHC 31.4 g/dl (32.0-35.9); MEAN CELL VOLUME 82.9 fl (80-96); MEAN PLT VOLUME 8.6 fl (7.5-11.1); PLATELET COUNT 543 K/MM3 (134-434); RBC 3.27 M/mm3 (4.00-5.60); RDW 16.2 % (11.9-15.9); WHITE BLOOD COUNT 19.8 K/mm3 (4.0-10.0)
[2020-05-29 10:43] LABS: POTASSIUM 4.4 mmol/L (3.5-5.1)
[2020-05-29 10:47] LABS: BLOOD UREA NITROGEN 32.6 mg/dL (7-18); CALCIUM 8.3 mg/dL (8.5-10.1); MAGNESIUM 2.5 mg/dL (1.8-2.4)
[2020-05-29 10:50] LABS: CREATININE 1.4 mg/dL (0.55-1.3)
[2020-05-29 10:51] LABS: PHOSPHOROUS 3.9 mg/dL (2.5-4.9)
--- NOTE | 2020-05-29 12:08 | PN ---
Teaching Attending Note Name of Resident: Antwon Lopez ATTENDING PHYSICIAN STATEMENT I saw and evaluated the patient. I reviewed the resident's note and discussed the case with the resident. I agree with the resident's findings and plan as documented. SUBJECTIVE: Seen and examined at bedside. Remains confused. Seen by urology. No presence of bladder mass on recent cystoscopy. No need for inpatient cystoscopy. Urine culture from yesterday is contaminated, will repeat OBJECTIVE Last Vital Signs Temp Pulse Resp BP Pulse Ox 101.3 F H 83 20 105/64 99 05/28/20 09:30 05/28/20 09:30 05/28/20 09:30 05/28/20 09:30 05/28/20 09:30 PE: Per resident note Labs/Imaging: reviewed ASSESSMENT/PLAN 79-year-old male with a history of HTN, RLS, essential tremors, dementia,? Primary progressive aphasia, BPH, recent history of urinary retention requiring indwelling Booth catheter since March 2020 and recurrent UTIs presented for poor drainage from Booth and suprapubic pain and was found to have SURESH, UTI, and hematuria. #Catheter associated UTI -initial culture contaminated: will repeat. WBC increasing, afebrile over last 24 hours Continue Rocephin Booth catheter changed Follow-up urine culture White count downtrending #Concern for soft tissue bladder mass Urology consulted: No presence of bladder mass on recent cystoscopy. No need for inpatient cystoscopy. #Postobstructive SURESH: Improving Booth now draining Continue fluids Trend creatinine Avoid nephrotoxic medications #Iron deficiency anemia In the setting of gross hematuria Check FOBT to rule out additional bowel source Iron sucrose 100 mg x 3 doses #Transaminitis Downtrending Continue to trend #Essential tremor: Continue primidone #Hypertension: Currently normotensive Hold home nebivolol in setting of bleed #Restless leg syndrome Continue pramipexole #DVT PPx SCD
[2020-05-29] MEDS ORDERED: IRON SUCROSE INJECTION 200 MG in SODIUM CHLORIDE 90 ML IVPB ONE (12:13)
--- NOTE | 2020-05-29 12:18 | PN ---
Physical Exam: SUBJECTIVE: Patient seen and examined at bedside. Agitated overnight. Will defer cystoscopy per urology as patient recently underwent procedure and no masses were appreciated. OBJECTIVE: Vital Signs Period Temp Pulse Resp BP Sys/Townsend Pulse Ox Last 24 Hr 97.6 F-98.4 F 74-89 18-18 128-156/72-88 94-96 GENERAL: Disoriented. NAD HEAD: AT/NC EYES: EOMI Sclera Clear . LUNGS: CTAB No wheezing/Rales/Rhonchi. HEART: RRR S1S2 ABDOMEN: Soft, NDNT : Mendez in place Urine Dark Yellow EXTREMITIES: No CCE. NEUROLOGICAL: Spontaneously moves all extremities. AAOX1 SKIN: Warm, dry. Laboratory Results - last 24 hr 05/29/20 05/29/20 09:55 09:55 WBC 19.8 H RBC 3.27 L Hgb 8.5 L Hct 27.1 L MCV 82.9 MCH 26.0 MCHC 31.4 L RDW 16.2 H Plt Count 543 H D MPV 8.6 Sodium 148 H Potassium 4.4 Chloride 115 H Carbon Dioxide 26 Anion Gap 8 BUN 32.6 H Creatinine 1.4 H Est GFR (CKD-EPI)AfAm 55.38 Est GFR (CKD-EPI)NonAf 47.78 Random Glucose 103 Calcium 8.3 L Phosphorus 3.9 Magnesium 2.5 H Active Medications Generic Name Dose Route Start Last Admin Trade Name Freq PRN Reason Stop Dose Admin Acetaminophen 650 mg 05/28/20 05:51 Tylenol - PO Q4H PRN PAIN LEVEL 7 - 10 Acetaminophen 650 mg 05/28/20 14:46 Tylenol - PO Q4H PRN FEVER Ceftriaxone Sodium 1 gm/ 50 mls @ 200 mls/hr 05/29/20 04:00 05/29/20 04:39 Dextrose IVPB 200 mls/hr DAILY KIRA Administration Protocol Sodium Chloride 1,000 mls @ 83 mls/hr 05/28/20 12:30 05/29/20 06:05 Normal Saline - IV 05/29/20 13:00 83 mls/hr ASDIR KIRA Administration Iron Sucrose 200 mg/ Sodium 100 mls @ 100 mls/hr 05/29/20 12:13 Chloride IVPB 05/29/20 13:12 ONCE ONE Nebivolol 5 mg 05/29/20 22:00 Bystolic - PO HS KIRA Polyethylene Glycol 17 gm 05/29/20 12:00 Miralax (For Daily Use) - PO DAILY KIRA Pramipexole Dihydrochloride 1 mg 05/29/20 22:00 Mirapex - PO HS KIRA Tamsulosin HCl 0.4 mg 05/29/20 22:00 Flomax - PO HS KRIA ASSESSMENT/PLAN: 79yoM with history of BPH and urinary retention with indwelling Mendez, untreated CAD, primary progressive aphasia, HTN, RLS, and essential tremors who presents due to suprapubic and penile pain and poor drainage from the Mendez x1 day. #UTI UA: 3+ Leukocyte esterase, extensive amount of urine WBCs. Albeit 24 epithelial cells. - continue empiric ceftriaxone - Repeat Urine Culture pending. WBC 19K today. Will trend #Hematuria. 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 Cystoscopy recomm ended -Per , patient with recent Cysto which did not reveal any bladder masses. No need for inpatient cystoscopy. - on board- Dr Caro. Recs appreciated - H/H 8.01/01. Trend. #SURESH -Creatinine down from admission. Renal sono neg for hydro -Likely 2/2 obstruction from malfunctioning mendez. #h/o untreated CAD; ?CHF -Reports patient had cardiac MRI in March showing severe triple vessel disease -No intervention done as yet given his recent admissions with sepsis -[employer]erry Go Round Attendant: Dr. Zoran Maria - obtain outpatient cardiology records Essential tremor: continue primidone HTN: hold nebivolol for now in setting of bleed RLS: continue pramipexole DVT ppx: SCD Visit type - Emergency Visit Emergency Visit: Yes ED Registration Date: 05/28/20 Care time: The patient presented to the Emergency Department on the above date and was hospitalized for further evaluation of their emergent condition. - New Patient This patient is new to me today: No - Critical Care Critical Care patient: No - Discharge Referral Referred to [facility] Med P.C.: No - Medication Review Med list reviewed for High Risk Meds patients 65 and older: Yes ATTENDING PHYSICIAN STATEMENT I saw and evaluated the patient. I reviewed the resident's note and discussed the case with the resident. I agree with the resident's findings and plan as documented. SUBJECTIVE: OBJECTIVE: ASSESSMENT AND PLAN:
[2020-05-29] MEDS ORDERED: HALOPERIDOL 0.5 MG TABLET PO ONE (12:53)
[2020-05-29] MEDS: POLYETHYLENE GLYCOL 3350 119 GM BTL PO SCH (14:10)
[2020-05-29 17:18] LABS: EPI CELLS 2 /uL (0-25.1); HYALINE CASTS 2 /uL (0-3.1); PH,URINE 5.5 (5.0-8.0); URINE APPEARANCE CLOUDY; URINE BACTERIA 8593 /uL (0-1359); URINE BILIRUBIN NEGATIVE (NEGATIVE); URINE COLOR YELLOW; URINE GLUCOSE (UA) NEGATIVE (NEGATIVE); URINE KETONE NEGATIVE (NEGATIVE); URINE LEUK ESTERASE 3+ (NEGATIVE); URINE NITRITE NEGATIVE (NEGATIVE); URINE PROTEIN 2+ (NEGATIVE); URINE UROBILINOGEN 0.2 mg/dL (0.2-1.0); URINE WBC 1988 /uL (0-25.8)
[2020-05-29 18:25] LABS: URINE RBC 952.5 /uL (0-23.9); YEAST NEGATIVE (NEGATIVE)
[2020-05-29] MEDS ORDERED: PT OWN MED DRAWER 7, Y5N ONE (21:21)
[2020-05-29] MEDS: NEBIVOLOL 5 MG TABLET (FP) PO SCH (22:42)
[2020-05-29] MEDS: TAMSULOSIN HCL 0.4 MG CAP PO SCH (22:42)
[2020-05-29] MEDS: PRAMIPEXOLE DIHYDROCHLORIDE 1 MG TABLET PO SCH (22:42)
[2020-05-30 09:34] LABS: HEMATOCRIT 26.5 % (35.4-49); HEMOGLOBIN 8.4 GM/dL (11.7-16.9); MCH 26.4 pg (25.7-33.7); MCHC 31.6 g/dl (32.0-35.9); MEAN CELL VOLUME 83.6 fl (80-96); MEAN PLT VOLUME 8.2 fl (7.5-11.1); PLATELET COUNT 545 K/MM3 (134-434); RBC 3.17 M/mm3 (4.00-5.60); WHITE BLOOD COUNT 20.6 K/mm3 (4.0-10.0)
[2020-05-30] MEDS ORDERED: DEXTROSE 5%-WATER - 50 ML IVPB ONE ×3 (09:36→16:42)
[2020-05-30] MEDS ORDERED: cefTRIAXone SODIUM 1 GM VIAL ONE (09:36)
[2020-05-30] MEDS: CEFTRIAXONE 1 GM in DEXTROSE 5%-WATER - 50 ML IVPB SCH (09:39)
[2020-05-30] MEDS: POLYETHYLENE GLYCOL 3350 119 GM BTL PO SCH (09:43)
[2020-05-30 09:50] LABS: POTASSIUM 4.3 mmol/L (3.5-5.1)
[2020-05-30 09:55] LABS: CALCIUM 8.7 mg/dL (8.5-10.1)
[2020-05-30 09:58] LABS: ALBUMIN 2.2 g/dl (3.4-5.0)
[2020-05-30 09:59] LABS: BLOOD UREA NITROGEN 42.3 mg/dL (7-18); MAGNESIUM 2.6 mg/dL (1.8-2.4)
[2020-05-30 10:02] LABS: CREATININE 1.6 mg/dL (0.55-1.3); PHOSPHOROUS 4.5 mg/dL (2.5-4.9)
[2020-05-30 10:03] LABS: TOT PROT 6.8 g/dl (6.4-8.2)
[2020-05-30 10:05] LABS: BILIRUBIN,TOTAL 0.4 mg/dL (0.2-1)
--- NOTE | 2020-05-30 10:19 | CON.ID ---
Consult Consult Specialty:: infectious diseases Referred by:: Reason for Consultation:: hematuria - History of Present Illness Chief Complaint: hematuria,pain while urinating,uti History of Present Illness: 79 yo M with history HTN, RLS, essential tremors, dementia ("primary progressive aphasia"), BPH, and recent history of urinary retention requiring indwelling mendez cather (since March 2020) and recurrent UTIs since then presenting for poor drainage from Mendez x 1 day along with suprapubic pain, penile pain, and he maturia as well. It should be noted that the history was provided by the patient's partner because of his dementia. She reports that the pt's urinary retention had been refractory to medication management and had an indwelling mendez placed several months back; also reports that the pt underwent urethral dilation on March 10 (mendez was placed after this). Since then his course has been complicated by multiple UTIs and his partner also reports a period of "sepsis." The pt also noticed some blood draining from his catheter today and slowing urine output along with suprapubic discomfort that became painful. The pt "tugged" on his Mendez which led to a stop in urinary output and the development of some mild penile pain. Full ROS is limited due to patient's dementia but per the pt and his partner - no fevers, chills, nausea, vomiting, diarrhea, chest pain, or SOB. Pt also has had a new non-productive cough for several days. the above history was taken from charts as the patient is confused and aphasic also it seems patient has history of multiple cystoscopies now his main complaint is burning when he passes urine through the catheter - History Source History Provided By: Medical Record Limitations to Obtaining History: Clinical Condition - Alcohol/Substance Use Hx Alcohol Use: No - Smoking History Smoking history: Unknown if ever smoked Have you smoked in the past 12 months: No If you are a former smoker, when did you quit?: 1974 Home Medications - Allergies Allergies/Adverse Reactions: Allergies Allergy/AdvReac Type Severity Reaction Status Date / Time walnut Allergy Intermediate Swelling Verified 05/27/20 21:25 walnuts Allergy Intermediate Swelling Uncoded 05/27/20 21:25 - Home Medications Home Medications: Ambulatory Orders Nebivolol [Bystolic -] 5 mg PO HS 05/29/18 Pramipexole Di-HCl [Mirapex] 1 mg PO HS 05/29/18 Primidone [Mysoline -] 50 mg PO HS 05/29/18 Silodosin [Rapaflo] 8 mg PO HS 05/29/18 Review of Systems Unable to obtain ROS, reason: unable to obtain Physical Exam Vital Signs: Vital Signs Temperature 97.5 F L 05/30/20 06:00 Pulse Rate 66 05/30/20 06:00 Respiratory Rate 20 05/30/20 06:00 Blood Pressure 132/68 05/30/20 06:00 O2 Sat by Pulse Oximetry (%) 97 05/30/20 06:00 Constitutional: Yes: Mild Distress, Other Eyes: Yes: Conjunctiva Clear HENT: Yes: Atraumatic, Normocephalic Neck: Yes: Supple, Trachea Midline Cardiovascular: Yes: Regular Rate and Rhythm Respiratory: Yes: Regular, CTA Bilaterally Gastrointestinal: Yes: Normal Bowel Sounds, Soft Renal/: Yes: Mendez Present Musculoskeletal: Yes: WNL Extremities: Yes: WNL Neurological: Yes: Alert, Other Labs: CBC, BMP 05/30/20 08:50 05/30/20 08:50 Imaging - Results Chest X-ray: Report Reviewed, Image Reviewed Ultrasound: Report Reviewed, Image Reviewed Assessment/Plan 79 yo M with PMH of HTN, CAD (s/p stent; possibly still untreated), RLS, essential tremors, dementia, BPH, recent recurrent UTIs and indwelling mendez catheter placement presenting with non-draining mendez catheter, urinary reten tion, penile pain, and hematuria. Patient being admitted for evaluation and treatment of a catheter associated UTI, hematuria (with associated anemia), and SURESH. uti hematuria leukocytosis suresh transmitis looking at the patients cx i am worried if patient has colovesical fistula i am going to start patient on zosyn and doxy should get a ct scan of the abd/pelvis to r/o colovesical fistula also urology to see the patient
[2020-05-30] MEDS ORDERED: PIPERACILLIN/TAZOBACTAM 3.375 GM VIAL IVPB ONE ×2 (11:12→16:42)
[2020-05-30] MEDS: PIPERACILLIN/TAZOB 3.375 GM 3.375 GM in DEXTROSE 5%-WATER - 50 ML IVPB SCH ×2 (11:51→17:22)
[2020-05-30] MEDS: DOXYCYCLINE HYCLATE 100 MG CAPSULE PO SCH ×2 (11:52→17:20)
--- NOTE | 2020-05-30 12:01 | PN ---
Teaching Attending Note Name of Resident: Antwon Lopez ATTENDING PHYSICIAN STATEMENT I saw and evaluated the patient. I reviewed the resident's note and discussed the case with the resident. I agree with the resident's findings and plan as documented. SUBJECTIVE: And examined at bedside. Patient remains confused. Urine culture from admissio n with 3 different organisms including MRSA. Urine culture from 1022 already positive for group B strep Enterococcus. Discussed with infectious disease, concern for possible colovesicular fistula. Will obtain CT scan and discussed with urology OBJECTIVE Last Vital Signs Temp Pulse Resp BP Pulse Ox 97.5 F L 66 20 132/68 97 05/30/20 06:00 05/30/20 06:00 05/30/20 06:00 05/30/20 06:00 05/30/20 06:00 PE: Per resident note Labs/Imaging: reviewed ASSESSMENT/PLAN 79-year-old male with a history of HTN, RLS, essential tremors, dementia,? Primary progressive aphasia, BPH, recent history of urinary retention requiring indwelling Booth catheter since March 2020 and recurrent UTIs presented for poor drainage from Oboth and suprapubic pain and was found to have SURESH, UTI, and hematuria. #Catheter associated UTI -initial culture with 3 different organisms including MRSA. Urine culture from 1022 already positive for group B strep Enterococcus. Discussed with infectious disease, concern for possible colovesicular fistula. Will obtain CT scan and discussed with urology sheryl givens -ID on board: appreciate recs Booth catheter changed Follow-up urine culture f/u WBC #Concern for soft tissue bladder mass or possibly colovescicular fistula -will discuss with urology again -currently on abx #Postobstructive SURESH: worsening -likely new prerenal component -nephro consulted -start D5 1/2 NS at 100cc/hr Booth now draining Trend creatinine Avoid nephrotoxic medications #hypernatremia -start D5 1/2 NS at 100cc/hr -consult nephro #Iron deficiency anemia In the setting of gross hematuria Check FOBT to rule out additional bowel source Iron sucrose 100 mg x 3 doses #Transaminitis Downtrending Continue to trend #Essential tremor: Continue primidone #Hypertension: Currently normotensive Hold home nebivolol in setting of bleed #Restless leg syndrome Continue pramipexole #DVT PPx SCD
--- NOTE | 2020-05-30 14:54 | CONSULT ---
Consult Consult Specialty:: Nephrology Reason for Consultation:: hypernatremia - History of Present Illness Chief Complaint: decreased drainage from mendez History of Present Illness: Pt is a 79 year old man with pmhx of htn, restless leg, essential tremors, dementia, bph and urinary retention who presents with decreased drainage from his mendez. He is confused and unable to give history. He has an indwelling mendez. He was found to be hypernatremic and I was called to evaluate him. He does not have any signs of polyuria. He has history of multiple UTI in the past. He denies fevers or chills. He is not a reliable historian. He was found to be obstructed and mendez was replaced. 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 Cardio/Vascular: Yes: HTN - Alcohol/Substance Use Hx Alcohol Use: No - Smoking History Smoking history: Unknown if ever smoked Have you smoked in the past 12 months: No If you are a former smoker, when did you quit?: 1974 Home Medications - Allergies Allergies/Adverse Reactions: Allergies Allergy/AdvReac Type Severity Reaction Status Date / Time walnut Allergy Intermediate Swelling Verified 05/27/20 21:25 walnuts Allergy Intermediate Swelling Uncoded 05/27/20 21:25 - Home Medications Home Medications: Ambulatory Orders Nebivolol [Bystolic -] 5 mg PO HS 05/29/18 Pramipexole Di-HCl [Mirapex] 1 mg PO HS 05/29/18 Primidone [Mysoline -] 50 mg PO HS 05/29/18 Silodosin [Rapaflo] 8 mg PO HS 05/29/18 Family Medical History Family History: Unable to Obtain Review of Systems - Review of Systems Constitutional: reports: No Symptoms Eyes: reports: No Symptoms HENT: reports: No Symptoms Neck: reports: No Symptoms Cardiovascular: reports: No Symptoms Respiratory: reports: No Symptoms Gastrointestinal: reports: No Symptoms Genitourinary: reports: No Symptoms Musculoskeletal: reports: No Symptoms Integumentary: reports: No Symptoms Neurological: reports: Confusion Endocrine: reports: No Symptoms Hematology/Lymphatic: reports: No Symptoms Psychiatric: reports: No Symptoms Physical Exam Vital Signs: Vital Signs Temperature 97.5 F L 05/30/20 06:00 Pulse Rate 66 05/30/20 06:00 Respiratory Rate 20 05/30/20 06:00 Blood Pressure 132/68 05/30/20 06:00 O2 Sat by Pulse Oximetry (%) 95 05/30/20 09:00 Constitutional: Yes: Calm Eyes: Yes: Conjunctiva Clear HENT: Yes: Atraumatic Neck: Yes: Supple Cardiovascular: Yes: S1, S2 Respiratory: Yes: CTA Bilaterally Gastrointestinal: Yes: Soft Renal/: Yes: Mendez Present Musculoskeletal: Yes: WNL Edema: No Neurological: Yes: Confusion Labs: CBC, BMP 05/30/20 08:50 05/30/20 08:50 Laboratory Tests 05/19/19 05/27/20 05/28/20 07:40 23:53 02:00 Sodium Creatinine 0.9 1.4 H Urine Protein Urine Ketones Urine Nitrite Positive H 05/28/20 05/29/20 05/29/20 08:30 09:55 16:15 Sodium 143 148 H Creatinine 1.3 1.4 H Urine Protein 2+ H Urine Ketones Negative Urine Nitrite Negative 05/30/20 08:50 Sodium 150 H Creatinine 1.6 H Urine Protein Urine Ketones Urine Nitrite Imaging - Results Ultrasound: Report Reviewed Problem List - Problems (1) UTI (urinary tract infection) Code(s): N39.0 - URINARY TRACT INFECTION, SITE NOT SPECIFIED Qualifiers: Urinary tract infection type: acute cystitis Hematuria presence: with hematuria Qualified Code(s): N30.01 - Acute cystitis with hematuria (2) Urinary retention Code(s): R33.9 - RETENTION OF URINE, UNSPECIFIED Assessment/Plan Current Medications Generic Name Dose Route Start Last Admin Trade Name Freq PRN Reason Stop Dose Admin Acetaminophen 650 mg 05/28/20 05:51 Tylenol - PO Q4H PRN PAIN LEVEL 7 - 10 Acetaminophen 650 mg 05/28/20 14:46 Tylenol - PO Q4H PRN FEVER Doxycycline Hyclate 100 mg 05/30/20 11:00 05/30/20 11:52 Vibramycin - PO 100 mg BID@1000,1800 KIRA Administration Piperacillin Sod/Tazobactam 50 mls @ 100 mls/hr 05/30/20 11:00 05/30/20 11:51 Sod 3.375 gm/ Dextrose IVPB 100 mls/hr Q8H-IV KIRA Administration Protocol Nebivolol 5 mg 05/29/20 22:00 05/29/20 22:42 Bystolic - PO 5 mg HS KIRA Administration Polyethylene Glycol 17 gm 05/29/20 12:00 05/30/20 09:43 Miralax (For Daily Use) - PO 17 grams DAILY KIRA Administration Pramipexole Dihydrochloride 1 mg 05/29/20 22:00 05/29/20 22:42 Mirapex - PO 1 mg HS KIRA Administration Primidone 50 mg 05/30/20 22:00 Mysoline - PO HS KIRA Tamsulosin HCl 0.4 mg 05/29/20 22:00 05/29/20 22:42 Flomax - PO 0.4 mg HS KIRA Administration Impression 1. SURESH 2. hypernatremia 3. urinary retention with chronic mendez 4. obstructive uropathy 5. dementia 6. htn 7. uti Plan - start hypotonic fluids, will change to 1/2 ns - repeat labs in am - ham stringer is rising - pt does not have polyuria - encourage free water intake - unclear utility of flomax if he has indwelling mendez, urology follow up - renal ultrasound reviewed
--- NOTE | 2020-05-30 16:29 | PN ---
Physical Exam: SUBJECTIVE: Patient seen and examined at bedside this AM. OBJECTIVE: Vital Signs Period Temp Pulse Resp BP Sys/Townsend Pulse Ox Last 24 Hr 97.5 F-98.5 F 66-91 20-22 107-132/68-81 94-98 GENERAL: Disoriented. NAD HEAD: AT/NC EYES: EOMI Sclera Clear . LUNGS: CTAB No wheezing/Rales/Rhonchi. HEART: RRR S1S2 ABDOMEN: Soft, Suprapubic tenderness : Mendez in place Urine Dark Yellow EXTREMITIES: No CCE. NEUROLOGICAL: Spontaneously moves all extremities. AAOX1 SKIN: Warm, dry. Laboratory Results - last 24 hr 05/29/20 05/30/20 05/30/20 16:15 08:50 08:50 WBC 20.6 H RBC 3.17 L Hgb 8.4 L Hct 26.5 L MCV 83.6 MCH 26.4 MCHC 31.6 L RDW 16.0 H Plt Count 545 H MPV 8.2 Sodium 150 H Potassium 4.3 Chloride 119 H Carbon Dioxide 25 Anion Gap 7 L BUN 42.3 H Creatinine 1.6 H Est GFR (CKD-EPI)AfAm 47.12 Est GFR (CKD-EPI)NonAf 40.66 Random Glucose 155 H Calcium 8.7 Phosphorus 4.5 Magnesium 2.6 H Total Bilirubin 0.4 AST 30 ALT 59 Alkaline Phosphatase 79 Total Protein 6.8 Albumin 2.2 L Urine Color Yellow Urine Appearance Cloudy Urine pH 5.5 Ur Specific [place] 1.013 Urine Protein 2+ H Urine Glucose (UA) Negative Urine Ketones Negative Urine Blood 3+ H Urine Nitrite Negative Urine Bilirubin Negative Urine Urobilinogen 0.2 Ur Leukocyte Esterase 3+ H Urine WBC (Auto) 1988 Urine RBC (Auto) 952.5 Urine Casts (Auto) 2 U Epithel Cells (Auto) 2 Urine Bacteria (Auto) 8593 Urine Yeast (Auto) Negative Active Medications Generic Name Dose Route Start Last Admin Trade Name Freq PRN Reason Stop Dose Admin Acetaminophen 650 mg 05/28/20 05:51 Tylenol - PO Q4H PRN PAIN LEVEL 7 - 10 Acetaminophen 650 mg 05/28/20 14:46 Tylenol - PO Q4H PRN FEVER Doxycycline Hyclate 100 mg 05/30/20 11:00 05/30/20 11:52 Vibramycin - PO 100 mg BID@1000,1800 KIRA Administration Piperacillin Sod/Tazobactam 50 mls @ 100 mls/hr 05/30/20 11:00 05/30/20 11:51 Sod 3.375 gm/ Dextrose IVPB 100 mls/hr Q8H-IV KIRA Administration Protocol Sodium Chloride 1,000 mls @ 83 mls/hr 05/30/20 15:45 1/2 Normal Saline IV ASDIR KIRA Nebivolol 5 mg 05/29/20 22:00 05/29/20 22:42 Bystolic - PO 5 mg HS KIRA Administration Polyethylene Glycol 17 gm 05/29/20 12:00 05/30/20 09:43 Miralax (For Daily Use) - PO 17 grams DAILY KIRA Administration Pramipexole Dihydrochloride 1 mg 05/29/20 22:00 05/29/20 22:42 Mirapex - PO 1 mg HS KIRA Administration Primidone 50 mg 05/30/20 22:00 Mysoline - PO HS KIRA Tamsulosin HCl 0.4 mg 05/29/20 22:00 05/29/20 22:42 Flomax - PO 0.4 mg HS KIRA Administration ASSESSMENT/PLAN: 79yoM with history of BPH and urinary retention with indwelling Mendez, untreated CAD, primary progressive aphasia, HTN, RLS, and essential tremors who presents due to suprapubic and penile pain and poor drainage from the Mendez x1 day. #UTI UA: 3+ Leukocyte esterase, extensive amount of urine WBCs. Albeit 24 epithelial cells. - ID on board. ABx switched to Zosyn and Doxy. - Repeat Urine Culture today positive for group B strep Enterococcus. WBC 20.6 today. Will trend #Hematuria. 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 Cystoscopy recommended -Per , patient with recent Cysto which did not reveal any bladder masses. No need for inpatient cystoscopy. - on board- Dr Caro. Recs appreciated #SURESH -Creatinine down from admission. Renal sono neg for hydro -Likely 2/2 obstruction from malfunctioning mendez. 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 Zoran Maria - obtain outpatient cardiology records Essential tremor: continue primidone HTN: hold nebivolol for now in setting of bleed RLS: continue pramipexole DVT ppx: SCD Visit type - Emergency Visit Emergency Visit: Yes ED Registration Date: 05/28/20 Care time: The patient presented to the Emergency Department on the above date and was hospitalized for further evaluation of their emergent condition. - New Patient This patient is new to me today: No - Critical Care Critical Care patient: No - Discharge Referral Referred to [facility] Med P.C.: No - Medication Review Med list reviewed for High Risk Meds patients 65 and older: Yes ATTENDING PHYSICIAN STATEMENT I saw and evaluated the patient. I reviewed the resident's note and discussed the case with the resident. I agree with the resident's findings and plan as documented. SUBJECTIVE: OBJECTIVE: ASSESSMENT AND PLAN:
[2020-05-30] MEDS: SODIUM CHLORIDE 0.45% 1,000 ML IV SCH (16:38)
[2020-05-30] MEDS ORDERED: PT OWN MED DRAWER 7, Y5N ONE (21:08)
[2020-05-30] MEDS: TAMSULOSIN HCL 0.4 MG CAP PO SCH (22:09)
[2020-05-30] MEDS: NEBIVOLOL 5 MG TABLET (FP) PO SCH (22:09)
[2020-05-30] MEDS: PRIMIDONE 50 MG TABLET PO SCH (22:09)
[2020-05-30] MEDS: PRAMIPEXOLE DIHYDROCHLORIDE 1 MG TABLET PO SCH (22:09)
[2020-05-31] MEDS ORDERED: DEXTROSE 5%-WATER - 50 ML IVPB ONE ×3 (01:11→17:04)
[2020-05-31] MEDS ORDERED: PIPERACILLIN/TAZOBACTAM 3.375 GM VIAL IVPB ONE ×3 (01:11→17:04)
[2020-05-31] MEDS: PIPERACILLIN/TAZOB 3.375 GM 3.375 GM in DEXTROSE 5%-WATER - 50 ML IVPB SCH ×3 (01:39→17:12)
[2020-05-31] MEDS: SODIUM CHLORIDE 0.45% 1,000 ML IV SCH ×2 (04:55→17:12)
[2020-05-31 08:20] LABS: HEMATOCRIT 25.2 % (35.4-49); HEMOGLOBIN 7.9 GM/dL (11.7-16.9); MCH 26.2 pg (25.7-33.7); MCHC 31.3 g/dl (32.0-35.9); MEAN CELL VOLUME 83.7 fl (80-96); MEAN PLT VOLUME 8.1 fl (7.5-11.1); PLATELET COUNT 527 K/MM3 (134-434); RBC 3.01 M/mm3 (4.00-5.60); RDW 16.5 % (11.9-15.9); WHITE BLOOD COUNT 17.1 K/mm3 (4.0-10.0)
[2020-05-31 08:43] LABS: POTASSIUM 4.1 mmol/L (3.5-5.1)
[2020-05-31 08:47] LABS: BLOOD UREA NITROGEN 36.7 mg/dL (7-18); MAGNESIUM 2.4 mg/dL (1.8-2.4)
[2020-05-31 08:50] LABS: CREATININE 1.4 mg/dL (0.55-1.3); PHOSPHOROUS 3.4 mg/dL (2.5-4.9)
[2020-05-31 08:52] LABS: BILIRUBIN,TOTAL 0.5 mg/dL (0.2-1); TOT PROT 6.2 g/dl (6.4-8.2)
[2020-05-31] MEDS ORDERED: PT OWN MED DRAWER 7, Y5N ONE ×2 (09:00→22:09)
[2020-05-31] MEDS: DOXYCYCLINE HYCLATE 100 MG CAPSULE PO SCH ×2 (09:04→17:12)
[2020-05-31] MEDS: POLYETHYLENE GLYCOL 3350 119 GM BTL PO SCH (09:04)
--- NOTE | 2020-05-31 13:50 | PN ---
Progress Note (short form) - Note Progress Note: RENAL Pt is awake and alert comfortable currently having lunch denies specific complaints Last Vital Signs Temp Pulse Resp BP Pulse Ox 98.4 F 68 20 120/56 L 92 L 05/31/20 09:53 05/31/20 09:53 05/31/20 09:53 05/31/20 09:53 05/31/20 09:53 lungs clear cvs s1s2 rr abd soft ext no edema neuro a+o, confused CBC, BMP 05/31/20 07:40 05/31/20 07:40 Current Medications Generic Name Dose Route Start Last Admin Trade Name Freq PRN Reason Stop Dose Admin Acetaminophen 650 mg 05/28/20 05:51 Tylenol - PO Q4H PRN PAIN LEVEL 7 - 10 Acetaminophen 650 mg 05/28/20 14:46 Tylenol - PO Q4H PRN FEVER Doxycycline Hyclate 100 mg 05/30/20 11:00 05/31/20 09:04 Vibramycin - PO 100 mg BID@1000,1800 KIRA Administration Piperacillin Sod/Tazobactam 50 mls @ 100 mls/hr 05/30/20 11:00 05/31/20 09:04 Sod 3.375 gm/ Dextrose IVPB 100 mls/hr Q8H-IV KIRA Administration Protocol Sodium Chloride 1,000 mls @ 83 mls/hr 05/30/20 15:45 05/31/20 04:55 1/2 Normal Saline IV 83 mls/hr ASDIR KIRA Administration Nebivolol 5 mg 05/29/20 22:00 05/30/20 22:09 Bystolic - PO 5 mg HS KIRA Administration Polyethylene Glycol 17 gm 05/29/20 12:00 05/31/20 09:04 Miralax (For Daily Use) - PO 17 grams DAILY KIRA Administration Pramipexole Dihydrochloride 1 mg 05/29/20 22:00 05/30/20 22:09 Mirapex - PO 1 mg HS KIRA Administration Primidone 50 mg 05/30/20 22:00 05/30/20 22:09 Mysoline - PO 50 mg HS KIRA Administration Tamsulosin HCl 0.4 mg 05/29/20 22:00 05/30/20 22:09 Flomax - PO 0.4 mg HS KIRA Administration Impression 1. SURESH 2. hypernatremia 3. urinary retention with chronic mendez 4. obstructive uropathy 5. dementia 6. htn 7. uti 8 possible bladder neoplasm Plan keep fluids dc flomax urology eval and possible cystoscopy MV
--- NOTE | 2020-05-31 17:10 | PN ---
Progress Note (short form) - Note Progress Note: S: Confuse and aphasic. Not able to obtain HPI. Still requiring restraints due to sundowning and pulling at medical equipment. In daytime more calm and able to be off restraints with close watch Vital Signs Temperature 98.5 F 05/31/20 15:00 Pulse Rate 60 05/31/20 15:00 Respiratory Rate 20 05/31/20 15:00 Blood Pressure 94/50 L 05/31/20 15:00 O2 Sat by Pulse Oximetry (%) 93 L 05/31/20 15:00 PE: Gen: NAD, awake, confused, aphasic LUNG: CTA b/l without wheezes or rales CARD: RRR no murmrus appreciated ABD: soft, NT/Nd, no guarding, no suprapubic tenderness : Indwelling catheter with clear-yellow urine noted in collection bag EXT: no edema noted CBC, BMP 05/31/20 07:40 05/31/20 07:40 Hepatic Panel Total Bilirubin 0.5 mg/dL (0.2-1) 05/31/20 07:40 AST 23 U/L (15-37) 05/31/20 07:40 ALT 45 U/L (13-61) 05/31/20 07:40 Alkaline Phosphatase 66 U/L (45-117) 05/31/20 07:40 Albumin 2.0 g/dl (3.4-5.0) L 05/31/20 07:40 Microbiology 05/29/20 16:15 Urine - Urine - Catheterized Urine Culture - Final Enterococcus Faecalis 05/28/20 02:00 Urine - Urine Booth Urine Culture - Final Escherichia Coli Mr S Aureus Enterococcus Faecalis Active Medications Acetaminophen (Tylenol -) 650 mg PO Q4H PRN PRN Reason: PAIN LEVEL 7 - 10 Acetaminophen (Tylenol -) 650 mg PO Q4H PRN PRN Reason: FEVER Doxycycline Hyclate (Vibramycin -) 100 mg PO BID@1000,1800 [facility] Last Admin: 05/31/20 17:12 Dose: 100 mg Documented by: Piperacillin Sod/Tazobactam (Sod 3.375 gm/ Dextrose) 50 mls @ 100 mls/hr IVPB Q8H-IV [facility]; Protocol Last Admin: 05/31/20 17:12 Dose: 100 mls/hr Documented by: Sodium Chloride (1/2 Normal Saline) 1,000 mls @ 83 mls/hr IV ASDIR [facility] Last Admin: 05/31/20 17:12 Dose: 83 mls/hr Documented by: Nebivolol (Bystolic -) 5 mg PO [facility] Last Admin: 05/30/20 22:09 Dose: 5 mg Documented by: Polyethylene Glycol (Miralax (For Daily Use) -) 17 gm PO DAILY [facility] Last Admin: 05/31/20 09:04 Dose: 17 grams Documented by: Pramipexole Dihydrochloride (Mirapex -) 1 mg PO [facility] Last Admin: 05/30/20 22:09 Dose: 1 mg Documented by: Primidone (Mysoline -) 50 mg PO [facility] Last Admin: 05/30/20 22:09 Dose: 50 mg Documented by: Tamsulosin HCl (Flomax -) 0.4 mg PO [facility] Last Admin: 05/30/20 22:09 Dose: 0.4 mg Documented by: Assessment/Plan: Catheter Associated UTI Acute metabolic encephalopathy Acute Kidney Injury, mixed etiologies Hypernatremia, resolving Iron deficiency anemia vs. blood loss anemia Essential Tremor Hypertension history --Continue Zosyn and Doxy --ID on board --Sensitivities noted on polymicrobial urine cultuers --Isolation precautions --Follow WBC --Urology consulted for concern of colovesicular fistula --Due to SURESH cannot utilize contrast imaging studies at this time --Pending resolution of SURESH. --Continue 1/2NS; likely will d/c tomorrow pending Na f/u --Discontinue Flomax --Nephrology on board --Holding antihypertensives --Continue Primidone and Pramipexole Dispo: continue monitoring; awaiting resolution of SURESH Jesus Stubbs DO - IM
--- NOTE | 2020-05-31 19:58 | PN ---
Progress Note, Physician History of Present Illness: Pt is alert and responsive stating he feels "better". Afebrile, without distress. - Current Medication List Current Medications: Active Medications Acetaminophen (Tylenol -) 650 mg PO Q4H PRN PRN Reason: PAIN LEVEL 7 - 10 Acetaminophen (Tylenol -) 650 mg PO Q4H PRN PRN Reason: FEVER Doxycycline Hyclate (Vibramycin -) 100 mg PO BID@1000,1800 [facility] Last Admin: 05/31/20 17:12 Dose: 100 mg Documented by: Piperacillin Sod/Tazobactam (Sod 3.375 gm/ Dextrose) 50 mls @ 100 mls/hr IVPB Q8H-IV [facility]; Protocol Last Admin: 05/31/20 17:12 Dose: 100 mls/hr Documented by: Sodium Chloride (1/2 Normal Saline) 1,000 mls @ 83 mls/hr IV ASDIR [facility] Last Admin: 05/31/20 17:12 Dose: 83 mls/hr Documented by: Nebivolol (Bystolic -) 5 mg PO [facility] Last Admin: 05/30/20 22:09 Dose: 5 mg Documented by: Polyethylene Glycol (Miralax (For Daily Use) -) 17 gm PO DAILY [facility] Last Admin: 05/31/20 09:04 Dose: 17 grams Documented by: Pramipexole Dihydrochloride (Mirapex -) 1 mg PO [facility] Last Admin: 05/30/20 22:09 Dose: 1 mg Documented by: Primidone (Mysoline -) 50 mg PO [facility] Last Admin: 05/30/20 22:09 Dose: 50 mg Documented by: - Objective Vital Signs: Vital Signs Temperature 98.8 F 05/31/20 18:00 Pulse Rate 54 L 05/31/20 18:00 Respiratory Rate 18 05/31/20 18:00 Blood Pressure 116/60 05/31/20 18:00 O2 Sat by Pulse Oximetry (%) 92 L 05/31/20 18:00 Constitutional: Yes: No Distress, Calm Eyes: Yes: Conjunctiva Clear HENT: Yes: Atraumatic Cardiovascular: Yes: Regular Rate and Rhythm Respiratory: Yes: Regular Gastrointestinal: Yes: Normal Bowel Sounds, Soft Genitourinary: Yes: Mendez Present Extremities: Yes: WNL Neurological: Yes: Alert Labs: CBC, BMP 05/31/20 07:40 10/24/20 07:40 INR, PTT INR 1.31 (0.83-1.09) H 05/28/20 08:30 Microbiology 05/29/20 16:15 Urine - Urine - Catheterized Urine Culture - Final Enterococcus Faecalis 05/28/20 02:00 Urine - Urine Mendez Urine Culture - Final Escherichia Coli Mr S Aureus Enterococcus Faecalis Problem List - Problems (1) UTI (urinary tract infection) Code(s): N39.0 - URINARY TRACT INFECTION, SITE NOT SPECIFIED Qualifiers: Urinary tract infection type: acute cystitis Hematuria presence: with hematuria Qualified Code(s): N30.01 - Acute cystitis with hematuria (2) Urinary retention Code(s): R33.9 - RETENTION OF URINE, UNSPECIFIED Assessment/Plan Complicated UTI/ mendez SURESH -- wbc trending down, afebrile -- culture results noted - continue current antibiotics -- monitor wbc trend, renal function
[2020-05-31] MEDS: NEBIVOLOL 5 MG TABLET (FP) PO SCH (23:02)
[2020-05-31] MEDS: PRAMIPEXOLE DIHYDROCHLORIDE 1 MG TABLET PO SCH (23:02)
[2020-05-31] MEDS: PRIMIDONE 50 MG TABLET PO SCH (23:02)
[2020-06-01] MEDS ORDERED: PIPERACILLIN/TAZOBACTAM 3.375 GM VIAL IVPB ONE ×3 (00:06→17:14)
[2020-06-01] MEDS ORDERED: DEXTROSE 5%-WATER - 50 ML IVPB ONE ×3 (00:06→17:14)
[2020-06-01] MEDS: PIPERACILLIN/TAZOB 3.375 GM 3.375 GM in DEXTROSE 5%-WATER - 50 ML IVPB SCH ×3 (01:28→17:29)
[2020-06-01 09:15] LABS: HEMATOCRIT 23.4 % (35.4-49); HEMOGLOBIN 7.5 GM/dL (11.7-16.9); MCH 26.6 pg (25.7-33.7); MCHC 32.2 g/dl (32.0-35.9); MEAN CELL VOLUME 82.6 fl (80-96); MEAN PLT VOLUME 8.4 fl (7.5-11.1); PLATELET COUNT 520 K/MM3 (134-434); RBC 2.83 M/mm3 (4.00-5.60); RDW 15.9 % (11.9-15.9); WHITE BLOOD COUNT 13.4 K/mm3 (4.0-10.0)
[2020-06-01] MEDS: DOXYCYCLINE HYCLATE 100 MG CAPSULE PO SCH ×2 (09:37→17:28)
[2020-06-01] MEDS: POLYETHYLENE GLYCOL 3350 119 GM BTL PO SCH (09:41)
[2020-06-01 09:49] LABS: BLOOD UREA NITROGEN 26.6 mg/dL (7-18); CALCIUM 7.4 mg/dL (8.5-10.1); MAGNESIUM 2.1 mg/dL (1.8-2.4)
[2020-06-01 09:52] LABS: CREATININE 1.3 mg/dL (0.55-1.3)
[2020-06-01 09:53] LABS: PHOSPHOROUS 3.4 mg/dL (2.5-4.9)
--- NOTE | 2020-06-01 15:17 | PN ---
Progress Note (short form) - Note Progress Note: S: Confused and aphasic. Sleeping at time of exam with arousability. Patient reportedly did not sleep and was markedly agitated last night per his baseline sundowning in setting of infection and hospitalization Vital Signs Temperature 98.5 F 05/31/20 15:00 Pulse Rate 60 05/31/20 15:00 Respiratory Rate 20 05/31/20 15:00 Blood Pressure 94/50 L 05/31/20 15:00 O2 Sat by Pulse Oximetry (%) 93 L 05/31/20 15:00 PE: Gen: NAD, awake, confused, aphasic LUNG: CTA b/l without wheezes or rales CARD: RRR no murmrus appreciated ABD: soft, NT/Nd, no guarding, no suprapubic tenderness : Indwelling catheter with yellow urine EXT: no edema noted CBC, BMP 06/01/20 07:35 06/01/20 07:35 Hepatic Panel Total Bilirubin 0.5 mg/dL (0.2-1) 05/31/20 07:40 AST 23 U/L (15-37) 05/31/20 07:40 ALT 45 U/L (13-61) 05/31/20 07:40 Alkaline Phosphatase 66 U/L (45-117) 05/31/20 07:40 Albumin 2.0 g/dl (3.4-5.0) L 05/31/20 07:40 Microbiology 05/29/20 16:15 Urine - Urine - Catheterized Urine Culture - Final Enterococcus Faecalis 05/28/20 02:00 Urine - Urine Booth Urine Culture - Final Escherichia Coli Mr S Aureus Enterococcus Faecalis Active Medications Acetaminophen (Tylenol -) 650 mg PO Q4H PRN PRN Reason: PAIN LEVEL 7 - 10 Acetaminophen (Tylenol -) 650 mg PO Q4H PRN PRN Reason: FEVER Doxycycline Hyclate (Vibramycin -) 100 mg PO BID@1000,1800 [facility] Last Admin: 06/01/20 09:37 Dose: 100 mg Documented by: Piperacillin Sod/Tazobactam (Sod 3.375 gm/ Dextrose) 50 mls @ 100 mls/hr IVPB Q8H-IV [facility]; Protocol Last Admin: 06/01/20 09:37 Dose: 100 mls/hr Documented by: Nebivolol (Bystolic -) 5 mg PO HS [facility] Last Admin: 10/24/20 23:02 Dose: 5 mg Documented by: Polyethylene Glycol (Miralax (For Daily Use) -) 17 gm PO DAILY [facility] Last Admin: 06/01/20 09:41 Dose: 17 grams Documented by: Pramipexole Dihydrochloride (Mirapex -) 1 mg PO [facility] Last Admin: 05/31/20 23:02 Dose: 1 mg Documented by: Primidone (Mysoline -) 50 mg PO [facility] Last Admin: 05/31/20 23:02 Dose: 50 mg Documented by: Assessment/Plan: Catheter Associated UTI Acute metabolic encephalopathy Acute Kidney Injury, mixed etiologies Hypernatremia, resolving Iron deficiency anemia vs. blood loss anemia Essential Tremor Hypertension history --Continue beta-lactam day 5 and Doxycycline day 3 --ID on board --Sensitivities noted on polymicrobial urine cultures --Isolation precautions --Urology consulted for concern of colovesicular fistula --Would ideally need contrast imaging performed, however would wait for performance due to proximity of SURESH --Continue to trend Cr --Na WNL and fluids discontinued due to dilutional effect noted in CBC --Nephrology on board --Holding antihypertensives --Continue Primidone and Pramipexole Dispo: continue monitoring; awaiting resolution of SURESH Jesus Stubbs DO - IM
--- NOTE | 2020-06-01 21:00 | PN ---
Progress Note, Physician History of Present Illness: Pt confused but in no distress, remains afebrile. - Current Medication List Current Medications: Active Medications Acetaminophen (Tylenol -) 650 mg PO Q4H PRN PRN Reason: PAIN LEVEL 7 - 10 Acetaminophen (Tylenol -) 650 mg PO Q4H PRN PRN Reason: FEVER Doxycycline Hyclate (Vibramycin -) 100 mg PO BID@1000,1800 [facility] Last Admin: 06/01/20 17:28 Dose: 100 mg Documented by: Piperacillin Sod/Tazobactam (Sod 3.375 gm/ Dextrose) 50 mls @ 100 mls/hr IVPB Q8H-IV [facility]; Protocol Last Admin: 06/01/20 17:29 Dose: 100 mls/hr Documented by: Nebivolol (Bystolic -) 5 mg PO HS [facility] Last Admin: 05/31/20 23:02 Dose: 5 mg Documented by: Polyethylene Glycol (Miralax (For Daily Use) -) 17 gm PO DAILY [facility] Last Admin: 06/01/20 09:41 Dose: 17 grams Documented by: Pramipexole Dihydrochloride (Mirapex -) 1 mg PO HS [facility] Last Admin: 05/31/20 23:02 Dose: 1 mg Documented by: Primidone (Mysoline -) 50 mg PO HS [facility] Last Admin: 05/31/20 23:02 Dose: 50 mg Documented by: - Objective Vital Signs: Vital Signs Temperature 97.5 F L 06/01/20 18:49 Pulse Rate 80 06/01/20 18:49 Respiratory Rate 16 06/01/20 18:49 Blood Pressure 115/64 06/01/20 18:49 O2 Sat by Pulse Oximetry (%) 97 06/01/20 18:49 Constitutional: Yes: No Distress Cardiovascular: Yes: Regular Rate and Rhythm Respiratory: Yes: Regular Gastrointestinal: Yes: Normal Bowel Sounds, Soft Genitourinary: Yes: Booth Present Neurological: Yes: Confusion Labs: CBC, BMP 06/01/20 07:35 06/01/20 07:35 INR, PTT INR 1.31 (0.83-1.09) H 05/28/20 08:30 Microbiology 05/29/20 16:15 Urine - Urine - Catheterized Urine Culture - Final Enterococcus Faecalis 05/28/20 02:00 Urine - Urine Booth Urine Culture - Final Escherichia Coli Mr S Aureus Enterococcus Faecalis Problem List - Problems (1) UTI (urinary tract infection) Code(s): N39.0 - URINARY TRACT INFECTION, SITE NOT SPECIFIED Qualifiers: Urinary tract infection type: acute cystitis Hematuria presence: with hematuria Qualified Code(s): N30.01 - Acute cystitis with hematuria (2) Urinary retention Code(s): R33.9 - RETENTION OF URINE, UNSPECIFIED Assessment/Plan Complicated UTI/ catheter associated SURESH Toxic metabolic encephalopathy -- vitals stable, afebrile -- wbc trending down, monitor -- continue Zosyn/Doxycycline
[2020-06-01] MEDS ORDERED: PT OWN MED DRAWER 7, Y5N ONE (21:46)
[2020-06-01] MEDS: PRIMIDONE 50 MG TABLET PO SCH (22:13)
[2020-06-01] MEDS: PRAMIPEXOLE DIHYDROCHLORIDE 1 MG TABLET PO SCH (22:13)
[2020-06-01] MEDS: NEBIVOLOL 5 MG TABLET (FP) PO SCH (22:13)
[2020-06-02] MEDS ORDERED: PIPERACILLIN/TAZOBACTAM 3.375 GM VIAL IVPB ONE ×4 (01:07→17:59)
[2020-06-02] MEDS ORDERED: DEXTROSE 5%-WATER - 50 ML IVPB ONE ×4 (01:07→17:59)
[2020-06-02] MEDS: PIPERACILLIN/TAZOB 3.375 GM 3.375 GM in DEXTROSE 5%-WATER - 50 ML IVPB SCH ×3 (01:51→18:34)
[2020-06-02 07:47] LABS: HEMATOCRIT 24.8 % (35.4-49); MCH 26.9 pg (25.7-33.7); MCHC 32.3 g/dl (32.0-35.9); MEAN CELL VOLUME 83.5 fl (80-96); MEAN PLT VOLUME 7.9 fl (7.5-11.1); PLATELET COUNT 555 K/MM3 (134-434); RBC 2.97 M/mm3 (4.00-5.60); RDW 16.1 % (11.9-15.9); WHITE BLOOD COUNT 10.9 K/mm3 (4.0-10.0)
[2020-06-02 07:56] LABS: POTASSIUM 3.9 mmol/L (3.5-5.1)
[2020-06-02 07:58] LABS: ALBUMIN 2.2 g/dl (3.4-5.0); BLOOD UREA NITROGEN 22.2 mg/dL (7-18); CALCIUM 7.9 mg/dL (8.5-10.1)
[2020-06-02 08:01] LABS: CREATININE 1.2 mg/dL (0.55-1.3)
[2020-06-02 08:03] LABS: BILIRUBIN,TOTAL 0.5 mg/dL (0.2-1)
[2020-06-02] MEDS ORDERED: SODIUM CHLORIDE 500 ML IV STA (10:12)
[2020-06-02] MEDS: DOXYCYCLINE HYCLATE 100 MG CAPSULE PO SCH ×2 (11:03→18:34)
[2020-06-02] MEDS: POLYETHYLENE GLYCOL 3350 119 GM BTL PO SCH (11:03)
--- NOTE | 2020-06-02 13:10 | PN ---
Progress Note, Physician History of Present Illness: very confused awake and alert - Current Medication List Current Medications: Active Medications Acetaminophen (Tylenol -) 650 mg PO Q4H PRN PRN Reason: PAIN LEVEL 7 - 10 Acetaminophen (Tylenol -) 650 mg PO Q4H PRN PRN Reason: FEVER Doxycycline Hyclate (Vibramycin -) 100 mg PO BID@1000,1800 [facility] Last Admin: 06/02/20 11:03 Dose: 100 mg Documented by: Piperacillin Sod/Tazobactam (Sod 3.375 gm/ Dextrose) 50 mls @ 100 mls/hr IVPB Q8H-IV [facility]; Protocol Last Admin: 06/02/20 11:03 Dose: 100 mls/hr Documented by: Nebivolol (Bystolic -) 5 mg PO HS [facility] Last Admin: 06/01/20 22:13 Dose: 5 mg Documented by: Polyethylene Glycol (Miralax (For Daily Use) -) 17 gm PO DAILY [facility] Last Admin: 06/02/20 11:03 Dose: 17 grams Documented by: Pramipexole Dihydrochloride (Mirapex -) 1 mg PO HS [facility] Last Admin: 06/01/20 22:13 Dose: 1 mg Documented by: Primidone (Mysoline -) 50 mg PO [facility] Last Admin: 06/01/20 22:13 Dose: 50 mg Documented by: - Objective Vital Signs: Vital Signs Temperature 98.0 F 06/02/20 12:00 Pulse Rate 61 06/02/20 12:00 Respiratory Rate 20 06/02/20 12:00 Blood Pressure 133/76 06/02/20 12:00 O2 Sat by Pulse Oximetry (%) 95 06/02/20 12:00 Constitutional: Yes: No Distress, Other Cardiovascular: Yes: S1, S2 Respiratory: Yes: Regular, CTA Bilaterally Gastrointestinal: Yes: Normal Bowel Sounds, Soft Genitourinary: Yes: Mendez Present Musculoskeletal: Yes: WNL Extremities: Yes: WNL Neurological: Yes: Alert, Oriented Psychiatric: Yes: Alert, Oriented Labs: CBC, BMP 06/02/20 07:26 06/02/20 07:26 INR, PTT INR 1.31 (0.83-1.09) H 05/28/20 08:30 Assessment/Plan 79 yo M with PMH of HTN, CAD (s/p stent; possibly still untreated), RLS, essential tremors, dementia, BPH, recent recurrent UTIs and indwelling mendez catheter placement presenting with non-draining mendez catheter, urinary retention, penile pain, and hematuria. Patient being admitted for evaluation and treatment of a catheter associated UTI, hematuria (with associated anemia), and SURESH. uti hematuria leukocytosis suresh transmitis plan continue current mgmt urology to see rest as per the team
--- NOTE | 2020-06-02 13:45 | PN ---
Teaching Attending Note Name of Resident: Antwon Lopez ATTENDING PHYSICIAN STATEMENT I saw and evaluated the patient. I reviewed the resident's note and discussed the case with the resident. I agree with the resident's findings and plan as documented. SUBJECTIVE: Seen and examined at bedside. Still confused. Creatinine is improving. Will g janine 500 cc NS and send for CT abdomen pelvis with IV contrast to evaluate bladder OBJECTIVE Last Vital Signs Temp Pulse Resp BP Pulse Ox 98.0 F 61 20 133/76 95 06/02/20 12:00 06/02/20 12:00 06/02/20 12:00 06/02/20 12:00 06/02/20 12:00 PE: Per resident note Labs/Imaging: reviewed ASSESSMENT/PLAN 79-year-old male with a history of HTN, RLS, essential tremors, dementia,? Primary progressive aphasia, BPH, recent history of urinary retention requiring indwelling Booth catheter since March 2020 and recurrent UTIs presented for poor drainage from Booth and suprapubic pain and was found to have SURESH, UTI, and hematuria. #Catheter associated UTI -initial culture with 3 different organisms including MRSA. Urine culture from 1022 already positive for group B strep Enterococcus. Discussed with infectious disease, concern for possible colovesicular fistula. Will obtain CT scan and discussed with urology sheryl givens -ID on board: appreciate recs CT abd pel w/contrast pending f/u WBC #Concern for soft tissue bladder mass or possibly colovescicular fistula -will discuss with urology again -currently on abx CT abd pel w/contrast pending #Postobstructive SURESH: improving -likely new prerenal component -nephro consulted Booth now draining Trend creatinine Avoid nephrotoxic medications #hypernatremia: resolved #Iron deficiency anemia In the setting of gross hematuria Check FOBT to rule out additional bowel source Iron sucrose 100 mg x 3 doses #Transaminitis Downtrending Continue to trend #Essential tremor: Continue primidone #Hypertension: Currently normotensive Hold home nebivolol in setting of bleed #Restless leg syndrome Continue pramipexole #DVT PPx SCD
[2020-06-02] MEDS ORDERED: IRON SUCROSE INJECTION 100 MG in SODIUM CHLORIDE 95 ML IVPB ONE (13:46)
--- NOTE | 2020-06-02 15:49 | PN ---
Progress Note, Physician History of Present Illness: Pt seen and examined at bedside. He remains confused. - Current Medication List Current Medications: Active Medications Acetaminophen (Tylenol -) 650 mg PO Q4H PRN PRN Reason: PAIN LEVEL 7 - 10 Acetaminophen (Tylenol -) 650 mg PO Q4H PRN PRN Reason: FEVER Doxycycline Hyclate (Vibramycin -) 100 mg PO BID@1000,1800 [facility] Last Admin: 06/02/20 11:03 Dose: 100 mg Documented by: Piperacillin Sod/Tazobactam (Sod 3.375 gm/ Dextrose) 50 mls @ 100 mls/hr IVPB Q8H-IV [facility]; Protocol Last Admin: 06/02/20 11:03 Dose: 100 mls/hr Documented by: Nebivolol (Bystolic -) 5 mg PO HS [facility] Last Admin: 06/01/20 22:13 Dose: 5 mg Documented by: Polyethylene Glycol (Miralax (For Daily Use) -) 17 gm PO DAILY [facility] Last Admin: 06/02/20 11:03 Dose: 17 grams Documented by: Pramipexole Dihydrochloride (Mirapex -) 1 mg PO HS [facility] Last Admin: 06/01/20 22:13 Dose: 1 mg Documented by: Primidone (Mysoline -) 50 mg PO HS [facility] Last Admin: 06/01/20 22:13 Dose: 50 mg Documented by: - Objective Vital Signs: Vital Signs Temperature 98.6 F 06/02/20 14:58 Pulse Rate 52 L 06/02/20 14:58 Respiratory Rate 20 06/02/20 14:58 Blood Pressure 92/50 L 06/02/20 14:58 O2 Sat by Pulse Oximetry (%) 95 06/02/20 14:58 Constitutional: Yes: Anxious Eyes: Yes: Conjunctiva Clear HENT: Yes: Atraumatic Neck: Yes: Supple Cardiovascular: Yes: S1, S2 Respiratory: Yes: CTA Bilaterally Gastrointestinal: Yes: Soft Genitourinary: Yes: Mendez Present Musculoskeletal: Yes: WNL Edema: No Neurological: Yes: Confusion Labs: CBC, BMP 06/02/20 07:26 06/02/20 07:26 INR, PTT INR 1.31 (0.83-1.09) H 05/28/20 08:30 Problem List - Problems (1) UTI (urinary tract infection) Code(s): N39.0 - URINARY TRACT INFECTION, SITE NOT SPECIFIED Qualifiers: Urinary tract infection type: acute cystitis Hematuria presence: with hematuria Qualified Code(s): N30.01 - Acute cystitis with hematuria (2) Urinary retention Code(s): R33.9 - RETENTION OF URINE, UNSPECIFIED Assessment/Plan Current Medications Generic Name Dose Route Start Last Admin Trade Name Freq PRN Reason Stop Dose Admin Acetaminophen 650 mg 05/28/20 05:51 Tylenol - PO Q4H PRN PAIN LEVEL 7 - 10 Acetaminophen 650 mg 05/28/20 14:46 Tylenol - PO Q4H PRN FEVER Doxycycline Hyclate 100 mg 05/30/20 11:00 06/02/20 11:03 Vibramycin - PO 100 mg BID@1000,1800 [facility] Administration Piperacillin Sod/Tazobactam 50 mls @ 100 mls/hr 05/30/20 11:00 06/02/20 11:03 Sod 3.375 gm/ Dextrose IVPB 100 mls/hr Q8H-IV [facility] Administration Protocol Nebivolol 5 mg 05/29/20 22:00 06/01/20 22:13 Bystolic - PO 5 mg HS [facility] Administration Polyethylene Glycol 17 gm 05/29/20 12:00 06/02/20 11:03 Miralax (For Daily Use) - PO 17 grams DAILY [facility] Administration Pramipexole Dihydrochloride 1 mg 05/29/20 22:00 06/01/20 22:13 Mirapex - PO 1 mg HS [facility] Administration Primidone 50 mg 05/30/20 22:00 06/01/20 22:13 Mysoline - PO 50 mg HS [facility] Administration Impression 1. SURESH 2. hypernatremia 3. urinary retention with chronic mendez 4. obstructive uropathy 5. dementia 6. htn 7. uti Plan - restart fluids - will start 1/2 ns as bp is low as well - repeat labs in am - monitor ed - flomax stopped
[2020-06-02] MEDS ORDERED: SODIUM CHLORIDE 0.45% 1,000 ML IV SCH (16:00)
--- NOTE | 2020-06-02 18:45 | PN ---
Physical Exam: SUBJECTIVE: Patient seen and examined at bedside this AM. For CTAP w/ contrast today. OBJECTIVE: Vital Signs Period Temp Pulse Resp BP Sys/Townsend Pulse Ox Last 24 Hr 97.5 F-98.6 F 52-80 16-20 92-133/50-76 95-100 GENERAL: NAD HEAD: AT/NC EYES: EOMI Sclera Clear. LUNGS: CTAB No wheezing/Rales/Rhonchi. HEART: RRR S1S2 ABDOMEN: Soft, NDNT EXTREMITIES: No CCE. NEUROLOGICAL: Spontaneously moves all extremities. AAOX1 SKIN: Warm, dry. Laboratory Results - last 24 hr 06/02/20 06/02/20 07:26 07:26 WBC 10.9 H RBC 2.97 L Hgb 8.0 L Hct 24.8 L MCV 83.5 MCH 26.9 MCHC 32.3 RDW 16.1 H Plt Count 555 H MPV 7.9 Sodium 144 Potassium 3.9 Chloride 110 H Carbon Dioxide 28 Anion Gap 5 L BUN 22.2 H Creatinine 1.2 Est GFR (CKD-EPI)AfAm 66.73 Est GFR (CKD-EPI)NonAf 57.57 Random Glucose 87 Calcium 7.9 L Total Bilirubin 0.5 AST 21 ALT 38 Alkaline Phosphatase 59 Total Protein 6.0 L Albumin 2.2 L Active Medications Generic Name Dose Route Start Last Admin Trade Name Freq PRN Reason Stop Dose Admin Acetaminophen 650 mg 05/28/20 05:51 Tylenol - PO Q4H PRN PAIN LEVEL 7 - 10 Acetaminophen 650 mg 05/28/20 14:46 Tylenol - PO Q4H PRN FEVER Doxycycline Hyclate 100 mg 05/30/20 11:00 06/02/20 18:34 Vibramycin - PO 100 mg BID@1000,1800 [facility] Administration Piperacillin Sod/Tazobactam 50 mls @ 100 mls/hr 05/30/20 11:00 06/02/20 18:34 Sod 3.375 gm/ Dextrose IVPB 100 mls/hr Q8H-IV [facility] Administration Protocol Sodium Chloride 1,000 mls @ 50 mls/hr 06/02/20 16:00 06/02/20 17:11 1/2 Normal Saline IV 06/03/20 15:49 50 mls/hr ASDIR [facility] Administration Nebivolol 5 mg 05/29/20 22:00 06/01/20 22:13 Bystolic - PO 5 mg HS [facility] Administration Polyethylene Glycol 17 gm 05/29/20 12:00 06/02/20 11:03 Miralax (For Daily Use) - PO 17 grams DAILY [facility] Administration Pramipexole Dihydrochloride 1 mg 05/29/20 22:00 06/01/20 22:13 Mirapex - PO 1 mg HS [facility] Administration Primidone 50 mg 05/30/20 22:00 06/01/20 22:13 Mysoline - PO 50 mg HS [facility] Administration ASSESSMENT/PLAN: 79yoM with history of BPH and urinary retention with indwelling Mendez, untreated CAD, primary progressive aphasia, HTN, RLS, and essential tremors who presents due to suprapubic and penile pain and poor drainage from the Mendez x1 day. #UTI UA: 3+ Leukocyte esterase, extensive amount of urine WBCs. Albeit 24 epithelial cells. - ID on board. ABx switched to Zosyn and Doxy. - Repeat Urine Culture positive Enterococcus F.. WBC 10.9 today. Will trend #Hematuria. 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 Cystoscopy recommended -Per , patient with recent Cysto which did not reveal any bladder masses. No need for inpatient cystoscopy. - on board- Dr Caro. Recs appreciated #Concern for [place] Fistula -CTAP w/ Contrast performed today. Official report pending. #SURESH -Creatinine down from admission. Renal sono neg for hydro -Likely 2/2 obstruction from malfunctioning mendez. #h/o untreated CAD; ?CHF -Reports patient had cardiac MRI in March showing severe triple vessel disease -No intervention done as yet given his recent admissions with sepsis -Lab Asst: Dr. Zoran Maria - obtain outpatient cardiology records Essential tremor: continue primidone HTN: hold nebivolol for now in setting of bleed RLS: continue pramipexole DVT ppx: SCD Visit type - Emergency Visit Emergency Visit: Yes ED Registration Date: 05/28/20 Care time: The patient presented to the Emergency Department on the above date and was hospitalized for further evaluation of their emergent condition. - New Patient This patient is new to me today: No - Critical Care Critical Care patient: No - Discharge Referral Referred to [facility] Med P.C[facility] No - Medication Review Med list reviewed for High Risk Meds patients 65 and older: Yes ATTENDING PHYSICIAN STATEMENT I saw and evaluated the patient. I reviewed the resident's note and discussed the case with the resident. I agree with the resident's findings and plan as documented. SUBJECTIVE: OBJECTIVE: ASSESSMENT AND PLAN:
[2020-06-02] MEDS: PRAMIPEXOLE DIHYDROCHLORIDE 1 MG TABLET PO SCH (21:34)
[2020-06-02] MEDS: NEBIVOLOL 5 MG TABLET (FP) PO SCH (21:34)
[2020-06-02] MEDS: PRIMIDONE 50 MG TABLET PO SCH (21:34)
[2020-06-03] MEDS ORDERED: PIPERACILLIN/TAZOBACTAM 3.375 GM VIAL IVPB ONE ×3 (01:12→17:57)
[2020-06-03] MEDS ORDERED: DEXTROSE 5%-WATER - 50 ML IVPB ONE ×3 (01:12→17:57)
[2020-06-03] MEDS: PIPERACILLIN/TAZOB 3.375 GM 3.375 GM in DEXTROSE 5%-WATER - 50 ML IVPB SCH ×3 (01:22→18:20)
[2020-06-03 08:45] LABS: POTASSIUM 3.9 mmol/L (3.5-5.1)
[2020-06-03 08:50] LABS: CALCIUM 8.3 mg/dL (8.5-10.1)
[2020-06-03 08:51] LABS: ALBUMIN 2.3 g/dl (3.4-5.0); BLOOD UREA NITROGEN 16.4 mg/dL (7-18)
[2020-06-03 08:53] LABS: CREATININE 1.1 mg/dL (0.55-1.3)
[2020-06-03 08:55] LABS: BILIRUBIN,TOTAL 0.5 mg/dL (0.2-1); TOT PROT 6.6 g/dl (6.4-8.2)
[2020-06-03 09:00] LABS: HEMATOCRIT 28.2 % (35.4-49); MCHC 31.8 g/dl (32.0-35.9); MEAN CELL VOLUME 84.9 fl (80-96); MEAN PLT VOLUME 8.2 fl (7.5-11.1); PLATELET COUNT 574 K/MM3 (134-434); RBC 3.32 M/mm3 (4.00-5.60); RDW 16.5 % (11.9-15.9); WHITE BLOOD COUNT 11.8 K/mm3 (4.0-10.0)
[2020-06-03] MEDS: DOXYCYCLINE HYCLATE 100 MG CAPSULE PO SCH ×2 (10:34→18:20)
[2020-06-03] MEDS: POLYETHYLENE GLYCOL 3350 119 GM BTL PO SCH (10:34)
--- NOTE | 2020-06-03 12:05 | PN ---
Progress Note, Physician History of Present Illness: Pt seen and examined at bedside. He is awake and appears comfortable. - Current Medication List Current Medications: Active Medications Acetaminophen (Tylenol -) 650 mg PO Q4H PRN PRN Reason: PAIN LEVEL 7 - 10 Acetaminophen (Tylenol -) 650 mg PO Q4H PRN PRN Reason: FEVER Doxycycline Hyclate (Vibramycin -) 100 mg PO BID@1000,1800 [facility] Last Admin: 06/03/20 10:34 Dose: 100 mg Documented by: Piperacillin Sod/Tazobactam (Sod 3.375 gm/ Dextrose) 50 mls @ 100 mls/hr IVPB Q8H-IV [facility]; Protocol Last Admin: 06/03/20 10:34 Dose: 100 mls/hr Documented by: Sodium Chloride (1/2 Normal Saline) 1,000 mls @ 50 mls/hr IV ASDIR [facility] Stop: 06/03/20 15:49 Last Admin: 06/02/20 17:11 Dose: 50 mls/hr Documented by: Nebivolol (Bystolic -) 5 mg PO [facility] Last Admin: 06/02/20 21:34 Dose: 5 mg Documented by: Polyethylene Glycol (Miralax (For Daily Use) -) 17 gm PO DAILY [facility] Last Admin: 06/03/20 10:34 Dose: 17 grams Documented by: Pramipexole Dihydrochloride (Mirapex -) 1 mg PO [facility] Last Admin: 06/02/20 21:34 Dose: 1 mg Documented by: Primidone (Mysoline -) 50 mg PO [facility] Last Admin: 06/02/20 21:34 Dose: 50 mg Documented by: - Objective Vital Signs: Vital Signs Temperature 97.7 F 06/03/20 10:41 Pulse Rate 58 L 06/03/20 10:41 Respiratory Rate 20 06/03/20 10:41 Blood Pressure 136/76 06/03/20 10:41 O2 Sat by Pulse Oximetry (%) 96 06/03/20 10:41 Constitutional: Yes: Calm Eyes: Yes: Conjunctiva Clear HENT: Yes: Atraumatic Cardiovascular: Yes: S1, S2 Respiratory: Yes: CTA Bilaterally Gastrointestinal: Yes: Soft Genitourinary: Yes: WNL Musculoskeletal: Yes: WNL Edema: No Neurological: Yes: Confusion Labs: CBC, BMP 06/03/20 07:56 06/03/20 07:56 INR, PTT INR 1.31 (0.83-1.09) H 05/28/20 08:30 Problem List - Problems (1) UTI (urinary tract infection) Code(s): N39.0 - URINARY TRACT INFECTION, SITE NOT SPECIFIED Qualifiers: Urinary tract infection type: acute cystitis Hematuria presence: with hematuria Qualified Code(s): N30.01 - Acute cystitis with hematuria (2) Urinary retention Code(s): R33.9 - RETENTION OF URINE, UNSPECIFIED Assessment/Plan Current Medications Generic Name Dose Route Start Last Admin Trade Name Freq PRN Reason Stop Dose Admin Acetaminophen 650 mg 05/28/20 05:51 Tylenol - PO Q4H PRN PAIN LEVEL 7 - 10 Acetaminophen 650 mg 05/28/20 14:46 Tylenol - PO Q4H PRN FEVER Doxycycline Hyclate 100 mg 05/30/20 11:00 06/03/20 10:34 Vibramycin - PO 100 mg BID@1000,1800 [facility] Administration Piperacillin Sod/Tazobactam 50 mls @ 100 mls/hr 05/30/20 11:00 06/03/20 10:34 Sod 3.375 gm/ Dextrose IVPB 100 mls/hr Q8H-IV [facility] Administration Protocol Sodium Chloride 1,000 mls @ 50 mls/hr 06/02/20 16:00 06/02/20 17:11 1/2 Normal Saline IV 06/03/20 15:49 50 mls/hr ASDIR [facility] Administration Nebivolol 5 mg 05/29/20 22:00 06/02/20 21:34 Bystolic - PO 5 mg HS [facility] Administration Polyethylene Glycol 17 gm 05/29/20 12:00 06/03/20 10:34 Miralax (For Daily Use) - PO 17 grams DAILY [facility] Administration Pramipexole Dihydrochloride 1 mg 05/29/20 22:00 06/02/20 21:34 Mirapex - PO 1 mg HS [facility] Administration Primidone 50 mg 05/30/20 22:00 06/02/20 21:34 Mysoline - PO 50 mg HS [facility] Administration Impression 1. SURESH 2. hypernatremia 3. urinary retention with chronic mendez 4. obstructive uropathy 5. dementia 6. htn 7. uti Plan - sodium stable - renal function improved - encourage po intake - monitor lytes - monitor bp - etiology of hypernatermia likely secondary to dehydration
--- NOTE | 2020-06-03 12:16 | PN ---
Progress Note, Physician History of Present Illness: very confused awake and alert - Current Medication List Current Medications: Active Medications Acetaminophen (Tylenol -) 650 mg PO Q4H PRN PRN Reason: PAIN LEVEL 7 - 10 Acetaminophen (Tylenol -) 650 mg PO Q4H PRN PRN Reason: FEVER Doxycycline Hyclate (Vibramycin -) 100 mg PO BID@1000,1800 [facility] Last Admin: 06/03/20 10:34 Dose: 100 mg Documented by: Piperacillin Sod/Tazobactam (Sod 3.375 gm/ Dextrose) 50 mls @ 100 mls/hr IVPB Q8H-IV [facility]; Protocol Last Admin: 06/03/20 10:34 Dose: 100 mls/hr Documented by: Sodium Chloride (1/2 Normal Saline) 1,000 mls @ 50 mls/hr IV ASDIR [facility] Stop: 06/03/20 15:49 Last Admin: 06/02/20 17:11 Dose: 50 mls/hr Documented by: Nebivolol (Bystolic -) 5 mg PO [facility] Last Admin: 06/02/20 21:34 Dose: 5 mg Documented by: Polyethylene Glycol (Miralax (For Daily Use) -) 17 gm PO DAILY [facility] Last Admin: 06/03/20 10:34 Dose: 17 grams Documented by: Pramipexole Dihydrochloride (Mirapex -) 1 mg PO [facility] Last Admin: 06/02/20 21:34 Dose: 1 mg Documented by: Primidone (Mysoline -) 50 mg PO [facility] Last Admin: 06/02/20 21:34 Dose: 50 mg Documented by: - Objective Vital Signs: Vital Signs Temperature 97.7 F 06/03/20 10:41 Pulse Rate 58 L 06/03/20 10:41 Respiratory Rate 20 06/03/20 10:41 Blood Pressure 136/76 06/03/20 10:41 O2 Sat by Pulse Oximetry (%) 96 06/03/20 10:41 Constitutional: Yes: No Distress, Calm Cardiovascular: Yes: S1, S2 Respiratory: Yes: Regular, CTA Bilaterally Gastrointestinal: Yes: Normal Bowel Sounds, Soft Genitourinary: Yes: Mendez Present Musculoskeletal: Yes: WNL Extremities: Yes: WNL Neurological: Yes: Alert, Oriented Psychiatric: Yes: Alert, Oriented Labs: CBC, BMP 06/03/20 07:56 06/03/20 07:56 INR, PTT INR 1.31 (0.83-1.09) H 05/28/20 08:30 Assessment/Plan 79 yo M with PMH of HTN, CAD (s/p stent; possibly still untreated), RLS, essential tremors, dementia, BPH, recent recurrent UTIs and indwelling mendez catheter placement presenting with non-draining mendez catheter, urinary retention, penile pain, and hematuria. Patient being admitted for evaluation and treatment of a catheter associated UTI, hematuria (with associated anemia), and SURESH. uti hematuria leukocytosis suresh transmitis plan continue current mgmt abx
--- NOTE | 2020-06-03 14:56 | PN ---
Teaching Attending Note Name of Resident: Antwon Lopez ATTENDING PHYSICIAN STATEMENT I saw and evaluated the patient. I reviewed the resident's note and discussed the case with the resident. I agree with the resident's findings and plan as documented. SUBJECTIVE: Seen and examined at bedside. Still confused. Last night with spoke with radio logist regarding CT imaging findings. Findings were relayed to the resident with instructions to advance the catheter. Per nursing catheter was advanced. This morning on exam urine is draining into the catheter. Post void residual shows over 900 cc in the bladder. Attempted to advance the catheter but felt resistence. Catheter will be replaced. If difficulty replacing catheter urology may be required in order to place OBJECTIVE Last Vital Signs Temp Pulse Resp BP Pulse Ox 98.0 F 61 20 133/76 95 06/02/20 12:00 06/02/20 12:00 06/02/20 12:00 06/02/20 12:00 06/02/20 12:00 PE: Per resident note Labs/Imaging: reviewed ASSESSMENT/PLAN 79-year-old male with a history of HTN, RLS, essential tremors, dementia,? Primary progressive aphasia, BPH, recent history of urinary retention requiring indwelling Booth catheter since March 2020 and recurrent UTIs presented for poor drainage from Booth and suprapubic pain and was found to have SURESH, UTI, and hematuria. #Catheter associated UTI -initial culture with 3 different organisms including MRSA. Urine culture from 1022 already positive for group B strep Enterococcus. Discussed with infectious disease, concern for possible colovesicular fistula. Will obtain CT scan and discussed with urology sheryl givens -ID on board: appreciate recs #poorly draining catheter with bilateral hydronephrosis -replace catheter. Attempt to advance was unsuccessful -if difficulty replacing call urology #Concern for soft tissue bladder mass or possibly colovescicular fistula -CT showed no signs of soft tissue mass or fistula #Renal mass? -Per CT read. MRI recommended. Given patient's poor performance status will discuss with family whether they want possible malignancy worked up prior to performing MRI #hypernatremia: resolved #Iron deficiency anemia In the setting of gross hematuria Check FOBT to rule out additional bowel source Iron sucrose 100 mg x 3 doses #Transaminitis Downtrending Continue to trend #Essential tremor: Continue primidone #Hypertension: Currently normotensive Hold home nebivolol in setting of bleed #Restless leg syndrome Continue pramipexole #DVT PPx SCD
--- NOTE | 2020-06-03 17:19 | PN ---
Physical Exam: SUBJECTIVE: Patient seen and examined at bedside this AM. Bladder scan revealed > 900 cc in the bladder. Booth re-inserted with successful drainage. OBJECTIVE: Vital Signs Period Temp Pulse Resp BP Sys/Townsend Pulse Ox Last 24 Hr 97.7 F-98.4 F 52-72 20-20 122-142/64-79 95-97 GENERAL: No acute distress. HEAD: AT/NC EYES: EOMI Sclera Clear. LUNGS: CTAB No wheezing/Rales/Rhonchi. HEART: RRR S1S2 ABDOMEN: Soft, NDNT EXTREMITIES: No CCE. NEUROLOGICAL: Spontaneously moves all extremities. AAOX1 SKIN: Warm, dry. Laboratory Results - last 24 hr 06/03/20 06/03/20 07:56 07:56 WBC 11.8 H RBC 3.32 L Hgb 9.0 L Hct 28.2 L MCV 84.9 MCH 27.0 MCHC 31.8 L RDW 16.5 H Plt Count 574 H MPV 8.2 Sodium 142 Potassium 3.9 Chloride 109 H Carbon Dioxide 27 Anion Gap 6 L BUN 16.4 Creatinine 1.1 Est GFR (CKD-EPI)AfAm 74.13 Est GFR (CKD-EPI)NonAf 63.96 Random Glucose 80 Calcium 8.3 L Phosphorus 3.0 Magnesium 2.0 Total Bilirubin 0.5 AST 20 ALT 37 Alkaline Phosphatase 63 Total Protein 6.6 Albumin 2.3 L Active Medications Generic Name Dose Route Start Last Admin Trade Name Freq PRN Reason Stop Dose Admin Acetaminophen 650 mg 05/28/20 05:51 Tylenol - PO Q4H PRN PAIN LEVEL 7 - 10 Acetaminophen 650 mg 05/28/20 14:46 Tylenol - PO Q4H PRN FEVER Doxycycline Hyclate 100 mg 05/30/20 11:00 06/03/20 10:34 Vibramycin - PO 100 mg BID@1000,1800 [facility] Administration Piperacillin Sod/Tazobactam 50 mls @ 100 mls/hr 05/30/20 11:00 06/03/20 10:34 Sod 3.375 gm/ Dextrose IVPB 100 mls/hr Q8H-IV [facility] Administration Protocol Nebivolol 5 mg 05/29/20 22:00 06/02/20 21:34 Bystolic - PO 5 mg HS [facility] Administration Polyethylene Glycol 17 gm 05/29/20 12:00 06/03/20 10:34 Miralax (For Daily Use) - PO 17 grams DAILY [facility] Administration Pramipexole Dihydrochloride 1 mg 05/29/20 22:00 06/02/20 21:34 Mirapex - PO 1 mg HS [facility] Administration Primidone 50 mg 05/30/20 22:00 06/02/20 21:34 Mysoline - PO 50 mg HS [facility] Administration ASSESSMENT/PLAN: 79yoM with history of BPH and urinary retention with indwelling Booth, untreated CAD, primary progressive aphasia, HTN, RLS, and essential tremors who presents due to suprapubic and penile pain and poor drainage from the Booth x1 day. #UTI UA: 3+ Leukocyte esterase, extensive amount of urine WBCs. Albeit 24 epithelial cells. - ID on board. Zosyn and Doxy. - Repeat Urine Culture positive Enterococcus F. WBC 11.8 today. Trend #Hematuria. Concern for Bladder/Renal mass on imaging -Bladder Sono--> Suspicious thick walled mass likely neoplasm. Cystoscopy recommended -Per , patient with recent Cysto which did not reveal any bladder masses. No need for inpatient cystoscopy. - CTAP--> Suspicious mass on Right kidney. Rec MRI. Need to discuss with NOK/Family GOC. #h/o untreated CAD; ?CHF -Reports patient had cardiac MRI in March showing severe triple vessel disease -No intervention done as yet given his recent admissions with sepsis -Church Business Administrator: Dr. Zoran Maria - obtain outpatient cardiology records Essential tremor: continue primidone HTN: Nebivolol RLS: continue pramipexole DVT ppx: SCD Visit type - Emergency Visit Emergency Visit: Yes ED Registration Date: 05/28/20 Care time: The patient presented to the Emergency Department on the above date and was hospitalized for further evaluation of their emergent condition. - New Patient This patient is new to me today: No - Critical Care Critical Care patient: No - Discharge Referral Referred to [facility] Med P.C[facility] No - Medication Review Med list reviewed for High Risk Meds patients 65 and older: Yes ATTENDING PHYSICIAN STATEMENT I saw and evaluated the patient. I reviewed the resident's note and discussed the case with the resident. I agree with the resident's findings and plan as documented. SUBJECTIVE: OBJECTIVE: ASSESSMENT AND PLAN:
[2020-06-03] MEDS ORDERED: INSULIN (NOVOLOG) ASPART 100 UNITS/ML 10ML VIAL ONE (21:03)
[2020-06-03] MEDS ORDERED: PT OWN MED DRAWER 7, Y5N ONE (21:26)
[2020-06-03] MEDS: PRAMIPEXOLE DIHYDROCHLORIDE 1 MG TABLET PO SCH ×2 (21:34→22:51)
[2020-06-03] MEDS: PRIMIDONE 50 MG TABLET PO SCH ×2 (21:34→22:51)
[2020-06-03] MEDS: NEBIVOLOL 5 MG TABLET (FP) PO SCH ×2 (21:34→22:51)
[2020-06-04] MEDS ORDERED: PIPERACILLIN/TAZOBACTAM 3.375 GM VIAL IVPB ONE ×4 (01:08→23:48)
[2020-06-04] MEDS ORDERED: DEXTROSE 5%-WATER - 50 ML IVPB ONE ×3 (01:09→23:48)
[2020-06-04] MEDS: PIPERACILLIN/TAZOB 3.375 GM 3.375 GM in DEXTROSE 5%-WATER - 50 ML IVPB SCH ×3 (01:14→17:23)
--- NOTE | 2020-06-04 10:43 | PN ---
Progress Note, Physician History of Present Illness: confused awake and alert - Current Medication List Current Medications: Active Medications Acetaminophen (Tylenol -) 650 mg PO Q4H PRN PRN Reason: PAIN LEVEL 7 - 10 Acetaminophen (Tylenol -) 650 mg PO Q4H PRN PRN Reason: FEVER Doxycycline Hyclate (Vibramycin -) 100 mg PO BID@1000,1800 [facility] Last Admin: 06/03/20 18:20 Dose: Not Given Documented by: Piperacillin Sod/Tazobactam (Sod 3.375 gm/ Dextrose) 50 mls @ 100 mls/hr IVPB Q8H-IV [facility]; Protocol Last Admin: 06/04/20 01:14 Dose: 100 mls/hr Documented by: Nebivolol (Bystolic -) 5 mg PO HS [facility] Last Admin: 06/03/20 22:51 Dose: Not Given Documented by: Polyethylene Glycol (Miralax (For Daily Use) -) 17 gm PO DAILY [facility] Last Admin: 06/03/20 10:34 Dose: 17 grams Documented by: Pramipexole Dihydrochloride (Mirapex -) 1 mg PO HS [facility] Last Admin: 06/03/20 22:51 Dose: Not Given Documented by: Primidone (Mysoline -) 50 mg PO HS [facility] Last Admin: 06/03/20 22:51 Dose: Not Given Documented by: - Objective Vital Signs: Vital Signs Temperature 98.1 F 06/04/20 06:00 Pulse Rate 62 06/04/20 06:00 Respiratory Rate 18 06/04/20 06:00 Blood Pressure 142/92 06/04/20 06:00 O2 Sat by Pulse Oximetry (%) 97 06/04/20 06:00 Constitutional: Yes: No Distress, Calm Cardiovascular: Yes: S1, S2 Respiratory: Yes: Regular, CTA Bilaterally Genitourinary: Yes: Mendez Present Musculoskeletal: Yes: WNL Extremities: Yes: WNL Neurological: Yes: Alert, Oriented Psychiatric: Yes: Alert, Oriented Labs: CBC, BMP 06/03/20 07:56 06/03/20 07:56 INR, PTT INR 1.31 (0.83-1.09) H 05/28/20 08:30 Assessment/Plan 79 yo M with PMH of HTN, CAD (s/p stent; possibly still untreated), RLS, essential tremors, dementia, BPH, recent recurrent UTIs and indwelling mendez catheter placement presenting with non-draining mendez catheter, urinary retention, penile pain, and hematuria. Patient being admitted for evaluation and treatment of a catheter associated UTI, hematuria (with associated anemia), and SURESH. uti hematuria leukocytosis suresh transmitis plan continue current mgmt abx can change to oral on discharge rest as per the team
[2020-06-04] MEDS: DOXYCYCLINE HYCLATE 100 MG CAPSULE PO SCH ×2 (10:52→17:24)
[2020-06-04] MEDS: POLYETHYLENE GLYCOL 3350 119 GM BTL PO SCH (10:53)
[2020-06-04 12:14] LABS: HEMATOCRIT 27.8 % (35.4-49); HEMOGLOBIN 8.9 GM/dL (11.7-16.9); MCH 26.9 pg (25.7-33.7); MCHC 31.9 g/dl (32.0-35.9); MEAN CELL VOLUME 84.2 fl (80-96); MEAN PLT VOLUME 8.5 fl (7.5-11.1); PLATELET COUNT 561 K/MM3 (134-434); RDW 17.1 % (11.9-15.9); WHITE BLOOD COUNT 11.9 K/mm3 (4.0-10.0)
[2020-06-04 12:56] LABS: POTASSIUM 3.9 mmol/L (3.5-5.1)
[2020-06-04 12:57] LABS: BLOOD UREA NITROGEN 15.3 mg/dL (7-18); CALCIUM 8.3 mg/dL (8.5-10.1)
--- NOTE | 2020-06-04 12:57 | PN ---
Progress Note, Physician History of Present Illness: Pt seen and examined. He is agitated. He did not eat breakfast as he feels it was poisoned. His po intake is not consistent. - Current Medication List Current Medications: Active Medications Acetaminophen (Tylenol -) 650 mg PO Q4H PRN PRN Reason: PAIN LEVEL 7 - 10 Acetaminophen (Tylenol -) 650 mg PO Q4H PRN PRN Reason: FEVER Doxycycline Hyclate (Vibramycin -) 100 mg PO BID@1000,1800 [facility] Last Admin: 06/04/20 10:52 Dose: 100 mg Documented by: Piperacillin Sod/Tazobactam (Sod 3.375 gm/ Dextrose) 50 mls @ 100 mls/hr IVPB Q8H-IV [facility]; Protocol Last Admin: 06/04/20 10:54 Dose: 100 mls/hr Documented by: Nebivolol (Bystolic -) 5 mg PO HS [facility] Last Admin: 06/03/20 22:51 Dose: Not Given Documented by: Polyethylene Glycol (Miralax (For Daily Use) -) 17 gm PO DAILY [facility] Last Admin: 06/04/20 10:53 Dose: 17 grams Documented by: Pramipexole Dihydrochloride (Mirapex -) 1 mg PO HS [facility] Last Admin: 06/03/20 22:51 Dose: Not Given Documented by: Primidone (Mysoline -) 50 mg PO HS [facility] Last Admin: 06/03/20 22:51 Dose: Not Given Documented by: - Objective Vital Signs: Vital Signs Temperature 98.1 F 06/04/20 06:00 Pulse Rate 62 06/04/20 06:00 Respiratory Rate 18 06/04/20 06:00 Blood Pressure 142/92 06/04/20 06:00 O2 Sat by Pulse Oximetry (%) 97 06/04/20 06:00 Constitutional: Yes: Calm Eyes: Yes: Conjunctiva Clear HENT: Yes: Atraumatic Neck: Yes: Supple Cardiovascular: Yes: S1, S2 Respiratory: Yes: CTA Bilaterally Gastrointestinal: Yes: Soft Genitourinary: Yes: WNL Musculoskeletal: Yes: WNL Edema: No Neurological: Yes: Confusion Labs: CBC, BMP 06/04/20 10:39 INR, PTT INR 1.31 (0.83-1.09) H 05/28/20 08:30 Problem List - Problems (1) UTI (urinary tract infection) Code(s): N39.0 - URINARY TRACT INFECTION, SITE NOT SPECIFIED Qualifiers: Urinary tract infection type: acute cystitis Hematuria presence: with hematuria Qualified Code(s): N30.01 - Acute cystitis with hematuria (2) Urinary retention Code(s): R33.9 - RETENTION OF URINE, UNSPECIFIED Assessment/Plan Current Medications Generic Name Dose Route Start Last Admin Trade Name Freq PRN Reason Stop Dose Admin Acetaminophen 650 mg 05/28/20 05:51 Tylenol - PO Q4H PRN PAIN LEVEL 7 - 10 Acetaminophen 650 mg 05/28/20 14:46 Tylenol - PO Q4H PRN FEVER Doxycycline Hyclate 100 mg 05/30/20 11:00 06/04/20 10:52 Vibramycin - PO 100 mg BID@1000,1800 [facility] Administration Piperacillin Sod/Tazobactam 50 mls @ 100 mls/hr 05/30/20 11:00 06/04/20 10:54 Sod 3.375 gm/ Dextrose IVPB 100 mls/hr Q8H-IV [facility] Administration Protocol Nebivolol 5 mg 05/29/20 22:00 06/03/20 22:51 Bystolic - PO Not Given HS [facility] Polyethylene Glycol 17 gm 05/29/20 12:00 06/04/20 10:53 Miralax (For Daily Use) - PO 17 grams DAILY [facility] Administration Pramipexole Dihydrochloride 1 mg 05/29/20 22:00 06/03/20 22:51 Mirapex - PO Not Given HS [facility] Primidone 50 mg 05/30/20 22:00 06/03/20 22:51 Mysoline - PO Not Given HS [facility] Impression 1. SURESH 2. hypernatremia 3. urinary retention with chronic mendez 4. obstructive uropathy 5. dementia 6. htn 7. uti Plan - diet has been inconsistent - fluids prn - pt remains confused and paranoid - follow labs - etiology of hypernatermia likely secondary to dehydration
[2020-06-04 13:01] LABS: PHOSPHOROUS 3.1 mg/dL (2.5-4.9)
--- NOTE | 2020-06-04 13:22 | PN ---
Teaching Attending Note Name of Resident: Kait Pantoja ATTENDING PHYSICIAN STATEMENT I saw and evaluated the patient. I reviewed the resident's note and discussed the case with the resident. I agree with the resident's findings and plan as documented. SUBJECTIVE: Seen and examined at bedside. Still confused. Booth was replaced yesterday and is now draining well with bladder scan showing 25 cc in the bladder. Spoke with health care proxy who would prefer he be discharged to his own apartment with a 24 hour home care if possible. Will have case management reach out OBJECTIVE Last Vital Signs Temp Pulse Resp BP Pulse Ox 98.1 F 72 18 118/76 94 L 06/04/20 06:00 06/04/20 10:00 06/04/20 10:00 06/04/20 10:06/04/20 10:00 PE: Per resident note Labs/Imaging: reviewed ASSESSMENT/PLAN 79-year-old male with a history of HTN, RLS, essential tremors, dementia,? Primary progressive aphasia, BPH, recent history of urinary retention requiring indwelling Booth catheter since March 2020 and recurrent UTIs presented for poor drainage from Booth and suprapubic pain and was found to have SURESH, UTI, and hematuria. #Catheter associated UTI -initial culture with 3 different organisms including MRSA. Urine culture from 1022 already positive for group B strep Enterococcus. Discussed with infectious disease, concern for possible colovesicular fistula. Will obtain CT scan and discussed with urology sheryl givens -ID on board: appreciate recs #poorly draining catheter with bilateral hydronephrosis -replace catheter. Attempt to advance was unsuccessful -if difficulty replacing call urology #Concern for soft tissue bladder mass or possibly colovescicular fistula -CT showed no signs of soft tissue mass or fistula #Renal mass? -Per CT read. MRI recommended. Given patient's poor performance status will discuss with family whether they want possible malignancy worked up prior to performing MRI #hypernatremia: resolved #Iron deficiency anemia In the setting of gross hematuria Check FOBT to rule out additional bowel source Iron sucrose 100 mg x 3 doses #Transaminitis Downtrending Continue to trend #Essential tremor: Continue primidone #Hypertension: Currently normotensive Hold home nebivolol in setting of bleed #Restless leg syndrome Continue pramipexole #DVT PPx SCD
--- NOTE | 2020-06-04 14:13 | PN ---
Physical Exam: SUBJECTIVE: Patient seen and examined at bedside patient very agitated this AM requiring wrist restraints and patient is confused- mendez was placed yesterday and is draining well ; bladder scan shows 25cc of urine in bladder patient denies any pain OBJECTIVE: Vital Signs Period Temp Pulse Resp BP Sys/Townsend Pulse Ox Last 24 Hr 98.1 F-99.2 F 58-72 18-20 118-146/74-92 94-97 GENERAL: The patient is awake, alert, and fully oriented, in no acute distress. EYES: PEERLA: EOMI no scleral icterus . NECK: no JVD no lymphadenopathy LUNGS: CTA B/L no rales, rhonchi or wheezing. HEART: Regular rate and rhythm, S1, S2 without murmur, rub or gallop. ABDOMEN: Soft, NT ND +BS in all 4 quadrants . EXTREMITIES: 2+ pulses, warm, well-perfused, no edema. . PSYCH: Normal mood, normal affect. SKIN: Warm, dry, normal turgor, no rashes or lesions noted Laboratory Results - last 24 hr 06/04/20 06/04/20 10:39 10:39 WBC 11.9 H RBC 3.30 L Hgb 8.9 L Hct 27.8 L MCV 84.2 MCH 26.9 MCHC 31.9 L RDW 17.1 H Plt Count 561 H MPV 8.5 Sodium 141 Potassium 3.9 Chloride 109 H Carbon Dioxide 26 Anion Gap 7 L BUN 15.3 Creatinine 1.0 Est GFR (CKD-EPI)AfAm 83.18 Est GFR (CKD-EPI)NonAf 71.77 Random Glucose 83 Calcium 8.3 L Phosphorus 3.1 Magnesium 2.0 Active Medications Generic Name Dose Route Start Last Admin Trade Name Freq PRN Reason Stop Dose Admin Acetaminophen 650 mg 05/28/20 05:51 Tylenol - PO Q4H PRN PAIN LEVEL 7 - 10 Acetaminophen 650 mg 05/28/20 14:46 Tylenol - PO Q4H PRN FEVER Doxycycline Hyclate 100 mg 05/30/20 11:00 06/04/20 10:52 Vibramycin - PO 100 mg BID@1000,1800 K[facility]A Administration Piperacillin Sod/Tazobactam 50 mls @ 100 mls/hr 05/30/20 11:00 06/04/20 10:54 Sod 3.375 gm/ Dextrose IVPB 100 mls/hr Q8H-IV K[facility] Administration Protocol Nebivolol 5 mg 05/29/20 22:00 06/03/20 22:51 Bystolic - PO Not Given HS K[facility]A Polyethylene Glycol 17 gm 05/29/20 12:00 06/04/20 10:53 Miralax (For Daily Use) - PO 17 grams DAILY K[facility]A Administration Pramipexole Dihydrochloride 1 mg 05/29/20 22:00 06/03/20 22:51 Mirapex - PO Not Given HS K[facility]A Primidone 50 mg 05/30/20 22:00 06/03/20 22:51 Mysoline - PO Not Given HS K[facility]A ASSESSMENT/PLAN: 9yoM with history of BPH and urinary retention with indwelling Mendez, untreated CAD, primary progressive aphasia, HTN, RLS, and essential tremors who presents due to suprapubic and penile pain and poor drainage from the Mendez x1 day. #UTI UA: 3+ Leukocyte esterase, extensive amount of urine WBCs. - ID on board. Zosyn (can switch to PO upon dicharge - Repeat Urine Culture positive Enterococcus F. #Hematuria. Concern for Bladder/Renal mass on imaging -Bladder US--> Suspicious thick walled mass likely neoplasm. Cystoscopy recommended -Per , patient with recent Cysto which did not reveal any bladder masses. No need for inpatient cystoscopy. -CTAP showing a nonspecific renal hypodense lesion possibly due to pyelo v. neoplasm; will need MRI for f/u (will speak to fam ) #h/o untreated CAD; ?CHF -Reports patient had cardiac MRI in March showing severe triple vessel disease -No intervention done as yet given his recent admissions with sepsis -[employer]: Dr. Zoran Maria - obtain outpatient cardiology records Essential tremor: continue primidone HTN: Nebivolol (holding in light of bleed and patient is currently normotensive) RLS: continue pramipexole DVT ppx: SCD Problem List - Problems (1) Urinary retention Code(s): R33.9 - RETENTION OF URINE, UNSPECIFIED Visit type - Emergency Visit Emergency Visit: Yes ED Registration Date: 05/28/20 Care time: The patient presented to the Emergency Department on the above date and was hospitalized for further evaluation of their emergent condition. - New Patient This patient is new to me today: Yes Date on this admission: 06/04/20 - Critical Care Critical Care patient: No - Medication Review Med list reviewed for High Risk Meds patients 65 and older: Yes ATTENDING PHYSICIAN STATEMENT I saw and evaluated the patient. I reviewed the resident's note and discussed the case with the resident. I agree with the resident's findings and plan as documented. SUBJECTIVE: OBJECTIVE: ASSESSMENT AND PLAN:
[2020-06-04] MEDS ORDERED: PT OWN MED DRAWER 7, Y5N ONE (21:08)
[2020-06-04] MEDS: PRAMIPEXOLE DIHYDROCHLORIDE 1 MG TABLET PO SCH (21:09)
[2020-06-04] MEDS: PRIMIDONE 50 MG TABLET PO SCH (21:09)
[2020-06-04] MEDS: NEBIVOLOL 5 MG TABLET (FP) PO SCH (21:09)
[2020-06-05] MEDS: PIPERACILLIN/TAZOB 3.375 GM 3.375 GM in DEXTROSE 5%-WATER - 50 ML IVPB SCH ×3 (02:24→18:10)
[2020-06-05] MEDS ORDERED: PIPERACILLIN/TAZOBACTAM 3.375 GM VIAL IVPB ONE ×2 (08:31→16:46)
[2020-06-05] MEDS ORDERED: DEXTROSE 5%-WATER - 50 ML IVPB ONE ×2 (08:32→16:46)
[2020-06-05 08:36] LABS: BASO % 1.5 % (0-2.0); EOS % 2.8 % (0-4.5); HEMATOCRIT 28.9 % (35.4-49); HEMOGLOBIN 9.1 GM/dL (11.7-16.9); LYMPH % 14.7 % (8-40); MCH 26.5 pg (25.7-33.7); MCHC 31.5 g/dl (32.0-35.9); MEAN CELL VOLUME 84.1 fl (80-96); MONO % 4.6 % (3.8-10.2); NEUT % 76.4 % (42.8-82.8); PLATELET COUNT 517 K/MM3 (134-434); RBC 3.44 M/mm3 (4.00-5.60); RDW 17.7 % (11.9-15.9)
[2020-06-05] MEDS: POLYETHYLENE GLYCOL 3350 119 GM BTL PO SCH (09:04)
[2020-06-05] MEDS: DOXYCYCLINE HYCLATE 100 MG CAPSULE PO SCH (09:05)
[2020-06-05 09:09] LABS: CALCIUM 8.8 mg/dL (8.5-10.1)
[2020-06-05 09:10] LABS: ALBUMIN 2.6 g/dl (3.4-5.0); BLOOD UREA NITROGEN 15.6 mg/dL (7-18)
[2020-06-05 09:13] LABS: CREATININE 1.1 mg/dL (0.55-1.3)
[2020-06-05 09:14] LABS: PHOSPHOROUS 3.3 mg/dL (2.5-4.9)
[2020-06-05 09:15] LABS: BILIRUBIN,TOTAL 0.6 mg/dL (0.2-1); TOT PROT 6.9 g/dl (6.4-8.2)
[2020-06-05] MEDS ORDERED: SODIUM CHLORIDE 500 ML IV STA (09:30)
--- NOTE | 2020-06-05 12:03 | PN ---
Progress Note, Physician History of Present Illness: no new issues stable - Current Medication List Current Medications: Active Medications Acetaminophen (Tylenol -) 650 mg PO Q4H PRN PRN Reason: PAIN LEVEL 7 - 10 Acetaminophen (Tylenol -) 650 mg PO Q4H PRN PRN Reason: FEVER Piperacillin Sod/Tazobactam (Sod 3.375 gm/ Dextrose) 50 mls @ 100 mls/hr IVPB Q8H-IV KIRA; Protocol Last Admin: 06/05/20 09:05 Dose: 100 mls/hr Documented by: Nebivolol (Bystolic -) 5 mg PO HS [facility] Last Admin: 06/04/20 21:09 Dose: 5 mg Documented by: Polyethylene Glycol (Miralax (For Daily Use) -) 17 gm PO DAILY [facility] Last Admin: 06/05/20 09:04 Dose: 17 grams Documented by: Pramipexole Dihydrochloride (Mirapex -) 1 mg PO [facility] Last Admin: 06/04/20 21:09 Dose: 1 mg Documented by: Primidone (Mysoline -) 50 mg PO [facility] Last Admin: 06/04/20 21:09 Dose: 50 mg Documented by: - Objective Vital Signs: Vital Signs Temperature 98.8 F 06/05/20 09:15 Pulse Rate 60 06/05/20 09:15 Respiratory Rate 18 06/05/20 09:15 Blood Pressure 84/48 L 06/05/20 09:15 O2 Sat by Pulse Oximetry (%) 95 06/05/20 09:15 Constitutional: Yes: No Distress, Calm, Other (confusion) Cardiovascular: Yes: S1, S2 Respiratory: Yes: Regular, CTA Bilaterally Gastrointestinal: Yes: Normal Bowel Sounds, Soft Genitourinary: Yes: Mendez Present Musculoskeletal: Yes: WNL Extremities: Yes: WNL Neurological: Yes: Alert, Confusion Labs: CBC, BMP 06/05/20 08:12 06/05/20 08:12 INR, PTT INR 1.31 (0.83-1.09) H 05/28/20 08:30 Assessment/Plan 79 yo M with PMH of HTN, CAD (s/p stent; possibly still untreated), RLS, essential tremors, dementia, BPH, recent recurrent UTIs and indwelling mendez catheter placement presenting with non-draining mendez catheter, urinary retention, penile pain, and hematuria. Patient being admitted for evaluation and treatment of a catheter associated UTI, hematuria (with associated anemia), and SURESH. uti hematuria leukocytosis suresh transmitis plan continue current mgmt abx can change to oral augmentin
--- NOTE | 2020-06-05 14:04 | PN ---
Teaching Attending Note Name of Resident: Antwon Lopez ATTENDING PHYSICIAN STATEMENT I saw and evaluated the patient. I reviewed the resident's note and discussed the case with the resident. I agree with the resident's findings and plan as documented. SUBJECTIVE: Seen and examined at bedside. Patient initially planned for discharge today but blood pressure was low at 88/45 this morning. 500 cc bolus given. Continue to monitor blood pressure and vitals. If remains stable can be discharged tomorrow OBJECTIVE Last Vital Signs Temp Pulse Resp BP Pulse Ox 98.8 F 60 16 112/56 L 95 06/05/20 09:15 06/05/20 12:00 06/05/20 12:00 06/05/20 12:00 06/05/20 09:15 PE: Per resident note Labs/Imaging: reviewed ASSESSMENT/PLAN 79-year-old male with a history of HTN, RLS, essential tremors, dementia,? Primary progressive aphasia, BPH, recent history of urinary retention requiring indwelling Booth catheter since March 2020 and recurrent UTIs presented for poor drainage from Booth and suprapubic pain and was found to have SURESH, UTI, and hematuria. #Catheter associated UTI -initial culture with 3 different organisms including MRSA. Urine culture from 1022 already positive for group B strep Enterococcus. Discussed with infectious disease, concern for possible colovesicular fistula. Will obtain CT scan and discussed with urology sheryl givens -ID on board: appreciate recs #poorly draining catheter with bilateral hydronephrosis -replace catheter. Attempt to advance was unsuccessful -if difficulty replacing call urology #Concern for soft tissue bladder mass or possibly colovescicular fistula -CT showed no signs of soft tissue mass or fistula #Renal mass? -Per CT read. MRI recommended -Discussed with family. They do not wish to pursue any further work-up as they would not support any treatment for cancer or invasive diagnostic procedures to diagnose it. #hypernatremia: resolved #Iron deficiency anemia In the setting of gross hematuria Check FOBT to rule out additional bowel source Iron sucrose 100 mg x 3 doses #Transaminitis Downtrending Continue to trend #Essential tremor: Continue primidone #Hypertension: Currently normotensive Hold home nebivolol in setting of bleed #Restless leg syndrome Continue pramipexole #DVT PPx SCD
--- NOTE | 2020-06-05 14:37 | PN ---
Progress Note, Physician History of Present Illness: Pt seen and examined at bedside. He is combative today. - Current Medication List Current Medications: Active Medications Acetaminophen (Tylenol -) 650 mg PO Q4H PRN PRN Reason: PAIN LEVEL 7 - 10 Acetaminophen (Tylenol -) 650 mg PO Q4H PRN PRN Reason: FEVER Piperacillin Sod/Tazobactam (Sod 3.375 gm/ Dextrose) 50 mls @ 100 mls/hr IVPB Q8H-IV [facility]; Protocol Last Admin: 06/05/20 09:05 Dose: 100 mls/hr Documented by: Nebivolol (Bystolic -) 5 mg PO HS [facility] Last Admin: 06/04/20 21:09 Dose: 5 mg Documented by: Polyethylene Glycol (Miralax (For Daily Use) -) 17 gm PO DAILY [facility] Last Admin: 06/05/20 09:04 Dose: 17 grams Documented by: Pramipexole Dihydrochloride (Mirapex -) 1 mg PO [facility] Last Admin: 06/04/20 21:09 Dose: 1 mg Documented by: Primidone (Mysoline -) 50 mg PO [facility] Last Admin: 06/04/20 21:09 Dose: 50 mg Documented by: - Objective Vital Signs: Vital Signs Temperature 98.8 F 06/05/20 09:15 Pulse Rate 60 06/05/20 12:00 Respiratory Rate 16 06/05/20 12:00 Blood Pressure 112/56 L 06/05/20 12:00 O2 Sat by Pulse Oximetry (%) 95 06/05/20 09:15 Constitutional: Yes: Calm Eyes: Yes: Conjunctiva Clear HENT: Yes: Atraumatic Neck: Yes: Supple Cardiovascular: Yes: S1, S2 Respiratory: Yes: CTA Bilaterally Gastrointestinal: Yes: Soft Genitourinary: Yes: WNL Musculoskeletal: Yes: WNL Extremities: Yes: WNL Edema: No Neurological: Yes: Confusion Labs: CBC, BMP 06/05/20 08:12 06/05/20 08:12 INR, PTT INR 1.31 (0.83-1.09) H 05/28/20 08:30 Problem List - Problems (1) UTI (urinary tract infection) Code(s): N39.0 - URINARY TRACT INFECTION, SITE NOT SPECIFIED Qualifiers: Urinary tract infection type: acute cystitis Hematuria presence: with hematuria Qualified Code(s): N30.01 - Acute cystitis with hematuria (2) Urinary retention Code(s): R33.9 - RETENTION OF URINE, UNSPECIFIED Assessment/Plan Current Medications Generic Name Dose Route Start Last Admin Trade Name Freq PRN Reason Stop Dose Admin Acetaminophen 650 mg 05/28/20 05:51 Tylenol - PO Q4H PRN PAIN LEVEL 7 - 10 Acetaminophen 650 mg 05/28/20 14:46 Tylenol - PO Q4H PRN FEVER Piperacillin Sod/Tazobactam 50 mls @ 100 mls/hr 05/30/20 11:00 06/05/20 09:05 Sod 3.375 gm/ Dextrose IVPB 100 mls/hr Q8H-IV [facility]A Administration Protocol Nebivolol 5 mg 05/29/20 22:00 06/04/20 21:09 Bystolic - PO 5 mg HS K[facility]A Administration Polyethylene Glycol 17 gm 05/29/20 12:00 06/05/20 09:04 Miralax (For Daily Use) - PO 17 grams DAILY [facility]A Administration Pramipexole Dihydrochloride 1 mg 05/29/20 22:00 06/04/20 21:09 Mirapex - PO 1 mg HS K[facility]A Administration Primidone 50 mg 05/30/20 22:00 06/04/20 21:09 Mysoline - PO 50 mg HS KIRA Administration Impression 1. SURESH 2. hypernatremia 3. urinary retention with chronic mendez 4. obstructive uropathy 5. dementia 6. htn 7. uti 8. possible bladder/renal neoplasm Plan - encourage po intake if possible - fluids as needed, he gets bouts of dehydration when not eating - discuss overall GOC - pt remains confused and paranoid
--- NOTE | 2020-06-05 15:15 | PN ---
Physical Exam: SUBJECTIVE: Patient seen and examined this AM. Very agitated and combative. OBJECTIVE: Vital Signs Period Temp Pulse Resp BP Sys/Townsend Pulse Ox Last 24 Hr 97.8 F-98.8 F 50-74 16-18 84-159/47-80 94-96 Refusing Physical Exam Laboratory Results - last 24 hr 06/05/20 06/05/20 08:12 08:12 WBC 12.0 H RBC 3.44 L Hgb 9.1 L Hct 28.9 L MCV 84.1 MCH 26.5 MCHC 31.5 L RDW 17.7 H Plt Count 517 H MPV 8.0 Absolute Neuts (auto) 9.2 H Neutrophils % 76.4 Lymphocytes % 14.7 D Monocytes % 4.6 Eosinophils % 2.8 D Basophils % 1.5 Nucleated RBC % 0 Sodium 141 Potassium 4.0 Chloride 109 H Carbon Dioxide 26 Anion Gap 7 L BUN 15.6 Creatinine 1.1 Est GFR (CKD-EPI)AfAm 74.13 Est GFR (CKD-EPI)NonAf 63.96 Random Glucose 83 Calcium 8.8 Phosphorus 3.3 Magnesium 2.0 Total Bilirubin 0.6 AST 17 ALT 33 Alkaline Phosphatase 68 Total Protein 6.9 Albumin 2.6 L Active Medications Generic Name Dose Route Start Last Admin Trade Name Freq PRN Reason Stop Dose Admin Acetaminophen 650 mg 05/28/20 05:51 Tylenol - PO Q4H PRN PAIN LEVEL 7 - 10 Acetaminophen 650 mg 05/28/20 14:46 Tylenol - PO Q4H PRN FEVER Piperacillin Sod/Tazobactam 50 mls @ 100 mls/hr 05/30/20 11:00 06/05/20 09:05 Sod 3.375 gm/ Dextrose IVPB 100 mls/hr Q8H-IV K[facility]A Administration Protocol Nebivolol 5 mg 05/29/20 22:00 06/04/20 21:09 Bystolic - PO 5 mg HS [facility]A Administration Polyethylene Glycol 17 gm 05/29/20 12:00 06/05/20 09:04 Miralax (For Daily Use) - PO 17 grams DAILY [facility]A Administration Pramipexole Dihydrochloride 1 mg 05/29/20 22:00 06/04/20 21:09 Mirapex - PO 1 mg HS K[facility]A Administration Primidone 50 mg 05/30/20 22:00 06/04/20 21:09 Mysoline - PO 50 mg HS KIRA Administration ASSESSMENT/PLAN: 79 y/o M with history of BPH and urinary retention with indwelling Booth, untreated CAD, primary progressive aphasia, HTN, RLS, and essential tremors who presents due to suprapubic and penile pain and poor drainage from the Booth x1 day. #UTI UA: 3+ Leukocyte esterase, extensive amount of urine WBCs. - ID on board. Zosyn (can switch to PO upon discharge - Repeat Urine Culture positive Enterococcus F. -Evaluated today by I.D. May switch to PO Augmentin. #Hematuria. Concern for Bladder/Renal mass on imaging -Bladder US--> Suspicious thick walled mass likely neoplasm. Cystoscopy recommended -Per , patient with recent Cysto which did not reveal any bladder masses. No need for inpatient cystoscopy. -CTAP showing a nonspecific renal hypodense lesion possibly due to pyelo v. neoplasm; will need MRI for f/u however family does not want further imaging or intervention for possible malignancy. #Agitation -Evaluated by Psychiatry. Patient started on Aricept 10 mg Daily. #h/o untreated CAD; ?CHF -Reports patient had cardiac MRI in March showing severe triple vessel disease -No intervention done as yet given his recent admissions with sepsis -Crate Opener: Dr. Zoran Maria - obtain outpatient cardiology records Essential tremor: continue primidone HTN: Nebivolol RLS: continue pramipexole DVT ppx: SCD Visit type - Emergency Visit Emergency Visit: Yes ED Registration Date: 05/28/20 Care time: The patient presented to the Emergency Department on the above date and was hospitalized for further evaluation of their emergent condition. - New Patient This patient is new to me today: No - Critical Care Critical Care patient: No - Medication Review Med list reviewed for High Risk Meds patients 65 and older: Yes ATTENDING PHYSICIAN STATEMENT I saw and evaluated the patient. I reviewed the resident's note and discussed the case with the resident. I agree with the resident's findings and plan as documented. SUBJECTIVE: OBJECTIVE: ASSESSMENT AND PLAN:
--- NOTE | 2020-06-05 17:58 | CON.PSY ---
Psychiatry Consult Chief Complaint: 79 Jeremías old male with ? Froto Temporal Dementia. RLS and progressive aphasia seen for Psych eval. 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 She reports that he was seen by a Dr. Dutta in [facility], he was on Aricept 10 mg po which apprantly was helpful for his behaviour... Symptoms: reports: Memory Impairment, Aggressivity, Impulsivity, Amnesic Episodes - Previous Psychiatric Treatment Outpatient: None Inpatient: None - Previous Substance Abuse Treatment Outpatient: None Inpatient: None - Current Medications Current Medications: Active Medications Acetaminophen (Tylenol -) 650 mg PO Q4H PRN PRN Reason: PAIN LEVEL 7 - 10 Acetaminophen (Tylenol -) 650 mg PO Q4H PRN PRN Reason: FEVER Piperacillin Sod/Tazobactam (Sod 3.375 gm/ Dextrose) 50 mls @ 100 mls/hr IVPB Q8H-IV [facility]IRA; Protocol Last Admin: 06/05/20 09:05 Dose: 100 mls/hr Documented by: Nebivolol (Bystolic -) 5 mg PO [facility] Last Admin: 06/04/20 21:09 Dose: 5 mg Documented by: Polyethylene Glycol (Miralax (For Daily Use) -) 17 gm PO DAILY [facility] Last Admin: 06/05/20 09:04 Dose: 17 grams Documented by: Pramipexole Dihydrochloride (Mirapex -) 1 mg PO [facility] Last Admin: 06/04/20 21:09 Dose: 1 mg Documented by: Primidone (Mysoline -) 50 mg PO [facility] Last Admin: 06/04/20 21:09 Dose: 50 mg Documented by: - Allergies Allergies: Allergies Allergy/AdvReac Type Severity Reaction Status Date / Time walnut Allergy Intermediate Swelling Verified 05/27/20 21:25 walnuts Allergy Intermediate Swelling Uncoded 05/27/20 21:25 - Current Living Status Usual Living Arrangement: With Significant Other - Current Mental Status Evaluation Appearance: Disheveled Attitude: Guarded - Affect Affect: Constrictive Appropriateness: Not Appropriate - Mood Mood: Angry - Speech/Language Expressive: Delayed - Psychomotor Activity Psychomotor Activity: Hyperactive - Thought Process Thought Process: Circumstantial - Thought Content Hallucinations: Absent Delusions: Absent - Self Perception Self Perception: No Impairment - Cognition Attention: Alert Memory, Immediate Recall: Impaired Memory, Short Term: /3 Memory, Remote with Promptin/3 - Concentration Serial Sevens Intact: No Simple Calculations Intact: No - Abstraction Proverb Interpretation: Impaired Judgement: Minimally Impaired - Insight Insight: Impaired - Impulse Control Impulse Control: Minimally Impaired - Suicidal Ideation Suicidal Ideation: No - Homicidal Ideation Homicidal Ideation: No Assessment/Plan 1) Re start Aricept 10 mg po od.
[2020-06-05] MEDS ORDERED: PT OWN MED DRAWER 7, Y5N ONE (20:27)
[2020-06-06] MEDS: NEBIVOLOL 5 MG TABLET (FP) PO SCH ×2 (00:05→21:41)
[2020-06-06] MEDS: PRAMIPEXOLE DIHYDROCHLORIDE 1 MG TABLET PO SCH ×3 (00:05→21:41)
[2020-06-06] MEDS: PRIMIDONE 50 MG TABLET PO SCH ×3 (00:06→21:41)
[2020-06-06] MEDS ORDERED: DEXTROSE 5%-WATER - 50 ML IVPB ONE ×2 (01:55→09:39)
[2020-06-06] MEDS ORDERED: PIPERACILLIN/TAZOBACTAM 3.375 GM VIAL IVPB ONE ×2 (01:55→09:39)
[2020-06-06] MEDS: PIPERACILLIN/TAZOB 3.375 GM 3.375 GM in DEXTROSE 5%-WATER - 50 ML IVPB SCH ×2 (01:59→11:01)
[2020-06-06] MEDS: POLYETHYLENE GLYCOL 3350 119 GM BTL PO SCH (11:01)
[2020-06-06] MEDS: DONEPEZIL HCL 10 MG TABLET (FP) PO SCH ×2 (11:01→13:15)
--- NOTE | 2020-06-06 12:59 | PN ---
Progress Note, Physician History of Present Illness: confusion no other issues - Current Medication List Current Medications: Active Medications Acetaminophen (Tylenol -) 650 mg PO Q4H PRN PRN Reason: PAIN LEVEL 7 - 10 Acetaminophen (Tylenol -) 650 mg PO Q4H PRN PRN Reason: FEVER Donepezil HCl (Aricept -) 10 mg PO DAILY [facility] Nebivolol (Bystolic -) 5 mg PO [facility] Last Admin: 06/06/20 00:05 Dose: Not Given Documented by: Polyethylene Glycol (Miralax (For Daily Use) -) 17 gm PO DAILY [facility] Last Admin: 06/06/20 11:01 Dose: 17 grams Documented by: Pramipexole Dihydrochloride (Mirapex -) 1 mg PO [facility] Last Admin: 06/06/20 02:29 Dose: 1 mg Documented by: Primidone (Mysoline -) 50 mg PO [facility] Last Admin: 06/06/20 02:29 Dose: 50 mg Documented by: Thiamine HCl (Vitamin B1 -) 100 mg PO DAILY [facility] - Objective Vital Signs: Vital Signs Temperature 98.6 F 06/06/20 03:23 Pulse Rate 55 L 06/06/20 03:23 Respiratory Rate 18 06/06/20 03:23 Blood Pressure 136/74 06/06/20 03:23 O2 Sat by Pulse Oximetry (%) 95 06/06/20 03:23 Constitutional: Yes: No Distress, Calm Cardiovascular: Yes: S1, S2 Respiratory: Yes: Regular, CTA Bilaterally Gastrointestinal: Yes: Normal Bowel Sounds, Soft Genitourinary: Yes: Mendez Present Musculoskeletal: Yes: WNL Extremities: Yes: WNL Neurological: Yes: Confusion Labs: CBC, BMP 06/05/20 08:12 06/05/20 08:12 INR, PTT INR 1.31 (0.83-1.09) H 05/28/20 08:30 Assessment/Plan 79 yo M with PMH of HTN, CAD (s/p stent; possibly still untreated), RLS, essential tremors, dementia, BPH, recent recurrent UTIs and indwelling mendez catheter placement presenting with non-draining mendez catheter, urinary retention, penile pain, and hematuria. Patient being admitted for evaluation and treatment of a catheter associated UTI, hematuria (with associated anemia), and SURESH. uti hematuria leukocytosis suresh transmitis plan continue current mgmt abx can change to oral augmentin
--- NOTE | 2020-06-06 13:33 | PN ---
Progress Note, Physician History of Present Illness: Pt seen and examined at bedside. He remains confused and easily agitated. - Current Medication List Current Medications: Active Medications Acetaminophen (Tylenol -) 650 mg PO Q4H PRN PRN Reason: PAIN LEVEL 7 - 10 Acetaminophen (Tylenol -) 650 mg PO Q4H PRN PRN Reason: FEVER Donepezil HCl (Aricept -) 10 mg PO DAILY [facility] Last Admin: 06/06/20 13:15 Dose: Not Given Documented by: Nebivolol (Bystolic -) 5 mg PO [facility] Last Admin: 06/06/20 00:05 Dose: Not Given Documented by: Polyethylene Glycol (Miralax (For Daily Use) -) 17 gm PO DAILY [facility] Last Admin: 06/06/20 11:01 Dose: 17 grams Documented by: Pramipexole Dihydrochloride (Mirapex -) 1 mg PO [facility] Last Admin: 06/06/20 02:29 Dose: 1 mg Documented by: Primidone (Mysoline -) 50 mg PO [facility] Last Admin: 06/06/20 02:29 Dose: 50 mg Documented by: Thiamine HCl (Vitamin B1 -) 100 mg PO DAILY [facility] - Objective Vital Signs: Vital Signs Temperature 98.6 F 06/06/20 03:23 Pulse Rate 55 L 06/06/20 03:23 Respiratory Rate 18 06/06/20 03:23 Blood Pressure 136/74 06/06/20 03:23 O2 Sat by Pulse Oximetry (%) 95 06/06/20 03:23 Constitutional: Yes: Anxious Eyes: Yes: Conjunctiva Clear HENT: Yes: Atraumatic Neck: Yes: Supple Cardiovascular: Yes: S1, S2 Respiratory: Yes: CTA Bilaterally Gastrointestinal: Yes: Soft Genitourinary: Yes: WNL Musculoskeletal: Yes: WNL Edema: No Integumentary: Yes: WNL Neurological: Yes: Confusion Labs: CBC, BMP 06/05/20 08:12 06/05/20 08:12 INR, PTT INR 1.31 (0.83-1.09) H 05/28/20 08:30 Problem List - Problems (1) UTI (urinary tract infection) Code(s): N39.0 - URINARY TRACT INFECTION, SITE NOT SPECIFIED Qualifiers: Urinary tract infection type: acute cystitis Hematuria presence: with hematuria Qualified Code(s): N30.01 - Acute cystitis with hematuria (2) Urinary retention Code(s): R33.9 - RETENTION OF URINE, UNSPECIFIED Assessment/Plan Current Medications Generic Name Dose Route Start Last Admin Trade Name Freq PRN Reason Stop Dose Admin Acetaminophen 650 mg 05/28/20 05:51 Tylenol - PO Q4H PRN PAIN LEVEL 7 - 10 Acetaminophen 650 mg 05/28/20 14:46 Tylenol - PO Q4H PRN FEVER Donepezil HCl 10 mg 06/06/20 10:00 06/06/20 13:15 Aricept - PO Not Given DAILY [facility] Nebivolol 5 mg 05/29/20 22:00 06/06/20 00:05 Bystolic - PO Not Given HS [facility] Polyethylene Glycol 17 gm 05/29/20 12:00 06/06/20 11:01 Miralax (For Daily Use) - PO 17 grams DAILY [facility] Administration Pramipexole Dihydrochloride 1 mg 05/29/20 22:00 06/06/20 02:29 Mirapex - PO 1 mg HS [facility] Administration Primidone 50 mg 05/30/20 22:00 06/06/20 02:29 Mysoline - PO 50 mg HS [facility] Administration Thiamine HCl 100 mg 06/07/20 10:00 Vitamin B1 - PO DAILY [facility] Impression 1. SURESH 2. hypernatremia 3. urinary retention with chronic mendez 4. obstructive uropathy 5. dementia 6. htn 7. uti 8. possible bladder/renal neoplasm Plan - no new labs - renal function had stabilized - pt likely gets pre-renal disease from not eating and drinking - will follow prn
--- NOTE | 2020-06-06 18:07 | PN ---
Physical Exam: SUBJECTIVE: Patient seen and examined at bedside in AM. OBJECTIVE: Vital Signs Period Temp Pulse Resp BP Sys/Townsend Pulse Ox Last 24 Hr 97.8 F-98.6 F 46-63 18-22 100-136/41-74 95-100 GENERAL: NAD HEAD: Normal with no signs of trauma. EYES: EOMI Sclera Clear ENT: MMM. LUNGS: CTAB HEART: RRR S1S2 ABDOMEN: Soft, NDNT : Booth EXTREMITIES: No CCE NEUROLOGICAL: AAOx1. Moves all extremities spontaneously. PSYCH: Normal mood, normal affect. SKIN: Warm, dry. Active Medications Generic Name Dose Route Start Last Admin Trade Name Freq PRN Reason Stop Dose Admin Acetaminophen 650 mg 05/28/20 05:51 Tylenol - PO Q4H PRN PAIN LEVEL 7 - 10 Acetaminophen 650 mg 05/28/20 14:46 Tylenol - PO Q4H PRN FEVER Donepezil HCl 10 mg 06/06/20 10:00 06/06/20 13:15 Aricept - PO Not Given DAILY KIRA Nebivolol 5 mg 05/29/20 22:00 06/06/20 00:05 Bystolic - PO Not Given HS KIRA Polyethylene Glycol 17 gm 05/29/20 12:00 06/06/20 11:01 Miralax (For Daily Use) - PO 17 grams DAILY KIRA Administration Pramipexole Dihydrochloride 1 mg 05/29/20 22:00 06/06/20 02:29 Mirapex - PO 1 mg HS KIRA Administration Primidone 50 mg 05/30/20 22:00 06/06/20 02:29 Mysoline - PO 50 mg HS KIRA Administration Thiamine HCl 100 mg 06/07/20 10:00 Vitamin B1 - PO DAILY KIRA ASSESSMENT/PLAN: 79 y/o M with history of BPH and urinary retention with indwelling Booth, untreated CAD, primary progressive aphasia, HTN, RLS, and essential tremors who presents due to suprapubic and penile pain and poor drainage from the Booth x1 day. #UTI UA: 3+ Leukocyte esterase, extensive amount of urine WBCs. -ID on board. Zosyn (can switch to PO upon discharge -Repeat Urine Culture positive Enterococcus F. -May switch to PO Augmentin per ID recs. #Hematuria. Concern for Bladder/Renal mass on imaging -Bladder US--> Suspicious thick walled mass likely neoplasm. Cystoscopy recommended -Per , patient with recent Cysto which did not reveal any bladder masses. No need for inpatient cystoscopy. -CTAP showing a nonspecific renal hypodense lesion possibly due to pyelo v. neoplasm; will need MRI for f/u however family does not want further imaging or intervention for possible malignancy. 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 -Evaluated by Psychiatry. Patient started on Aricept 10 mg Daily. -Neurology on board---> Will review prior w/u from Dr. Carreon on Tuesday which should include the workup at [facility] and justification of Rx. For now I would: Continue donepezil 10 mg q AM. Reduce pramipexole to 0.75 mg HS due to visual and auditory hallucinations. Add citalopram 10 mg qAM. Consider updating MRI of brain (if not recently done). #h/o untreated CAD -Per Medical records from [facility], patient was admitted to [facility] in March for a fall where he was found to have elevated troponins and was transferred to [facility] for LHC (03/19/2020). LHC revealed 3VD and severe LM stenosis. Patient was evaluated by CT surgery but refused CABG; also deemed not to be a candidate for stenting. Patient was not discharged on a BB 2/2 bradycardia. Patient was placed on atorvastatin as well as asprin. NAIMA/ARB not started as patient LV function was normal. Essential tremor: continue primidone HTN: Nebivolol RLS: continue pramipexole DVT ppx: SCD Visit type - Emergency Visit Emergency Visit: Yes ED Registration Date: 05/28/20 Care time: The patient presented to the Emergency Department on the above date and was hospitalized for further evaluation of their emergent condition. - New Patient This patient is new to me today: No - Critical Care Critical Care patient: No - Discharge Referral Referred to [facility] Med P.C.: No - Medication Review Med list reviewed for High Risk Meds patients 65 and older: Yes ATTENDING PHYSICIAN STATEMENT I saw and evaluated the patient. I reviewed the resident's note and discussed the case with the resident. I agree with the resident's findings and plan as documented. SUBJECTIVE: OBJECTIVE: ASSESSMENT AND PLAN:
--- NOTE | 2020-06-06 20:11 | CONSULT ---
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 Restless legs since childhood- on pramipexole 1 mg HS. Two years of slowly progressive neurological disease initially presenting with auditory hallucinations and then progressive difficulty with speech. Evaluated by my Colleague, Joseph Carreon, in [place] and referred to the [facility] [place] at [place]. 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 Denies Family history. Apparently had some benefit, possibly behavioral, with Donepezil 10 mg. Now admitted with pelvic pain after pulling out indwelling Booth (indication?) and possible bladder mass. Complains of depressed mood, frustration. FRANCISCA: Neck supple. No bruits. NEURO: Awake, alert, friendly, cooperative with sense of humor. [facility]. "Almost and 2005. Cries intermittently but NOT pseudobulbar Non-fluent speech with preserved comprehension. Follows threee step commands slowly + Glabella and symmetrical grasps CN II-XII: Normal No drift or tremor. No cogwheeling. Normal strength, tone and reflexes. Toes downgoing No FTN dystaxia Normal vibration fet. IMP: Non-focal Neurological exam sig for Nonfluent aphasia, mild-mod OMS. 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 Depression SUGGEST: Will review prior w/u from Dr. Carreon on Tuesday which should include the workup at [facility] and justification of Rx. For now I would: Continue donepezil 10 mg q AM Reduce pramipexole to 0.75 mg HS due to visual and auditory hallucinations Add citalopram 10 mg qAM Consider updating MRI of brain (if not recently done). Thank you very much, Bhaskar Prado MD
[2020-06-06] MEDS ORDERED: PT OWN MED DRAWER 7, Y5N ONE (21:35)
[2020-06-07] MEDS: NEBIVOLOL 5 MG TABLET (FP) PO SCH (06:06)
[2020-06-07] MEDS: PRIMIDONE 50 MG TABLET PO SCH ×3 (06:07→23:10)
[2020-06-07] MEDS: PRAMIPEXOLE DIHYDROCHLORIDE 1 MG TABLET PO SCH (06:07)
[2020-06-07 09:20] LABS: HEMATOCRIT 29.2 % (35.4-49); HEMOGLOBIN 9.5 GM/dL (11.7-16.9); MCH 27.5 pg (25.7-33.7); MCHC 32.7 g/dl (32.0-35.9); MEAN CELL VOLUME 84.1 fl (80-96); MEAN PLT VOLUME 8.7 fl (7.5-11.1); PLATELET COUNT 425 K/MM3 (134-434); RBC 3.47 M/mm3 (4.00-5.60); RDW 18.2 % (11.9-15.9); WHITE BLOOD COUNT 10.8 K/mm3 (4.0-10.0)
[2020-06-07 09:41] LABS: POTASSIUM 4.4 mmol/L (3.5-5.1)
[2020-06-07 09:44] LABS: ALBUMIN 2.5 g/dl (3.4-5.0); CALCIUM 8.7 mg/dL (8.5-10.1); MAGNESIUM 2.3 mg/dL (1.8-2.4)
[2020-06-07 09:47] LABS: CREATININE 1.1 mg/dL (0.55-1.3); PHOSPHOROUS 2.9 mg/dL (2.5-4.9)
[2020-06-07 09:49] LABS: BILIRUBIN,TOTAL 0.5 mg/dL (0.2-1); TOT PROT 7.1 g/dl (6.4-8.2)
[2020-06-07] MEDS: THIAMINE HCL 100 MG TABLET (FP) PO SCH ×2 (10:56→11:16)
[2020-06-07] MEDS: CITALOPRAM HYDROBROMIDE 10 MG TABLET PO SCH ×2 (10:56→11:15)
[2020-06-07] MEDS: DONEPEZIL HCL 10 MG TABLET (FP) PO SCH ×2 (10:56→11:15)
[2020-06-07] MEDS: POLYETHYLENE GLYCOL 3350 119 GM BTL PO SCH ×2 (10:56→11:16)
[2020-06-07 11:43] VITALS: BMI 21.5
--- NOTE | 2020-06-07 12:21 | PN ---
Teaching Attending Note Name of Resident: Antwon Lopez ATTENDING PHYSICIAN STATEMENT I saw and evaluated the patient. I reviewed the resident's note and discussed the case with the resident. I agree with the resident's findings and plan as documented. SUBJECTIVE: Patient seen and examined at bedside, appears to have aphasia but good receptive cognition, will send TSH/RPR/b12 and consult Neurology to r/o new CVA v.s. FT dementia? VSS. OBJECTIVE: GENERAL: Awake, understands commands, struggling to find words/aphasic HEAD: Normal with no signs of trauma. EYES: PERRL, extraocular movements intact, sclera anicteric, conjunctiva clear. No ptosis. ENT: Ears normal, nares patent, oropharynx clear without exudates, moist mucous membranes. NECK: Trachea midline, full range of motion, supple. LUNGS: Breath sounds equal, clear to auscultation bilaterally, no wheezes, no crackles, no accessory muscle use. HEART: Regular rate and rhythm, S1, S2 without murmur, rub or gallop. ABDOMEN: Soft, nontender, nondistended, normoactive bowel sounds, no guarding, no rebound, no hepatosplenomegaly, no masses. EXTREMITIES: 2+ pulses, warm, well-perfused, no edema. NEUROLOGICAL: gait not observed, pressured speech w/ struggling to find words/aphasic, no focal deficits PSYCH: Normal mood, normal affect. SKIN: Warm, dry, normal turgor, no rashes or lesions noted Vital Signs (72 hours) 06/04/20 06/04/20 06/04/20 15:19 18:00 21:00 Temperature 98.8 F Pulse Rate 73 74 Respiratory 18 18 18 Rate Blood Pressure 148/74 142/78 O2 Sat by Pulse 94 L 96 96 Oximetry (%) 06/04/20 06/05/20 06/05/20 21:31 02:51 06:00 Temperature 98.4 F 97.8 F 98.8 F Pulse Rate 65 50 L 50 L Respiratory 18 18 18 Rate Blood Pressure 147/80 95/47 L 159/79 O2 Sat by Pulse 96 95 96 Oximetry (%) 06/05/20 06/05/20 06/05/20 09:00 09:15 12:00 Temperature 98.8 F Pulse Rate 60 60 Respiratory 18 16 Rate Blood Pressure 84/48 L 112/56 L O2 Sat by Pulse 95 95 Oximetry (%) 06/05/20 06/05/20 06/05/20 14:00 18:00 21:00 Temperature 98.3 F 98.5 F Pulse Rate 60 62 Respiratory 16 18 Rate Blood Pressure 107/57 L 116/54 L O2 Sat by Pulse 92 L 95 97 Oximetry (%) 06/05/20 06/06/20 06/06/20 22:08 03:23 09:00 Temperature 98.6 F 97.8 F Pulse Rate 55 L 55 L 46 L Respiratory 18 18 22 H Rate Blood Pressure 123/65 136/74 110/41 L O2 Sat by Pulse 97 95 100 Oximetry (%) 06/06/20 06/06/20 06/06/20 14:00 15:11 18:00 Temperature 98.3 F 98.7 F Pulse Rate 63 58 L Respiratory 18 18 Rate Blood Pressure 100/60 109/59 L O2 Sat by Pulse 95 95 98 Oximetry (%) 06/06/20 06/06/20 06/07/20 21:00 21:35 02:00 Temperature 98.6 F 98.9 F Pulse Rate 67 61 Respiratory 18 18 Rate Blood Pressure 106/63 128/75 O2 Sat by Pulse 97 97 94 L Oximetry (%) 06/07/20 06/07/20 08:00 09:00 Temperature 98.6 F Pulse Rate 63 Respiratory 24 H Rate Blood Pressure 103/54 L O2 Sat by Pulse 97 97 Oximetry (%) Microbiology 05/29/20 16:15 Urine - Urine - Catheterized Urine Culture - Final Enterococcus Faecalis 05/28/20 02:00 Urine - Urine Booth Urine Culture - Final Escherichia Coli Mr S Aureus Enterococcus Faecalis Laboratory Results - last 24 hr 06/07/20 06/07/20 06/07/20 08:33 08:33 08:33 WBC 10.8 H RBC 3.47 L Hgb 9.5 L Hct 29.2 L MCV 84.1 MCH 27.5 MCHC 32.7 RDW 18.2 H Plt Count 425 MPV 8.7 Sodium 136 Potassium 4.4 Chloride 103 Carbon Dioxide 24 Anion Gap 9 BUN 22.0 H Creatinine 1.1 Est GFR (CKD-EPI)AfAm 74.13 Est GFR (CKD-EPI)NonAf 63.96 Random Glucose 105 Calcium 8.7 Phosphorus 2.9 Magnesium 2.3 Total Bilirubin 0.5 AST 19 ALT 31 Alkaline Phosphatase 70 Total Protein 7.1 Albumin 2.5 L Syphilis Serology Non-reactive Home Medications Medication Instructions Recorded Nebivolol [Bystolic -] 5 mg PO HS 05/29/18 Pramipexole Di-HCl [Mirapex] 1 mg PO HS 05/29/18 Primidone [Mysoline -] 50 mg PO HS 05/29/18 Silodosin [Rapaflo] 8 mg PO HS 05/29/18 Current Medications Generic Name Dose Route Start Last Admin Trade Name Freq PRN Reason Stop Dose Admin Acetaminophen 650 mg 05/28/20 05:51 Tylenol - PO Q4H PRN PAIN LEVEL 7 - 10 Acetaminophen 650 mg 05/28/20 14:46 Tylenol - PO Q4H PRN FEVER Citalopram Hydrobromide 10 mg 06/07/20 10:00 06/07/20 11:15 Celexa - PO Not Given DAILY KIRA Donepezil HCl 10 mg 06/06/20 10:00 06/07/20 11:15 Aricept - PO Not Given DAILY KIRA Nebivolol 5 mg 05/29/20 22:00 06/07/20 06:06 Bystolic - PO Not Given HS KIRA Polyethylene Glycol 17 gm 05/29/20 12:00 06/07/20 11:16 Miralax (For Daily Use) - PO Not Given DAILY KIRA Pramipexole Dihydrochloride 0.75 mg 06/07/20 07:20 Mirapex - PO HS KIRA Primidone 50 mg 05/30/20 22:00 06/07/20 06:07 Mysoline - PO Not Given HS KIRA Thiamine HCl 100 mg 06/07/20 10:00 06/07/20 11:16 Vitamin B1 - PO Not Given DAILY KIRA ASSESSMENT AND PLAN: 79 M Frontotemporal dementia New v.s. old Aphasia Depression RLS BPH Plan: Obtain TSH/RPR/B12, send for CT head if cooperative Avoid psychotropic medications Neurology evaluation Correct electrolytes soft restraints, redirect PRN, watch for sundowning DVT ppx: Heparin SC
--- NOTE | 2020-06-07 12:47 | PN ---
Progress Note, Physician History of Present Illness: stable no new issues - Current Medication List Current Medications: Active Medications Acetaminophen (Tylenol -) 650 mg PO Q4H PRN PRN Reason: PAIN LEVEL 7 - 10 Acetaminophen (Tylenol -) 650 mg PO Q4H PRN PRN Reason: FEVER Citalopram Hydrobromide (Celexa -) 10 mg PO DAILY [facility] Last Admin: 06/07/20 11:15 Dose: Not Given Documented by: Donepezil HCl (Aricept -) 10 mg PO DAILY [facility] Last Admin: 06/07/20 11:15 Dose: Not Given Documented by: Polyethylene Glycol (Miralax (For Daily Use) -) 17 gm PO DAILY [facility] Last Admin: 06/07/20 11:16 Dose: Not Given Documented by: Pramipexole Dihydrochloride (Mirapex -) 0.75 mg PO HS [facility] Primidone (Mysoline -) 50 mg PO [facility] Last Admin: 06/07/20 06:07 Dose: Not Given Documented by: Thiamine HCl (Vitamin B1 -) 100 mg PO DAILY [facility] Last Admin: 06/07/20 11:16 Dose: Not Given Documented by: - Objective Vital Signs: Vital Signs Temperature 98.6 F 06/07/20 08:00 Pulse Rate 63 06/07/20 08:00 Respiratory Rate 24 H 06/07/20 08:00 Blood Pressure 103/54 L 06/07/20 08:00 O2 Sat by Pulse Oximetry (%) 97 06/07/20 09:00 Constitutional: Yes: No Distress, Calm Cardiovascular: Yes: S1, S2 Respiratory: Yes: Regular, CTA Bilaterally Gastrointestinal: Yes: Normal Bowel Sounds, Soft Genitourinary: Yes: Mendez Present Musculoskeletal: Yes: WNL Extremities: Yes: WNL Neurological: Yes: Alert, Confusion, Other Psychiatric: Yes: Alert Labs: CBC, BMP 06/07/20 08:33 06/07/20 08:33 INR, PTT INR 1.31 (0.83-1.09) H 05/28/20 08:30 Assessment/Plan 79 yo M with PMH of HTN, CAD (s/p stent; possibly still untreated), RLS, essential tremors, dementia, BPH, recent recurrent UTIs and indwelling mendez catheter placement presenting with non-draining mendez catheter, urinary retention, penile pain, and hematuria. Patient being admitted for evaluation and treatment of a catheter associated UTI, hematuria (with associated anemia), and SURESH. uti hematuria leukocytosis suresh transmitis plan continue current mgmt nutrition
--- NOTE | 2020-06-07 15:03 | PN ---
Physical Exam: SUBJECTIVE: Patient seen and examined at bedside, MS slightly improved, still having persecutory delusions thinking nursing staff are "after him and trying to poison him", VSS. OBJECTIVE: GENERAL: Awake, understands commands, vocalization slightly improved HEAD: Normal with no signs of trauma. EYES: PERRL, extraocular movements intact, sclera anicteric, conjunctiva clear. No ptosis. ENT: Ears normal, nares patent, oropharynx clear without exudates, moist mucous membranes. NECK: Trachea midline, full range of motion, supple. LUNGS: Breath sounds equal, clear to auscultation bilaterally, no wheezes, no crackles, no accessory muscle use. HEART: Regular rate and rhythm, S1, S2 without murmur, rub or gallop. ABDOMEN: Soft, nontender, nondistended, normoactive bowel sounds, no guarding, no rebound, no hepatosplenomegaly, no masses. EXTREMITIES: 2+ pulses, warm, well-perfused, no edema. NEUROLOGICAL: gait not observed, pressured speech w/ struggling to find words/aphasic, no focal deficits PSYCH: Normal mood, normal affect. SKIN: Warm, dry, normal turgor, no rashes or lesions noted Laboratory Results - last 24 hr 06/07/20 06/07/20 06/07/20 08:33 08:33 08:33 WBC 10.8 H RBC 3.47 L Hgb 9.5 L Hct 29.2 L MCV 84.1 MCH 27.5 MCHC 32.7 RDW 18.2 H Plt Count 425 MPV 8.7 Sodium 136 Potassium 4.4 Chloride 103 Carbon Dioxide 24 Anion Gap 9 BUN 22.0 H Creatinine 1.1 Est GFR (CKD-EPI)AfAm 74.13 Est GFR (CKD-EPI)NonAf 63.96 Random Glucose 105 Calcium 8.7 Phosphorus 2.9 Magnesium 2.3 Total Bilirubin 0.5 AST 19 ALT 31 Alkaline Phosphatase 70 Total Protein 7.1 Albumin 2.5 L Syphilis Serology Non-reactive Home Medications Medication Instructions Recorded Nebivolol [Bystolic -] 5 mg PO HS 05/29/18 Pramipexole Di-HCl [Mirapex] 1 mg PO HS 05/29/18 Primidone [Mysoline -] 50 mg PO HS 05/29/18 Silodosin [Rapaflo] 8 mg PO HS 05/29/18 Active Medications Generic Name Dose Route Start Last Admin Trade Name Freq PRN Reason Stop Dose Admin Acetaminophen 650 mg 05/28/20 05:51 Tylenol - PO Q4H PRN PAIN LEVEL 7 - 10 Acetaminophen 650 mg 05/28/20 14:46 Tylenol - PO Q4H PRN FEVER Citalopram Hydrobromide 10 mg 06/07/20 10:00 06/07/20 11:15 Celexa - PO Not Given DAILY KIRA Donepezil HCl 10 mg 06/06/20 10:00 06/07/20 11:15 Aricept - PO Not Given DAILY KIRA Polyethylene Glycol 17 gm 05/29/20 12:00 06/07/20 11:16 Miralax (For Daily Use) - PO Not Given DAILY KIRA Pramipexole Dihydrochloride 0.75 mg 06/07/20 07:20 Mirapex - PO HS KIRA Primidone 50 mg 05/30/20 22:00 06/07/20 06:07 Mysoline - PO Not Given HS KIRA Thiamine HCl 100 mg 06/07/20 10:00 06/07/20 11:16 Vitamin B1 - PO Not Given DAILY KIRA ASSESSMENT/PLAN: 79 M Frontotemporal dementia w/ aphasia Depression RLS BPH Plan: CT head when cooperative Neurology recs appreciated, adjusted psych meds, added Citalopram Correct electrolytes soft restraints, redirect PRN, watch for sundowning DVT ppx: Heparin SC Visit type - Emergency Visit Emergency Visit: Yes ED Registration Date: 05/28/20 Care time: The patient presented to the Emergency Department on the above date and was hospitalized for further evaluation of their emergent condition. - New Patient This patient is new to me today: No - Critical Care Critical Care patient: No - Discharge Referral Referred to [facility] Med P.C.: No - Medication Review Med list reviewed for High Risk Meds patients 65 and older: Yes
[2020-06-07] MEDS: AMOX TR/POT CLAV 875MG/125MG TABLETS (FP) PO SCH (18:14)
[2020-06-07] MEDS ORDERED: PT OWN MED DRAWER 7, Y5N ONE (22:11)
[2020-06-07] MEDS: PRAMIPEXOLE DIHYDROCHLORIDE 0.25 MG TABLET PO SCH ×2 (22:49→23:09)
[2020-06-08 09:45] LABS: BASO % 0.4 % (0-2.0); EOS % 1.5 % (0-4.5); HEMATOCRIT 32.4 % (35.4-49); HEMOGLOBIN 10.3 GM/dL (11.7-16.9); LYMPH % 18.8 % (8-40); MCH 26.8 pg (25.7-33.7); MCHC 31.9 g/dl (32.0-35.9); MEAN CELL VOLUME 83.8 fl (80-96); MEAN PLT VOLUME 8.6 fl (7.5-11.1); MONO % 5.4 % (3.8-10.2); NEUT % 73.9 % (42.8-82.8); PLATELET COUNT 418 K/MM3 (134-434); RBC 3.87 M/mm3 (4.00-5.60); RDW 18.1 % (11.9-15.9); WHITE BLOOD COUNT 9.3 K/mm3 (4.0-10.0)
[2020-06-08 09:55] LABS: POTASSIUM 4.5 mmol/L (3.5-5.1)
[2020-06-08 09:58] LABS: ALBUMIN 2.6 g/dl (3.4-5.0); BLOOD UREA NITROGEN 21.2 mg/dL (7-18); CALCIUM 8.7 mg/dL (8.5-10.1)
[2020-06-08 10:01] LABS: CREATININE 1.2 mg/dL (0.55-1.3)
[2020-06-08 10:02] LABS: BILIRUBIN,TOTAL 0.4 mg/dL (0.2-1)
[2020-06-08 10:03] LABS: TOT PROT 7.3 g/dl (6.4-8.2)
[2020-06-08] MEDS: DONEPEZIL HCL 10 MG TABLET (FP) PO SCH (11:05)
[2020-06-08] MEDS: AMOX TR/POT CLAV 875MG/125MG TABLETS (FP) PO SCH (11:05)
[2020-06-08] MEDS: THIAMINE HCL 100 MG TABLET (FP) PO SCH (11:06)
[2020-06-08] MEDS: CITALOPRAM HYDROBROMIDE 10 MG TABLET PO SCH (11:06)
[2020-06-08] MEDS: POLYETHYLENE GLYCOL 3350 119 GM BTL PO SCH (11:06)
[2020-06-08] MEDS ORDERED: PIPERACILLIN/TAZOBACTAM 3.375 GM VIAL IVPB ONE ×2 (13:40→17:48)
[2020-06-08] MEDS ORDERED: DEXTROSE 5%-WATER - 50 ML IVPB ONE ×2 (13:40→17:48)
--- NOTE | 2020-06-08 13:54 | PN ---
Progress Note, Physician - Current Medication List Current Medications: Active Medications Acetaminophen (Tylenol -) 650 mg PO Q4H PRN PRN Reason: PAIN LEVEL 7 - 10 Acetaminophen (Tylenol -) 650 mg PO Q4H PRN PRN Reason: FEVER Citalopram Hydrobromide (Celexa -) 10 mg PO DAILY [facility] Last Admin: 06/08/20 11:06 Dose: Not Given Documented by: Donepezil HCl (Aricept -) 10 mg PO DAILY [facility] Last Admin: 06/08/20 11:05 Dose: Not Given Documented by: Piperacillin Sod/Tazobactam (Sod 3.375 gm/ Dextrose) 50 mls @ 100 mls/hr IVPB Q8H-IV KIRA; Protocol Piperacillin Sod/Tazobactam (Sod 3.375 gm/ Dextrose) 50 mls @ 100 mls/hr IVPB Q8H-IV KIRA; Protocol Stop: 06/09/20 02:29 Polyethylene Glycol (Miralax (For Daily Use) -) 17 gm PO DAILY [facility] Last Admin: 06/08/20 11:06 Dose: Not Given Documented by: Pramipexole Dihydrochloride (Mirapex -) 0.75 mg PO HS [facility] Last Admin: 06/07/20 23:09 Dose: Not Given Documented by: Primidone (Mysoline -) 50 mg PO [facility] Last Admin: 06/07/20 23:10 Dose: Not Given Documented by: Thiamine HCl (Vitamin B1 -) 100 mg PO DAILY [facility] Last Admin: 06/08/20 11:06 Dose: Not Given Documented by: - Objective Vital Signs: Vital Signs Temperature 99 F 06/08/20 10:00 Pulse Rate 66 06/08/20 10:00 Respiratory Rate 18 06/08/20 10:00 Blood Pressure 105/58 L 06/08/20 10:00 O2 Sat by Pulse Oximetry (%) 96 06/08/20 10:00 Labs: CBC, BMP 06/08/20 08:56 06/08/20 08:56 INR, PTT INR 1.31 (0.83-1.09) H 05/28/20 08:30
[2020-06-08] MEDS: PIPERACILLIN/TAZOB 3.375 GM 3.375 GM in DEXTROSE 5%-WATER - 50 ML IVPB SCH ×2 (14:00→17:56)
[2020-06-08] MEDS ORDERED: PT OWN MED DRAWER 7, Y5N ONE (21:17)
[2020-06-08] MEDS: PRIMIDONE 50 MG TABLET PO SCH ×2 (21:51→22:05)
[2020-06-08] MEDS: PRAMIPEXOLE DIHYDROCHLORIDE 0.25 MG TABLET PO SCH ×2 (21:51→22:08)
[2020-06-09] MEDS ORDERED: DEXTROSE 5%-WATER - 50 ML IVPB ONE ×2 (01:01→09:54)
[2020-06-09] MEDS ORDERED: PIPERACILLIN/TAZOBACTAM 3.375 GM VIAL IVPB ONE ×2 (01:01→09:54)
[2020-06-09] MEDS: PIPERACILLIN/TAZOB 3.375 GM 3.375 GM in DEXTROSE 5%-WATER - 50 ML IVPB SCH ×3 (01:17→09:06)
[2020-06-09] MEDS ORDERED: PIPERACILLIN/TAZOB 3.375 GM 3.375 GM in DEXTROSE 5%-WATER - 50 ML IVPB SCH (10:00)
--- NOTE | 2020-06-09 10:28 | PN ---
Progress Note, Physician History of Present Illness: stable no new issues confusion - Current Medication List Current Medications: Active Medications Acetaminophen (Tylenol -) 650 mg PO Q4H PRN PRN Reason: PAIN LEVEL 7 - 10 Acetaminophen (Tylenol -) 650 mg PO Q4H PRN PRN Reason: FEVER Citalopram Hydrobromide (Celexa -) 10 mg PO DAILY [facility] Last Admin: 06/08/20 11:06 Dose: Not Given Documented by: Donepezil HCl (Aricept -) 10 mg PO DAILY [facility] Last Admin: 06/08/20 11:05 Dose: Not Given Documented by: Polyethylene Glycol (Miralax (For Daily Use) -) 17 gm PO DAILY [facility] Last Admin: 06/08/20 11:06 Dose: Not Given Documented by: Pramipexole Dihydrochloride (Mirapex -) 0.75 mg PO [facility] Last Admin: 06/08/20 22:08 Dose: Not Given Documented by: Primidone (Mysoline -) 50 mg PO [facility] Last Admin: 06/08/20 22:05 Dose: Not Given Documented by: Thiamine HCl (Vitamin B1 -) 100 mg PO DAILY [facility] Last Admin: 06/08/20 11:06 Dose: Not Given Documented by: - Objective Vital Signs: Vital Signs Temperature 97.9 F 06/09/20 06:00 Pulse Rate 64 06/09/20 06:00 Respiratory Rate 18 06/09/20 06:00 Blood Pressure 98/62 06/09/20 06:00 O2 Sat by Pulse Oximetry (%) 94 L 06/09/20 06:00 Constitutional: Yes: No Distress, Calm Cardiovascular: Yes: S1, S2 Respiratory: Yes: Regular, CTA Bilaterally Gastrointestinal: Yes: Normal Bowel Sounds, Soft Genitourinary: Yes: Mendez Present Musculoskeletal: Yes: WNL Extremities: Yes: Other Neurological: Yes: Alert, Confusion Labs: CBC, BMP 06/08/20 08:56 06/08/20 08:56 INR, PTT INR 1.31 (0.83-1.09) H 05/28/20 08:30 Assessment/Plan 79 yo M with PMH of HTN, CAD (s/p stent; possibly still untreated), RLS, essential tremors, dementia, BPH, recent recurrent UTIs and indwelling mendez catheter placement presenting with non-draining mendez catheter, urinary retention, penile pain, and hematuria. Patient being admitted for evaluation and treatment of a catheter associated UTI, hematuria (with associated anemia), and SURESH. uti hematuria leukocytosis suresh transmitis plan continue current mgmt nutrition
[2020-06-09] MEDS: CITALOPRAM HYDROBROMIDE 10 MG TABLET PO SCH (10:29)
[2020-06-09] MEDS: THIAMINE HCL 100 MG TABLET (FP) PO SCH (10:29)
[2020-06-09] MEDS: DONEPEZIL HCL 10 MG TABLET (FP) PO SCH (10:30)
[2020-06-09 10:44] LABS: BASO % 0.5 % (0-2.0); EOS % 1.3 % (0-4.5); HEMATOCRIT 32.5 % (35.4-49); HEMOGLOBIN 10.3 GM/dL (11.7-16.9); LYMPH % 20.6 % (8-40); MCH 26.7 pg (25.7-33.7); MCHC 31.7 g/dl (32.0-35.9); MEAN CELL VOLUME 84.2 fl (80-96); MEAN PLT VOLUME 8.5 fl (7.5-11.1); MONO % 4.5 % (3.8-10.2); NEUT % 73.1 % (42.8-82.8); PLATELET COUNT 416 K/MM3 (134-434); RBC 3.87 M/mm3 (4.00-5.60); RDW 18.3 % (11.9-15.9); WHITE BLOOD COUNT 9.5 K/mm3 (4.0-10.0)
[2020-06-09 11:17] LABS: BLOOD UREA NITROGEN 22.3 mg/dL (7-18)
[2020-06-09 11:28] LABS: CREATININE 1.3 mg/dL (0.55-1.3)
--- NOTE | 2020-06-09 11:41 | PN ---
Teaching Attending Note Name of Resident: Mya Cullen ATTENDING PHYSICIAN STATEMENT I saw and evaluated the patient. I reviewed the resident's note and discussed the case with the resident. I agree with the resident's findings and plan as documented. SUBJECTIVE: Seen and examined at bedside. Patient initially planned for discharge today but blood pressure was low at 88/45 this morning. 500 cc bolus given. Continue to monitor blood pressure and vitals. If remains stable can be discharged tomorrow OBJECTIVE Last Vital Signs Temp Pulse Resp BP Pulse Ox 97.9 F 64 18 98/62 94 L 06/09/20 06:00 06/09/20 06:00 06/09/20 06:00 06/09/20 06:00 06/09/20 06:00 PE: Per resident note Labs/Imaging: reviewed ASSESSMENT/PLAN 79-year-old male with a history of HTN, RLS, essential tremors, dementia,? Primary progressive aphasia, BPH, recent history of urinary retention requiring indwelling Booth catheter since March 2020 and recurrent UTIs presented for poor drainage from Booth and suprapubic pain and was found to have SURESH, UTI, and hematuria. Patient is at mental baseline and is hemodynamically stable. Patient is medically cleared for discharge to home with 24-hour home care. He will be sent home with 3 additional doses of Augmentin. Patient was treated for a catheter associated urinary tract infection. Course was complicated by delirium and aggressive behavior secondary to his dementia as well as blockage of the catheter resulting in hydronephrosis and hypernatremia. Patient is now back to his mental and physical baseline. A potential renal mass was found on CT but after discussion with the family they do not wish to pursue additional work-up as they would not support any treatment for malignancy or any invasive diagnostic procedures to diagnose.
--- NOTE | 2020-06-09 12:48 | PN ---
Physical Exam: SUBJECTIVE: Patient seen and examined at bedside, MS fluctuating, VSS. OBJECTIVE: GENERAL: Awake, understands commands, vocalization slightly improved HEAD: Normal with no signs of trauma. EYES: PERRL, extraocular movements intact, sclera anicteric, conjunctiva clear. No ptosis. ENT: Ears normal, nares patent, oropharynx clear without exudates, moist mucous membranes. NECK: Trachea midline, full range of motion, supple. LUNGS: Breath sounds equal, clear to auscultation bilaterally, no wheezes, no crackles, no accessory muscle use. HEART: Regular rate and rhythm, S1, S2 without murmur, rub or gallop. ABDOMEN: Soft, nontender, nondistended, normoactive bowel sounds, no guarding, no rebound, no hepatosplenomegaly, no masses. EXTREMITIES: 2+ pulses, warm, well-perfused, no edema. NEUROLOGICAL: gait not observed, pressured speech w/ struggling to find words/aphasic, no focal deficits PSYCH: Normal mood, normal affect. SKIN: Warm, dry, normal turgor, no rashes or lesions noted Laboratory Results - last 24 hr 06/09/20 06/09/20 10:28 10:28 WBC 9.5 RBC 3.87 L Hgb 10.3 L Hct 32.5 L MCV 84.2 MCH 26.7 MCHC 31.7 L RDW 18.3 H Plt Count 416 MPV 8.5 Absolute Neuts (auto) 6.9 Neutrophils % 73.1 Lymphocytes % 20.6 Monocytes % 4.5 Eosinophils % 1.3 Basophils % 0.5 Nucleated RBC % 0 Sodium 138 Potassium 4.0 Chloride 104 Carbon Dioxide 24 Anion Gap 9 BUN 22.3 H Creatinine 1.3 Est GFR (CKD-EPI)AfAm 60.57 Est GFR (CKD-EPI)NonAf 52.26 Random Glucose 190 H Calcium 9.0 Active Medications Generic Name Dose Route Start Last Admin Trade Name Freq PRN Reason Stop Dose Admin Acetaminophen 650 mg 05/28/20 05:51 Tylenol - PO Q4H PRN PAIN LEVEL 7 - 10 Acetaminophen 650 mg 05/28/20 14:46 Tylenol - PO Q4H PRN FEVER Citalopram Hydrobromide 10 mg 06/07/20 10:00 06/09/20 10:29 Celexa - PO 10 mg DAILY KIRA Administration Donepezil HCl 10 mg 06/06/20 10:00 06/09/20 10:30 Aricept - PO 10 mg DAILY KIRA Administration Polyethylene Glycol 17 gm 05/29/20 12:00 06/08/20 11:06 Miralax (For Daily Use) - PO Not Given DAILY KIRA Pramipexole Dihydrochloride 0.75 mg 06/07/20 07:20 06/08/20 22:08 Mirapex - PO Not Given HS KIRA Primidone 50 mg 05/30/20 22:00 06/08/20 22:05 Mysoline - PO Not Given HS KIRA Thiamine HCl 100 mg 06/07/20 10:00 06/09/20 10:29 Vitamin B1 - PO 100 mg DAILY KIRA Administration Home Medications Medication Instructions Recorded Nebivolol [Bystolic -] 5 mg PO HS 05/29/18 Pramipexole Di-HCl [Mirapex] 1 mg PO HS 05/29/18 Primidone [Mysoline -] 50 mg PO HS 05/29/18 Silodosin [Rapaflo] 8 mg PO HS 05/29/18 Current Medications Generic Name Dose Route Start Last Admin Trade Name Freq PRN Reason Stop Dose Admin Acetaminophen 650 mg 05/28/20 05:51 Tylenol - PO Q4H PRN PAIN LEVEL 7 - 10 Acetaminophen 650 mg 05/28/20 14:46 Tylenol - PO Q4H PRN FEVER Citalopram Hydrobromide 10 mg 06/07/20 10:00 06/09/20 10:29 Celexa - PO 10 mg DAILY KIRA Administration Donepezil HCl 10 mg 06/06/20 10:00 06/09/20 10:30 Aricept - PO 10 mg DAILY KIRA Administration Polyethylene Glycol 17 gm 05/29/20 12:00 06/08/20 11:06 Miralax (For Daily Use) - PO Not Given DAILY KIRA Pramipexole Dihydrochloride 0.75 mg 06/07/20 07:20 06/08/20 22:08 Mirapex - PO Not Given HS KIRA Primidone 50 mg 05/30/20 22:00 06/08/20 22:05 Mysoline - PO Not Given HS KIRA Thiamine HCl 100 mg 06/07/20 10:00 06/09/20 10:29 Vitamin B1 - PO 100 mg DAILY KIRA Administration ASSESSMENT/PLAN: 79 M Frontotemporal dementia w/ aphasia Depression RLS BPH Plan: CT head when cooperative Neurology recs appreciated, adjusted psych meds, added Citalopram Correct electrolytes soft restraints, redirect PRN, watch for DVT ppx: Heparin SC Visit type - Emergency Visit Emergency Visit: Yes ED Registration Date: 05/28/20 Care time: The patient presented to the Emergency Department on the above date and was hospitalized for further evaluation of their emergent condition. - New Patient This patient is new to me today: No - Critical Care Critical Care patient: No - Discharge Referral Referred to [facility] Med P.C.: No - Medication Review Med list reviewed for High Risk Meds patients 65 and older: Yes
--- NOTE | 2020-06-09 13:21 | PN ---
Physical Exam: SUBJECTIVE: Patient seen and examined this AM. Denies any pain, tolerating PO Intake. OBJECTIVE: Vital Signs Period Temp Pulse Resp BP Sys/Townsend Pulse Ox Last 24 Hr 97.9 F-98.8 F 64-74 16-20 98-140/53-72 94-96 GENERAL: A&Ox3, NAD HEAD: NCAT EYES: EOMI LUNGS: Diminished breath sounds at the bases, Otherwise CTAB, No wheezes, no crackles HEART: RRR, S1 S2 ABDOMEN: Soft, nontender, not distended, + bowel sounds, no guarding EXTREMITIES: No peripheral edema. NEUROLOGICAL: Awake, Alert, Interactive, follows some commands SKIN: Warm, dry ASSESSMENT/PLAN: 79 y/o M PMHx BPH (complicated by UTI's due to urinary retention requiring mendez catheter placement), CAD (Untreated), ?Dementia, primary progressive aphasia, HTN, RLS presented with suprapubic pain + poor mendez drainage, admitted for UTI and hematuria. Urology, Nephrology and Infectious disease were consulted. Sneha ent completed a course of IV ABx. Hospital course complicated by imaging that is concerning for malignancy however family decline to pursue further investigation or intervention. Additionally, course complicated by ?Sundowning vs Delirium for which Psych and Neurology were consulted and medications were adjusted/started. #UTI -In the setting of chronic indwelling catheter from urinary retention; Repeat Urine Cx positive for enterococcus -Continue IV Zosyn -ID evaluation appreciated; Can switch to PO Augmentin upon discharge to complete course #Hematuria -In the setting of Bladder/Renal mass on imaging for which cystoscopy was recommended. Urology was consulted however patient had recent cystoscopy and was determined to not require an inpatient repeat cystoscopy. 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 - New Patient This patient is new to me today: Yes Date on this admission: 06/09/20 - Critical Care Critical Care patient: No - Discharge Referral Referred to [facility] Med P.C.: No - Medication Review Med list reviewed for High Risk Meds patients 65 and older: Yes ATTENDING PHYSICIAN STATEMENT I saw and evaluated the patient. I reviewed the resident's note and discussed the case with the resident. I agree with the resident's findings and plan as documented. SUBJECTIVE: OBJECTIVE: ASSESSMENT AND PLAN:
[2020-06-09] MEDS: POLYETHYLENE GLYCOL 3350 119 GM BTL PO SCH (14:08)
[2020-06-09] MEDS: PRIMIDONE 50 MG TABLET PO SCH (22:02)
[2020-06-09] MEDS: PRAMIPEXOLE DIHYDROCHLORIDE 0.25 MG TABLET PO SCH (22:02)
--- NOTE | 2020-06-10 08:24 | DS ---
Physical Exam: SUBJECTIVE: Patient seen and examined this AM. Remains calm and interactive in bed. Nursing staff was able to DC restraints overnight. OBJECTIVE: Vital Signs Period Temp Pulse Resp BP Sys/Townsend Pulse Ox Last 24 Hr 97.3 F-99.1 F 55-68 12-18 109-148/61-77 95-98 PHYSICAL EXAM GENERAL: NAD HEAD: NCAT EYES: EOMI LUNGS: Diminished breath sounds at the bases, Otherwise CTAB, No wheezes, no crackles HEART: RRR, S1 S2 ABDOMEN: Soft, nontender, not distended, + bowel sounds, no guarding EXTREMITIES: No peripheral edema. NEUROLOGICAL: Awake, Alert, Interactive, follows some commands SKIN: Warm, dry LABS Laboratory Last Values WBC 9.5 K/mm3 (4.0-10.0) 06/09/20 10:28 RBC 3.87 M/mm3 (4.00-5.60) L 06/09/20 10:28 Hgb 10.3 GM/dL (11.7-16.9) L 06/09/20 10:28 Hct 32.5 % (35.4-49) L 06/09/20 10:28 MCV 84.2 fl (80-96) 06/09/20 10:28 MCH 26.7 pg (25.7-33.7) 06/09/20 10:28 MCHC 31.7 g/dl (32.0-35.9) L 06/09/20 10:28 RDW 18.3 % (11.9-15.9) H 06/09/20 10:28 Plt Count 416 K/MM3 (134-434) 06/09/20 10:28 MPV 8.5 fl (7.5-11.1) 06/09/20 10:28 Absolute Neuts (auto) 6.9 K/mm3 (1.5-8.0) 06/09/20 10:28 Neutrophils % 73.1 % (42.8-82.8) 06/09/20 10:28 Neutrophils % (Manual) 79.2 % (42.8-82.8) 05/27/20 23:53 Band Neutrophils % 0.0 % 05/27/20 23:53 Lymphocytes % 20.6 % (8-40) 06/09/20 10:28 Lymphocytes % (Manual) 16.8 % (8-40) 05/27/20 23:53 Monocytes % 4.5 % (3.8-10.2) 06/09/20 10:28 Monocytes % (Manual) 4 % (3.8-10.2) 05/27/20 23:53 Eosinophils % 1.3 % (0-4.5) 06/09/20 10:28 Eosinophils % (Manual) 0.0 % (0-4.5) 05/27/20 23:53 Basophils % 0.5 % (0-2.0) 06/09/20 10:28 Basophils % (Manual) 0.0 % (0-2.0) 05/27/20 23:53 Myelocytes % (Man) 0 % (0-2) 05/27/20 23:53 Promyelocytes % (Man) 0 % (0-2) 05/27/20 23:53 Blast Cells % (Manual) 0 % (0-0) 05/27/20 23:53 Nucleated RBC % 0 % (0-0) 06/09/20 10:28 Metamyelocytes 0 % (0-2) 05/27/20 23:53 Hypochromia 0 05/27/20 23:53 Platelet Estimate Normal 05/27/20 23:53 Platelet Comment Present 05/27/20 23:53 Polychromasia 2+ 05/27/20 23:53 Poikilocytosis 0 05/27/20 23:53 Anisocytosis 1+ 05/27/20 23:53 Microcytosis 1+ 05/27/20 23:53 Macrocytosis 1+ 05/27/20 23:53 Retic Count 1.74 % (0.5-1.5) H 05/28/20 08:30 PT with INR 15.70 SEC (9.7-13.0) H 05/28/20 08:30 INR 1.31 (0.83-1.09) H 05/28/20 08:30 PTT (Actin FS) 31.7 SECONDS (25.2-36.5) 05/28/20 08:30 Sodium 138 mmol/L (136-145) 06/09/20 10:28 Potassium 4.0 mmol/L (3.5-5.1) 06/09/20 10:28 Chloride 104 mmol/L (98-107) 06/09/20 10:28 Carbon Dioxide 24 mmol/L (21-32) 06/09/20 10:28 Anion Gap 9 MMOL/L (8-16) 06/09/20 10:28 BUN 22.3 mg/dL (7-18) H 06/09/20 10:28 Creatinine 1.3 mg/dL (0.55-1.3) 06/09/20 10:28 Est GFR (CKD-EPI)AfAm 60.57 06/09/20 10:28 Est GFR (CKD-EPI)NonAf 52.26 06/09/20 10:28 Random Glucose 190 mg/dL (74-106) H 06/09/20 10:28 Hemoglobin A1c % 6.2 % (4.2-6.3) 06/08/20 08:56 Calcium 9.0 mg/dL (8.5-10.1) 06/09/20 10:28 Phosphorus 2.9 mg/dL (2.5-4.9) 06/07/20 08:33 Magnesium 2.3 mg/dL (1.8-2.4) 06/07/20 08:33 Iron 13 ug/dL (50-175) L 05/28/20 08:30 TIBC 212 ug/dL (250-450) L 05/28/20 08:30 Iron Saturation 6 % (17.5-39) L 05/28/20 08:30 Unsaturated IBC 199 ug/dL (200-275) L 05/28/20 08:30 Ferritin 137.6 ng/ml (8-388) 05/28/20 08:30 Total Bilirubin 0.4 mg/dL (0.2-1) 06/08/20 08:56 AST 18 U/L (15-37) 06/08/20 08:56 ALT 31 U/L (13-61) 06/08/20 08:56 Alkaline Phosphatase 72 U/L (45-117) 06/08/20 08:56 Total Protein 7.3 g/dl (6.4-8.2) 06/08/20 08:56 Albumin 2.6 g/dl (3.4-5.0) L 06/08/20 08:56 Triglycerides 123 mg/dL (0-150) 06/08/20 08:56 Cholesterol 173 mg/dL (50-200) 06/08/20 08:56 Total LDL Cholesterol 112 mg/dL (5-100) H 06/08/20 08:56 HDL Cholesterol 46 mg/dL (40-60) 06/08/20 08:56 Vitamin B12 773 pg/ml (193-986) 06/08/20 08:56 TSH 3.17 uIU/ml (0.358-3.74) 06/08/20 08:56 Urine Color Yellow 05/29/20 16:15 Urine Appearance Cloudy 05/29/20 16:15 Urine pH 5.5 (5.0-8.0) 05/29/20 16:15 Ur Specific [place] 1.013 (1.010-1.035) 05/29/20 16:15 Urine Protein 2+ (NEGATIVE) H 05/29/20 16:15 Urine Glucose (UA) Negative (NEGATIVE) 05/29/20 16:15 Urine Ketones Negative (NEGATIVE) 05/29/20 16:15 Urine Blood 3+ (NEGATIVE) H 05/29/20 16:15 Urine Nitrite Negative (NEGATIVE) 05/29/20 16:15 Urine Bilirubin Negative (NEGATIVE) 05/29/20 16:15 Urine Urobilinogen 0.2 mg/dL (0.2-1.0) 05/29/20 16:15 Ur Leukocyte Esterase 3+ (NEGATIVE) H 05/29/20 16:15 Urine WBC (Auto) 1988 /uL (0-25.8) 05/29/20 16:15 Urine RBC (Auto) 952.5 /uL (0-23.9) 05/29/20 16:15 Urine Casts (Auto) 2 /uL (0-3.1) 05/29/20 16:15 U Pathogenic Cast Auto None seen /lpf (NEGATIVE) 05/28/20 02:00 U Epithel Cells (Auto) 2 /uL (0-25.1) 05/29/20 16:15 Urine Bacteria (Auto) 8593 /uL (0-1359) 05/29/20 16:15 Urine Yeast (Auto) Negative (NEGATIVE) 05/29/20 16:15 Syphilis Serology Non-reactive (NONREACTIVE) 06/07/20 08:33 COVID-19 (J LUIS) Not detected (Not Detected) 05/28/20 03:08 Blood Type A POSITIVE 05/28/20 08:30 Antibody Screen Negative 05/28/20 08:30 Microbiology 05/29/20 16:15 Urine - Urine - Catheterized Urine Culture - Final Enterococcus Faecalis 05/28/20 02:00 Urine - Urine Mendez Urine Culture - Final Escherichia Coli Mr [place] Aureus Enterococcus Faecalis HOSPITAL COURSE: Date of Admission:05/28/20 Date of Discharge: 06/10/20 79 y/o M PMHx BPH (complicated by UTI's due to urinary retention requiring mendez catheter placement), CAD (Untreated, recent MRI with Triple vessel disease as per EMR), ?Dementia, primary progressive aphasia, HTN, RLS presented with suprapubic pain + poor mendez drainage, admitted for UTI and hematuria. Imaging, Labwork, Micro noted as per chart. Urology, Nephrology and Infectious disease were consulted. Patient completed a course of IV ABx. Hospital course complicated by imaging that is concerning for malignancy however family decline to pursue further investigation or intervention. Additionally, course complicated by ?Sundowning vs Delirium for which Psych and Neurology were consulted and medications were adjusted/started (Resumed home dose Aricept, Started Citalopram, Decreased dose of Pramipexole). Additionally patient remained normotensive during his stay and his home dose beta blocked was discontinued. Iron studies were noted for LORNA with Transferrin Saturation ~6% for which he was give IV Iron. Leukocytosis and transaminitis resolved, H&H trending up, SURESH Improved. Advised for medication compliance and follow up with physicians for further management and labwork as outlined below. Minutes to complete discharge: 36 Discharge Summary Problems reviewed: Yes Reason For Visit: URINARY TRACT INFECTION, RETENTION OF URINE Current Active Problems UTI (urinary tract infection) (Acute) Urinary retention (Acute) Condition: Stable - Instructions Diet, Activity, Other Instructions: You were admitted to the hospital for a Urinary Tract Infection and treated with Antibiotics. Imaging is concerning for malignancy (cancer) however you and your family decided not to pursue further investigation. Medication Changes: 1. Donepzil 10mg Daily 2. Celexa (Citalopram) 10mg Daily 3. Decrease Pramipexole (Mirapex) to 0.75mg at bed time (Stop taking 1mg) 4. Miralax daily for constipation 5. Stop taking Nebivolol 6. FeSol 325mg Iron supplementation daily (This will make your stool darker and cause constipation so please take Miralax) Follow up with the following physicians: 1. PCP in one week. Please call to schedule follow up. You will need to discuss ways to further manage your dementia/delirium and Cardiology follow up for recent MRI that revealed Triple vessel disease. Additionally, you may require a follow up Brain MRI, please discuss further with your PCP and neurologist (Dr. Carreon) 2. Urology (Dr. Alegria): You are being discharged home with a mendez catheter that will require outpatient follow up, please call to schedule an appointment. Additionally, If you would like to pursue further cancer investigation, Please discuss this at your visit. You are being discharged Home. Please continue to monitor your diet as you need to intake less sugar/salt. Continue all your other medications as prescribed Please return to the ER if you have any signs or symptoms of chest pain, shortness of breath, uncontrollable fever, chills, nausea, vomiting, numbness, tingling, or weakness in any part of your body, changes in vision, or slurred speech. Please return to the ER if symptoms persist, worsen, or new symptoms arise. Referrals: Pepe Caro MD [Staff Physician] - Katherine Forte MD [Staff Physician] - Disposition: HOME - Home Medications Comprehensive Discharge Medication List: Ambulatory Orders Primidone [Mysoline -] 50 mg PO HS 05/29/18 Silodosin [Rapaflo] 8 mg PO HS 05/29/18 Citalopram Hydrobromide [Celexa -] 10 mg PO DAILY #30 tablet 06/10/20 Donepezil HCl [Aricept -] 10 mg PO DAILY #30 tablet 06/10/20 Polyethylene Glycol 3350 [Miralax 119 gm Btl -] 17 gm PO DAILY PRN #1 bottle 06/10/20 Pramipexole Dihydrochloride [Mirapex -] 0.75 mg PO HS #90 tablet 06/10/20 This patient is new to me today: Yes Date on this admission: 06/10/20 Emergency Visit: Yes ED Registration Date: 05/28/20 Care time: The patient presented to the Emergency Department on the above date and was hospitalized for further evaluation of their emergent condition. Critical Care patient: No - Discharge Referral Referred to [facility] Med P.C.: No ATTENDING PHYSICIAN STATEMENT I saw and evaluated the patient. I reviewed the resident's note and discussed the case with the resident. I agree with the resident's findings and plan as documented. SUBJECTIVE: OBJECTIVE: ASSESSMENT AND PLAN:
--- NOTE | 2020-06-10 10:45 | PN ---
Teaching Attending Note Name of Resident: Mya Cullen ATTENDING PHYSICIAN STATEMENT I saw and evaluated the patient. I reviewed the resident's note and discussed the case with the resident. I agree with the resident's findings and plan as documented. SUBJECTIVE: Seen and examined at bedside. Condition stable. Patient is medically cleared for discharge OBJECTIVE Last Vital Signs Temp Pulse Resp BP Pulse Ox 97.8 F 54 L 18 94/55 L 94 L 06/10/20 10:07 06/10/20 10:07 06/10/20 10:07 06/10/20 10:07 06/10/20 10:07 PE: Per resident note Labs/Imaging: reviewed ASSESSMENT/PLAN 79-year-old male with a history of HTN, RLS, essential tremors, dementia,? Primary progressive aphasia, BPH, recent history of urinary retention requiring indwelling Booth catheter since March 2020 and recurrent UTIs presented for poor drainage from Booth and suprapubic pain and was found to have SURESH, UTI, and hematuria. Patient is at mental baseline and is hemodynamically stable. Patient is medically cleared for discharge to home with 24-hour home care. He will be sent home with 3 additional doses of Augmentin. Patient was treated for a catheter associated urinary tract infection. Course was complicated by delirium and aggressive behavior secondary to his dementia as well as blockage of the catheter resulting in hydronephrosis and hypernatremia. Patient is now back to his mental and physical baseline. A potential renal mass was found on CT but after discussion with the family they do not wish to pursue additional work-up as they would not support any treatment for malignancy or any invasive diagnostic procedures to diagnose.
[2020-06-10] MEDS: DONEPEZIL HCL 10 MG TABLET (FP) PO SCH (11:08)
[2020-06-10] MEDS: CITALOPRAM HYDROBROMIDE 10 MG TABLET PO SCH (11:08)
[2020-06-10] MEDS: THIAMINE HCL 100 MG TABLET (FP) PO SCH (11:11)
[2020-06-10] MEDS: POLYETHYLENE GLYCOL 3350 119 GM BTL PO SCH (11:11)
--- NOTE | 2020-06-10 13:00 | PN ---
Progress Note, Physician History of Present Illness: no new issues no specific change - Current Medication List Current Medications: Active Medications Acetaminophen (Tylenol -) 650 mg PO Q4H PRN PRN Reason: PAIN LEVEL 7 - 10 Acetaminophen (Tylenol -) 650 mg PO Q4H PRN PRN Reason: FEVER Citalopram Hydrobromide (Celexa -) 10 mg PO DAILY COUNT INCLUDES [facility] Last Admin: 06/10/20 11:08 Dose: 10 mg Documented by: Donepezil HCl (Aricept -) 10 mg PO DAILY COUNT INCLUDES THE [facility] Last Admin: 06/10/20 11:08 Dose: 10 mg Documented by: Polyethylene Glycol (Miralax (For Daily Use) -) 17 gm PO DAILY COUNT INCLUDES THE [facility] Last Admin: 06/10/20 11:11 Dose: 17 grams Documented by: Pramipexole Dihydrochloride (Mirapex -) 0.75 mg PO [facility] Last Admin: 06/09/20 22:02 Dose: 0.75 mg Documented by: Primidone (Mysoline -) 50 mg PO [facility] Last Admin: 06/09/20 22:02 Dose: 50 mg Documented by: Thiamine HCl (Vitamin B1 -) 100 mg PO DAILY COUNT INCLUDES THE [facility] Last Admin: 06/10/20 11:11 Dose: 100 mg Documented by: - Objective Vital Signs: Vital Signs Temperature 97.8 F 06/10/20 10:07 Pulse Rate 54 L 06/10/20 10:07 Respiratory Rate 18 06/10/20 10:07 Blood Pressure 94/55 L 06/10/20 10:07 O2 Sat by Pulse Oximetry (%) 94 L 06/10/20 10:07 Constitutional: Yes: No Distress, Calm Cardiovascular: Yes: S1, S2 Respiratory: Yes: Regular, CTA Bilaterally Gastrointestinal: Yes: Normal Bowel Sounds, Soft Genitourinary: Yes: Mendez Present Musculoskeletal: Yes: WNL Extremities: Yes: WNL Neurological: Yes: Alert, Confusion Psychiatric: Yes: Alert Labs: CBC, BMP 06/09/20 10:28 06/09/20 10:28 INR, PTT INR 1.31 (0.83-1.09) H 05/28/20 08:30 Assessment/Plan 79 yo M with PMH of HTN, CAD (s/p stent; possibly still untreated), RLS, essential tremors, dementia, BPH, recent recurrent UTIs and indwelling mendez catheter placement presenting with non-draining mendez catheter, urinary retention, penile pain, and hematuria. Patient being admitted for evaluation and treatment of a catheter associated UTI, hematuria (with associated anemia), and SURESH. uti hematuria leukocytosis suresh transmitis plan continue current mgmt nutrition
[2020-06-10] MEDS ORDERED: FLU VACCINE (FLULAVAL) PF 60 MCG/0.5 ML SYRINGE 2020-2021 IM ONE (13:07)
--- NOTE | 2020-06-10 14:51 | PN ---
Progress Note, Physician History of Present Illness: Pt seen and examined. He remains confused. - Current Medication List Current Medications: Active Medications Acetaminophen (Tylenol -) 650 mg PO Q4H PRN PRN Reason: PAIN LEVEL 7 - 10 Acetaminophen (Tylenol -) 650 mg PO Q4H PRN PRN Reason: FEVER Citalopram Hydrobromide (Celexa -) 10 mg PO DAILY [facility] Last Admin: 06/10/20 11:08 Dose: 10 mg Documented by: Donepezil HCl (Aricept -) 10 mg PO DAILY [facility] Last Admin: 06/10/20 11:08 Dose: 10 mg Documented by: Polyethylene Glycol (Miralax (For Daily Use) -) 17 gm PO DAILY [facility] Last Admin: 06/10/20 11:11 Dose: 17 grams Documented by: Pramipexole Dihydrochloride (Mirapex -) 0.75 mg PO HS [facility] Last Admin: 06/09/20 22:02 Dose: 0.75 mg Documented by: Primidone (Mysoline -) 50 mg PO [facility] Last Admin: 06/09/20 22:02 Dose: 50 mg Documented by: Thiamine HCl (Vitamin B1 -) 100 mg PO DAILY [facility] Last Admin: 06/10/20 11:11 Dose: 100 mg Documented by: - Objective Vital Signs: Vital Signs Temperature 97.8 F 06/10/20 10:07 Pulse Rate 54 L 06/10/20 10:07 Respiratory Rate 18 06/10/20 10:07 Blood Pressure 94/55 L 06/10/20 10:07 O2 Sat by Pulse Oximetry (%) 94 L 06/10/20 10:07 Constitutional: Yes: Calm Eyes: Yes: Conjunctiva Clear HENT: Yes: Atraumatic Cardiovascular: Yes: S1, S2 Respiratory: Yes: CTA Bilaterally Gastrointestinal: Yes: Normal Bowel Sounds, Soft Genitourinary: Yes: Mendez Present Musculoskeletal: Yes: WNL Edema: No Neurological: Yes: Confusion Labs: CBC, BMP 06/09/20 10:28 06/09/20 10:28 INR, PTT INR 1.31 (0.83-1.09) H 05/28/20 08:30 Problem List - Problems (1) UTI (urinary tract infection) Code(s): N39.0 - URINARY TRACT INFECTION, SITE NOT SPECIFIED Qualifiers: Urinary tract infection type: acute cystitis Hematuria presence: with hematuria Qualified Code(s): N30.01 - Acute cystitis with hematuria (2) Urinary retention Code(s): R33.9 - RETENTION OF URINE, UNSPECIFIED Assessment/Plan Current Medications Generic Name Dose Route Start Last Admin Trade Name Freq PRN Reason Stop Dose Admin Acetaminophen 650 mg 05/28/20 05:51 Tylenol - PO Q4H PRN PAIN LEVEL 7 - 10 Acetaminophen 650 mg 05/28/20 14:46 Tylenol - PO Q4H PRN FEVER Citalopram Hydrobromide 10 mg 06/07/20 10:00 06/10/20 11:08 Celexa - PO 10 mg DAILY KIRA Administration Donepezil HCl 10 mg 06/06/20 10:00 06/10/20 11:08 Aricept - PO 10 mg DAILY KIRA Administration Polyethylene Glycol 17 gm 05/29/20 12:00 06/10/20 11:11 Miralax (For Daily Use) - PO 17 grams DAILY KIRA Administration Pramipexole Dihydrochloride 0.75 mg 06/07/20 07:20 06/09/20 22:02 Mirapex - PO 0.75 mg HS KIRA Administration Primidone 50 mg 05/30/20 22:00 06/09/20 22:02 Mysoline - PO 50 mg HS KIRA Administration Thiamine HCl 100 mg 06/07/20 10:00 06/10/20 11:11 Vitamin B1 - PO 100 mg DAILY KIRA Administration Impression 1. SURESH 2. hypernatremia 3. urinary retention with chronic mendez 4. obstructive uropathy 5. dementia 6. htn 7. uti 8. possible bladder/renal neoplasm Plan - renal function stable - encourage po intake - encourage adequate hydration - pt likely gets pre-renal disease from not eating and drinking - will follow prn
[2020-06-10] MEDS ORDERED: PT OWN MED DRAWER 7, Y5N ONE (21:02)
[2020-06-10] MEDS: PRIMIDONE 50 MG TABLET PO SCH (21:48)
[2020-06-10] MEDS: PRAMIPEXOLE DIHYDROCHLORIDE 0.25 MG TABLET PO SCH (21:48)
--- NOTE | 2020-06-11 10:31 | PN ---
Teaching Attending Note Name of Resident: Mya Cullen ATTENDING PHYSICIAN STATEMENT I saw and evaluated the patient. I reviewed the resident's note and discussed the case with the resident. I agree with the resident's findings and plan as documented. SUBJECTIVE: Seen and examined at bedside. Condition stable. Patient is medically cleared for discharge OBJECTIVE Last Vital Signs Temp Pulse Resp BP Pulse Ox 97.8 F 48 L 18 136/52 L 98 06/11/20 06:00 06/11/20 06:00 06/11/20 06:00 06/11/20 06:00 06/11/20 06:00 PE: Per resident note Labs/Imaging: reviewed ASSESSMENT/PLAN 79-year-old male with a history of HTN, RLS, essential tremors, dementia,? Primary progressive aphasia, BPH, recent history of urinary retention requiring indwelling Booth catheter since March 2020 and recurrent UTIs presented for poor drainage from Booth and suprapubic pain and was found to have SURESH, UTI, and hematuria. Patient is at mental baseline and is hemodynamically stable. Patient is medically cleared for discharge to home with 24-hour home care. He will be sent home with 3 additional doses of Augmentin. Patient was treated for a catheter associated urinary tract infection. Course was complicated by delirium and aggressive behavior secondary to his dementia as well as blockage of the catheter resulting in hydronephrosis and hypernatremia. Patient is now back to his mental and physical baseline. A potential renal mass was found on CT but after discussion with the family they do not wish to pursue additional work-up as they would not support any treatment for malignancy or any invasive diagnostic procedures to diagnose.
--- NOTE | 2020-06-11 11:33 | PN ---
Progress Note, Physician History of Present Illness: PT seen and examined. No great change in status. - Current Medication List Current Medications: Active Medications Acetaminophen (Tylenol -) 650 mg PO Q4H PRN PRN Reason: PAIN LEVEL 7 - 10 Acetaminophen (Tylenol -) 650 mg PO Q4H PRN PRN Reason: FEVER Citalopram Hydrobromide (Celexa -) 10 mg PO DAILY [facility] Last Admin: 06/10/20 11:08 Dose: 10 mg Documented by: Donepezil HCl (Aricept -) 10 mg PO DAILY [facility] Last Admin: 06/10/20 11:08 Dose: 10 mg Documented by: Polyethylene Glycol (Miralax (For Daily Use) -) 17 gm PO DAILY [facility] Last Admin: 06/10/20 11:11 Dose: 17 grams Documented by: Pramipexole Dihydrochloride (Mirapex -) 0.[address] [facility] Last Admin: 06/10/20 21:48 Dose: Not Given Documented by: Primidone (Mysoline -) [address] [facility] Last Admin: 06/10/20 21:48 Dose: Not Given Documented by: Thiamine HCl (Vitamin B1 -) 100 mg PO DAILY [facility] Last Admin: 06/10/20 11:11 Dose: 100 mg Documented by: - Objective Vital Signs: Vital Signs Temperature 97.7 F 06/11/20 11:15 Pulse Rate 62 06/11/20 11:15 Respiratory Rate 18 06/11/20 11:15 Blood Pressure 111/68 06/11/20 11:15 O2 Sat by Pulse Oximetry (%) 96 06/11/20 11:15 Constitutional: Yes: Calm Eyes: Yes: Conjunctiva Clear HENT: Yes: Atraumatic Cardiovascular: Yes: S1, S2 Respiratory: Yes: CTA Bilaterally Gastrointestinal: Yes: Soft Genitourinary: Yes: WNL Musculoskeletal: Yes: WNL Edema: No Neurological: Yes: Confusion Labs: CBC, BMP 06/09/20 10:28 06/09/20 10:28 INR, PTT INR 1.31 (0.83-1.09) H 05/28/20 08:30 Problem List - Problems (1) UTI (urinary tract infection) Code(s): N39.0 - URINARY TRACT INFECTION, SITE NOT SPECIFIED Qualifiers: Urinary tract infection type: acute cystitis Hematuria presence: with hematuria Qualified Code(s): N30.01 - Acute cystitis with hematuria (2) Urinary retention Code(s): R33.9 - RETENTION OF URINE, UNSPECIFIED Assessment/Plan Current Medications Generic Name Dose Route Start Last Admin Trade Name Freq PRN Reason Stop Dose Admin Acetaminophen 650 mg 05/28/20 05:51 Tylenol - PO Q4H PRN PAIN LEVEL 7 - 10 Acetaminophen 650 mg 05/28/20 14:46 Tylenol - PO Q4H PRN FEVER Citalopram Hydrobromide 10 mg 06/07/20 10:00 06/10/20 11:08 Celexa - PO 10 mg DAILY [facility] Administration Donepezil HCl 10 mg 06/06/20 10:00 06/10/20 11:08 Aricept - PO 10 mg DAILY [facility] Administration Polyethylene Glycol 17 gm 05/29/20 12:00 06/10/20 11:11 Miralax (For Daily Use) - PO 17 grams DAILY [facility] Administration Pramipexole Dihydrochloride 0.75 mg 06/07/20 07:20 06/10/20 21:48 Mirapex - PO Not Given HS K[facility]A Primidone 50 mg 05/30/20 22:00 06/10/20 21:48 Mysoline - PO Not Given HS KIRA Thiamine HCl 100 mg 06/07/20 10:00 06/10/20 11:11 Vitamin B1 - PO 100 mg DAILY [facility] Administration Impression 1. SURESH 2. hypernatremia 3. urinary retention with chronic mendez 4. obstructive uropathy 5. dementia 6. htn 7. uti 8. possible bladder/renal neoplasm Plan - no new labs - family do not want to persue renal mass - cont current management - encourage po intake if possible - pt likely gets pre-renal disease from not eating and drinking
[2020-06-11] MEDS: POLYETHYLENE GLYCOL 3350 119 GM BTL PO SCH ×2 (12:22→12:29)
[2020-06-11] MEDS: THIAMINE HCL 100 MG TABLET (FP) PO SCH ×2 (12:22→12:30)
[2020-06-11] MEDS: CITALOPRAM HYDROBROMIDE 10 MG TABLET PO SCH ×2 (12:22→12:29)
[2020-06-11] MEDS: DONEPEZIL HCL 10 MG TABLET (FP) PO SCH ×2 (12:23→12:29)
[2020-06-11] MEDS: PRIMIDONE 50 MG TABLET PO SCH (21:44)
[2020-06-11] MEDS: PRAMIPEXOLE DIHYDROCHLORIDE 0.25 MG TABLET PO SCH (21:44)
[2020-06-11] MEDS ORDERED: MELATONIN 5 MG TABLETS PO ONE (23:52)
--- NOTE | 2020-06-12 09:42 | PN ---
Teaching Attending Note Name of Resident: Mya Cullen ATTENDING PHYSICIAN STATEMENT I saw and evaluated the patient. I reviewed the resident's note and discussed the case with the resident. I agree with the resident's findings and plan as documented. SUBJECTIVE: Seen and examined at bedside. Condition stable. Discharge has been delayed due to issues with family getting homecare. Patient is medically cleared for discharge OBJECTIVE Last Vital Signs Temp Pulse Resp BP Pulse Ox 97.9 F 55 L 18 113/67 95 06/12/20 06:00 06/12/20 06:00 06/12/20 06:00 06/12/20 06:00 06/12/20 06:00 PE: Per resident note Labs/Imaging: reviewed ASSESSMENT/PLAN 79-year-old male with a history of HTN, RLS, essential tremors, dementia,? Primary progressive aphasia, BPH, recent history of urinary retention requiring indwelling Booth catheter since March 2020 and recurrent UTIs presented for poor drainage from Booth and suprapubic pain and was found to have SURESH, UTI, and hematuria. Patient is at mental baseline and is hemodynamically stable. Patient is medically cleared for discharge to home with 24-hour home care. He will be sent home with 3 additional doses of Augmentin. Patient was treated for a catheter associated urinary tract infection. Course was complicated by delirium and aggressive behavior secondary to his dementia as well as blockage of the catheter resulting in hydronephrosis and hypernatremia. Patient is now back to his mental and physical baseline. A potential renal mass was found on CT but after discussion with the family they do not wish to pursue additional work-up as they would not support any treatment for malignancy or any invasive diagnostic procedures to diagnose.
--- NOTE | 2020-06-12 09:43 | PN ---
Physical Exam: SUBJECTIVE: Patient seen and examined this AM. Denies any pain. OBJECTIVE: Vital Signs Period Temp Pulse Resp BP Sys/Townsend Pulse Ox Last 24 Hr 97.7 F-98.7 F 55-74 18-18 100-113/57-68 94-97 GENERAL: NAD HEAD: NCAT EYES: EOMI LUNGS: Diminished breath sounds at the bases, Otherwise CTAB, No wheezes, no crackles HEART: RRR, S1 S2 ABDOMEN: Soft, nontender, not distended, + bowel sounds, no guarding EXTREMITIES: No peripheral edema. NEUROLOGICAL: Awake, Alert, Interactive, follows some commands SKIN: Warm, dry ASSESSMENT/PLAN: 79 y/o M PMHx BPH (complicated by UTI's due to urinary retention requiring mendez catheter placement), CAD (Untreated), ?Dementia, primary progressive aphasia, HTN, RLS presented with suprapubic pain + poor mendez drainage, admitted for UTI and hematuria. Urology, Nephrology and Infectious disease were consulted. Patient completed a course of IV ABx. Hospital course complicated by imaging that is concerning for malignancy however family decline to pursue further investigation or intervention. Additionally, course complicated by ?Sundowning vs Delirium for which Psych and Neurology were consulted and medications were adjusted/started. Patient has been medically cleared for discharge, Case management and Social work are assisting in placement/STATE EDITOR as patient has Dementia with behavioral disturbances and is unable to perform his ADL's requiring 24 hour care to ensure a safe environment. #UTI -In the setting of chronic indwelling catheter from urinary retention; Repeat Urine Cx positive for enterococcus -Completed course of ABx #Hematuria -In the setting of Bladder/Renal mass on imaging for which cystoscopy was recommended. Urology was consulted however patient had recent cystoscopy and was determined to not require an inpatient repeat cystoscopy. Additional imaging (CT A/P) was also concerning for possibly neoplasm and recommended MRI however family declined to pursure further imaging or intervention #Agitation -Sundowning vs Delirium in the setting of Dementia -Psych and Neuro evaluation apprciated -Continue Aricept, Citalopram, Pramipexole #CAD (?Untreated) -As per EMR, cardiac MRI in March showing severe triple vessel disease however no intervention done as yet given recent admissions for sepsis -Outpatient cardio follow up for intervention after discussion of GOC with Family #HTN -Home dose Nebivolol was discontinued during hospital course, patient has remained normotensive #PPx -DVT: SCDs Dispo: Pending Placement Visit type - Emergency Visit Emergency Visit: Yes ED Registration Date: 05/28/20 Care time: The patient presented to the Emergency Department on the above date and was hospitalized for further evaluation of their emergent condition. - New Patient This patient is new to me today: No - Critical Care Critical Care patient: No - Discharge Referral Referred to [facility] Med P.C.: No - Medication Review Med list reviewed for High Risk Meds patients 65 and older: No ATTENDING PHYSICIAN STATEMENT I saw and evaluated the patient. I reviewed the resident's note and discussed the case with the resident. I agree with the resident's findings and plan as documented. SUBJECTIVE: OBJECTIVE: ASSESSMENT AND PLAN:
[2020-06-12] MEDS: DONEPEZIL HCL 10 MG TABLET (FP) PO SCH (10:51)
[2020-06-12] MEDS: THIAMINE HCL 100 MG TABLET (FP) PO SCH (10:52)
[2020-06-12] MEDS: CITALOPRAM HYDROBROMIDE 10 MG TABLET PO SCH (10:57)
--- NOTE | 2020-06-12 13:17 | PN ---
Progress Note, Physician History of Present Illness: no new issues no specific change - Current Medication List Current Medications: Active Medications Acetaminophen (Tylenol -) 650 mg PO Q4H PRN PRN Reason: PAIN LEVEL 7 - 10 Acetaminophen (Tylenol -) 650 mg PO Q4H PRN PRN Reason: FEVER Citalopram Hydrobromide (Celexa -) 10 mg PO DAILY [facility] Last Admin: 06/12/20 10:57 Dose: 10 mg Documented by: Donepezil HCl (Aricept -) 10 mg PO DAILY [facility] Last Admin: 06/12/20 10:51 Dose: 10 mg Documented by: Polyethylene Glycol (Miralax (For Daily Use) -) 17 gm PO DAILY [facility] Last Admin: 06/11/20 12:29 Dose: Not Given Documented by: Pramipexole Dihydrochloride (Mirapex -) 0.75 mg PO [facility] Last Admin: 06/11/20 21:44 Dose: Not Given Documented by: Primidone (Mysoline -) 50 mg PO [facility] Last Admin: 06/11/20 21:44 Dose: Not Given Documented by: Thiamine HCl (Vitamin B1 -) 100 mg PO DAILY [facility] Last Admin: 06/12/20 10:52 Dose: 100 mg Documented by: - Objective Vital Signs: Vital Signs Temperature 97.9 F 06/12/20 06:00 Pulse Rate 55 L 06/12/20 06:00 Respiratory Rate 18 06/12/20 06:00 Blood Pressure 113/67 06/12/20 06:00 O2 Sat by Pulse Oximetry (%) 94 L 06/12/20 09:00 Constitutional: Yes: No Distress, Calm Cardiovascular: Yes: S1, S2 Respiratory: Yes: Regular, CTA Bilaterally Gastrointestinal: Yes: Normal Bowel Sounds, Soft Musculoskeletal: Yes: WNL Extremities: Yes: WNL Psychiatric: Yes: Alert, Oriented Labs: CBC, BMP 06/09/20 10:28 06/09/20 10:28 INR, PTT INR 1.31 (0.83-1.09) H 05/28/20 08:30 Assessment/Plan 79 yo M with PMH of HTN, CAD (s/p stent; possibly still untreated), RLS, essential tremors, dementia, BPH, recent recurrent UTIs and indwelling mendez catheter placement presenting with non-draining mendez catheter, urinary retention, penile pain, and hematuria. Patient being admitted for evaluation and treatment of a catheter associated UTI, hematuria (with associated anemia), and SURESH. uti hematuria leukocytosis suresh transmitis plan continue current mgmt nutrition
[2020-06-12] MEDS: POLYETHYLENE GLYCOL 3350 119 GM BTL PO SCH (15:44)
[2020-06-12 18:14] VITALS: BP 130/74; PULSE 73; TEMP 98.4
== END 2020-06-12 18:51 | disposition home or self-care (01) | DRG 698 ==
LOC: JER 21:08 → JERBED 05-28 03:40 → J5S 05-28 20:03
PROVIDERS: ADMIT Hospitalist; ATTEND Internal Medicine
DX: T83.511A Infection and inflammatory reaction due to indwelling urethral catheter, initial encounter (principal); G93.41 Metabolic encephalopathy; G92 Toxic encephalopathy; N17.9 Acute kidney failure, unspecified; E87.0 Hyperosmolality and hypernatremia; F05 Delirium due to known physiological condition; N13.30 Unspecified hydronephrosis; F03.91 Unspecified dementia, unspecified severity, with behavioral disturbance; R44.0 Auditory hallucinations; F02.81 Dementia in other diseases classified elsewhere, unspecified severity, with behavioral disturbance; R31.9 Hematuria, unspecified; D50.9 Iron deficiency anemia, unspecified; R33.9 Retention of urine, unspecified; D41.00 Neoplasm of uncertain behavior of unspecified kidney; G31.09 Other frontotemporal neurocognitive disorder; F32.9 Major depressive disorder, single episode, unspecified; G31.01 Pick's disease; N13.9 Obstructive and reflux uropathy, unspecified; Y83.9 Surgical procedure, unspecified as the cause of abnormal reaction of the patient, or of later complication, without mention of misadventure at the time of the procedure; N40.1 Benign prostatic hyperplasia with lower urinary tract symptoms; I25.10 Atherosclerotic heart disease of native coronary artery without angina pectoris; D72.829 Elevated white blood cell count, unspecified; Z95.5 Presence of coronary angioplasty implant and graft; R74.01 Elevation of levels of liver transaminase levels; I10 Essential (primary) hypertension
CPT/HCPCS: 36415; 71045-TC-FY; 74177-TC; 76775-TC; 76856-TC; 80048; 80053; 80061; 81003; 82607; 82728; 83036; 83540; 83550; 83721; 83735; 84100; 84443; 85025; 85027; 85045; 85610; 85730; 86780; 86850; 86900; 86901; 87077; 87086; 87186; 93005; 93010; 97116-GP; 97162-GP; 99285-25; C9803; J1756; U0003

== ENCOUNTER 2020-06-14 00:22 | Inpatient (IN) | payer OTHER ==
[2020-06-14 01:49] LABS: HEMATOCRIT 34.2 % (35.4-49); LYMPH % 3.5 % (8-40); MCH 27.1 pg (25.7-33.7); MCHC 32.2 g/dl (32.0-35.9); MEAN CELL VOLUME 84.3 fl (80-96); MEAN PLT VOLUME 9.8 fl (7.5-11.1); MONO % 2.9 % (3.8-10.2); NEUT % 93.6 % (42.8-82.8); PLATELET COUNT 286 K/MM3 (134-434); RBC 4.05 M/mm3 (4.00-5.60); RDW 18.5 % (11.9-15.9); WHITE BLOOD COUNT 17.7 K/mm3 (4.0-10.0)
[2020-06-14 01:57] LABS: INR 1.13 (0.83-1.09); PROTHROMBIN TIME (PATIENT) 13.6 SEC (9.7-13.0)
[2020-06-14 01:59] LABS: ACTIVATED PTT 21.9 SECONDS (25.2-36.5)
[2020-06-14 02:04] LABS: CHLORIDE 101 mmol/L (98-107); POTASSIUM 5.5 mmol/L (3.5-5.1); SODIUM 134 mmol/L (136-145)
[2020-06-14 02:06] LABS: CALCIUM 9.2 mg/dL (8.5-10.1); GLUCOSE,RANDOM 212 mg/dL (74-106)
[2020-06-14 02:07] LABS: ANION GAP 11 MMOL/L (8-16); BLOOD UREA NITROGEN 46.4 mg/dL (7-18); CO2 22 mmol/L (21-32)
[2020-06-14 02:10] LABS: CREATININE 2.3 mg/dL (0.55-1.3); SGOT/AST 29 U/L (15-37); SGPT/ALT 36 U/L (13-61)
[2020-06-14 02:11] LABS: BILIRUBIN,TOTAL 0.6 mg/dL (0.2-1)
[2020-06-14 02:12] LABS: ALK PHOS 92 U/L (45-117)
[2020-06-14] MEDS ORDERED: SODIUM CHLORIDE 1,000 ML IV ONE (02:33)
[2020-06-14] MEDS ORDERED: MORPHINE SULFATE 2 MG/ML VIAL ONE ×2 (02:33→12:12)
[2020-06-14] MEDS ORDERED: morphine CARPU-JECT 4 MG/1 ML DISP.SYRIN IVPUSH ONE (02:34)
[2020-06-14] MEDS ORDERED: VANCOMYCIN 1,000 MG in DEXTROSE 5%-WATER - 250 ML IVPB ONE (02:45)
[2020-06-14] MEDS ORDERED: PIPERACILLIN/TAZOB 3.375 GM 3.375 GM in DEXTROSE 5%-WATER - 50 ML IVPB ONE (02:46)
[2020-06-14 02:55] LABS: EPI CELLS 17 /uL (0-25.1); HYALINE CASTS 7 /uL (0-3.1); URINE APPEARANCE TURBID; URINE BACTERIA >9,000 /uL (0-1359); URINE BILIRUBIN NEGATIVE (NEGATIVE); URINE COLOR YELLOW; URINE GLUCOSE (UA) NEGATIVE (NEGATIVE); URINE KETONE NEGATIVE (NEGATIVE); URINE LEUK ESTERASE 2+ (NEGATIVE); URINE NITRITE NEGATIVE (NEGATIVE); URINE PROTEIN 3+ (NEGATIVE); URINE RBC 1709 /uL (0-23.9); URINE UROBILINOGEN 0.2 mg/dL (0.2-1.0); URINE WBC 14137 /uL (0-25.8)
[2020-06-14 02:57] LABS: ANISOCYTOSIS 1+; MACROCYTOSIS 1+; PLATELET ESTIMATE NORMAL
[2020-06-14] MEDS ORDERED: VANCOMYCIN 1 GRAM (PRE-DOCKED) 1,000 MG/250 ML BAG IVPB ONE (03:11)
[2020-06-14] MEDS ORDERED: PIPERACILLIN/TAZOB 3.375 GM 3.375 GM/50 ML BAG IVPB ONE (03:12)
[2020-06-14] MEDS ORDERED: ACETAMINOPHEN 1000 MG/100 ML VIAL (NON FORMULARY) IVPB ONE (03:36)
[2020-06-14] MEDS ORDERED: ACETAMINOPHEN INJECTION 100 ML IVPB ONE (03:47)
[2020-06-14] MEDS ORDERED: HALOPERIDOL LACTATE 5 MG/ML IV ONE (04:14)
[2020-06-14] MEDS ORDERED: HALOPERIDOL LACTATE 5 MG/ML ONE (04:17)
[2020-06-14] MEDS ORDERED: SODIUM CHLORIDE 1,000 ML IV STA (05:13)
[2020-06-14] MEDS ORDERED: MEPERIDINE HCL 25 MG/ML VIAL IM ONE (05:37)
[2020-06-14] MEDS ORDERED: DEXTROSE 5%-NORMAL SALINE 1,000 ML IV SCH (08:15)
[2020-06-14] MEDS ORDERED: PIPERACILLIN/TAZOB 2.25 GM 2.25 GM in DEXTROSE 5%-WATER - 50 ML IVPB SCH ×2 (09:30→18:00)
[2020-06-14 09:41] LABS: HEMATOCRIT 38.2 % (35.4-49); HEMOGLOBIN 12.1 GM/dL (11.7-16.9); MCH 27.3 pg (25.7-33.7); MCHC 31.8 g/dl (32.0-35.9); MEAN PLT VOLUME 9.9 fl (7.5-11.1); PLATELET COUNT 308 K/MM3 (134-434); RBC 4.44 M/mm3 (4.00-5.60); RDW 18.8 % (11.9-15.9); WHITE BLOOD COUNT 4.8 K/mm3 (4.0-10.0)
[2020-06-14 10:08] LABS: POTASSIUM 5.5 mmol/L (3.5-5.1)
[2020-06-14 10:10] LABS: BLOOD UREA NITROGEN 61.4 mg/dL (7-18)
[2020-06-14 10:14] LABS: CREATININE 4.5 mg/dL (0.55-1.3)
[2020-06-14] MEDS ORDERED: PIPERACILLIN/TAZOB 2.25 GM 2.25 GM/50 ML BAG IVPB ONE (10:19)
[2020-06-14] MEDS ORDERED: MORPHINE SULFATE 2 MG/ML VIAL IVPUSH ONE (12:16)
[2020-06-14] MEDS ORDERED: MORPHINE SULFATE/0.9% NACL/PF 100 MG/100 ML BAG IVPB SCH (14:45)
[2020-06-14] MEDS: SODIUM BICARBONATE 8.4% - 75 MEQ in SODIUM CHLORIDE 0.45% 1,000 ML IV SCH (18:32)
[2020-06-14 23:58] VITALS: BMI 20.9
[2020-06-15] MEDS ORDERED: PIPERACILLIN/TAZOBACTAM 2.25 GM VIAL IVPB ONE ×3 (00:58→17:34)
[2020-06-15] MEDS ORDERED: DEXTROSE 5%-WATER - 50 ML IVPB ONE ×3 (00:59→17:34)
[2020-06-15] MEDS: PIPERACILLIN/TAZOB 2.25 GM 2.25 GM in DEXTROSE 5%-WATER - 50 ML IVPB SCH ×4 (01:44→17:43)
[2020-06-15] MEDS: SODIUM BICARBONATE 8.4% - 75 MEQ in SODIUM CHLORIDE 0.45% 1,000 ML IV SCH ×4 (03:16→21:17)
[2020-06-15 05:01] VITALS: PULSE 88
[2020-06-15] MEDS ORDERED: PIPERACILLIN/TAZOB 2.25 GM 2.25 GM in DEXTROSE 5%-WATER - 50 ML IVPB SCH (09:00)
[2020-06-15 10:05] LABS: BASO % 0.1 % (0-2.0); HEMATOCRIT 30.6 % (35.4-49); HEMOGLOBIN 9.6 GM/dL (11.7-16.9); LYMPH % 4.6 % (8-40); MCH 26.1 pg (25.7-33.7); MCHC 31.4 g/dl (32.0-35.9); MEAN CELL VOLUME 83.1 fl (80-96); MEAN PLT VOLUME 9.6 fl (7.5-11.1); MONO % 1.8 % (3.8-10.2); NEUT % 93.5 % (42.8-82.8); PLATELET COUNT 261 K/MM3 (134-434); RBC 3.68 M/mm3 (4.00-5.60); RDW 18.8 % (11.9-15.9); WHITE BLOOD COUNT 17.1 K/mm3 (4.0-10.0)
[2020-06-15 10:08] LABS: ALBUMIN 2.3 g/dl (3.4-5.0); CALCIUM 9.1 mg/dL (8.5-10.1)
[2020-06-15 10:09] LABS: MAGNESIUM 2.6 mg/dL (1.8-2.4)
[2020-06-15 10:12] LABS: CREATININE 6.9 mg/dL (0.55-1.3); PHOSPHOROUS 6.3 mg/dL (2.5-4.9)
[2020-06-15 10:13] LABS: TOT PROT 6.7 g/dl (6.4-8.2)
[2020-06-15 10:18] LABS: BILIRUBIN,TOTAL 0.5 mg/dL (0.2-1)
[2020-06-15 10:31] LABS: BLOOD UREA NITROGEN 97.3 mg/dL (7-18)
[2020-06-15] MEDS ORDERED: ALBUTEROL SO4 0.083% IH SOL 2.5 MG/3 ML VIAL.NEB. NEB PRN ×2 (11:42→11:58)
[2020-06-15] MEDS ORDERED: DEXTROSE 50%-WATER - 25 GM/50 ML VIAL IVPUSH ONE (11:43)
[2020-06-15] MEDS ORDERED: INSULIN REGULAR HUMAN 100 UNITS/ML *VIAL IVPUSH ONE (11:43)
[2020-06-15] MEDS ORDERED: SODIUM ZIRCONIUM CYCLOSILICATE (LOKELMA) 5 GM PACKET PO SCH (11:45)
[2020-06-15] MEDS ORDERED: LORazepam 2 MG/ML SDV VIAL IVPUSH ONE (12:17)
[2020-06-15] MEDS: MORPHINE SULFATE/0.9% NACL/PF 100 MG/100 ML BAG IVPB SCH ×2 (13:26→17:32)
[2020-06-15] MEDS ORDERED: PT OWN MED DRAWER 7, Y5N ONE (14:44)
[2020-06-15] MEDS: MINERAL OIL 30 ML UNIT-DOSE CUP PO SCH ×2 (14:54→21:20)
[2020-06-15] MEDS ORDERED: MEROPENEM 500 MG in DEXTROSE 5%-WATER 100 ML IVPB SCH (22:00)
[2020-06-15 23:11] VITALS: BP 114/65; TEMP 99
[2020-06-15] MEDS ORDERED: DEXTROSE 5%-WATER 100 ML IVPB ONE (23:20)
[2020-06-15] MEDS ORDERED: MEROPENEM 500 MG VIAL (RESTRICTED TO ID) IVPB ONE (23:20)
== END 2020-06-16 05:10 | disposition expired | DRG 698 ==
LOC: JER 00:22 → JERBED 06:08 → J8W 18:47
DX: T83.511A Infection and inflammatory reaction due to indwelling urethral catheter, initial encounter (principal); A41.59 Other Gram-negative sepsis; R65.21 Severe sepsis with septic shock; R47.01 Aphasia; N17.9 Acute kidney failure, unspecified; E87.2 Acidosis; N13.30 Unspecified hydronephrosis; K92.0 Hematemesis; N39.0 Urinary tract infection, site not specified; I25.10 Atherosclerotic heart disease of native coronary artery without angina pectoris; I10 Essential (primary) hypertension; G25.81 Restless legs syndrome; F03.90 Unspecified dementia, unspecified severity, without behavioral disturbance, psychotic disturbance, mood disturbance, and anxiety; N40.0 Benign prostatic hyperplasia without lower urinary tract symptoms; E87.5 Hyperkalemia; R33.9 Retention of urine, unspecified; N13.9 Obstructive and reflux uropathy, unspecified; D64.9 Anemia, unspecified; D41.4 Neoplasm of uncertain behavior of bladder; E86.0 Dehydration; I46.9 Cardiac arrest, cause unspecified; I25.2 Old myocardial infarction
CPT/HCPCS: 36415; 71045-TC-FY; 74176-TC; 80048; 80053; 81003; 82272; 82550; 82553; 83605; 83690; 83735; 84100; 84484; 85025; 85027; 85610; 85730; 86850; 86900; 86901; 87040; 87186; 99285-25; C9803; G0480; J0131; U0003